=== PATIENT | female | born 1970 | race Caucasian/White ===

== ENCOUNTER 2021-01-21 13:15 | Emergency (ER) | payer OTHER, SELFPAY ==
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
[2021-01-21] MEDS ORDERED: IBUPROFEN 200 MG TAB PO ONE (16:18)
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
[2021-01-22 10:16] VITALS: BP 172/102; TEMP 98.1; O2SAT 100
== END 2021-01-21 17:09 | disposition home or self-care (01) ==
LOC: ER 13:15
DX: S16.1XXA Strain of muscle, fascia and tendon at neck level, initial encounter (principal); V59.40XA Driver of pick-up truck or van injured in collision with unspecified motor vehicles in traffic accident, initial encounter; F17.210 Nicotine dependence, cigarettes, uncomplicated; Z85.41 Personal history of malignant neoplasm of cervix uteri; Z85.44 Personal history of malignant neoplasm of other female genital organs
CPT/HCPCS: 70450; 72125; 99284

== ENCOUNTER 2021-02-08 11:55 | Emergency (ER) | payer OTHER, SELFPAY ==
[2021-02-08] MEDS ORDERED: HYDROCODONE/APAP 5/325 MG TAB ONE (13:26)
[2021-02-08] MEDS ORDERED: CYCLOBENZAPRINE 10 MG TAB ONE (13:26)
--- NOTE | 2021-02-08 14:55 | RAD REPORT ---
EXAM DESCRIPTION: RAD - Lumbar Spine 3 Views - 02/08/2021 2:03 pm CLINICAL HISTORY: PAIN COMPARISON: <Comparisons> FINDINGS: A three-view lumbar spine examination was performed. Lumbar bodies are normal in height. Minimal scoliotic curvature present. No compression fractures see n. No lytic, sclerotic or expansile bony destructive process. L2-3, L3-4 and L4-5 levels show disc sp ned narrowing. Degenerative gas is present in L2-3 disc. No pars defects identified. Mild to moderate facet joint degenerative change present. Nonaneurysmal aortoiliac calcifications are present. IMPRESSION: Multilevel vertebral body endplate, disc and facet degenerative changes are present. No fracture or acute lumbar finding.
--- NOTE | 2021-02-08 14:56 | RAD REPORT ---
EXAM DESCRIPTION: RAD - Spine Thoracic W/Swimmers - 02/08/2021 2:13 pm CLINICAL HISTORY: PAIN COMPARISON: No comparisonsNo comparisons FINDINGS: AP & lateral views of the thoracic spine were obtained. Thoracic bodies are normal in height and alignment. There are no acute or destructive bony processes seen. No significant disc space narrowing seen. Mild endplate spurring changes are present in the mid thoracic spine. No paraspinal masses are identified. IMPRESSION: Mild thoracic spine degenerative change. No acute finding.
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
[2021-02-08 15:30] VITALS: TEMP 97.5
[2021-02-08 15:33] VITALS: BP 137/79; O2SAT 98
== END 2021-02-08 15:18 | disposition home or self-care (01) ==
LOC: ER 11:55
DX: M54.9 Dorsalgia, unspecified (principal); F17.210 Nicotine dependence, cigarettes, uncomplicated; V49.49XD Driver injured in collision with other motor vehicles in traffic accident, subsequent encounter
CPT/HCPCS: 72072; 72100; 99283

== ENCOUNTER 2021-04-21 02:30 | Inpatient (IN) | payer OTHER, SELFPAY ==
--- OUTSIDE RECORDS SUMMARY | 2021-04-21 02:34 | XMS REPORT | Continuity of Care Document ---
:1970 Author Organization [facility] t Address [address] [place] [address] Care Team Providers Name Role Phone SYSTEM, NOT IN Attending Clinician Unavailable Abdi HOBBS MSN Attending Clinician Unavailable Rosamaria CHATMAN Attending Clinician Unavailable Rosamaria Chatman MD Attending Clinician Shaina VALDOVINOS Attending Clinician Problems Condition Condition Condition Status Onset Resolution Last Treating Co mments Source Name Details Category Date Date Treatment Clinician Date Fever Fever Disease Active greater greater 05-18 Anderso than 100.4 than 100.4 00:00: n Fahrenheit Fahrenheit 00 Vulval Vulval Disease Active 2018-0 pain pain 05-18 Anderso 00:00: n 00 Hypokalemi Hypokalemi Disease Active 2019-0 M D a a 05-18 Anderso 00:00: n 00 Hypophosph Hypophosph Disease Active 2019-0 M D atemia atemia 05-18 Anderso 00:00: n 00 Allergies, Adverse Reactions, Alerts This patient has no known allergies or adverse reactions. Social History Social Habit Start Date Stop Date Quantity Comments Source History [facility] MD Nunez Alcohol Std Drinks History [facility] MD Nunez Alcohol Binge Exposure to Not sure MD Nunez SARS-CoV-2 (event) History of tobacco Cigarette Smoker MD Nunez use Alcohol intake 2019-05-18 2019-05-18 Lifetime MD Mark chao 00:00:00 00:00:00 non-drinker (finding) History [facility] 2019-05-18 2019-05-18 1 MD Nunez Alcohol Frequency 00:00:00 00:00:00 Cigarettes smoked 2019-05-18 2019-05-18 MD Yoni stephenson current (pack per 00:00:00 00:00:00 day) - Reported Tobacco use and 2019-05-18 2019-05-18 Never used MD Hernandez on exposure 00:00:00 00:00:00 Sex [birth year] At [birth year] MD Hernandez on 00:00:00 00:00:00 Smoking Status Start Date Stop Date Source Current every day smoker 2019-05-18 00:00:00 MD Nunez Medications Ordered Filled Start Stop Current Ordering Indication Dosage Frequency Signature Comments Components Source Medication Medication Date Date Medication? Clinician (SIG) Name Name naproxen Yes 2{capsu Take 2 MD sodium 5-14 le} capsules Anderso (ALEVE) 220 21:31: by mouth n mg cap 26 every 6 (six) hours as needed (PAIN). Vital Signs Vital Name Observation Time Observation Value Comments Source WEIGHT 2021-04-03 14:19:00 41.8 kg WEIGHT 2021-04-03 14:19:00 41.8 kg Systolic blood pressure 2021-04-03 21:42:30 136 mm[Hg] MD Nunez Diastolic blood pressure 2021-04-03 21:42:30 86 mm[Hg] MD Nunez Heart rate 2021-04-03 21:42:30 71 /min MD Benji tobin Body temperature 2021-04-03 21:42:30 36.72 Marija MD Verona baltazar Respiratory rate 2021-04-03 21:42:30 16 /min MD Verona baltazar Oxygen saturation in 2021-04-03 21:42:30 95 /min MD Nunez Arterial blood by Pulse oximetry Body weight 2021-04-03 19:19:00 41.8 kg MD Benji tobin BMI 2021-04-03 19:19:00 16.85 kg/m2 MD Benji tobin Procedures Procedure Date / Time Performed Performing Clinician [facility] miranda CT ABDOMEN PELVIS W CONTRAST 2021-04-03 22:09:23 Vaishali Diehl MD COMPLETE BLOOD COUNT W/ 2021-04-03 20:37:00 Vaishali Diehl MD DIFFERENTIAL COMPREHENSIVE METABOLIC PANEL 2021-04-03 20:37:00 Vaishali Diehl MD MAGNESIUM LEVEL 2021-04-03 20:37:00 Vaishali Diehl MD PHOSPHORUS LEVEL 2021-04-03 20:37:00 Vaishali Diehl MD Results CBC 2021-04-03 20:37:00 Vaishali Diehl MD MANUAL DIFFERENTIAL 2021-04-03 20:37:00 Vaishali Diehl MD [facility] GLUCOSE LEVEL 2021-04-03 20:37:00 Vaishali Diehl MD BLOOD UREA NITROGEN 2021-04-03 20:37:00 Vaishali Diehl MD [facility] ELECTROLYTE PANEL 2021-04-03 20:37:00 Vaishali Diehl MD n SERUM CREATININE 2021-04-03 20:37:00 Vaishali Diehl MD .GLOMERULAR FILTRATION RATE 2021-04-03 20:37:00 Vaishali Diehl MD CALCIUM LEVEL TOTAL 2021-04-03 20:37:00 Vaishali Diehl MD [facility] ALBUMIN LEVEL 2021-04-03 20:37:00 Vaishali Diehl MD ALKALINE PHOSPHATASE 2021-04-03 20:37:00 Vaishali Diehl MD [facility] ALANINE AMINOTRANSFERASE 2021-04-03 20:37:00 Vaishali Diehl MD ASPARTATE AMINOTRANSFERASE 2021-04-03 20:37:00 Vaishali Diehl TOTAL PROTEIN 2021-04-03 20:37:00 Vaishali Diehl MD FRACTIONATED BILIRUBIN 2021-04-03 20:37:00 Vaishali Dihel MD Encounters Start End Encounter Admission Attending Care Care Encounter Source Date/Time Date/Time Type Type Clinicians Facility Department ID 2021-04-14 Outpatient SYSTEM, ARIADNA ROSENTHAL [id number] 13:40:41 MEGAN chao 2021-04-03 2021-04-03 Emergency UR COMPA, [facility] Emergency [id number] 16:10:00 18:03:00 LUIS E chao Results Test Description Test Time Test Comments Results Result [facility] e Comments CT Abdomen Pelvis 2021-04-03 Soft tissue MD Lissette kuhn with Contrast 22:40:13 thickening in the vulva, representing treated tumor site and/or edema, to be correlated with physical exam for cellulitis or other infectious process. Nonspecific pockets of air in the perineum, vulva, and vaginal introitus, unchanged since 05/18/2019. No fluid collections. Interface, Radiology Results In - 04/03/2021 5:42 PM CDT FULL RESULT:Examination: CT ABDOMEN PELVIS W CONTRAST, 04/03/2021 5:09 PMClinical History: Cervical cancerIndication: pelvic painComparison: 05/18/2019 CT abdomen and pelvisTechnique: CT of the abdomen and pelvis was performed with intravenous contrast. Findings:Bibasilar scattered linear atelectasis. No pleural effusion.No suspicious liver lesion or intrahepatic biliary ductal dilation. Gallbladder is present.Spleen, pancreas, adrenal glands, kidneys are within normal limits.No evidence of bowel obstruction. Fluid-filled loops of small bowel are seen. No ascites.No enlarged nodes are in the abdomen and pelvis.Uterus is absent. There is no adnexal mass.Soft tissue thickening in the vulva representing site of radiated/treated tumor is noted, with subcutaneous edema. No fluid collections. Pockets of air are within the perineum, vulva, and vaginal introitus which were present 05/18/2019.Bladder is moderately distended without wall thickening.Moderate atheromatous vascular calcifications are seen.Osseous: No destructive osseous lesion. Mild degenerative changes.IMPRESSION: Soft tissue thickening in the vulva, representing treated tumor site and/or edema, to be correlated with physical exam for cellulitis or other infectious process. Nonspecific pockets of air in the perineum, vulva, and vaginal introitus, unchanged since 05/18/2019. No fluid collections. Fractionated Bilirubin 2021-04-03 21:29:48 Test Item Value Reference Range Interpretation Comme nts Bili Total (test code = <0.3 See_Comment Dire ct and indirect bilirubin will not 5096) be reported whe n Total bilirubin result is <0.3 mg/dLIndocyanine Green (ICG) may cause falsely elevated bilirubin resul ts. Total and direct bilirubin must not be measured from samples contain ing indocyanine green. False elevation of total bilirubin can be seen in kilo ents with IgG concentrations above 28 g/L. [Automated mess age] The system which generated this result transmitted reference range : <=1.2 mg/dL. The reference range was not used to interpret this result as normal/abnormal . MD NunezGlomerular Filtration [id number] 21:29:47 Test Item Value Reference Range Interpretation Comments eGFR-AA (test code 119 See_Comment Normal eG FR: >= 60 = 8062) mL/min/1.73 m2N ote: The eGFR is calculated u sing the CKD-EPI equatio n. The eGFR declines with a ge. eGFR <60 mL/min/1.73 m2 is considered as "decreased". This equation should only be used for patients 18 and older. According to th e National Kidney [employer] on's Kidney Disease Outcome Quality Initiative (KDO QI) classification and 2012 Kidney Disease Improving Global Outcomes (KDIGO) Clinical Practi ce Guideline, the stage of CK D should be categorized bas ed on estimated GFR. Stage Description GFR mL/min/1.73 m21 Normal or high GFR >=902 Mildly decrease d GFR 60-893a M ildly to moderately decr eased GFR 45-593b Moderat jose david to severely decrea sed GFR 30-444 Severely decreased GFR 15-295 Kid michelle failure <15 [[employer] message] The system [employer] generated this result tra nsmitted reference range : >=60 mL/min/1.73 sq. m. The reference range was not used to interpret th is result as normal/abnormal . eGFR-PAULETTE (test code 103 See_Comment Normal e GFR: >= 60 = 8063) mL/min/1.73 m2N ote: The eGFR is calculated u sing the CKD-EPI equatio n. The eGFR declines with a ge. eGFR <60 mL/min/1.73 m2 is considered as "decreased". This equation should only be used for patients 18 and older. According to th e National Kidney Foundati on's Kidney Disease Outcome Quality Initiative (KDO QI) classification and 2012 Kidney Disease Improving Global Outcomes (KDIGO) Clinical Practi ce Guideline, the stage of CK D should be categorized bas ed on estimated GFR. Stage Description GFR mL/min/1.73 m21 Normal or high GFR >=902 Mildly decrease d GFR 60-893a M ildly to moderately decr eased GFR 45-593b Moderat jose david to severely decrea sed GFR 30-444 Severely decreased GFR 15-295 Kid michelle failure <15 [Automa yola message] The system [employer] generated this result tra nsmitted reference range : >=60 mL/min/1.73 sq. m. The reference range was not used to interpret th is result as normal/abnormal . MD NunezTotal [id number] 21:29:46 Test Item Value Reference Range Interpretation Comments Total Protein (test code = 7649) 7.2 g/dL 6.4-8.3 MD NunezMagnesium [id number] 21:29:45 Test Item Value Reference Range Interpretation Comments Magnesium (test code = 6359) 2.0 mg/dL 1.6-2.6 MD NunezAlkaline [id number] 21:29:44 Test Item Value Reference Range Interpretation Comments Alk Phos (test code = 4768) 73 U/L 35-104 MD NunezKnpgbgynXNK8912-31-03 21:29:43 Test Item Value Reference Range Interpretation Comments ALT (test code = 11 U/L See_Comment [Automated message] The 8327) system which ge nerated this result transmit yola reference range : <=33. The reference range was not used to interpr et this result as pete l/abnormal. MD NunezPhosphorus [id number] 21:29:42 Test Item Value Reference Range Interpretation Comments Phosphorus (test code = 6817) 3.6 mg/dL 2.5-4.5 MD Nunez.Serum Rbdkvacaxl6022-28-26 21:29:41 Test Item Value Reference Range Interpretation Comments Creatinine (test code = 5399) 0.63 mg/dL 0.51-0.95 MD NunezCalcium [id number] 21:29:40 Test Item Value Reference Range Interpretation Comments Calcium Lvl (test code = 5258) 9.2 mg/dL 8.4-10.2 MD NunezPweuigjyELH6189-36-08 21:29:39 Test Item Value Reference Range Interpretation Comments BUN (test code = 5055) 12 mg/dL 6-23 MD NunezAlbumin [id number] 21:29:38 Test Item Value Reference Range Interpretation Comments Albumin Lvl (test code 4.2 See_Comment [Aut omated message] The = 8204) system which ge nerated this result tra nsmitted reference range : 3.5 - 5.2 gm/dL. The refe rence range was not used to interpret this result as normal/abnormal . MD NunezAspartate Cflibqydxvxmizym6041-90-10 21:29:37 Test Item Value Reference Range Interpretation Comments AST (test code = 17 U/L See_Comment [Automated message] The 4731) system which ge nerated this result transmit yola reference range : <=32. The reference range was not used to interpr et this result as pete l/abnormal. MD uNnezElectrolyte [id number] 21:29:36 Test Item Value Reference Range Interpretation Comments Sodium Lvl (test code = 142 See_Comment [Au tomated message] 0896) The system [employer] generated this result transmitted ref erence range: 136 - 14 5 mEq/L. The refe rence range was not u sed to interpret this result as normal/abnor mal. Potassium Lvl (test code 4.2 See_Comment [A utomated message] = 2212) The system [employer] generated this result transmitted ref erence range: 3.5 - 5. 1 mEq/L. The refe rence range was not u sed to interpret this result as normal/abnor mal. Chloride (test code = 103 See_Comment [Auto mated message] 0673) The system [employer] generated this result transmitted ref erence range: 98 - 107 mEq/L. The refe rence range was not u sed to interpret this result as normal/abnor mal. CO2 (test code = 5227) 31 See_Comment H [Aut omated message] The system [employer] generated this result transmitted ref erence range: 22 - 29 mEq/L. The reference r felipa was not used to interpret this result as normal/abnor mal. Anion Gap (test code = 8 See_Comment [Aut omated message] 7891) The system [employer] generated this result transmitted ref erence range: 4 - 14 m Eq/L. The reference r felipa was not used to interpret this result as normal/abnor mal. Lab Interpretation (test Abnormal code = 99048-7) MD NunezGlucose [id number] 21:29:35 Test Item Value Reference Range Interpretation Comments Glucose Level (test 76 mg/dL 70-99 Effectiv e 06/16/16, the code = 5699) glucose referen ce intervals have been updated based o n [place] [employer] dionicio delines (Standards of edical Care in Diabete s 2016. Diabetes Care 2 016; 39: S13-S22).Fastin g blood glucose:Normal: 70 99 mg/dLImpaire d fasting glucose (increa sed risk for diabetes or pre-diabetes): 100 125 mg/dLDiabet es mellitus: >/=1 26 mg/dL Random blood glucose:Normal: 70 199 mg/dLNote: Random glucose >100 mg /dL is associated with increased risk for diabetes MD NunezJzkbhktqIjwtqtlztyoi6872-87-60 21:05:08 Test Item Value Reference Range Interpretation Comments Neutrophil % (test code = 53.3 % 42.0-66.0 98005-3) Lymphocyte % (test code = 35.0 % 24.0-44.0 737-7) Monocyte % (test code = 10.2 % 2.0-7.0 H 744-3) Eosinophil % (test code = 0.7 % 1.0-4.0 L 713-8) Basophil % (test code = 0.3 % 0.0-1.0 707-0) IGRE % (test code = 0.5 % 0.0-0.4 H IGRE % c ount 66195-8) includes Metamyelocytes, Myelocytes, and Promyelocytes. Neutrophil Abs (test code 4.72 K/uL 1.70-7.30 = 753-4) Lymphocyte Abs (test code 3.10 K/uL 1.00-4.80 = 732-8) Monocyte Abs (test code = 0.90 K/uL 0.08-0.70 H 743-5) Eosinophil Abs (test code 0.06 K/uL 0.04-0.40 = 712-0) Basophil Abs (test code = 0.03 K/uL 0.00-0.10 705-4) IG Abs (test code = 0.04 K/uL 0.00-0.04 60558-6) Lab Interpretation (test Abnormal code = 17398-9) MD Nunez.[id number] 21:05:06 Test Item Value Reference Range Interpretation Comments WBC (test code = 8.9 K/uL 4.0-11.0 6690-2) RBC (test code = 789-8) 4.06 See_Comment [Au tomated message] The system [employer] generated this result transmitted ref erence range: 4.00 - 5 .50 M/uL. The refer ence range was not u sed to interpret this result as normal/abnor mal. Hgb (test code = 718-7) 13.4 See_Comment [Au tomated message] The system [employer] generated this result transmitted ref erence range: 12.0 - 1 6.0 gm/dL. The refe rence range was not u sed to interpret this result as normal/abnor mal. Hct (test code = 39.9 % 37.0-47.0 4544-3) MPV (test code = 787-2) 8.9 fL 4.0-10.4 MCH (test code = 785-6) 33.0 pg 27.0-31.0 H MCHC (test code = 33.6 See_Comment [Automate d message] 786-4) The system [employer] generated this result transmitted ref erence range: 31.0 - 3 6.0 gm/dL. The refe rence range was not u sed to interpret this result as normal/abnor mal. RDW-SD (test code = 50.0 fL 35.1-46.3 H 68864-8) RDW-CV (test code = 13.7 % 12.0-15.5 788-0) Platelet count (test 281 K/uL 140-440 code = 777-3) INRBC (test code = 0.0 % See_Comment The INRBC (instrument 5974) NRBC) value ref lects the enumeration of nucleated red b lood cells contained in a 200uL sampleof whole blood analyzed by the instrument. Thi s value maydiffer from the NRBC value repo rted in a manual differential,wh ich is based on a 100 cell differential. [Automated mess age] The system [employer] generated this result transmitted ref erence range: <=0.0. T he reference range was not used to int erpret this result as normal/abnormal . Lab Interpretation Abnormal (test code = 45804-9) MD Nunez
[2021-04-21 03:10] LABS: Absolute Lymphocytes (CBC) 5.3 K/uL (0.7-4.9); Basophils % 0.4 % (0-1.3); Hematocrit 47.5 % (36.0-45.0); Lymphocytes % 38.5 % (15.3-44.8); MPV 7.6 fL (7.6-11.3)
[2021-04-21 03:13] LABS: Protime INR 1.05
[2021-04-21] MEDS ORDERED: LORazepam 2 MG/ML VIAL ONE (03:16)
[2021-04-21 03:20] LABS: ALT/SGPT 24 U/L (12-78); AST/SGOT 25 U/L (15-37); Albumin 4.7 g/dL (3.4-5.0); Alkaline Phosphatase 94 U/L (45-117); BUN Blood Urea Nitrogen 13 mg/dL (7-18); Bicarbonate 28 mmol/L (21-32); Bilirubin Direct < 0.1 mg/dL (0-0.2); Bilirubin Total 0.6 mg/dL (0.2-1.0); CKMB Creatine Kinase MB 3.3 ng/mL (0.3-3.6); Creatine Phosphokinase 142 U/L (26-192); Glucose Level 139 mg/dL (74-106); Lipase 519 U/L (73-393); Magnesium 2.1 mg/dL (1.8-2.4); NT PRO-BNP 85 pg/mL (<125); Potassium 3.5 mmol/L (3.5-5.1); Protein, Total 9.4 g/dL (6.4-8.2); Sodium Level 140 mmol/L (136-145); Troponin (Emerg Dept Use Only) < 0.02 ng/mL (0.0-0.045)
--- NOTE | 2021-04-21 04:37 | ER ---
Nurse's Notes [facility] Name: Abbey Alves Age: 50 yrs Sex: Female : 1970 Arrival Date: 04/21/2021 Time: 02:31 Bed 6 Private MD: Diagnosis: Chronic obstructive pulmonary disease with (acute) exacerbation;Hypoxemia;Acute and chronic respiratory failure Presentation: 04/21 02:31 Chief complaint: EMS states: they were toned out for SOB on arrival pt sats 89%. bb Coronavirus screen: shortness of breath, Client presents with at least one sign or symptom that may indicate coronavirus-19. Standard/surgical mask placed on the client. Ebola Screen: No symptoms or risks identified at this time. Initial Sepsis Screen: Does the patient meet any 2 criteria? RR > 20 per min. HR > 90 bpm. Yes Does the patient have a suspected source of infection? Yes: Productive cough/pneumonia If YES to both, name of provider notified: Bradford Lino MD. Risk Assessment: Do you want to hurt yourself or someone else? Patient reports no desire to harm self or others. Onset of symptoms is unknown. 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 - Social history:: Smoking status: Patient reports the use of cigarette tobacco products, smokes one-half pack cigarettes per day. Screenin:45 Abuse screen: Denies threats or abuse. Nutritional screening: No deficits noted. jb4 Tuberculosis screening: No symptoms or risk factors identified. Fall Risk None identified. Assessment: 02:45 General: Appears distressed, uncomfortable, ill, Behavior is anxious, crying. Pain: jb4 Denies pain. Neuro: Level of Consciousness is awake, alert, obeys commands, Oriented to person, place, time, situation. Cardiovascular: Patient's skin is warm and dry. Respiratory: Airway is patent Respiratory effort is labored, pursed lip, weak, using tripod position, Respiratory pattern is symmetrical, hyperventilation Breath sounds are diminished bilaterally. Breath sounds with wheezes bilaterally. GI: No signs and/or symptoms were reported involving the gastrointestinal system. : No signs and/or symptoms were reported regarding the genitourinary system. EENT: No signs and/or symptoms were reported regarding the EENT system. Derm: Skin is intact, Skin is diaphoretic, Skin is pale, Skin temperature is warm. Musculoskeletal: Circulation, motion, and sensation intact. Range of motion: intact in all extremities. 03:21 Reassessment: Pt unable to tolerate EKG. Attempted twice. Provider notified. jb4 03:37 Reassessment: Pt has calmed down an is now on Bi-Pap 30% O2 rate of 6 Ipap 4 Epap 4. Pt jb4 states " I feel like my breathing is returning to normal.". 04:16 Reassessment: Pt is awake and alert. Is resting calmly in bed. Respirations are jb4 relaxed, even, unlabored, and symmetrical with no s/s of distress noted. Pt is now able to tolerate sitting in bed, is no longer in the tripod position. Vital Signs: 02:31 BP 158 / 127; Pulse 92; Resp 28 S; Temp 97.5(O); Pulse Ox 99% on R/A; Weight 40.82 kg bb (R); Height 5 ft. 0 in. (152.40 cm) (R); Pain 0/10; 04:15 BP 149 / 104; Pulse 96; Resp 23; Pulse Ox 98% on BiPAP; jb4 05:00 BP 142 / 97; Pulse 75; Resp 20; Pulse Ox 95% on BiPAP; kg 06:00 BP 132 / 95; Pulse 88; Resp 20; Pulse Ox 97% on BiPAP; kg 07:00 BP 139 / 96; Pulse 88; Resp 20; Pulse Ox 97% on BiPAP; kg 08:00 BP 160 / 94; Pulse 89; Resp 20; Pulse Ox 98% on 2 lpm NC; kg 09:00 BP 151 / 99; Pulse 92; Resp 20; Pulse Ox 97% on 2 lpm NC; kg 10:00 BP 150 / 93; Pulse 92; Resp 20; Pulse Ox 92% on R/A; kg 02:31 Body Mass Index 17.58 (40.82 kg, 152.40 cm) bb ED Course: 02:30 Arm band placed on Patient placed in an exam room, on a stretcher, on selvage 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 02:31 Patient arrived in ED. mw2 02:34 Bradford Lino MD is Attending Physician. tw4 02:45 Triage completed. bb 02:45 Patient has correct armband on for positive identification. Bed in low position. Call jb4 light in reach. Side rails up X 1. administrative receptionist on. Pulse ox on. NIBP on. 02:45 Inserted saline lock: 20 gauge in right antecubital area, using aseptic technique. jb4 Blood collected. 02:45 Initial lab(s) drawn, by ia, sent to lab. First set of blood cultures drawn. jb4 02:59 Johnny Goodson, RN is Primary Nurse. jb4 03:00 Second set of blood cultures drawn by ia. jb4 04:09 CXR XRAY In Process Unspecified. EDCO 04:35 Frantz Figueredo is Hospitalizing Provider. tw4 04:50 No provider procedures requiring assistance completed. Patient admitted, IV remains in jb4 place. 07:29 Primary Nurse role handed off by Johnny Goodson RN kg 07:29 Keila Og is Primary Nurse. kg Administered Medications: 03:00 Drug: Ativan (LORazepam) 0.5 mg Route: IVP; Site: right antecubital; jb4 07:00 Follow up: Response: No adverse reaction; Marked relief of symptoms kg Outcome: 04:36 Decision to Hospitalize by Provider. tw4 04:50 Admitted to ER Hold. Please see [facility] for further documentation. jb4 04:50 Condition: stable 04:50 Discharge instructions given to patient, Instructed on the need for admit, Demonstrated understanding of instructions. 12:41 Patient left the ED. kg Signatures: Dispatcher [employer] Nicolasa Lin RN RN bb Johnny Goodson, ANJEL HOBBS jb rBadford Lino MD MD 4 Chiquis Garcia 2 Keila Og kg
--- NOTE | 2021-04-21 04:37 | EDPHYS ---
Physician Documentation [facility] Name: Abbey Alves Age: 50 yrs Sex: Female : 1970 Arrival Date: 04/21/2021 Time: 02:31 Bed 6 Private MD: ED Physician Bradford Lino HPI: 04/21 04:55 This 50 yrs old Female presents to ER via EMS with complaints of Shortness Of tw4 Breath. 04:55 The patient has shortness of breath at rest. Onset: The symptoms/episode began/occurred tw4 today. Duration: The symptoms are continuous, and are unchanged since they started. The patient's shortness of breath has no apparent modifying factors. The patient has not experienced similar symptoms in the past. 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 - Social history:: Smoking status: Patient reports the use of cigarette tobacco products, smokes one-half pack cigarettes per day. ROS: 04:55 Constitutional: Negative for fever, chills, and weight loss, Eyes: Negative for injury, tw4 pain, redness, and discharge, Cardiovascular: Negative for chest pain, palpitations, and edema, Abdomen/GI: Negative for abdominal pain, nausea, vomiting, diarrhea, and constipation, Back: Negative for injury and pain, MS/Extremity: Negative for injury and deformity, Skin: Negative for injury, rash, and discoloration, Neuro: Negative for headache, weakness, numbness, tingling, and seizure. 04:55 Respiratory: Positive for shortness of breath. Exam: 04:56 Constitutional: This is a well developed, well nourished patient who is awake, alert, tw4 and in no acute distress. Head/Face: Normocephalic, atraumatic. Chest/axilla: Normal chest wall appearance and motion. Nontender with no deformity. No lesions are appreciated. Cardiovascular: Regular rate and rhythm with a normal S1 and S2. No gallops, murmurs, or rubs. Normal PMI, no JVD. No pulse deficits. 04:56 Respiratory: severe repiratory distress is noted, Respirations: labored breathing, that is moderate, accessory muscle usage, that is moderate, Breath sounds: decreased breath sounds. Vital Signs: 02:31 BP 158 / 127; Pulse 92; Resp 28 S; Temp 97.5(O); Pulse Ox 99% on R/A; Weight 40.82 kg bb (R); Height 5 ft. 0 in. (152.40 cm) (R); Pain 0/10; 04:15 BP 149 / 104; Pulse 96; Resp 23; Pulse Ox 98% on BiPAP; jb4 05:00 BP 142 / 97; Pulse 75; Resp 20; Pulse Ox 95% on BiPAP; kg 06:00 BP 132 / 95; Pulse 88; Resp 20; Pulse Ox 97% on BiPAP; kg 07:00 BP 139 / 96; Pulse 88; Resp 20; Pulse Ox 97% on BiPAP; kg 08:00 BP 160 / 94; Pulse 89; Resp 20; Pulse Ox 98% on 2 lpm NC; kg 09:00 BP 151 / 99; Pulse 92; Resp 20; Pulse Ox 97% on 2 lpm NC; kg 10:00 BP 150 / 93; Pulse 92; Resp 20; Pulse Ox 92% on R/A; kg 02:31 Body Mass Index 17.58 (40.82 kg, 152.40 cm) bb MDM: 02:34 Patient medically screened. tw4 04:56 Differential diagnosis: Anxiety Reaction asthma, CHF exacerbation, Chronic Obstructive tw4 Pulmonary Disease Pneumothorax reactive airway disease, Sepsis Unstable Angina. Antibiotic administration: Not indicated. Data reviewed: vital signs, nurses notes. Data interpreted: Pulse oximetry: Interpretation: hypoxia. Plan: O2 by Mask applied. Counseling: I had a detailed discussion with the patient and/or guardian regarding: the historical points, exam findings, and any diagnostic results supporting the discharge/admit diagnosis, lab results, radiology results. Physician consultation: Frantz Figueredo regarding admission, to the telemetry unit. patient's condition, and will see patient in inpatient room. 04/21 02:47 Order name: Blood Culture Adult (2) 04/21 02:47 Order name: BMP 04/21 02:47 Order name: CBC with Diff 04/21 02:47 Order name: Ckmb 04/21 02:47 Order name: CPK 04/21 02:47 Order name: D-Dimer 04/21 02:47 Order name: Hepatic Function 04/21 02:47 Order name: Lipase 04/21 02:47 Order name: Magnesium 04/21 02:47 Order name: NT PRO-BNP 04/21 02:47 Order name: PT-INR 04/21 02:47 Order name: Ptt, Activated 04/21 02:47 Order name: Troponin (emerg Dept Use Only) 04/21 02:47 Order name: Lactate 04/21 02:47 Order name: EKG; Complete Time: 02:48 04/21 02:47 Order name: Cardiac monitoring; Complete Time: 02:52 04/21 02:47 Order name: IV Saline Lock; Complete Time: 02:52 04/21 03:50 Order name: CXR XRAY 4 04/21 04:17 Order name: CORONAVIRUS [facility] 04/21 04:40 Order name: CONS Physician Consult; Complete Time: 09:14 [facility] 04/21 05:34 Order name: SARS-COV-2 RT PCR [facility] 04/21 05:47 Order name: Lactate Sepsis 2 HR Follow-up [facility] 04/21 09:04 Order name: Procalcitonin [facility] 04/21 09:54 Order name: ABG Arterial Blood Gas [facility] 04/21 10:38 Order name: Sputum Culture [facility] 04/21 12:32 Order name: Urine Dipstick-Ancillary [facility] 04/21 02:47 Order name: Labs collected and sent; Complete Time: 02:52 04/21 02:47 Order name: O2 Per Protocol; Complete Time: 02:52 04/21 02:47 Order name: O2 Sat Monitoring; Complete Time: 02:52 Administered Medications: 03:00 Drug: Ativan (LORazepam) 0.5 mg Route: IVP; Site: right antecubital; jb4 07:00 Follow up: Response: No adverse reaction; Marked relief of symptoms kg Disposition: 04/21/21 04:36 Hospitalization ordered by Frantz Figueredo for Inpatient Admission. Preliminary diagnosis are Chronic obstructive pulmonary disease with (acute) exacerbation, Hypoxemia, Acute and chronic respiratory failure. - Bed requested for [facility] ER HOLD. - Status is Inpatient Admission. kg - Condition is Stable. - Problem is new. - Symptoms have improved. Signatures: Dispatcher [employer] EDMS Nicolasa Hillman RN RN Citlaly Oneil RN RN Johnny Goodson RN RN jb4 Bradford Lino MD MD tw4 Keila Og Corrections: (The following items were deleted from the chart) 03:36 02:47 EKG - Nurse/Tech ordered. jb4 05:11 04:36 Hospitalization Ordered by Frantz Figueredo for Inpatient Admission. Preliminary cg diagnosis is Chronic obstructive pulmonary disease with (acute) exacerbation; Hypoxemia; Acute and chronic respiratory failure. Bed requested for Telemetry/MedSurg (Inpatient). Status is Inpatient Admission. Condition is Stable. Problem is new. Symptoms have improved. tw4 12:41 05:11 04/21/2021 04:36 Hospitalization Ordered by Frantz Figueredo for Inpatient kg Admission. Preliminary diagnosis is Chronic obstructive pulmonary disease with (acute) exacerbation; Hypoxemia; Acute and chronic respiratory failure. Bed requested for [facility] ER HOLD. Status is Inpatient Admission. Condition is Stable. Problem is new. Symptoms have improved. cg
--- NOTE | 2021-04-21 04:49 | P.HP ---
Certification for Inpatient Patient admitted to: Inpatient With expected LOS: >2 Midnights Patient will require the following post-hospital care: None Practitioner: I am a practitioner with admitting privileges, knowledge of patient current condition, hospital course, and medical plan of care. Services: Services provided to patient in accordance with Admission requirements found in Title 42 Section 412.3 of the Code of Federal Regulations Patient History Date of Service: 04/21/21 Reason for admission: copd exacerbation History of Present Illness: Ms. Alves is a 50 yo F with COPD and h/o cervical + vulvar cancer here today with one week of worsening SOB. She says at night, she wakes up with sudden SOB that lasts for 3 hours. She reports night sweats, chills, dry cough, wheezing. Denies nausea, vomiting, hemoptysis. She feels worse with standing and better with tripoding. She says she has episodes like this at the same time every year. Two weeks ago, she was exposed to someone with walking pneumonia and bronchitis. She smokes 8 cigarettes daily. WBC 13.7. Glu 139. Lactate 2.4. Allergies No Known Allergies Allergy (Verified 04/21/21 04:16) - Past Medical/Surgical History Has patient received pneumonia vaccine in the past: No Diabetic: No -: copd -: vulva, cervical ca -: hysterectomy -: c section Psychosocial/ Personal History: - Social History Smoking Status: Current every day smoker Alcohol use: No CD- Drugs: No Caffeine use: Yes Place of Residence: Home Review of Systems General: Chills, Sweats, As per HPI Eyes: Unremarkable ENT: Unremarkable Respiratory: Cough, Shortness of Breath, SOB with Excertion, Sputum, Wheezing, As per HPI Cardiovascular: Unremarkable Gastrointestinal: Unremarkable Genitourinary: Unremarkable Musculoskeletal: Unremarkable Integumentary: Unremarkable Neurological: Unremarkable Lymphatics: Unremarkable Physical Examination - Physical Exam General: Alert, Oriented x3, Cooperative, Cachectic HEENT: Atraumatic, Normocephalic, PERRLA, Mucous membr. moist/pink, EOMI, Sclerae nonicteric Neck: Supple, 2+ carotid pulse no bruit, JVD not distended, No Thyromegaly, No LAD Respiratory: Diminished, Expiratory wheezes Cardiovascular: No edema, Normal pulses, Regular rate/rhythm, Normal S1 S2, No gallops, No rubs, No murmurs Capillary refill: <2 Seconds Gastrointestinal: Normal bowel sounds, Soft and benign, Non-distended, No ascites, No tenderness, No masses, No rebound, No guarding Musculoskeletal: No clubbing, No swelling, No contractures, No erythema, No tenderness, No warmth Integumentary: No rashes, No breakdown, No significant lesion, No tenderness/swelling, No erythema, No warmth, No cyanosis Neurological: Normal speech, Normal strength at 5/5 x4 extr, Normal tone, Sensation intact, Cranial nerves 3-12 intact, Normal affect Lymphatics: No axilla or inguinal lymphadenopathy - Studies Laboratory Data (last 24 hrs) 04/21/21 02:45: PT 12.1, INR 1.05, APTT 32.7 04/21/21 02:45: WBC 13.70 H, Hgb 16.3 H, Hct 47.5 H, Plt Count 311 04/21/21 02:45: Sodium 140, Potassium 3.5, BUN 13, Creatinine 0.62, Glucose 139 H, Magnesium 2.1, Total Bilirubin 0.6, AST 25, ALT 24, Alkaline Phosphatase 94, Lipase 519 H Assessment and Plan - Problems (Diagnosis) (1) COPD exacerbation Current Visit: Yes Status: Acute (2) Tobacco use Current Visit: Yes Status: Chronic - Plan pulm consulted, respiratory consulted continue BIPAP continue IV steroids, IVF, IV antibiotics sputum and blood cultures pending breathing treatments q6hr dietitian consulted ABG pending Discharge Plan: Home Plan to discharge in: 48 Hours - Advance Directives Does patient have a Living Will: No Does patient have a Durable POA for Healthcare: No - Code Status/Comfort Care Code Status Assessed: Yes (full code) Critical Care: No Time Spent Managing Pts Care (In Minutes): 70
[2021-04-21 06:33] VITALS: BMI 17.6
[2021-04-21] MEDS ORDERED: ALBUTEROL 2.5 MG/3 ML NEB SOL NEB PRN (07:18)
[2021-04-21] MEDS ORDERED: NA CHLORIDE 0.9% 1,000 ML IV SCH (07:18)
[2021-04-21] MEDS ORDERED: ACETAMINOPHEN 500 MG TAB PO PRN (07:18)
[2021-04-21] MEDS ORDERED: ONDANSETRON 4 MG/2 ML VIAL IV PRN (07:18)
[2021-04-21] MEDS ORDERED: Levofloxacin 750mg IV 750 MG/150 ML BAG IV SCH (07:30)
--- NOTE | 2021-04-21 07:44 | RAD REPORT ---
EXAM DESCRIPTION: [place] Single View04/21/2021 4:09 am CLINICAL HISTORY: Shortness of breath COMPARISON: none FINDINGS: The lungs are markedly hyperaerated. The lungs appear clear of acute infiltrate. The heart is normal size IMPRESSION: COPD without visualization of an abnormality
[2021-04-21] MEDS ORDERED: IPRATROPIUM BROM 0.5MG/2.5ML NEB SCH (08:00)
[2021-04-21] MEDS ORDERED: IPRATROPIUM BROM 0.5MG/2.5ML ONE (08:30)
[2021-04-21] MEDS ORDERED: ENOXAPARIN 40 MG/0.4 ML SQ SCH (09:00)
[2021-04-21] MEDS ORDERED: METHYLPREDNISOLONE 125 MG INJ IV SCH (09:00)
[2021-04-21 09:53] LABS: Arterial Blood Carboxyhemoglob 1.9 % (0-1.5); Blood Gas Oxyhemoglobin 91.3 % (94-97); Blood O2 Saturation 93.9 % (92-98.5)
[2021-04-21] MEDS ORDERED: METHYLPREDNISOLONE 40 MG INJ ONE (10:33)
[2021-04-21 11:02] VITALS: TEMP 98.2
--- NOTE | 2021-04-21 11:49 | P.DS ---
Admission Date: 04/21/21 Discharge Date: 04/21/21 Disposition: ROUTINE DISCHARGE Discharge Condition: FAIR Reason for Admission: copd exacerbation - Problems (1) COPD exacerbation Status: Acute (2) Tobacco use Status: Chronic Brief History of Present Illness: 50-year-old woman with a history of COPD and current smoker presented to the em ergency department with 1 week history of progressive shortness of breath, wheezing. Symptoms worse at night. Patient's symptoms became much worse and presented to the emergency department last night. She was requiring BiPAP for ventilation. She had mild leukocytosis. Chest x-ray showed no acute infiltrate. Patient hospitalized for further management. Hospital Course: Patient admitted to the medical floor and treated for COPD exacerbation with IV steroids, scheduled bronchodilators and oxygen therapy. Patient was seen in consultation by pulmonary-Dr. Dunn. BiPAP was weaned off. Patient later tolerated room air with good oxygen saturation. Her symptoms have significantly improved. Patient advised to quit smoking. She is deemed stable for discharge. Patient is discharged with an inhaler and short course oral prednisone therapy. Vital Signs/Physical Exam: Temp Pulse Resp BP Pulse Ox 98.2 F 89 20 139/96 H 98 04/21/21 08:00 04/21/21 08:00 04/21/21 08:00 04/21/21 08:00 04/21/21 08:00 General: Alert, In no apparent distress, Oriented x3 Neck: JVD not distended Respiratory: Clear to auscultation bilaterally, Normal air movement Cardiovascular: No edema, Regular rate/rhythm, Normal S1 S2 Gastrointestinal: Normal bowel sounds, Soft and benign, Non-distended Musculoskeletal: No swelling, No tenderness Integumentary: No rashes, No erythema Neurological: Normal strength at 5/5 x4 extr Laboratory Data at Discharge: WBC 13.70 K/uL (4.3-10.9) H 04/21/21 02:45 Hgb 16.3 g/dL (12.0-15.0) H 04/21/21 02:45 Hct 47.5 % (36.0-45.0) H 04/21/21 02:45 Plt Count 311 K/uL (152-406) 04/21/21 02:45 PT 12.1 SECONDS (9.5-12.5) 04/21/21 02:45 INR 1.05 04/21/21 02:45 APTT 32.7 SECONDS (24.3-36.9) 04/21/21 02:45 Sodium 140 mmol/L (136-145) 04/21/21 02:45 Potassium 3.5 mmol/L (3.5-5.1) 04/21/21 02:45 BUN 13 mg/dL (7-18) 04/21/21 02:45 Creatinine 0.62 mg/dL (0.55-1.3) 04/21/21 02:45 Glucose 139 mg/dL (74-106) H 04/21/21 02:45 Magnesium 2.1 mg/dL (1.8-2.4) 04/21/21 02:45 Total Bilirubin 0.6 mg/dL (0.2-1.0) 04/21/21 02:45 AST 25 U/L (15-37) 04/21/21 02:45 ALT 24 U/L (12-78) 04/21/21 02:45 Alkaline Phosphatase 94 U/L (45-117) 04/21/21 02:45 Lipase 519 U/L (73-393) H 04/21/21 02:45 Home Medications: Mometasone/Formoterol [Dulera 100 Mcg/5 Mcg Inhaler] 2 puff IH BID #1 inhaler 04/21/21 predniSONE [Deltasone] 20 mg PO BID #10 tab 04/21/21 New Medications: Mometasone/Formoterol [Dulera 100 Mcg/5 Mcg Inhaler] 2 puff IH BID #1 inhaler predniSONE [Deltasone] 20 mg PO BID #10 tab Diet: AHA Activity: Ad krishna Followup: NONE,NONE [Primary Care Provider] - 1-2 Weeks Time spent managing pt's care (in minutes): 32
--- NOTE | 2021-04-21 11:49 | P.CNS ---
Date of Consult: 04/21/21 Reason for Consult: COPD exacerbation Chief Complaint: copd exacerbation History of Present Illness: Patient is 50 years of age active smoker history of presume COPD patient has no insurance is not take any inhaler has had progressive dyspnea recently usually she gets it intermittently during seasonal change in to the hospital with some respiratory failure she is doing much better on room air her sats a satisfactory Allergies No Known Allergies Allergy (Verified 04/21/21 04:16) Home Medications: Mometasone/Formoterol [Dulera 100 Mcg/5 Mcg Inhaler] 2 puff IH BID #1 inhaler 04/21/21 predniSONE [Deltasone] 20 mg PO BID #10 tab 04/21/21 - Past Medical/Surgical History Diabetic: No -: copd -: vulva, cervical ca -: hysterectomy -: c section Psychosocial/ Personal History: - Social History Smoking Status: Current every day smoker Alcohol use: No CD- Drugs: No Caffeine use: No Place of Residence: Home Review of Systems 10-point ROS is otherwise unremarkable Physical Examination Temp Pulse Resp BP Pulse Ox 98.2 F 89 20 139/96 H 98 04/21/21 08:00 04/21/21 08:00 04/21/21 08:00 04/21/21 08:00 04/21/21 08:00 General: Alert, In no apparent distress, Oriented x3 Respiratory: Diminished, Expiratory wheezes Cardiovascular: No edema, Regular rate/rhythm Gastrointestinal: Normal bowel sounds, Soft and benign Musculoskeletal: No clubbing, No swelling Laboratory Data (last 24 hrs) 04/21/21 02:45: PT 12.1, INR 1.05, APTT 32.7 04/21/21 02:45: WBC 13.70 H, Hgb 16.3 H, Hct 47.5 H, Plt Count 311 04/21/21 02:45: Sodium 140, Potassium 3.5, BUN 13, Creatinine 0.62, Glucose 139 H, Magnesium 2.1, Total Bilirubin 0.6, AST 25, ALT 24, Alkaline Phosphatase 94, Lipase 519 H - Problems (1) COPD exacerbation Current Visit: Yes Status: Acute Plan: Patient is 50 years of age admitted with COPD exacerbation chest x-ray shows hyperinflation patient can be discharged home on prednisone 10 b.i.d. in addition to Dulera I have encouraged patient to quit smoking to follow up with me in 2 weeks vital signs all stable chemistries reviewed history of vulvar cancer I have also encouraged her to have a coker virus vaccine
[2021-04-21 12:32] LABS: Urine Blood 2+ (Negative); Urine Glucose Negative (Negative); Urine Protein 2+ (Negative); Urine Specific Gravity 1.015 (1.005-1.030); Urine pH 6.5 (5.0-7.0)
[2021-04-21 12:38] LABS: Urine Appearance CLEAR (Clear); Urine Bilirubin NEGATIVE (Negative); Urine Blood 2+ (Negative); Urine Color YELLOW (Yellow); Urine Glucose NEGATIVE (Negative); Urine Protein 1+ (Negative); Urine Specific Gravity <=1.005 (1.005-1.030); Urine Urobilinogen 0.2 mg/dL (0.2-1.0); Urine pH 6.5 (5.0-7.0)
[2021-04-21 12:51] LABS: Urine Microscopic Reflex ORDER UMIC
[2021-04-21 13:05] VITALS: BP 150/93; O2SAT 92
[2021-04-21 13:08] LABS: Urine Bacteria <20 /HPF (<20)
[2021-04-21] MEDS ORDERED: DULERA 100/5 (MOMETASONE/FORMOTEROL) INHALER IH SCH (21:00)
--- NOTE | 2021-04-22 12:00 | EKG ---
Test Date: 2021-04-21 Test Time: 04:33:07 Resort Manager: CARLOS ALBERTO MEASUREMENT RESULTS: Intervals: Rate: 97 HI: 134 QRSD: 52 QT: 332 QTc: 421 [place]: P: 84 HI: 134 QRS: 84 T: 44 INTERPRETIVE STATEMENTS: Normal sinus rhythm Possible Anteroseptal infarct, age undetermined Abnormal ECG No previous ECG available for comparison Electronically Signed On 04-22-21 11:54:21 CDT by Miky Briseno
== END 2021-04-21 12:30 | disposition home or self-care (01) | DRG 189 ==
LOC: ER 02:30 → ERHOLD 04:39
PROVIDERS: ADMIT Internal Medicine; ATTEND Internal Medicine
PROC: 5A09357 Assistance with Respiratory Ventilation, Less than 24 Consecutive Hours, Continuous Positive Airway Pressure (ICD-10-PCS; principal; 2021-04-21)
DX: J96.21 Acute and chronic respiratory failure with hypoxia (principal); J44.1 Chronic obstructive pulmonary disease with (acute) exacerbation; R64 Cachexia; Z68.1 Body mass index [BMI] 19.9 or less, adult; D72.829 Elevated white blood cell count, unspecified; F17.210 Nicotine dependence, cigarettes, uncomplicated; Z85.41 Personal history of malignant neoplasm of cervix uteri; Z90.710 Acquired absence of both cervix and uterus; Z79.52 Long term (current) use of systemic steroids; Z79.899 Other long term (current) drug therapy; Z20.822 Contact with and (suspected) exposure to COVID-19
CPT/HCPCS: 36415; 71045; 80048; 80076; 81003; 81015; 82550; 82553; 82805; 83605; 83690; 83735; 83880; 84145; 84484; 85025; 85379; 85610; 85730; 87040; 87070; 87086; 87088; 87205; 93005; 94640; 94660; 96374; 99285; J2920; J7606; U0003

== ENCOUNTER 2023-03-28 15:00 | Observation (INO) | payer OTHER, SELFPAY ==
--- OUTSIDE RECORDS SUMMARY | 2023-03-28 15:41 | XMS REPORT | Clinical Summary ---
:1970 [facility] Address [address] [place] [address] Care Team Providers Name Role Phone Unavailable Primary Care Provider Unavailable Allergies No known active allergies Medications Medication Sig Dispensed Refills Start Date End Date Status naproxen sodium Take 2 capsules by 0 Active (ALEVE) 220 mg cap mouth every 6 (six) hours as needed (PAIN). Active Problems Problem Noted Date Fever greater than 100.4 Fahrenheit 05/18/2019 Vulval pain 05/18/2019 Hypokalemia 05/18/2019 Hypophosphatemia 05/18/2019 Medical History Medical History Date Comments Personal history of cervical cancer Primary vulval cancer Social History Tobacco Use Types Packs/Day Years Used Date Smoking Tobacco: Every Day Cigarettes 0.3 Smokeless Tobacco: Never Tobacco Cessation: Ready to Quit: Yes; C ounseling Given: Yes Alcohol Use Standard Drinks/Week Comments Never 0 (1 standard drink = 0.6 oz pure alcoho l) Alcohol Habits Answer Date Recorded How often do you have a drink containing alcohol? Never 05/18/2019 How many drinks containing alcohol do you have on a typical Not asked day when you are drinking? How often do you have six or more drinks on one occasion? No t asked Sex Assigned at Date Recorded Not on file Job Start Date Occupation Industry Not on file Not on file Not on file Obstetrics History Last Filed Vital Signs Not on file Plan of Treatment Health Maintenance Due Date Last Done Comments COVID-19 Vaccination (#1) 1970 Results Not on fileafter 03/28/2022
--- OUTSIDE RECORDS SUMMARY | 2023-03-28 15:41 | XMS REPORT | Continuity of Care Document ---
:1970 Author Organization [facility] t Address [address] [facility] [address] [place] [address] Care Team Providers Name Role Phone Chalo Kyra ORELLANA Primary Care Physician [phone] SYSTEM, PROVIDER NOT IN Attending Clinician Unavailable Alejandro Fontaine Attending Clinician Unavailable Alejanrdo Fontaine MD Attending Clinician [phone] Doctor Unassigned, Steward Attending Clinician Unavailable JANIS YOU Attending Clinician Unavailable Janis You MD Attending Clinician Jr Mathur LMSW Attending Clinician Unavailable BRANT FLOREZ Attending Clinician Unavailable Brant Florez APN Attending Clinician LUIS E CHATMAN Attending Clinician Unavailable Alejandro Fontaine Admitting Clinician Unavailable KNOW, DOES_NOT Admitting Clinician Unavailable Physician, No Primary or Family Admitting Clinician Unavaila BRANT Vargas Admitting Clinician Unavailable Payers Payer Name Policy Type Policy Number Effective Date Expiration Date S ource Problems Condition Condition Condition Status Onset Resolution Last Treating Co mments Source Name Details Category Date Date Treatment Clinician Date Fever Fever Disease Active Univers greater greater 6-28 ity of than 100.4 [place] 100.4 [place] Fahrenheit Fahrenheit 00 MD Mark chao [facility] Center Vulval Vulval Disease Active Univers pain pain 05-18 ity of 00:00: [place] MD Mark chao [facility] Hypokalemi Hypokalemi Disease Active U nivers a a - ity of 00:00: [place] 00 MD Mark chao [facility] Hypophosph Hypophosph Disease Active U nivers atemia atemia 05-18 ity of 00:00: [place] 00 MD Mark chao [facility] No known No known Disease Unive rs active active ity of problems problems [facility] Allergies, Adverse Reactions, Alerts Allergy Allergy Status Severity Reaction(s) Onset Inactive Treating Comm ents Source Name Type Date Date Clinician NO KNOWN Drug Active Univers ALLERGIE Class ity of S [facility] Social History Social Habit Start Date Stop Date Quantity Comments Source History [facility] University o f Alcohol Comment [facility] History of tobacco Cigarette Smoker University of use [place] MD Benji tobin [facility] History [facility] University o f Alcohol Binge [place] MD Lissette kuhn [facility] History [facility] University o f Alcohol Std Drinks [facility] Exposure to 2022-07-04 2022-07-14 Not sure [facility] SARS-CoV-2 (event) 00:00:00 22:50:00 [facility] Tobacco use and 2019-05-18 2019-05-18 Smokeless Universit y of exposure 00:00:00 00:00:00 tobacco non-user [facility] Cigarettes smoked 2019-05-18 2019-05-18 Univers ity of current (pack per 00:00:00 00:00:00 [facility] ) - Reported Cancer Ce nter Alcohol intake 2019-05-18 2019-05-18 Lifetime University of 00:00:00 00:00:00 non-drinker [place] MD Yoni stephenson (finding) [facility] History SDOH 2019-05-18 2019-05-18 1 University o f Alcohol Frequency 00:00:00 00:00:00 [facility] Sex Assigned At [birth year] Universit y of 00:00:00 00:00:00 [place] MD Leblanc [facility] Smoking Status Start Date Stop Date Source Tobacco smoking consumption [facility] Medical unknown Branch Smokes tobacco daily 2019-05-18 00:00:00 Univers ity [facility] Medications Ordered Filled Start Stop Current Ordering Indication Dosage Frequency Signature Comments Components Source Medication Medication Date Date Medication? Clinician (SIG) Name Name apixaban No 10mg 10 mg, Univer s (ELIQUIS) 07-15 Oral, ONCE ity of tablet 10 07:03: 07:07 NOW, 1 [place] mg 00 :00 dose, On Medical [facility] Branch 07/15/22 at 0215, JUANI
In dications: DVT/PE iopamidol 2021- No [id number] 65mL 65 mL, Univers (ISOVUE 07-15 Intravenou ity o f 370-500 mL) 07:00: 07:00 s, ONCE, 1 [place] injection 00 :00 dose, On Medica l 65 mL [facility] Branch 07/15/22 at 0200, Routine apixaban 5 0 Yes [id number] 10mg Take 2 Unive rs mg (74 8-25 tablets by ity of tabs) 5 mg 00:00: mouth in [place] as VTE starter 00 the Medical pack morning Branch and 2 tablets in the evening. Follow dosing instructio ns included in package. 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 Follow dosing instructio ns included in package. 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 losartan 50 0 Yes 50mg Take 50 mg Univers mg tablet 8-24 by mouth ity of 23:13: in the [place] [address] morning Medical and 50 mg Branch in the evening. TAKE ONE 2021-0 No (1) 8-23 TABLET(S) 00:00: BY MOUTH 00 EVERY SIX HOURS NEEDED. TAKE ONE 202-0 No (1) 8-23 TABLET(S) 00:00: BY MOUTH 00 EVERY SIX HOURS NEEDED. TAKE ONE 2021-0 No (1) 8-23 TABLET(S) 00:00: BY MOUTH 00 EVERY SIX HOURS NEEDED. TAKE ONE 2021-0 No (1) 8-23 TABLET(S) 00:00: BY MOUTH 00 EVERY SIX HOURS NEEDED. 1 tab 2022-0 No 10 everyday 06-29 00:00: 00 1 tab 2022-0 No 10 everyday 8 00:00: 00 TAKE 1 2022-0 No 10 TABLET 8-09 TWICE 00:00: DAILY. 00 TAKE 1 2021-0 No 50 TABLET 8- DAILY. 00:00: 00 TAKE 1 2022-0 No 10 TABLET 8-09 TWICE 00:00: DAILY. 00 1 tab 2022-0 No 10 everyday 06-29 00:00: 00 TAKE 1 2022-0 No 10 TABLET 8-09 TWICE 00:00: DAILY. 00 TAKE 1 2022-0 No 50 TABLET 8- DAILY. 00:00: 00 TAKE 1 2022-0 No 50 TABLET 8-09 DAILY. 00:00: 00 1 tab 2022-0 No 10 everyday 06-29 00:00: 00 TAKE 1 2022-0 No 10 TABLET 8-09 TWICE 00:00: DAILY. 00 TAKE 1 2-0 No 50 TABLET 8- DAILY. 00:00: 00 iopamidol 2021-2021- No [id number] 100mL 100 mL, Univers (ISOVUE 04-01 Intravenou ity o f 370-500 mL) 06:30: 05:15 s, ONCE, 1 [place] injection 00 :00 dose, On Medica l 100 mL [facility] 04/01/22 at 0130, Routine ketorolac 2021-2021- No 15mg 15 mg, Unive rs (TORADOL) 04-01 Slow IV ity of injection 06:00: 04:59 Push, [place] 15 mg 00 :00 ONCE, 1 Medical dose, On Branch [facility] 04/01/22 at 0100, JUANI acetaminoph 2021-0 Yes [id number] 1{tbl} Take 1 Un ella en-codeine 5-12 tablet by ity of 300-30 mg 00:00: mouth [place] tablet 00 every 6 Medical (six) Branch hours as needed for Pain (scale 4-6). Indication s: acute pain acetaminoph 2021-0 Yes [id number] 1{tbl} Take 1 Un ella en-codeine 5-12 tablet by ity of 300-30 mg 00:00: mouth [place] tablet 00 every 6 Medical (six) Branch hours as needed for Pain (scale 4-6). Indication s: acute pain acetaminoph 2021-0 Yes [id number] 1{tbl} Take 1 Un ella en-codeine 5-12 tablet by ity of 300-30 mg 00:00: mouth [place] tablet 00 every 6 Medical (six) Branch hours as needed for Pain (scale 4-6). Indication s: acute pain acetaminoph 2021-0 Yes [id number] 1{tbl} Take 1 Un ella en-codeine 5-12 tablet by ity of 300-30 mg 00:00: mouth [place] tablet 00 every 6 Medical (six) Branch hours as needed for Pain (scale 4-6). Indication s: acute pain naproxen Yes 2{capsu Take 2 Univ ers sodium 5-14 le} capsules ity of (ALEVE) 220 16:31: by mouth [place] mg cap 26 every 6 MD (six) Anderso hours as n needed Cancer (PAIN). Center naproxen Yes 2{capsu Take 2 Univ ers sodium 5-14 le} capsules ity of (ALEVE) 220 16:31: by mouth [place] mg cap 26 every 6 MD (six) Anderso hours as n needed Cancer (PAIN). Center naproxen Yes 2{capsu Take 2 Univ ers sodium 5-14 le} capsules ity of (ALEVE) 220 16:31: by mouth [place] mg cap 26 every 6 MD (six) Anderso hours as n needed Cancer (PAIN). Center naproxen Yes 2{capsu Take 2 Univ ers sodium 5-14 le} capsules ity of (ALEVE) 220 16:31: by mouth [place] mg cap 26 every 6 MD (six) Anderso hours as n needed Cancer (PAIN). Center naproxen Yes 2{capsu Take 2 Univ ers sodium 5-14 le} capsules ity of (ALEVE) 220 16:31: by mouth [place] mg cap 26 every 6 MD (six) Anderso hours as n needed Cancer (PAIN). Center naproxen Yes 2{capsu Take 2 Univ ers sodium 5-14 le} capsules ity of (ALEVE) 220 16:31: by mouth [place] mg cap 26 every 6 MD (six) Anderso hours as n needed Cancer (PAIN). Center naproxen Yes 2{capsu Take 2 Univ ers sodium 5-14 le} capsules ity of (ALEVE) 220 16:31: by mouth [place] mg cap 26 every 6 MD (six) Anderso hours as n needed Cancer (PAIN). [place] naproxen Yes 2{capsu Take 2 Univ ers sodium 5-14 le} capsules ity of (ALEVE) 220 16:31: by mouth [place] mg cap 26 every 6 MD (six) Anderso hours as n needed Cancer (PAIN). Center naproxen Yes 2{capsu Take 2 Univ ers sodium 5-14 le} capsules ity of (ALEVE) 220 16:31: by mouth [place] mg cap 26 every 6 MD (six) Anderso hours as n needed Cancer (PAIN). [place] naproxen Yes 2{capsu Take 2 Univ ers sodium 5-14 le} capsules ity of (ALEVE) 220 16:31: by mouth [place] mg cap 26 every 6 MD (six) Anderso hours as n needed Cancer (PAIN). Center naproxen Yes 2{capsu Take 2 Univ ers sodium 5-14 le} capsules ity of (ALEVE) 220 16:31: by mouth [place] mg cap 26 every 6 MD (six) Anderso hours as n needed Cancer (PAIN). Center naproxen Yes 2{capsu Take 2 Univ ers sodium 5-14 le} capsules ity of (ALEVE) 220 16:31: by mouth [place] mg cap 26 every 6 MD (six) Anderso hours as n needed Cancer (PAIN). [place] naproxen Yes 2{capsu Take 2 Univ ers sodium 5-14 le} capsules ity of (ALEVE) 220 16:31: by mouth [place] mg cap 26 every 6 MD (six) Anderso hours as n needed Cancer (PAIN). [place] naproxen Yes 2{capsu Take 2 Univ ers sodium 5-14 le} capsules ity of (ALEVE) 220 16:31: by mouth [place] mg cap 26 every 6 MD (six) Anderso hours as n needed Cancer (PAIN). [place] naproxen Yes 2{capsu Take 2 Univ ers sodium 5-14 le} capsules ity of (ALEVE) 220 16:31: by mouth [place] mg cap 26 every 6 MD (six) Anderso hours as n needed Cancer (PAIN). Center Vital Signs Vital Name Observation Time Observation Value Comments Source Systolic blood 2022-07-15 06:30:00 161 mm[Hg] Univer sity of [facility] Diastolic blood 2022-07-15 06:30:00 95 mm[Hg] Unive rsity [facility] Heart rate 2022-07-15 06:30:00 88 /min [facility] Respiratory rate 2022-07-15 06:30:00 18 /min [facility] Oxygen saturation in 2022-07-15 06:30:00 96 /min [facility] Arterial blood by [facility] Pulse oximetry Branch Body temperature 2022-07-15 03:55:00 35.89 Marija [facility] Body height 2022-07-15 03:55:00 142.2 cm [facility] Body weight 2022-07-15 03:55:00 39.418 kg [facility] BMI 2022-07-15 03:55:00 19.48 kg/m2 [facility] Systolic blood 2022-04-01 06:00:00 159 mm[Hg] Univer sity of [facility] Diastolic blood 2022-04-01 06:00:00 94 mm[Hg] Unive rsity of [facility] Heart rate 2022-04-01 06:00:00 91 /min Universi ty [facility] Body temperature 2022-04-01 06:00:[address] rate 2022-04-01 06:00:00 16 /min [facility] Oxygen saturation in 2022-04-01 06:00:00 97 /min [facility] blood by [facility] Pulse oximetry Branch Body height 2022-04-01 03:33:00 154.9 cm Universi ty [facility] Body weight 2022-04-01 03:33:[address] [facility] BMI 2022-04-01 03:33:00 17.01 kg/m2 [facility] WEIGHT 2021-04-03 14:19:00 41.8 kg BP Systolic 2022-08-12 10:12:00 182 mm[Hg] BP Diastolic 2022-08-12 10:12:00 106 mm[Hg] Weight Measured 2022-08-12 10:12:00 86.80 pounds Height Measured 2022-08-12 10:12:00 60.00 inches Body Temperature 2022-08-12 10:12:00 98.30 degrees Heart Rate 2022-08-12 10:12:00 86.00 /min Respiratory Rate 2022-08-12 10:12:00 17.00 /min BP Systolic 2022-07-30 15:46:00 165 mm[Hg] BP Diastolic 2022-07-30 15:46:00 96 mm[Hg] Weight Measured 2022-07-30 15:46:00 88.40 pounds Height Measured 2022-07-30 15:46:00 60.00 inches Body Temperature 2022-07-30 15:46:00 98.20 degrees Heart Rate 2022-07-30 15:46:00 104.00 /min Respiratory Rate 2022-07-30 15:46:00 20.00 /min Height Measured 2022-07-13 15:21:00 60.00 inches Body Temperature 2022-07-13 15:21:00 98.30 degrees Heart Rate 2022-07-13 15:21:00 99.00 /min Respiratory Rate 2022-07-13 15:21:00 19.00 /min BP Systolic 2022-07-13 15:21:00 110 mm[Hg] BP Diastolic 2022-07-13 15:21:00 80 mm[Hg] Weight Measured 2022-07-13 15:21:00 86.00 pounds BP Systolic 2022-06-29 09:32:00 188 mm[Hg] BP Diastolic 2022-06-29 09:32:00 120 mm[Hg] Weight Measured 2022-06-29 09:32:00 86.00 pounds Height Measured 2022-06-29 09:32:00 60.00 inches Body Temperature 2022-06-29 09:32:00 97.30 degrees Heart Rate 2022-06-29 09:32:00 94.00 /min Respiratory Rate 2022-06-29 09:32:00 16.00 /min Procedures Procedure Date / Time Performing Clinician Source Performed AUTHORIZATION FOR 2022-07-23 05:01:00 Doctor Unassigned, No [facility] OF PHI Name Medical Branch CT CHEST PULMONARY 2022-07-15 06:00:16 Janis You [facility] ANGIOGRAM Medical Branch BASIC METABOLIC PANEL 2022-07-15 04:07:00 Janis You [facility] (NA, K, CL, CO2, Medical Branch GLUCOSE, BUN, CREATININE, CA) CBC WITH DIFF 2022-07-15 04:07:00 Janis You [facility] D-DIMER 2022-07-15 04:07:00 Janis You [facility] CONSENT/REFUSAL FOR 2022-07-15 03:50:37 Doctor Unassigned, No [facility] Name [facility] CT ABDOMEN PELVIS W 2022-04-01 05:17:59 Brant Florez [facility] CONTRAST [facility] Branch COMP. METABOLIC PANEL 2022-04-01 04:59:00 Brant Florez [facility] ([id number]) Medical Branch CBC WITH DIFF 2022-04-01 04:59:00 Brant Florez [facility] NOTICE OF PRIVACY 2022-04-01 03:23:48 Doctor Unassigned, No [facility] PRACTICES Name Medical Branch CONSENT/REFUSAL FOR 2022-04-01 03:23:01 Doctor Unassigned, No [facility] Name Medical Branch Plan of Care Planned Activity Planned Date Details Comments Source Future Scheduled 2023-07-[address] [facility] 00:00:00 (Season Ended) [code = Medic al Center INFLUENZA VACCINE (Season Ended)] Future Scheduled 2023-07-[address] [facility] 00:00:00 (Season Ended) [code = Medic al Center INFLUENZA VACCINE (Season Ended)] Future Scheduled 2023-07-[address] [facility] 00:00:00 (Season Ended) [code = Medic al Center INFLUENZA VACCINE (Season Ended)] Future Scheduled 2022-11-[address] [facility] 00:00:00 (12+) [code = Medical Center DEPRESSION SCREENING (12+)] Future Scheduled 2022-11-[address] [facility] 00:00:00 (12+) [code = Medical Center DEPRESSION SCREENING (12+)] Future Scheduled 2022-11-[address] [facility] 00:00:00 (12+) [code = Medical Center DEPRESSION SCREENING (12+)] Future Scheduled 2022-11-[address] [facility] 00:00:00 (12+) [code = Medical Center DEPRESSION SCREENING (12+)] Future Scheduled 2022-07-22 INFLUENZA VACCINE (#1) [facility]00 [code = INFLUENZA Medical Ce nter VACCINE (#1)] Future Scheduled 2022-05-26 COVID-19 Vaccination [facility] [place] [facility] 06:22:21 (#1) [code = COVID-19 [facility] (#1)] Center Future Scheduled 2022-05-26 COVID-19 Vaccination [facility] [place] [facility] 06:22:21 (#1) [code = COVID-19 [facility] Vaccination (#1)] Center Future Scheduled 2022-05-26 COVID-19 Vaccination [facility] [place] [facility] 06:22:21 (#1) [code = COVID-19 [facility] Vaccination (#1)] Center Future Scheduled 2022-05-26 COVID-19 Vaccination [facility] [place] [facility] 06:22:21 (#1) [code = COVID-19 [facility] Vaccination (#1)] Center Future Scheduled 2022-05-26 COVID-19 Vaccination [facility] [place] [facility] 06:22:21 (#1) [code = COVID-19 [facility] Vaccination (#1)] Center Future Scheduled 2022-05-26 COVID-19 Vaccination [facility] [place] [facility] 06:22:21 (#1) [code = COVID-19 [facility] Vaccination (#1)] Center Future Scheduled 2022-05-26 COVID-19 Vaccination [facility] [place] [facility] 06:22:21 (#1) [code = COVID-19 [facility] Vaccination (#1)] Center Future Scheduled 2022-05-26 COVID-19 Vaccination [facility] [place] [facility] 06:22:21 (#1) [code = COVID-19 [facility] Vaccination (#1)] Center Future Scheduled 2022-05-26 COVID-19 Vaccination [facility] [place] [facility] 06:22:21 (#1) [code = COVID-19 [facility] Vaccination (#1)] Center Future Scheduled 2022-05-26 COVID-19 Vaccination [facility] [place] [facility] 06:22:21 (#1) [code = COVID-19 [facility] Vaccination (#1)] Center Future Scheduled 2022-05-26 COVID-19 Vaccination [facility] [place] [facility] 06:22:21 (#1) [code = COVID-19 [facility] Vaccination (#1)] Center Future Scheduled 2022-05-26 COVID-19 Vaccination [facility] [place] [facility] 06:22:21 (#1) [code = COVID-19 [facility] Vaccination (#1)] Center Future Scheduled 2022-05-26 COVID-19 Vaccination [facility] [place] [facility] 06:22:21 (#1) [code = COVID-19 [facility] Vaccination (#1)] Center Future Scheduled 2022-05-26 COVID-19 Vaccination [facility] [place] [facility] 06:22:21 (#1) [code = COVID-19 [facility] Vaccination (#1)] Center Future Scheduled 2022-05-14 COVID-19 Vaccination [facility] [place] [facility] 06:11:42 (#1) [code = COVID-19 [facility] Vaccination (#1)] Center Future Scheduled 2018 SHINGLES VACCINES ([address] [facility] 00:00:00 of 2) [code = SHINGLES Medic al Center VACCINES (1 of 2)] Future Scheduled 2018 SHINGLES VACCINES ([address] [facility] 00:00:00 of 2) [code = SHINGLES Medic al Center VACCINES (1 of 2)] Future Scheduled 2018 SHINGLES VACCINES ([address] [facility] 00:00:00 of 2) [code = SHINGLES Medic al Center VACCINES (1 of 2)] Future Scheduled 2018 SHINGLES VACCINES ([address] [facility] 00:00:00 of 2) [code = SHINGLES Medic al Center VACCINES (1 of 2)] Future Scheduled [address] [facility]:00 (procedure) [code = [facility] [id number]] Future Scheduled [address] [facility] 00:00:00 (procedure) [code = [facility] [id number]] Future Scheduled [address] [facility] 00:00:00 (procedure) [code = [facility] [id number]] Future Scheduled [address] [facility] 00:00:00 (procedure) [code = [facility] [id number]] Future Scheduled [address] [facility] malignant neoplasm of Medica l Center cervix (procedure) [code = 820903288] Future Scheduled [address] [facility] 00:00:00 malignant neoplasm of Medica l Center cervix (procedure) [code = 925129798] Future Scheduled [address] [facility] 00:00:00 malignant neoplasm of Medica l Center cervix (procedure) [code = 716278730] Future Scheduled [address] [facility] 00:00:00 malignant neoplasm of Medica l Center cervix (procedure) [code = 557510449] Future Scheduled 1987 DTAP/TDAP/TD [facility]ACCINES [facility] 00:[facility]:00 (1 - Tdap) [code = Medical C enter DTAP/TDAP/TD VACCINES (1 - Tdap)] Future Scheduled 1987 DTAP/TDAP/TD VACCINES [facility] 00:00:00 (1 - Tdap) [code = Medical C enter DTAP/TDAP/TD VACCINES (1 - Tdap)] Future Scheduled 1987 DTAP/TDAP/TD VACCINES [facility] 00:00:00 (1 - Tdap) [code = Medical C enter DTAP/TDAP/TD VACCINES (1 - Tdap)] Future Scheduled 1987 DTAP/TDAP/TD VACCINES [facility] 00:00:00 (1 - Tdap) [code = Medical C enter DTAP/TDAP/TD VACCINES (1 - Tdap)] Future Scheduled 1986 HEPATITIS C SCRE[facility]ING [facility]:00:00 [code = HEPATITIS C Medical Center SCREENING] Future Scheduled 1986 HEPATITIS C [facility]CRE[facility]ING [facility] 00:00:00 [code = HEPATITIS C Medical Center SCREENING] Future Scheduled 1986 HEPATITIS C [facility]CRE[facility]ING [facility] 00:00:00 [code = HEPATITIS C Medical Center SCREENING] Future Scheduled 1986 HEPATITIS C [facility]CRE[facility]ING [facility] 00:00:00 [code = HEPATITIS C Medical Center SCREENING] Future Scheduled [address] [facility] 00:00:00 Counseling and Medical Cente r Screening (12+) [code = Tobacco Cessation Counseling and Screening (12+)] Future Scheduled [address] [facility] 00:00:00 Counseling and Medical Cente r Screening (12+) [code = Tobacco Cessation Counseling and Screening (12+)] Future Scheduled [address] [facility] 00:00:00 Counseling and Medical Cente r Screening (12+) [code = Tobacco Cessation Counseling and Screening (12+)] Future Scheduled [address] [facility] 00:00:00 Counseling and Medical Cente r Screening (12+) [code = Tobacco Cessation Counseling and Screening (12+)] Future Scheduled 1968 COVID-19 VACCINE (#1) [facility] 00:00:00 [code = COVID-[address] VACCINE (#1)] Future Scheduled 1968 COVID-19 VACCINE (#1) [facility] 00:00:00 [code = COVID-[address] VACCINE (#1)] Future Scheduled 1968 COVID-19 VACCINE (#1) [facility] 00:00:00 [code = COVID-[address] VACCINE (#1)] Future Scheduled 1968 COVID-19 VACCINE (#1) [facility] 00:00:00 [code = COVID-[address] VACCINE (#1)] Future Scheduled [address] [facility] 00:[facility]:00 malignant neoplasm of Medica l Center colon (procedure) [code = 259683536] Future Scheduled [address] [facility] 00:00:00 malignant neoplasm of Medica l Center colon (procedure) [code = 070875269] Future Scheduled [address] [facility] 00:00:00 malignant neoplasm of Medica l Center colon (procedure) [code = 085775147] Future Scheduled [address] [facility] 00:00:00 malignant neoplasm of Medica l Center colon (procedure) [code = 717548775] Future Scheduled 1968 Sigmoidoscopy [code = [facility] S[facility]] Medical Cente r Future Scheduled [address] [facility] 00:00:00 malignant neoplasm of Medica l Center breast (procedure) [code = 584155294] Future Scheduled [address] [facility] 00:00:00 (combo) [code = CT Medical C enter Colonography (combo)] Future Scheduled [address] [facility] 00:00:00 malignant neoplasm of Medica l Center colon (procedure) [code = 459180466] Future Scheduled [address] [facility] 00:00:00 malignant neoplasm of Medica l Center colon (procedure) [code = 438095091] Future Scheduled [address] [facility] 00:00:00 malignant neoplasm of Medica l Center colon (procedure) [code = 680193433] Future Scheduled [address] [facility] 00:00:00 malignant neoplasm of Medica l Center colon (procedure) [code = 916787388] Future Scheduled 1968 Sigmoidoscopy [facility]code [facility] S[facility]oscopy] Medical Cente r Future Scheduled [address] [facility] 00:00:00 malignant neoplasm of Medica l Center breast (procedure) [code = 814016420] Future Scheduled [address] [facility] 00:00:00 (combo) [code = CT Medical C enter Colonography (combo)] Future Scheduled [address] [facility] 00:00:00 malignant neoplasm of Medica l Center colon (procedure) [code = 065794866] Future Scheduled [address] [facility] 00:00:00 malignant neoplasm of Medica l Center colon (procedure) [code = 857778694] Future Scheduled [address] [facility] 00:00:00 malignant [facility]) [code = 085658494] Future Scheduled [address] [facility] (procedure) [code = 385337246] Future Scheduled 1970 Sigmoid[facility] Future Scheduled [address] [facility] 00:[facility]:00 [facility] breast (procedure) [code = 908055649] Future Scheduled [address] [facility] 00:00:00 (combo) [code = CT Medical C enter Colonography (combo)] Future Scheduled [address] [facility] 00:00:00 [facility] (procedure) [code = 271267870] Future Scheduled [address] [facility] 00:00:00 [facility] of [facility] colon (procedure) [code = 984511270] Future Scheduled [address] [facility] 00:00:00 [facility] colon (procedure) [code = 219860636] Future Scheduled [address] [facility] 00:00:00 malignant neoplasm of [facility] colon (procedure) [code = 211496613] Future Scheduled 1970 Sigmoidoscopy [facility]code = [facility] 00:[facility]oscopy] Medical Cent[facility] r Future Scheduled [address] [facility] 00:00:00 malignant neoplasm of [facility] breast (procedure) [code = 435582129] Future Scheduled [address] [facility] 00:00:00 (combo) [code = CT Medical C enter Colonography (combo)] Goal Plan of Care Note [code = 02972-0] Goal Plan of Care Note [code = 19984-1] Goal Plan of Care Note [code = 47890-6] Goal Plan of Care Note [code = 68245-4] Goal Plan of Care Note [code = 94619-1] Goal Plan of Care Note [code = 12149-8] Goal Plan of Care Note [code = 27861-6] Goal Plan of Care Note [code = 07432-0] Goal Plan of Care Note [code = 10976-0] Goal Plan of Care Note [code = 07390-3] Goal Plan of Care Note [code = 59899-1] Goal Plan of Care Note [code = 47444-7] Goal Plan of Care Note [code = 25020-5] Goal Plan of Care Note [code = 22509-3] Goal Plan of Care Note [code = 73124-5] Goal Plan of Care Note [code = 20589-3] Goal Plan of Care Note [code = 60745-4] Goal Plan of Care Note [code = 10709-8] Goal Plan of Care Note [code = 24251-1] Goal Plan of Care Note [code = 47278-6] Goal Plan of Care Note [code = 66934-3] Goal Plan of Care Note [code = 88090-3] Goal Plan of Care Note [code = 34588-3] Goal Plan of Care Note [code = 30242-1] Goal Plan of Care Note [code = 02568-8] Goal Plan of Care Note [code = 42255-6] Encounters Start End Encounter Admission Attending Care Care Encounter Source Date/Time Date/Time Type Type Clinicians Facility Department ID 2021-04-14 Outpatient SYSTEM, [facility] [id number] 13:40:41 PROVIDER David chao 2023-03-25 2023-03-25 Outpatient JOHN AlbrechtHARSH NUCM [id number] [facility] 14:05:00 14:05:00 Alejandro 03 [facility] 2023-02-01 2023-02-01 Outpatient SHIELA KUO [id number]- [place] 10:28:00 10:28:00 [id number] F Toby 2023-01-28 2023-01-28 Outpatient JOHN AlbrechtHARSH NUCM [id number] [facility] 10:51:00 10:51:00 Alejandro 52 [facility] 2023-01-13 2023-01-13 Outside [facility] [id number] 00:00:00 00:00:00 Orders Alejandro Luke s [place] [facility] 2023-01-13 2023-01-13 Outside [facility] [id number] 00:00:00 00:00:00 Orders Alejandro Luke s [place] [facility] 2022-11-02 2022-11-02 Outpatient SHIELA KUO [id number]- [place] 13:23:54 13:23:54 61999 F Toby 2022-08-23 2022-08-23 Outpatient MAT Fontaine [facility] [id number] [facility] 14:01:00 14:01:00 Alejandro 39 [facility] 2022-08-12 2022-08-12 Outpatient [id number] [id number] 00:00:00 00:00:00 Visit 0y00-56e1 b51-89c7-7 -9590-171 590-1715b7 [id number] 9310-09-09 2022-07-30 Outpatient z5jn15cs- [id number] b8 jk14fc-4 00:00:00 00:00:00 Visit 7093-470e 093-470e-a -c8gt-370 5da-180b37 t4346qai0 94aad4 2022-07-23 2022-07-23 Orders Doctor QUIRINO [id number] Univers 00:00:00 00:00:00 Only Unassigned, DEB 350.1.13.10 ity of [facility] 4.2.7.2.686 [facility] [id number] [facility] 009 [address] 2022-07-14 2022-07-15 Emergency X [facility] ERT [id number] Univers 22:59:00 02:24:00 [facility]14 2022-07-15 Emergency [facility] [id number] [id number] Univers 22:59:00 02:24:00 Janis RODRIGUES 350.1.13.10 ity [facility] 4.2.7.2.686 [facility] [id number] [facility] 084 Branch 2022-07-13 2022-07-13 Outpatient 06hlk2iw- [id number] yzo9ph-4 00:00:00 00:00:00 Visit 80da-4a03 0da-4a03-a -c71q-63j 22e-80x159 306028go1 109bc3 2022-06-29 2022-06-29 Outpatient [id number]- [id number] a9 701ux4-8 00:00:00 00:00:00 Visit 17f5-4w9n 1s1-7z4j-i -d960-1py 638-3cb8c8 4e6h65653 w69391 2022-05-25 2022-05-25 Outpatient JOHN Albrecht OUTD [id number] [facility] 12:48:00 12:48:[address] [place] [address] 2022-04-21 2022-04-21 Patient GANESH Mathur 1.2.840.114 [id number] Univers 00:00:00 00:00:00 Outreach Jr [place] [facility] 350.1.13.10 ity [facility] 4.2.7.2.686 [facility] [id number] [place] [id number] Branch 2022-03-31 2022-04-01 Emergency Marco [facility] [id number] Univers 22:56:00 01:29:00 BRANT itjohn [facility] 2022-03-31 2022-04-01 Emergency [facility] 1.2.160.273 [id number] Univers 22:56:00 01:29:00 Brant RODRIGUES 350.1.13.10 ity [facility] 4.2.7.2.686 [facility] [id number] [address] 2021-04-03 2021-04-03 Emergency ENA CHATMAN [facility] Emergency [id number] 16:10:00 18:03:00 LUIS E chao Results Test Description Test Time Test Comments Results Result [facility] e Comments - PET/CT TUMOR SK 2023-03-27 MIDTH 09:09:00 [facility]Name: RHONA PEREIRA : 1970 Sex: F FAX: Alejandro Ramsey MD [phone] Mcguffey: B St: DEP Name: RHONA PEREIRA [facility] : 1970 Age/S: 52/F [address] Unit #: [id number] Loc: [place] [address] Phys: Alejandro Fontaine MD Acct: [id number] Dis Date: Status: DEP CLI PHONE #: [phone] Exam Date: 03/25/2023 1505 FAX #: [phone] Reason: VULVAR CANCER EXAMS: CPT CODE: [id number] PET/CT TUMOR SK BS MIDTH 32896 HISTORY: Restaging vulvar cancer. COMPARISON: PET/CT scan from May 25, 2022 and January 28, 2023. Location: [facility]. PET/CT SCAN: 12 mCi of FDG administered. Images obtained from the skull base to the upper thighs 1 hour postinjection. Blood glucose level = 133 mg/dL. HEAD AND NECK: Intense uptake within the brain parenchyma limited evaluation. Physiologic pharyngeal uptake. CHEST: Poorly defined supradiaphragmatic retrocardiac left lower lobe mass measured 2.5 cm with SUV ranging up to 3.6. This is new from previous examination. Differential diagnoses would include infiltrate given its poor definition. Similar area of increased uptake measured 2 cm in the right medial supradiaphragmatic location with SUV uptake ranging up to 2.5. Third ill-defined areas abutting the pleural surface in the left upper lobe inferolaterally measured 7.8 mm with SUV uptake ranging up to 2. These are all new from previous exam. Close follow-up. Faint 5 mm lymph node with SUV uptake ranging up to 2 is borderline. No pathologic mediastinal or axillary adenopathy. ABDOMEN: Paraceliac retroperitoneal lymph nodes noted towards the right and in the midline along the celiac axis. The largest measured 3 cm with SUV uptake ranging up to 3.5. This is new from previous examination. No pathologic retroperitoneal or mesenteric or retrocrural adenopathy. Excretion the bowel limits evaluation. No abnormal uptake within the liver, spleen, kidneys or the adrenals. PELVIS: Excretion into the urinary bladder and bowel limits evaluation. No abnormal uptake in the rest of the pelvis. MUSCULOSKELETAL: No abnormal uptake IMPRESSION: Poorly defined areas of uptake within bilateral lower lobes medially in the supra diaphragmatic location measuring 2.5 cm on the left with SUV uptake ranging up to 3.6 and on the right measuring 2 cm with SUV uptake ranging up to 2.5. The third area measured 7.8 mm with SUV ranging up to 2. Differential diagnosis would include pneumonia versus metastatic lesions. Close follow-up. 5 mm left hilar lymph node with SUV ranging up to 2 is borderline. PAGE 1 Signed Report (CONTINUED) FAX: Alejandro Ramsey MD [phone] Mcguffey: St: SAHARA Name: RHONA PEREIRA [facility] : 1970 Age/S: 52/F [address] [facility] Unit #: [id number] Loc: [place] [address] Phys: Alejandro Fontaine MD Acct: [id number] Dis Date: Status: DEP CLI PHONE #: [phone] Exam Date: 03/25/2023 1775 FAX #: [phone] Reason: VULVAR CANCER EXAMS: CPT CODE: [id number] PET/CT TUMOR SK BS MIDTH 12027 (Continued) 3 retroperitoneal paraceliac lymph nodes on the right and anterior to the celiac axis measuring up to 3 cm. SUV ranging up to 3.5. These are not seen on the previous examination. No other pathologic adenopathy or evidence for distant metastatic disease. at 0909 Reported and signed by: Christofer Haas M.D. CC: Alejandro Fontaine MD Technologist: Bong WelchMT Trnscrd Date/Time/By: 03/27/2023 (908) : By: [email or web address] Orig Print D/T: S: 03/27/2023 (12) PAGE 2 Signed Report - PET/CT TUMOR SK 2023-01-31 MIDTH 15:38:00 [facility] 1970 Sex: F FAX: Alejandro Ramsey MD [phone] Mcguffey: B St: DEP Name: RHONA PEREIRA [facility] : 1970 Age/S: 52/F [address] [facility]: [id number] Loc: [place] [address] Phys: Alejandro Fontaine MD Acct: [id number] Dis Date: Status: DEP CLI PHONE #: [phone] Exam Date: 01/28/2023 1236 FAX #: [phone] Reason: C51.8 EXAMS: CPT CODE: [id number] PET/CT TUMOR SK MIDTH 77584 EXAMINATION: PET/CT TUMOR SKULL BASE TO MID THIGH HISTORY: Vulvar malignancy TECHNIQUE: The patient's blood glucose level was measured at 101 mg/dl. The patient was injected with 11.74 mCi of Fluorine-18 Deoxyglucose. After a standard uptake phase of 90 minutes, the patient underwent CT imaging from the level of the mid brain to the midthigh at 3mm intervals. Following completion of the CT portion of the study, 3D emission images were obtained through the same distance. The CT images were generated for the purpose of optimizing the PET images and for anatomical correlation of PET findings. COMPARISON: Pet/CT 05/25/2022. CT abdomen and pelvis 08/23/2022. FINDINGS: Background blood pool activity measures 2. Head/Neck: Physiologic activity in the parapharyngeal lymphoid tissue, salivary glands and muscles is noted. No FDG-avid cervical adenopathy is identified. Thorax: Bilateral lung pereira are clear without pulmonary nodule or abnormal FDG avidity. Mediastinal structures are normal in noncontrast appearance. No enlarged nodes by size criteria nor abnormal FDG-avidity. Abdomen/Pelvis: There is heterogeneous physiologic hepatic and splenic uptake without focal hypermetabolic mass lesions. No abnormal FDG uptake within the adrenal glands. Within the vulvar region there is increased abnormal FDG activity seen within the lower soft tissues with maximum SUV up 2.3. Findings are not significantly greater than background FDG activity. No FDG avid mesenteric or retroperitoneal adenopathy is seen. Bones: No definite FDG avid osseous lesions are identified within the bone windows. IMPRESSION: No distant abnormal FDG activity. Within the vulvar region there is FDG activity that measures up to 2.3, although this is not significantly greater than background FDG activity. PAGE 1 Signed Report (CONTINUED) FAX: Alejandro Ramsey MD [phone] Mcguffey: St: SAHARA Name: RHONA PEREIRA [facility] : 1970 Age/S: 52/F [address] [facility] Unit #: [id number] Loc: [place] [address] Phys: Alejandro Fontaine MD Acct: [id number] Dis Date: Status: SAHARA CLI PHONE #: [phone] Exam Date: 01/28/2023 1235 FAX #: [phone] Reason: C51.8 EXAMS: CPT CODE: [id number] PET/CT TUMOR SK BS MIDTH 93668 (Continued) at 1538 Reported and signed by: Ish James M.D. CC: Alejandro Fontaine MD Technologist: Bong Welch SPORTS CLERK Trnscrd Date/Time/By: 01/31/2023 (1538) : By: [email or web address] Orig Print D/T: S: 01/31/2023 (6033) PAGE 2 Signed Report - CT ABD PELVIS 2022-08-25 W/CONT [facility]:00:00 [facility] 1970 Sex: F Name: RHONA PEREIRA [facility] : 1970 Age/S: 52 / F [address] [place] [address] Unit #: [id number] Loc: [place] [address] Phys: Alejandro Fontaine MD Acct: [id number] Dis Date: Status: DEP CLI PHONE #: [phone] Exam Date: 08/23/2022 1521 FAX #: [phone] Reason: MALIGNANT NEOPLASM OF OVERLAPPING SITES EXAMS: CPT CODE: [id number] CT ABD PELVIS W/CONT 31532 PROCEDURE INFORMATION: Exam: CT Abdomen And Pelvis With Contrast Exam date and time: 08/23/2022 2:59 PM Age: 52 years old Clinical indication: Other: Malignant neoplasm of overlapping sites TECHNIQUE: Imaging protocol: Computed tomography of the abdomen and pelvis with contrast. Radiation optimization: All CT scans at this facility use at least one of these dose optimization techniques: automated exposure control; mA and/or kV adjustment per patient size (includes targeted exams where dose is matched to clinical indication); or iterative reconstruction. Contrast material: ISOVUE 300; Contrast volume: 100 ml; Contrast route: INTRAVENOUS (IV); COMPARISON: PET/CT 05/25/2022. FINDINGS: Lungs: No focal consolidation or parenchymal mass. No pleural effusion or pneumothorax. Bilateral emphysematous changes. Minimal bilateral lower lobe dependent atelectasis. Liver: No hepatomegaly. Hepatic parenchyma is grossly unremarkable. Gallbladder and bile ducts: No calcified gallstones. No gallbladder distention. No bile duct dilation. Pancreas: Normal. No ductal dilation. Spleen: No splenomegaly. No splenic mass. Adrenal glands: Normal. No mass. Kidneys and ureters: No obstructing calculi. No hydronephrosis. No ureteral calculi. No perinephric inflammatory changes. Stomach and bowel: Unremarkable. No obstruction. No mucosal thickening. Appendix: No evidence of appendicitis. Intraperitoneal space: No drainable fluid collection. No pneumoperitoneum. Vasculature: Aortoiliac atherosclerotic calcifications. No aneurysm. Multiple pelvic phleboliths. Stable coarse calcifications are present in the lower pelvis. Lymph nodes: Unremarkable. No enlarged lymph nodes. Urinary bladder: Unremarkable as visualized. Reproductive: Unremarkable as visualized. Bones/joints: Degenerative changes of the lumbar spine. Soft tissues: No enhancing mass is visualized in the region of the perineum. No drainable fluid collection. No hernia. IMPRESSION: No acute abnormality of the abdomen and pelvis. PAGE 1 Signed Report (CONTINUED) Name: RHONA PEREIRA [facility] : 1970 Age/S: 52 / F [address] [place] [address] Unit #: [id number] Loc: [place] [address] Phys: Alejandro Fontaine MD Acct: [id number] Dis Date: Status: DEP CLI PHONE #: [phone] Exam Date: 08/23/2022 1521 FAX #: [phone] Reason: MALIGNANT NEOPLASM OF OVERLAPPING SITES EXAMS: CPT CODE: [id number] CT ABD PELVIS W/CONT 75830 (Continued) at 1210 Reported and signed by: Johnny Merlos M.D. CC: Alejandro Fontaine MD Technologist:Sg Pearce, RT(R)(CT) CTDI: DLP: Trnscb Date/Time: 08/25/2022 (1210) [email or web address] Orig Print D/T: S: 08/25/2022 (1210) PAGE 2 Signed Report D-DIMER 2022-07-15 04:37:07 Test Item Value Reference Range Interpretation Comme nts D-DIMER (test code = See_Comment H [Autom ated message] The [id number]) system which ge nerated this result tra nsmitted reference range : <0.41 ?g/mL (FEU). Th e reference range was not used to interpr et this result as normal/abnormal . LATESHA (test code = LATESHA) This test may be used in conjunction with a clinical pretest probability (PTP) assessment model to exclude venous thromboembolism (VTE) in patients suspected of deep venous thrombosis (DVT) and pulmonary embolism (PE) A D-Dimer value less than 0.50 ?g/ml (FEU) has a negative predicative value of 96 to 100% (95% CI)and 97 to 100% (95% CI) as an aid in the diagnosis of deep vein thrombosis (DVT) and pulmonary embolism when there is low or moderate pretest probability of PE or DVT. D-Dimer values are expressed in initial fibrinogen equivalent units (FEU)" The assay results should be used with other information, including the clinical context, in forming a diagnosis. Lab Interpretation Abnormal (test code = 20678-3) [facility] (NA, K, CL, CO2, GLUCOSE, BUN, CREATININE, CA)2022-07-15 04:31:05 Test Item Value Reference Range Interpretation Comments NA (test code = 140 mmol/L 135-145 7287682944) K (test code = 4.0 mmol/L 3.5-5 6295484987) CL (test code = 101 mmol/L 98-108 6146915361) CO2 TOTAL (test code = 33 mmol/L 23-31 H 8862770072) AGAP (test code = 2-16 8055831682) BUN (test code = 13 mg/dL 7-23 6205143150) GLUCOSE (test code = 103 mg/dL 70-110 6218230045) CREATININE (test code = 0.58 mg/dL 0.5-1.04 5649082817) CALCIUM (test code = 9.2 mg/dL 8.6-10.6 8556924246) eGFR (test code = mL/min/1.73m2 5835127190) LATESHA (test code = LATESHA) Association of Glomerular Filtration Rate (GFR) and Staging of Kidney Disease* + --+ --+ ------+| GFR (mL/min/1.73 m2) ?| With Kidney Damage ?| ?Without Kidney Damage+ --------+ --------+ +| ?>90 ?| ?Stage one ?| ? Normal ?+ ---+ ---+ -------+| ?60-89 ?| ?Stage two ?| ? Decreased GFR ? + --+ --+ ------+| ?30-59 ?| ?Stage three ?| ? Stage three ? + --+ --+ ------+| ?15-29 ?| ?Stage four ? | ? Stage four ?+ ---+ ---+ -------+| ?<15 (or dialysis) ? ?| ?Stage five ? | ? Stage five ?+ ---+ ---+ -------+ *Each stage assumes the associated GFR level has been in effect for at least three months. ?Stages 1 to 5, with or without kidney disease, indicate chronic kidney disease. Notes: Determination of stages one and two (with eGFR >59mL/min/1.73 m2) requires estimation of kidney damage for at least three months as defined by structural or functional abnormalities of the kidney, manifested by either:Pathological abnormalities or Markers of kidney damage (including abnormalities in the composition of the blood or urine or abnormalities in imaging tests). Lab Interpretation Abnormal (test code = 08171-2) [facility] WITH [id number] 04:17:03 Test Item Value Reference Range Interpretation Comments WBC (test code = See_Comment [Automated 8922-2) message] The sy stem which generated this result transmitted reference range : 4.30 - 11.10 10*3/?L. The reference range was not used to interpret this result as normal/abnormal . RBC (test code = See_Comment [Automated 108-8) message] The sy stem which generated this result transmitted reference range : 3.93 - 5.25 10*6/?L. The reference range was not used to interpret this result as normal/abnormal . HGB (test code = 12.4 g/dL 11.6-15 718-7) HCT (test code = 37.4 % 35.7-45.2 4544-3) MCV (test code = 94.4 fL 80.6-95.5 787-2) MCH (test code = 31.3 pg 25.9-32.8 785-6) MCHC (test code = 33.2 g/dL 31.6-35.1 786-4) RDW-SD (test code = 51.5 fL 39-49.9 H 40133-2) RDW-CV (test code = 14.9 % 12-15.5 788-0) PLT (test code = See_Comment [Automated 777-3) message] The sy stem which generated this result transmitted reference range : 166 - 358 10*3/ ?L. The reference r felipa was not used to interpret this result as normal/abnormal . MPV (test code = 8.8 fL 9.5-12.9 L 93556-6) NRBC/100 WBC (test See_Comment [Automat ed code = 1700961260) message] The system which generated this result transmitted reference range : 0.0 - 10.0 /100 WBCs. The refer ence range was not u sed to interpret th is result as normal/abnormal . NRBC x10^3 (test code See_Comment [Auto mated = 8913174862) message] The s ystem which generated this result transmitted reference range : 10*3/?L. The reference range was not used to interpret this result as normal/abnormal . GRAN MAT (NEUT) % 52.0 % (test code = 770-8) IMM GRAN % (test code 0.30 % = 3912825207) LYMPH % (test code = 33.5 % 736-9) MONO % (test code = 13.3 % 5905-5) EOS % (test code = 0.6 % 713-8) BASO % (test code = 0.3 % 706-2) GRAN MAT x10^3(ANC) 4.14 10*3/uL 1.88-7.09 (test code = 7869140269) IMM GRAN x10^3 (test 0-0.06 code = 9412667776) LYMPH x10^3 (test code 2.67 10*3/uL 1.32-3.29 = 731-0) MONO x10^3 (test code 1.06 10*3/uL 0.33-0.92 H = 742-7) EOS x10^3 (test code = 0.05 10*3/uL 0.03-0.39 711-2) BASO x10^3 (test code 0.01-0.07 = 704-7) Lab Interpretation Abnormal (test code = 52928-0) [facility]- PET/CT TUMOR SK BS [id number] 00:00:00 [facility] 1970 Sex: F FAX: Alejandro Ramsey MD [phone] Mcguffey: St: REG Name: RHONA PEREIRA [facility] : 1970 Age/S: 52/F [address] [place] [address] Unit #: [id number] Loc: [place] [address] Phys: Alejandro Fontaine MD Acct:[id number] Dis Date: Status: REG CLI PHONE #: [phone] Exam Date: 05/25/2022 [facility] FAX #: [phone] Reason: VULVAR CA C51.8 EXAMS: CPT CODE: [id number] PET/CT TUMOR SK BS MIDTH 96754 PROCEDURE INFORMATION: Exam: PET/CT Skull Base to Mid-thigh Exam date and time: 05/25/2022 2:48 PM Age: 52 years old Clinical indication: Malignant neoplasm of overlapping sites of vulva; Additional info: Vulvar CAc51.8 LABS AND CLINICAL REPORTS: Glucose: 81 mg/dl Treatment strategy for malignancy (PET staging): I nitial Staging (PI) TECHNIQUE: Imaging protocol: Following at least four-hour fasting and following the injection of F-18-FDG, low dose CT images were obtained. Then, PET images were obtained. Attenuation corrected images were constructed using the CT scan. Fused images of PET and CT were reviewed. The standardized uptake values (SUV) reported below are maximum values within a region of interest, expressed in gm/ml. Exam includes orbital meatal line to mid-thigh. Radiopharmaceutical: 9.22 mCi F-18 FDG (Fluorodeoxyglucose), IV. Time of imaging post radiopharmaceutical administration: 1 hour Injection site: site COMPARISON: No relevant prior studies available. FINDINGS: Head: Visualized portion of the brain demonstrates no abnormality in the radiotracer distribution of the cortex, deep subcorticalstructures, and the cerebellum. Neck: Evaluation of the neck demonstrates normal uptake within the cervical lymph nodes. There is normal uptake within the salivary glands, and remaining cervical structures. Chest: Evaluation of the thorax demonstrates no abnormal uptake within the lungs. Physiologic myocardial uptake is present. There are no hypermetabolic mediastinal lymph nodes. Abdomen and Pelvis:Ill-defined soft tissue in the left paramedian perineum is markedly FDG avid, max SUV 8.8. Small left inguinal nodes are mildly FDG avid left inguinal node series 2, image 203, 10 x 8 mm, SUV 2.5. There is no other pathologic desi uptake. Physiologic urinary activity in the kidneys, ureters and bladder. Physiologic bowel activity. Bones/joints: No metabolically active areas are noted within the osseo us structures Soft tissues: No metabolically active areas are noted within the soft tissue. Other findings: CT findings:Moderate emphysematous changes are present. The aorta demonstrates moderate atherosclerotic PAGE 1 Signed Report (CONTINUED) FAX: Alejandro Ramsey MD [phone] Mcguffey: St: REG Name: JAMES PEREIRA : 1970 Age/S: 52/F [address] [place] [address] Blvd Unit #: [id number] Loc: [place], [place] [id number] Phys: Alejandro Fontaine MD Acct: [id number] Dis Date: Status: REG CLI PHONE #: [phone] Exam Date: 05/25/2022 1442 FAX #: [phone] Reason: VULVAR CA C51.8 EXAMS: CPT CODE: [id number] PET/CT TUMOR SK BS MIDTH [id number] (Continued) calcification. There are coronary arterial calcifications. IMPRESSION: 1. FDG avid left perineal mass compatible with primary malignancy. 2. Small left inguinal nodes are FDG avid allowing for their size and suspicious for metastatic disease. 3. Negativefor FDG avid distal metastatic disease. at 1712 Reported and signed by: Noel Llamas M.D. CC: Alejandro Fontaine MD Technologist: Roshni Richey, RT(N)(CT)(PET); ... Trnscrd Date/Time/By: 05/25/2022 (1711) : By: MaliKWL Orig Print D/T: S: 05/25/2022 (171) PAGE 2 Signed ReportCOMP. METABOLIC PANEL ([id number])2022-04-01 05:45:46 Test Item Value Reference Range Interpretation Comments NA (test code = 139 mmol/L 135-145 4652358662) K (test code = 4.0 mmol/L 3.5-5.0 4294832560) CL (test code = 101 mmol/L 98-108 8114786103) CO2 TOTAL (test code = 32 mmol/L 23-31 H 0431101833) AGAP (test code = 2-16 0303029170) BUN (test code = 15 mg/dL 7-23 3165478581) GLUCOSE (test code = 90 mg/dL 70-110 0644945988) CREATININE (test code = 0.67 mg/dL 0.50-1.04 7573026181) TOTAL BILI (test code = 0.3 mg/dL 0.1-1.9 6736900775) CALCIUM (test code = 8.8 mg/dL 8.6-10.6 5200794311) T PROTEIN (test code = 7.0 g/dL 6.3-8.2 6316141594) ALBUMIN (test code = 4.2 g/dL 3.5-5.0 9702013751) ALK PHOS (test code = 63 U/L 34-122 0235953661) ALTv (test code = 14 U/L 5-35 2-6) AST(SGOT) (test code = 26 U/L 13-40 8767079492) eGFR (test code = mL/min/1.73m2 2366503624) LATESHA (test code = LATESHA) Association of Glomerular Filtration Rate (GFR) and Staging of Kidney Disease* + --+ --+ ------+| GFR (mL/min/1.73 m2) ?| With Kidney Damage ?| ?Without Kidney Damage+ --------+ --------+ +| ?>90 ?| ?Stage one ?| ? Normal ?+ ---+ ---+ -------+| ?60-89 ?| ?Stage two ?| ? Decreased GFR ? + --+ --+ ------+| ?30-59 ?| ?Stage three ?| ? Stage three ? + --+ --+ ------+| ?15-29 ?| ?Stage four ? | ? Stage four ?+ ---+ ---+ -------+| ?<15 (or dialysis) ? ?| ?Stage five ? | ? Stage five ?+ ---+ ---+ -------+ *Each stage assumes the associated GFR level has been in effect for at least three months. ?Stages 1 to 5, with or without kidney disease, indicate chronic kidney disease. Notes: Determination of stages one and two (with eGFR >59mL/min/1.73 m2) requires estimation of kidney damage for at least three months as defined by structural or functional abnormalities of the kidney, manifested by either:Pathological abnormalities or Markers of kidney damage (including abnormalities in the composition of the blood or urine or abnormalities in imaging tests). Lab Interpretation Abnormal (test code = 98320-0) [facility] WITH [id number] 05:26:19 Test Item Value Reference Range Interpretation Comments WBC (test code = See_Comment [Automated 6690-2) message] The sy stem which generated this result transmitted reference range : 4.30 - 11.10 10*3/?L. The reference range was not used to interpret this result as normal/abnormal . RBC (test code = See_Comment [Automated 789-8) message] The sy stem which generated this result transmitted reference range : 3.93 - 5.25 10*6/?L. The reference range was not used to interpret this result as normal/abnormal . HGB (test code = 12.9 g/dL 11.6-15.0 718-7) HCT (test code = 38.5 % 35.7-45.2 4544-3) MCV (test code = 95.8 fL 80.6-95.5 H 787-2) MCH (test code = 32.1 pg 25.9-32.8 785-6) MCHC (test code = 33.5 g/dL 31.6-35.1 786-4) RDW-SD (test code = 49.9 fL 39.0-49.9 62113-3) RDW-CV (test code = 14.2 % 12.0-15.5 788-0) PLT (test code = See_Comment [Automated 777-3) message] The sy stem which generated this result transmitted reference range : 166 - 358 10*3/ ?L. The reference r felipa was not used to interpret this result as normal/abnormal . MPV (test code = 8.8 fL 9.5-12.9 L 17967-8) NRBC/100 WBC (test See_Comment [Automat ed code = 0559006520) message] The system which generated this result transmitted reference range : 0.0 - 10.0 /100 WBCs. The refer ence range was not u sed to interpret th is result as normal/abnormal . NRBC x10^3 (test code <0.01 See_Comment [Auto mated = 7753343881) message] The s ystem which generated this result transmitted reference range : 10*3/?L. The reference range was not used to interpret this result as normal/abnormal . GRAN MAT (NEUT) % 46.5 % (test code = 770-8) IMM GRAN % (test code 0.20 % = 5778887051) LYMPH % (test code = 40.3 % 736-9) MONO % (test code = 11.4 % 5905-5) EOS % (test code = 1.1 % 713-8) BASO % (test code = 0.5 % 706-2) GRAN MAT x10^3(ANC) 4.42 10*3/uL 1.88-7.09 (test code = 8578578555) IMM GRAN x10^3 (test <0.03 0.00-0.06 code = 2130277580) LYMPH x10^3 (test code 3.84 10*3/uL 1.32-3.29 H = 731-0) MONO x10^3 (test code 1.09 10*3/uL 0.33-0.92 H = 742-7) EOS x10^3 (test code = 0.10 10*3/uL 0.03-0.39 711-2) BASO x10^3 (test code 0.05 10*3/uL 0.01-0.07 = 704-7) Lab Interpretation Abnormal (test code = 88414-6) [facility], THIRD [id number] 01:04:39 Test Item Value Reference Range Interpretation Comments TSH, THIRD GENERATION (test code 0.923 UIU/ML 0.400-4.100 = 2821) COMPREHENSIVE METABOLIC [id number] 00:09:04 Test Item Value Reference Range Interpretation Comments GLUCOSE (test code = 108 MG/DL 70-99 H 2216) BUN (test code = 9 MG/DL 6-20 2207) CREATININE (test 0.59 MG/DL 0.60-1.30 L code = 2214) eGFR (2020 CKD-EPI) 108 >60 (test code = 26552) ML/MIN/1.73 CALC BUN/CREAT (test 15 RATIO 6-28 code = 223) SODIUM (test code = 141 MEQ/L 310-169 2571) POTASSIUM (test code 3.6 MEQ/L 3.5-5.4 = 2227) CHLORIDE (test code 102 MEQ/L 95-107 = 2214) CARBON DIOXIDE (test 26 MEQ/L 19-31 code = 220) CALCIUM (test code = 9.5 MG/DL 8.5-10.5 2208) PROTEIN, TOTAL (test 7.5 G/DL 6.1-8.3 code = 2228) ALBUMIN (test code = 4.5 G/DL 3.5-5.2 2200) CALC GLOBULIN (test 3.0 G/DL 1.9-3.7 code = 2239) CALC A/G RATIO (test 1.5 RATIO 1.0-2.6 code = 2233) BILIRUBIN, TOTAL 0.2 MG/DL See_Comment [Automated message] (test code = 2206) The syste m which generated this result transmit yola reference range : <=1.2. The refe rence range was not u sed to interpret th is result as normal/abnormal . ALKALINE PHOSPHATASE 71 U/L 40-133 (test code = 2203) AST (test code = 19 U/L 9-40 2217) ALT (test code = 13 U/L 5-40 2218) LIPID [id number] 00:09:04 Test Item Value Reference Range Interpretation Comments CHOLESTEROL (test 187 MG/DL <200 code = 2210) TRIGLYCERIDES (test 62 MG/DL <150 code = 2232) HDL CHOLESTEROL (test 61 MG/DL >39 code = 2220) CALC LDL CHOL (test 112 MG/DL <100 H NOTE: C ALCULATED LDL code = 2237) IS BASED ON KIM-PAN METHOD WHICHINCLUDES ADJUSTABLE TRIGLYCERIDE:VL DL CHOLESTEROL RAT IO.THIS FACTOR VARIES B Y MEASURED TRIGLY CERIDE AND NON-HDLCHOL ESTEROL CONCENTRATIONS WITH INCREASED CALCU LATED LDL SEENIN HIGH ER TRIGLYCERIDE OR LOWER NON-HDL SPECIME NS. FOR MOREINFORMATION , SEE CLIENT ANNOUNCE MENT AT [email or web address] RISK RATIO LDL/HDL 1.84 RATIO <3.22 UNLESS O THERWISE (test code = 2238) INDICATED , ALL TESTING PERFORMED [facility], [place]. [address] [place] [address] [facility] DIRECTOR: GILES BURGESS M.D. CLIA NUMBER [id number] CAP ACCREDITATION N O. [id number] CBC W/AUTO DIFF WITH [id number] 03:06:30 Test Item Value Reference Range Interpretation Comments WBC (test code = 9.1 K/UL 3.5-11.0 1001) RBC (test code = 4.45 M/UL 3.80-5.40 1002) HEMOGLOBIN (test code 13.8 G/DL 11.5-15.5 = 1003) HEMATOCRIT (test code 41.3 % 34.0-45.0 = 1004) MCV (test code = 92.8 fL 80.0-99.0 1005) MCH (test code = 31.0 PG 25.0-33.0 1006) MCHC (test code = 33.4 G/DL 31.0-36.0 1007) RDW (test code = 13.1 % 11.5-15.0 1038) NEUTROPHILS (test 62.3 % code = 1008) LYMPHOCYTES (test 24.5 % code = 1010) MONOCYTES (test code 12.5 % = 1011) EOSINOPHILS (test 0.1 % code = 1012) BASOPHILS (test code 0.3 % = 1013) IMMATURE GRANULOCYTES 0.3 % (test code = 1036) NUCLEATED RBCS (test 0.0 /100 WBC'S See_Comment [Aut omated code = 1065) message] The sy stem which generated this result transmitted reference range : 0.0. The refere nce range was not u sed to interpret th is result as normal/abnormal . PLATELET COUNT (test 278 K/UL 130-400 code = 1015) ABSOLUTE NEUTROPHILS 5.68 K/UL 1.50-7.50 (test code = 1066) ABSOLUTE LYMPHOCYTES 2.24 K/UL 1.00-4.00 (test code = 1067) ABSOLUTE MONOCYTES 1.14 K/UL 0.20-1.00 H (test code = 1068) ABSOLUTE EOSINOPHILS 0.01 K/UL 0.00-0.50 (test code = 1040) ABSOLUTE BASOPHILS 0.03 K/UL 0.00-0.20 (test code = 1069) ABS IMMATURE 0.03 K/UL 0.00-0.10 GRANULOCYTES (test code = 1020) ABS NUCLEATED RBCS 0.00 K/UL 0.00-0.11 (test code = 53606)
[2023-03-28 16:08] LABS: SARS-CoV-2 Antigen Rapid Res Negative (Negative)
[2023-03-28] MEDS ORDERED: NA CHLORIDE 0.9% 100 ML ONE (16:30)
[2023-03-28] MEDS ORDERED: Levofloxacin 750mg IV 750 MG/150 ML BAG IV ONE (16:30)
[2023-03-28] MEDS ORDERED: FAMOTIDINE 20 MG/2 ML VIAL IV ONE (16:31)
[2023-03-28] MEDS ORDERED: CEFEPIME 1 GM/VIAL ONE (16:31)
[2023-03-28] MEDS ORDERED: NA CHLORIDE 0.9% 1,000 ML ONE (16:31)
[2023-03-28 16:32] LABS: Specific Gravity 1.015 (1.005-1.030); Urine Bacteria None Seen /HPF (<20); Urine Bilirubin NEGATIVE (Negative); Urine Blood Trace (Negative); Urine Clarity Clear (Clear); Urine Color Light-Yellow (Yellow); Urine Glucose NEGATIVE (Negative); Urine Protein TRACE (Negative); Urine RBC <5 /HPF (None Seen); Urine Urobilinogen Normal (Normal)
[2023-03-28 16:34] LABS: Protime INR 1.16
[2023-03-28 16:35] LABS: Absolute Lymphocytes (CBC) 2.2 K/uL (0.7-4.9); Hematocrit 31.6 % (36.0-45.0); Lymphocytes % 22.3 % (15.3-44.8); MCV 98.2 fL (80-100); MPV 7.1 fL (7.6-11.3); RBC Red Blood Cell Count 3.22 M/uL (3.86-4.86)
[2023-03-28 16:50] LABS: ALT/SGPT 23 U/L (13-56); AST/SGOT 19 U/L (15-37); Albumin 2.8 g/dL (3.4-5.0); Alkaline Phosphatase 62 U/L (45-117); BUN Blood Urea Nitrogen 10 mg/dL (7-18); Bicarbonate 34 mEq/L (21-32); Bilirubin Total 0.2 mg/dL (0.2-1.0); Glomerular Filtration Rate 110 ml/min (=/>90); Glucose Level 96 mg/dL (74-106); NT PRO-BNP 119 pg/mL (<125); Potassium 3.3 mEq/L (3.5-5.1); Protein, Total 7.5 g/dL (6.4-8.2); Sodium Level 136 mEq/L (136-145); Troponin High Sensitivity 4.1 pg/mL (<58.9)
--- NOTE | 2023-03-28 16:57 | RAD REPORT ---
EXAM DESCRIPTION: RADChest Single View03/28/2023 4:03 pm CLINICAL HISTORY: COUGH COMPARISON: Abdomen 1 View (KUB) dated 03/04/2023; Chest Single View dated 03/03/2023; Chest Single Vi ew dated 10/27/2022; Chest Single View dated 04/21/2021 TECHNIQUE: Portable AP view of the chest. FINDINGS: The lungs are clear. Pronounced hyperinflation and flattening of the hemidiaphragms, sugge stive of COPD. No pneumothorax or effusion. The cardiomediastinal contours are unremarkable. IMPRESSION: No acute cardiopulmonary process.
[2023-03-28 17:05] LABS: Bilirubin Direct < 0.1 mg/dL (0-0.2)
--- NOTE | 2023-03-28 17:22 | EDPHYS ---
Physician Documentation [facility] Name: Abbey Alves Age: 52 yrs Sex: Female : 1970 Arrival Date: 03/28/2023 Time: 15:00 Bed 16 Private MD: REJI Physician Cheko Nunez HPI: 03/28 17:17 This 52 yrs old Female presents to ER via Ambulatory with complaints of dann Abnormal PET scan, Fever. 17:17 The patient reports fever, that was measured at 100 degrees Fahrenheit. Onset: The dann symptoms/episode began/occurred 3 day(s) ago. Modifying factors: there are no obvious modifying factors. Associated signs and symptoms: Pertinent positives: cough, Pertinent negatives: None. Severity of symptoms: At their worst the symptoms were mild in the emergency department the symptoms are unchanged. The patient has not experienced similar symptoms in the past. Historical: - Allergies: 15:51 No Known Allergies; ld1 - Home Meds: 17:21 losartan oral [Active]; Eliquis 5 mg oral tablet 2 times per day [Active]; Tylenol #3 aa5 Oral [Active]; Unknown BP medication [Active]; - PMHx: 15:51 Hypertensive disorder; COPD; Vulva and cervical CA; ld1 - PSHx: 15:51 hysterectomy; section; ld1 - Immunization history:: Adult Immunizations up to date, Client reports receiving the 2nd dose of the Covid vaccine. - Social history:: Smoking status: Patient reports the use of cigarette tobacco products, smokes one-half pack cigarettes per day, Patient/guardian denies using alcohol. ROS: 17:17 Constitutional: Negative for fever, chills, and weight loss, Eyes: Negative for injury, dann pain, redness, and discharge, ENT: Negative for injury, pain, and discharge, Neck: Negative for injury, pain, and swelling, Cardiovascular: Negative for chest pain, palpitations, and edema, Abdomen/GI: Negative for abdominal pain, nausea, vomiting, diarrhea, and constipation, Back: Negative for injury and pain, : Negative for injury, bleeding, discharge, and swelling, MS/Extremity: Negative for injury and deformity, Skin: Negative for injury, rash, and discoloration, Neuro: Negative for headache, weakness, numbness, tingling, and seizure, Psych: Negative for depression, anxiety, suicide ideation, homicidal ideation, and hallucinations, Allergy/Immunology: Negative for hives, rash, and allergies, Endocrine: Negative for neck swelling, polydipsia, polyuria, polyphagia, and marked weight changes, Hematologic/Lymphatic: Negative for swollen nodes, abnormal bleeding, and unusual bruising. 17:17 Respiratory: Positive for cough, "sounds productive", shortness of breath, on exertion. Exam: 17:17 Constitutional: This is a well developed, well nourished patient who is awake, alert, dann and in no acute distress. Head/Face: Normocephalic, atraumatic. Eyes: Pupils equal round and reactive to light, extra-ocular motions intact. Lids and lashes normal. Conjunctiva and sclera are non-icteric and not injected. Cornea within normal limits. Periorbital areas with no swelling, redness, or edema. ENT: Nares patent. No nasal discharge, no septal abnormalities noted. Tympanic membranes are normal and external auditory canals are clear. Oropharynx with no redness, swelling, or masses, exudates, or evidence of obstruction, uvula midline. Mucous membranes moist. Neck: Trachea midline, no thyromegaly or masses palpated, and no cervical lymphadenopathy. Supple, full range of motion without nuchal rigidity, or vertebral point tenderness. No Meningismus. Chest/axilla: Normal chest wall appearance and motion. Nontender with no deformity. No lesions are appreciated. Cardiovascular: Regular rate and rhythm with a normal S1 and S2. No gallops, murmurs, or rubs. Normal PMI, no JVD. No pulse deficits. Abdomen/GI: Soft, non-tender, with normal bowel sounds. No distension or tympany. No guarding or rebound. No evidence of tenderness throughout. Back: No spinal tenderness. No costovertebral tenderness. Full range of motion. Skin: Warm, dry with normal turgor. Normal color with no rashes, no lesions, and no evidence of cellulitis. MS/ Extremity: Pulses equal, no cyanosis. Neurovascular intact. Full, normal range of motion. Neuro: Awake and alert, GCS 15, oriented to person, place, time, and situation. Cranial nerves II-XII grossly intact. Motor strength 5/5 in all extremities. Sensory grossly intact. Cerebellar exam normal. Normal gait. Psych: Awake, alert, with orientation to person, place and time. Behavior, mood, and affect are within normal limits. 17:17 Respiratory: mild respiratory distress is noted, Respirations: labored breathing, that is mild, Breath sounds: decreased breath sounds, that are moderate, are located in both bases, rhonchi, that are mild, are scattered, stridor, is not appreciated, + upper airway congestion. wheezing: expiratory is scattered. 17:17 Musculoskeletal/extremity: DVT Exam: No signs of deep vein thrombosis. no pain, no swelling, no tenderness, negative Homans' sign noted on exam, no appreciated bluish discoloration, no erythema, no increased warmth. 17:26 ECG was reviewed by the Attending Physician. [facility] Vital Signs: 15:50 BP 148 / 93; Pulse 106; Resp 22; Temp 98.2(TE); Pulse Ox 85% on R/A; Weight 38.56 kg; ld1 Height 4 ft. 9 in. ; Pain 0/10; 15:50 Pulse Ox 97% on 3 lpm NC; ld1 16:31 BP 150 / 95; Pulse 90; Resp 16; Pulse Ox 100% on 3 lpm NC; ld1 16:45 BP 160 / 93; Pulse 92; Resp 18; Pulse Ox 100% on 3 lpm NC; ld1 18:33 BP 134 / 83; Pulse 99; Resp 20; Pulse Ox 100% on Nebulizer Mask; ld1 18:46 BP 120 / 82; Pulse 97; Resp 16; Pulse Ox 100% on Nebulizer Mask; ld1 19:24 BP 125 / 81; Pulse 92; Resp 12 S; Pulse Ox 100% on 2 lpm NC; as6 15:50 Body Mass Index 18.39 (38.56 kg, 144.78 cm) ld1 15:50 Pain Scale: Adult ld1 MDM: 15:26 Patient medically screened. [facility] 17:19 Differential diagnosis: viral Infection, bacterial infection, URI, bronchitis, dann pneumonia UTI. Differential Diagnosis: Obstructed Airway Bronchitis Influenza Upper Respiratory Infection Pneumonia. Data reviewed: vital signs, nurses notes, EMS record, lab test result(s), EKG, radiologic studies, plain films. Consideration of Admission/Observation Patient was admitted/placed on observation. Escalation of care including admission/observation considered. Independent interpretation of the following test(s) in the Emergency Department EKG: See my EKG interpretation above. Test considered but Not performed: CT: CT CHEST. Care significantly affected by the following chronic conditions: Hypertension, Chronic Obstructive Pulmonary Disease, ON CHEMO, COPD. Counseling: I had a detailed discussion with the patient and/or guardian regarding: the historical points, exam findings, and any diagnostic results supporting the discharge/admit diagnosis, the presence of at least one elevated blood pressure reading (>120/80) during this emergency department visit, lab results, radiology results, the need for further work-up and treatment in the hospital, smoking cessation. 03/28 15:29 Order name: Basic Metabolic Panel; Complete Time: 17:15 [facility] 03/28 15:29 Order name: CBC with Diff; Complete Time: 16:46 [facility] 03/28 15:29 Order name: LFT's; Complete Time: 17:15 [facility] 03/28 15:29 Order name: Magnesium; Complete Time: 17:15 [facility] 03/28 15:29 Order name: NT PRO-BNP; Complete Time: 17:15 [facility] 03/28 15:29 Order name: PT-INR; Complete Time: 16:46 [facility] 03/28 15:29 Order name: Troponin HS; Complete Time: 17:15 [facility] 03/28 15:29 Order name: Lactate w/ 2H reflex if indic.; Complete Time: 17:00 [facility] 03/28 15:29 Order name: Blood Culture Adult (2) [facility] 03/28 15:29 Order name: Urinalysis w/ reflexes; Complete Time: 16:46 [facility] 03/28 15:30 Order name: Strep; Complete Time: 16:46 [facility] 03/28 15:30 Order name: SARS RAPID; Complete Time: 16:46 [facility] 03/28 15:30 Order name: Flu; Complete Time: 16:46 [facility] 03/28 16:28 Order name: Throat Culture EDTN 03/28 18:13 Order name: DD; Complete Time: 18:59 [facility] 03/28 15:29 Order name: XRAY Chest (1 view); Complete Time: 17:00 [facility] 03/28 19:00 Order name: Chest For PE Angio CT [facility] 03/28 15:29 Order name: EKG; Complete Time: 15:30 [facility] 03/28 15:29 Order name: Cardiac monitoring; Complete Time: 15:47 [facility] 03/28 15:29 Order name: EKG - Nurse/Tech; Complete Time: 15:47 [facility] 03/28 15:29 Order name: IV Saline Lock; Complete Time: 16:22 [facility] 03/28 15:29 Order name: Labs collected and sent; Complete Time: 16: [facility] 03/28 15:29 Order name: O2 Per Protocol; Complete Time: 15:32 [facility] 03/28 15:29 Order name: O2 Sat Monitoring; Complete Time: 15:32 [facility] EC:26 Rate is 87 beats/min. Rhythm is regular. QRS [place] is Normal. NC interval is normal. QRS dann interval is normal. QT interval is normal. No Q waves. T waves are Normal. No ST changes noted. Clinical impression: NSR w/ Non-specific ST/T Changes and No evidence of ischemia. Interpreted by me. Reviewed by me. Administered Medications: 16:31 Drug: NS 0.9% IV 1000 ml Route: IV; Rate: 1 bolus; Site: left antecubital; ld1 19:36 Follow up: Response: No adverse reaction; IV Status: Completed infusion; IV Intake: as6 1000ml 16:31 Drug: Cefepime IVPB 1 grams Route: IVPB; Rate: 200 ml/hr; Infused Over: 30 mins; Site: ld1 left antecubital; 19:36 Follow up: Response: No adverse reaction; IV Status: Completed infusion; IV Intake: as6 100ml 16:31 Drug: Famotidine IVP 20 mg Route: IVP; Site: left antecubital; ld1 19:36 Follow up: Response: No adverse reaction as6 17:03 Drug: levofloxacin IVPB 750 mg Volume: 150 ml; Route: IVPB; Infused Over: 90 mins; ld1 Site: left antecubital; 19:36 Follow up: Response: No adverse reaction; IV Status: Completed infusion; IV Intake: as6 150ml 18:32 Drug: Levalbuterol Inhalation 1.25 mg Route: Inhalation; ld1 19:35 Follow up: Response: No adverse reaction as6 18:32 Not Given (unavailable in pyxiss): Ipratropium Inhalation Aerosol 0.5 mg Inhalation onceld1 18:32 Drug: Potassium PO Effervescent Tablet 25 mEq Route: PO; ld1 19:35 Follow up: Response: No adverse reaction as6 18:33 Drug: MethylPrednisoLONE IVP 2 mg/kg Route: IVP; Site: left antecubital; ld1 19:36 Follow up: Response: No adverse reaction as6 18:33 Drug: Levalbuterol Inhalation 1.25 mg Route: Inhalation; ld1 19:35 Follow up: Response: No adverse reaction as6 Disposition Summary: 03/28/23 17:22 Hospitalization Ordered Hospitalization Status: Inpatient Admission dann Provider: Riky Ramirez cha Location: Telemetry/MedSurg (Inpatient) dann Condition: Fair dann Problem: new dann Symptoms: have improved dann Bed/Room Type: Standard dann Room Assignment: 208(03/28/23 18:38) dw Diagnosis - COPD/ Chronic obstructive pulmonary disease with (acute) exacerbation dann - Hypoxemia dann - Tobacco abuse counseling dann - Tobacco use dann - Hypokalemia 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 EDTN EDMS 18:38 17:22 dann dw
--- NOTE | 2023-03-28 17:22 | ER ---
Nurse's Notes [facility] Name: Abbey Alves Age: 52 yrs Sex: Female : 1970 Arrival Date: 03/28/2023 Time: 15:00 Bed 16 Private MD: Diagnosis: COPD/ Chronic obstructive pulmonary disease with (acute) exacerbation;Hypoxemia;Tobacco abuse counseling;Tobacco use;Hypokalemia;prison (current) use of anticoagulants-Elquis Presentation: 03/28 15:50 Chief complaint: Patient states: Doctor referred to ER for abnormal PET scan today. Pt ld1 reports shortness of breath. SpO2 85% RA. Coronavirus screen: At this time, the client does not indicate any symptoms associated with coronavirus-19. Ebola Screen: No symptoms or risks identified at this time. Initial Sepsis Screen: Does the patient meet any 2 criteria? No. Patient's initial sepsis screen is negative. Does the patient have a suspected source of infection? No. Patient's initial sepsis screen is negative. Risk Assessment: Do you want to hurt yourself or someone else? Patient reports no desire to harm self or others. Onset of symptoms was March 28, 2023. 15:50 Method Of Arrival: Ambulatory ld1 15:50 Acuity: KEELY 3 ld1 Triage Assessment: 15:51 General: Appears in no apparent distress. comfortable, Behavior is calm, cooperative, ld1 appropriate for age. Pain: Denies pain. EENT: No signs and/or symptoms were reported regarding the EENT system. Neuro: Level of Consciousness is awake, alert, obeys commands, Oriented to person, place, time, situation. Cardiovascular: Capillary refill < 3 seconds Patient's skin is warm and dry. Respiratory: Airway is patent Respiratory effort is even, labored. GI: Abdomen is flat, non-distended. : No signs and/or symptoms were reported regarding the genitourinary system. Derm: No signs and/or symptoms reported regarding the dermatologic system. Musculoskeletal: No signs and/or symptoms reported regarding the musculoskeletal system. Historical: - Allergies: 15:51 No Known Allergies; ld1 - Home Meds: 17:21 losartan oral [Active]; Eliquis 5 mg oral tablet 2 times per day [Active]; Tylenol #3 aa5 Oral [Active]; Unknown BP medication [Active]; - PMHx: 15:51 Hypertensive disorder; COPD; Vulva and cervical CA; ld1 - PSHx: 15:51 hysterectomy; section; ld1 - Immunization history:: Adult Immunizations up to date, Client reports receiving the 2nd dose of the Covid vaccine. - Social history:: Smoking status: Patient reports the use of cigarette tobacco products, smokes one-half pack cigarettes per day, Patient/guardian denies using alcohol. Screenin:52 [facility] ED Fall Risk Assessment (Adult) History of falling in the last 3 months, ld1 including since admission No falls in past 3 months (0 pts). Abuse screen: Denies threats or abuse. Denies injuries from another. Nutritional screening: No deficits noted. Tuberculosis screening: No symptoms or risk factors identified. Assessment: 15:52 Reassessment: See triage assessment. ld1 17:00 Reassessment: Patient appears in no apparent distress at this time. No changes from ld1 previously documented assessment. 18:00 Reassessment: Patient appears in no apparent distress at this time. No changes from ld1 previously documented assessment. Patient and/or family updated on plan of care and expected duration. Pain level reassessed. Patient is alert, oriented x 3, equal unlabored respirations, skin warm/dry/pink. ERP at bedside discussing plan of care. Vital Signs: 15:50 BP 148 / 93; Pulse 106; Resp 22; Temp 98.2(TE); Pulse Ox 85% on R/A; Weight 38.56 kg; ld1 Height 4 ft. 9 in. ; Pain 0/10; 15:50 Pulse Ox 97% on 3 lpm NC; ld1 16:31 BP 150 / 95; Pulse 90; Resp 16; Pulse Ox 100% on 3 lpm NC; ld1 16:45 BP 160 / 93; Pulse 92; Resp 18; Pulse Ox 100% on 3 lpm NC; ld1 18:33 BP 134 / 83; Pulse 99; Resp 20; Pulse Ox 100% on Nebulizer Mask; ld1 18:46 BP 120 / 82; Pulse 97; Resp 16; Pulse Ox 100% on Nebulizer Mask; ld1 19:24 BP 125 / 81; Pulse 92; Resp 12 S; Pulse Ox 100% on 2 lpm NC; as6 15:50 Body Mass Index 18.39 (38.56 kg, 144.78 cm) ld1 15:50 Pain Scale: Adult ld1 ED Course: 15:05 Patient arrived in ED. mr 15:26 Beryl Pollard, ANJEL is Primary Nurse. ld1 15:26 Cheko Nunez MD is Attending Physician. dann 15:47 Flu Sent. ld1 15:47 SARS RAPID Sent. ld1 15:47 Strep Sent. ld1 15:51 Triage completed. ld1 15:51 Arm band placed on right wrist. ld1 15:52 No provider procedures requiring assistance completed. ld1 15:52 Patient has correct armband on for positive identification. Placed in gown. Bed in low ld1 position. Call light in reach. Side rails up X2. brick grader on. Pulse ox on. NIBP on. Door closed. Noise minimized. Warm blanket given. 16:05 XRAY Chest (1 view) In Process Unspecified. EDMS 16:21 Blood Culture Adult (2) Sent. ld1 16:21 Lactate w/ 2H reflex if indic. Sent. ld1 16:21 Urinalysis w/ reflexes Sent. ld1 17:21 Riky Ramirez MD is Hospitalizing Provider. [facility] 18:33 DD Sent. ld1 19:35 Patient admitted, IV remains in place. as6 Administered Medications: 16:31 Drug: NS 0.9% IV 1000 ml Route: IV; Rate: 1 bolus; Site: left antecubital; ld1 19:36 Follow up: Response: No adverse reaction; IV Status: Completed infusion; IV Intake: as6 1000ml 16:31 Drug: Cefepime IVPB 1 grams Route: IVPB; Rate: 200 ml/hr; Infused Over: 30 mins; Site: ld1 left antecubital; 19:36 Follow up: Response: No adverse reaction; IV Status: Completed infusion; IV Intake: as6 100ml 16:31 Drug: Famotidine IVP 20 mg Route: IVP; Site: left antecubital; ld1 19:36 Follow up: Response: No adverse reaction as6 17:03 Drug: levofloxacin IVPB 750 mg Volume: 150 ml; Route: IVPB; Infused Over: 90 mins; ld1 Site: left antecubital; 19:36 Follow up: Response: No adverse reaction; IV Status: Completed infusion; IV Intake: as6 150ml 18:32 Drug: Levalbuterol Inhalation 1.25 mg Route: Inhalation; ld1 19:35 Follow up: Response: No adverse reaction as6 18:32 Not Given (unavailable in pyxiss): Ipratropium Inhalation Aerosol 0.5 mg Inhalation onceld1 18:32 Drug: Potassium PO Effervescent Tablet 25 mEq Route: PO; ld1 19:35 Follow up: Response: No adverse reaction as6 18:33 Drug: MethylPrednisoLONE IVP 2 mg/kg Route: IVP; Site: left antecubital; ld1 19:36 Follow up: Response: No adverse reaction as6 18:33 Drug: Levalbuterol Inhalation 1.25 mg Route: Inhalation; ld1 19:35 Follow up: Response: No adverse reaction as6 Medication: 15:52 VIS not applicable for this client. ld1 Intake: 19:36 IV: 150ml; Total: 150ml. as6 19:36 IV: 100ml; Total: 250ml. as6 19:36 IV: 1000ml; Total: 1250ml. as6 Outcome: 17:22 Decision to Hospitalize by Provider. dann 19:01 Condition: stable as6 19:01 Instructed on the need for admit. 19:35 Admitted to Med/surg accompanied by tech, via wheelchair, room 208, with oxygen, with as6 chart. 20:13 Patient left the ED. as6 Signatures: Dispatcher [employer] Cheko Naranjo MD MD cha Rivera, Mary mr Tapia, Jeanette, RN RN aa5 Beryl Pollard RN RN ldKhalif Mark RN RN as6
[2023-03-28] MEDS ORDERED: METHYLPREDNISOLONE 40 MG INJ ONE (18:06)
[2023-03-28] MEDS ORDERED: POTASSIUM 25 MEQ EFFERV TAB ONE (18:06)
[2023-03-28] MEDS ORDERED: LEVALBUTEROL 1.25 MG/3 ML NEB ONE (18:06)
--- NOTE | 2023-03-28 18:28 | P.HP ---
Certification for Inpatient Patient admitted to: Inpatient With expected LOS: >2 Midnights Patient will require the following post-hospital care: None Practitioner: I am a practitioner with admitting privileges, knowledge of patient current condition, hospital course, and medical plan of care. Services: Services provided to patient in accordance with Admission requirements found in Title 42 Section 412.3 of the Code of Federal Regulations Patient History Date of Service: 03/28/23 Reason for admission: COPD exacerbation History of Present Illness: 52-year-old female with history of COPD, hypertension, vulvar cancer presents emergency department with chief complaint of shortness of breath. She reports increasing shortness of breath as well as low-grade fevers over the course of the last few days. Her last fever was yesterday she said measured 101.2. Upon arrival to emergency department patient was 85% on room air, she has been tolerating nasal cannula well, she reports that she had a PET scan on Tuesday at another hospital and her oncologist told her there were 3 "spots" that are possibly concerning for pneumonia and she was referred to the emergency department for evaluation. Her labs in the ER were significant for white blood cell count 10 hemoglobin 10.5 macro 31.6 potassium 3.3 bicarb 34 lactic acid 0.8 chest x-ray was negative for acute findings. In the ER she was given Levaquin, cefepime, nebulizer treatments and her potassium was replaced. ED provider wishes to admit for further evaluation and management of COPD exacerbation. Allergies No Known Allergies Allergy (Verified 04/21/21 04:16) Home Medications: Apixaban [Eliquis] 1 tab PO BID 10/28/22 Codeine/APAP [Tylenol #3*] 1 tab PO Q6HP PRN 10/28/22 Losartan Potassium 1 tab PO BID 10/28/22 cloNIDine HCL [Clonidine HCl] 1 - 2 tab PO DAILY 10/28/22 Nifedipine [Nifedipine ER] 30 mg PO DAILY 03/04/23 - Past Medical/Surgical History Diabetic: No -: copd -: vulva, cervical ca -: HTN -: hysterectomy -: c section Psychosocial/ Personal History: , lives at home with - Family History Mother -: Cancer - Social History Smoking Status: Current every day smoker Counseled patient to stop smoking for: less than 10 minutes Alcohol use: No CD- Drugs: No Caffeine use: No Place of Residence: Home Review of Systems 10-point ROS is otherwise unremarkable General: Fever, Chills, Malaise Respiratory: Cough, Shortness of Breath, SOB with Excertion, Sputum Physical Examination - Physical Exam General: Alert, In no apparent distress, Oriented x3 HEENT: Atraumatic, PERRLA, Mucous membr. moist/pink, EOMI, Sclerae nonicteric Neck: Supple, 2+ carotid pulse no bruit, No LAD, Without JVD or thyroid a bnormality Respiratory: Diminished, Expiratory wheezes Cardiovascular: No edema, Regular rate/rhythm, Normal S1 S2 Capillary refill: <2 Seconds Gastrointestinal: Normal bowel sounds, No tenderness Musculoskeletal: No tenderness Integumentary: No rashes Neurological: Normal speech, Normal strength at 5/5 x4 extr, Normal tone, Normal affect - Studies Laboratory Data (last 24 hrs) 03/28/23 16:18: PT 12.8 H, INR 1.16 03/28/23 16:18: WBC 10.00, Hgb 10.5 L, Hct 31.6 L, Plt Count 324 03/28/23 16:18: Sodium 136, Potassium 3.3 L, BUN 10, Creatinine 0.53 L, Glucose 96, Magnesium 2.0, Total Bilirubin 0.2, AST 19, ALT 23, Alkaline Phosphatase 62 Microbiology Data (last 24 hrs): 03/28/23 15:36 Throat Group A Streptococcus Rapid Screen - Final 03/28/23 15:36 Nasopharnyx Influenza Type A Antigen Screen - Final 03/28/23 15:36 Nasopharnyx Influenza Type B Antigen Screen - Final Assessment and Plan - Plan Assessment: Acute on chronic hypoxic respiratory failure secondary to COPD with exacerbation SIRS criteria Hypertension History of vulvar cancer Hypokalemia Plan: Acute on chronic hypoxic respiratory failure secondary to COPD with exacerbation Room air saturations 85%, mild to moderate expiratory wheezing noted. She reports fevers at home past 2 days but no measured fever here, chest x-ray negative for infectious process. I have added on a D-dimer to help decide between CT noncontrast of the chest versus CT PE protocol. Will order CT after results from D-dimer available. Continue nebs, steroids, antibiotics given fever. Wean off oxygen, daily room air saturations, incentive spirometry. SIRS criteria SIRS criteria present including tachycardia, tachypnea. No measured fevers here, no source of infection identified thus far. Blood cultures were obtained in the ER, initial lactate 0.8. Hypertension Hold oral antihypertensive agents for now, continuing appropriate. History of vulvar cancer Continue outpatient management Hypokalemia Replaced in ED, protocol in place. DVT PPX:Continue Eliquis Code status:Full code Discharge Plan: Home Plan to discharge in: 48 Hours - Advance Directives Does patient have a Living Will: No Does patient have a Durable POA for Healthcare: No - Code Status/Comfort Care Code Status Assessed: Yes (full code) Critical Care: No Time Spent Managing Pts Care (In Minutes): 70
[2023-03-28] MEDS ORDERED: ACETAMINOPHEN 500 MG TAB PO PRN (19:56)
[2023-03-28] MEDS ORDERED: BENZONATATE 100 MG CAP PO PRN (19:56)
[2023-03-28] MEDS ORDERED: ALBUTEROL 2.5 MG/3 ML NEB SOL NEB PRN (19:56)
[2023-03-28] MEDS ORDERED: ONDANSETRON 4 MG/2 ML VIAL IV PRN (19:56)
[2023-03-28] MEDS ORDERED: IPRATROPIUM BROM 0.5MG/2.5ML NEB PRN (19:56)
[2023-03-28] MEDS: APIXABAN 5 MG TABLET PO SCH (20:48)
--- NOTE | 2023-03-28 20:48 | RAD REPORT ---
EXAM DESCRIPTION: CT - Chest For Pe Angio - 03/28/2023 7:52 pm CLINICAL HISTORY: Hypoxia, elevated DD, CA hx COMPARISON: Chest For Pe Angio dated 03/03/2023 TECHNIQUE: Thin axial CT images of the chest were obtained following administration of 100 mL Isovue 370 IV contrast. Multiplanar reconstructions, and maximum intensity projection reconstructions were generated and reviewed. Exam utilizes a protocol for optimal evaluation of pulmonary arterial tree. All CT scans are performed using dose optimization technique as appropriate and may include automated exposure control or mA/KV adjustment according to patient size. FINDINGS: Pulmonary arteries are normal. No emboli or other suspicious finding. No acute or signific ant aorta findings. Severe centrilobular emphysematous changes. Patchy airspace opacities in the subpleural medial anteri or left lower lobe, and peripheral left upper lobe, with more subtle ground-glass opacities and micro nodularity in the posterior right lower lobe and right middle lobe. No suspicious mass. No pleural t hickening or pleural effusion. No pneumothorax. No abnormal mediastinal or hilar masses or lymphadenopathy seen. No chest wall mass or abnormal axill iary lymphadenopathy. IMPRESSION: No evidence of acute central pulmonary emboli. Scattered areas of airspace opacification as above, on a background of emphysematous changes, concern ing for acute exacerbation.
[2023-03-28 21:44] VITALS: O2SAT 98; BMI 18.3
[2023-03-29 03:56] LABS: Absolute Lymphocytes (CBC) 0.8 K/uL (0.7-4.9); Hematocrit 29.5 % (36.0-45.0); Lymphocytes % 11.5 % (15.3-44.8); MCV 97.9 fL (80-100); MPV 6.9 fL (7.6-11.3); RBC Red Blood Cell Count 3.01 M/uL (3.86-4.86)
[2023-03-29 04:05] LABS: Magnesium 1.9 mg/dL (1.6-2.4); Potassium 4.3 mEq/L (3.5-5.1)
[2023-03-29 06:08] LABS: Blood Morphology Comment NOT SEEN (NOT SEEN); Platelet Estimate ADEQ
[2023-03-29] MEDS: CODEINE 30MG/APAP 300MG TAB PO PRN ×2 (06:46→13:04)
[2023-03-29] MEDS ORDERED: predniSONE 20 MG TAB PO SCH (08:00)
[2023-03-29 08:44] VITALS: BP 136/79; TEMP 98.1
[2023-03-29] MEDS: APIXABAN 5 MG TABLET PO SCH (08:56)
[2023-03-29] MEDS ORDERED: DULERA 200/5 (MOMETASONE/FORMOTEROL) INHALER IH SCH (09:00)
[2023-03-29] MEDS ORDERED: NIFEDIPINE XL 30 MG TABLET PO SCH (09:00)
[2023-03-29] MEDS ORDERED: LOSARTAN POTASSIUM 50 MG TABLET PO SCH (09:00)
--- NOTE | 2023-03-29 12:04 | P.CNS ---
Date of Consult: 03/29/23 Reason for Consult: COPD exacerbation Chief Complaint: COPD exacerbation History of Present Illness: Patient is 52 years of age admitted with worsening dyspnea worse over the past 3 to 5 days does have vulvar cancer and last chemotherapy was in January current smoker uses albuterol only no formal diagnosis of COPD feeling much better planing of a slight cough Allergies No Known Allergies Allergy (Verified 04/21/21 04:16) Home Medications: Apixaban [Eliquis] 1 tab PO BID 10/28/22 Codeine/APAP [Tylenol #3*] 1 tab PO Q6HP PRN 10/28/22 Losartan Potassium 1 tab PO BID 10/28/22 cloNIDine HCL [Clonidine HCl] 1 - 2 tab PO DAILY 10/28/22 Nifedipine [Nifedipine ER] 30 mg PO DAILY 03/04/23 - Past Medical/Surgical History Diabetic: No -: copd -: vulva, cervical ca -: HTN -: hysterectomy -: c section Psychosocial/ Personal History: , lives at home with - Family History Mother Medical History: Cancer - Social History Smoking Status: Current every day smoker Alcohol use: No CD- Drugs: No Caffeine use: Yes Place of Residence: Home Review of Systems 10-point ROS is otherwise unremarkable Physical Examination Temp Pulse Resp BP Pulse Ox 98.1 F 73 16 136/79 95 03/29/23 08:00 03/29/23 08:00 03/29/23 08:00 03/29/23 08:00 03/29/23 08:00 General: Alert, In no apparent distress, Oriented x3 Neck: Supple Respiratory: Clear to auscultation bilaterally, Normal air movement, Diminished Cardiovascular: No edema, Normal pulses, Regular rate/rhythm, Normal S1 S2 Gastrointestinal: Normal bowel sounds, Soft and benign Laboratory Data (last 24 hrs) 03/28/23 16:18: PT 12.8 H, INR 1.16 03/28/23 16:18: WBC 10.00, Hgb 10.5 L, Hct 31.6 L, Plt Count 324 03/28/23 16:18: Sodium 136, Potassium 3.3 L, BUN 10, Creatinine 0.53 L, Glucose 96, Magnesium 2.0, Total Bilirubin 0.2, AST 19, ALT 23, Alkaline Phosphatase 62 - Problems (1) COPD exacerbation Current Visit: No Status: Acute Plan: Patient is 52 years of age active smoker admitted with presumed COPD exacerbation chest x-ray classic COPD changes flattened diaphragm is feeling much better history of vulvar cancer treated with chemotherapy in January currently she is got mets to the lungs as per PET CT COPD changes on the CT scan of the chest patient is feeling better discharge on prednisone 20 twice daily for a week will need a long-acting bronchodilator follow-up with me in 2 weeks for outpatient pulmonary function test labs x-rays all reviewed vital signs inkolai celeste patient has mild anemia not sure why she is on Eliquis
--- NOTE | 2023-03-29 13:15 | P.DS ---
Admission Date: 03/28/23 Discharge Date: 03/29/23 Disposition: ROUTINE DISCHARGE Discharge Condition: GOOD Reason for Admission: COPD exacerbation Consultations: 1. Pulmonology Hospital Course: DIAGNOSES: # Acute Hypoxic Respiratory Failure secondary to Acute Chronic Obstructive Pulmonary Disease Exacerbation # Vulvar Cancer with concern for Pulmonary Metastases # History of Left Lower Extremity Deep Venous Thrombosis on Apixaban # SIRS Criteria (Tachycardia, Tachypnea) no definite source of infection # Hypertension # Hypokalemia - resolved HOSPITAL COURSE: Mrs. Abbey Alves is a pleasant 52 year old female with a past medical history significant for vulvar cancer on experimental chemotherapy and hypertension who was admitted to the [facility] on 03/28/2023 for shortness of breath. She was admitted to the Medicine service. She states that, prior to presentation, she had a PETCT with her oncologist, and there was concerned for 3 new lesions on her lungs, which were not present several months ago. They advised that she present to the nearest Emergency Department for further evaluation. Upon further evaluation, she was found to be hypoxic with a pulse oximetry reading of 85% on room air. She was diagnosed with an acute COPD exacerbation. Her chest x-ray revealed, "no acute cardiopulmonary process." Her CT chest angiogram revealed, "no evidence of acute central pulmonary emboli. Scattered areas of airspace opacification as above, on a background of emphysematous changes, concerning for acute exacerbation." She was treated with bronchodilators and steroids, with significant improvement in her symptoms. She is no longer hypoxic. On ambulation today, her pulse oximetry readings remained at 96%. Pulmonology was consulted and she was evaluated by Dr. Parada. He has cleared her for discharge with outpatient follow-up. Of note, clinically, she did not appear to have pneumonia. However, given her immunosuppressed state and scattered areas of airspace opacification on her CT results, she was provided with a 7-day prescription of levofloxacin for empiric coverage of pneumonia. On 03/29/2023, she was seen on rounds and deemed medically stable for discharge. She was discharged with instructions to schedule follow-up appointments with her PCP (FATOU Bailey), with Pulmonology (Dr. Parada), and with her Oncologist. She was provided prescriptions for albuterol, prednisone, benzonatate, and levofloxacin. Her and her were given the opportunity to ask questions and reported no further questions. Furthermore, all questions were answered to the best of my ability. A copy of this discharge summary will be sent to the above providers to facilitate continuity of care. Today, I personally spent 35 minutes on her case, of which greater than 50% of the time was spent in patient education, counseling, and coordination of care as described above. Vital Signs/Physical Exam: Temp Pulse Resp BP Pulse Ox 98.1 F 73 16 136/79 95 03/29/23 08:00 03/29/23 08:00 03/29/23 08:00 03/29/23 08:00 03/29/23 08:00 General: Alert, In no apparent distress, Oriented x3 HEENT: Atraumatic, Mucous membr. moist/pink, Sclerae nonicteric Neck: JVD not distended Respiratory: Clear to auscultation bilaterally, Normal air movement Cardiovascular: No edema, Regular rate/rhythm, Normal S1 S2, No gallops, No rubs, No murmurs Gastrointestinal: Normal bowel sounds, Soft and benign, Non-distended, No tenderness, No rebound, No guarding Musculoskeletal: No clubbing Integumentary: No rashes Neurological: Normal speech, Normal affect Laboratory Data at Discharge: WBC 7.20 thou/uL (4.3-10.9) 03/29/23 03:20 Hgb 10.2 g/dL (12.0-15.0) L 03/29/23 03:20 Hct 29.5 % (36.0-45.0) L 03/29/23 03:20 Plt Count 281 thou/uL (152-406) 03/29/23 03:20 PT 12.8 SECONDS (9.5-12.5) H 03/28/23 16:18 INR 1.16 03/28/23 16:18 Sodium 138 mEq/L (136-145) 03/29/23 03:20 Potassium 4.3 mEq/L (3.5-5.1) D 03/29/23 03:20 BUN 7 mg/dL (7-18) 03/29/23 03:20 Creatinine 0.39 mg/dL (0.55-1.02) L 03/29/23 03:20 Glucose 153 mg/dL (74-106) H 03/29/23 03:20 Magnesium 1.9 mg/dL (1.6-2.4) 03/29/23 03:20 Total Bilirubin 0.2 mg/dL (0.2-1.0) 03/28/23 16:18 AST 19 U/L (15-37) 03/28/23 16:18 ALT 23 U/L (13-56) 03/28/23 16:18 Alkaline Phosphatase 62 U/L (45-117) 03/28/23 16:18 Home Medications: Apixaban [Eliquis] 1 tab PO BID 10/28/22 Codeine/APAP [Tylenol #3*] 1 tab PO Q6HP PRN 10/28/22 Losartan Potassium 1 tab PO BID 10/28/22 cloNIDine HCL [Clonidine HCl] 1 - 2 tab PO DAILY 10/28/22 Nifedipine [Nifedipine ER] 30 mg PO DAILY 03/04/23 Albuterol Neb [Proventil 0.083% Neb Soln] 2.5 mg NEB Q6H PRN #60 amp 03/29/23 Benzonatate [Tessalon Perle*] 100 mg PO TID PRN 7 Days #20 cap 03/29/23 levoFLOXacin [Levaquin*] 500 mg PO DAILY 6 Days #6 tab 03/29/23 predniSONE [Prednisone*] 20 mg PO BIDWM 5 Days #10 tab 03/29/23 New Medications: levoFLOXacin [Levaquin*] 500 mg PO DAILY 6 Days #6 tab predniSONE [Prednisone*] 20 mg PO BIDWM 5 Days #10 tab Albuterol Neb [Proventil 0.083% Neb Soln] 2.5 mg NEB Q6H PRN #60 amp PRN Reason: Shortness Of Breath Benzonatate [Tessalon Perle*] 100 mg PO TID PRN 7 Days #20 cap PRN Reason: Cough Physician Discharge Instructions: 1. Please call and schedule a follow-up appointment with your PCP (FATOU Bailey) in 3-5 days 2. Please call and schedule a follow-up appointment with Pulmonology (Dr. Parada) in 3-5 days 3. Please call and schedule a follow-up appointment with your Oncologist in 3-5 days - Please discuss the possibility of a lung biopsy with your Oncologist at this appointment Diet: AHA Activity: Ad krishna Followup: Jt Bailey FNP [OUTSIDE PHYSICIAN] - Richard Parada MD [ACTIVE - CAN ADMIT] -
[2023-03-29] MEDS ORDERED: levoFLOXacin 500 MG TAB PO SCH (13:45)
[2023-03-29] MEDS ORDERED: ALBUTEROL 2.5 MG/3 ML NEB SOL NEB PRN (15:00)
[2023-03-29 15:02] LABS: Specific Gravity 1.025 (1.005-1.030); Urine Bacteria <20 /HPF (<20); Urine Bilirubin NEGATIVE (Negative); Urine Blood Trace (Negative); Urine Clarity Clear (Clear); Urine Color Light-Yellow (Yellow); Urine Glucose NEGATIVE (Negative); Urine Mucus Slight /HPF (None Seen); Urine Protein 1+ (Negative); Urine RBC <5 /HPF (None Seen); Urine Urobilinogen Normal (Normal); Urine pH 6.5 (5.0-7.0)
[2023-03-29] MEDS ORDERED: Levofloxacin500mg IV 500 MG/100 ML BAG IV SCH (16:00)
--- NOTE | 2023-03-30 16:02 | EKG ---
Test Date: 2023-03-28 Test Time: 15:42:05 Rn Examiner: Isra COHEN MEASUREMENT RESULTS: Intervals: Rate: 89 GA: 134 QRSD: 54 QT: 330 QTc: 401 [place]: P: 89 GA: 134 QRS: 79 T: 70 INTERPRETIVE STATEMENTS: Normal sinus rhythm Septal infarct, age undetermined Abnormal ECG Compared to ECG 03/03/2023 19:21:29 Ventricular premature complex(es) no longer present Myocardial infarct finding still present Electronically Signed On 03-30-23 15:57:55 CDT by Miky Briseno
== END 2023-03-29 15:40 | disposition home or self-care (01) ==
LOC: ER 15:00 → ERHOLD 18:14 → INTOOBSV 18:14 → 2ND 19:20
PROVIDERS: ADMIT Internal Medicine; ATTEND Internal Medicine
DX: J44.1 Chronic obstructive pulmonary disease with (acute) exacerbation (principal); J96.21 Acute and chronic respiratory failure with hypoxia; I10 Essential (primary) hypertension; F17.210 Nicotine dependence, cigarettes, uncomplicated; E87.6 Hypokalemia; Z85.44 Personal history of malignant neoplasm of other female genital organs; Z86.718 Personal history of other venous thrombosis and embolism; Z79.01 Long term (current) use of anticoagulants; Z20.822 Contact with and (suspected) exposure to COVID-19
CPT/HCPCS: 36415; 71045; 71275; 80048; 80076; 81001; 82947; 83605; 83735; 83880; 84484; 85025; 85379; 85610; 87040; 87070; 87081; 87804; 87811; 93005; 94010; 96365; 96366; 96375; 99285; G0378; J0692; J2920; J3535; J7030; J7512; J7614; Q9967

== ENCOUNTER 2023-04-14 17:18 | Emergency (ER) | payer OTHER, SELFPAY ==
--- OUTSIDE RECORDS SUMMARY | 2023-04-14 17:21 | XMS REPORT | Clinical Summary ---
:1970 [facility] Address [address] [place] [address] Care Team Providers Name Role Phone Unavailable [...] Vaccination (#1) 1970 Results Not on fileafter 04/14/2022
--- OUTSIDE RECORDS SUMMARY | 2023-04-14 17:22 | XMS REPORT | Continuity of Care Document ---
:1970 Author Organization [facility] t Address [address] [place] [address] [address] [place] [address] Care Team Providers Name Role Phone Chalo Kyra ORELLANA Primary Care Physician [phone] SYSTEM, PROVIDER NOT IN Attending Clinician Unavailable Alejandro Fontaine Attending Clinician Unavailable Alejandro Fontaine MD Attending Clinician [phone] Doctor Unassigned, [place] Attending Clinician Unavailable JANIS YOU Attending Clinician [...] xas Fahrenheit Fahrenheit 00 MD Mark chao [facility] Center Vulval Vulval Disease Active Univers pain pain 05-18 ity of 00:00: [place] MD Mark chao [facility] Hypokalemi Hypokalemi Disease Active U nivers a a 05-18 ity of 00:00: [place] 00 MD Mark chao [facility] Hypophosph Hypophosph Disease Active U nivers atemia atemia 05-18 ity of 00:00: [place] MD Mark chao [facility] No known No known Disease Unive rs active active ity of problems problems [facility] Allergies, Adverse Reactions, Alerts Allergy Allergy Status Severity Reaction(s) Onset Inactive Treating Comm ents Source Name Type Date Date Clinician NO KNOWN Drug Active Univers ALLERGIE Class ity of S [facility] Social History Social Habit Start Date Stop Date Quantity Comments Source History [facility] University o f Alcohol Comment [facility] History of tobacco Cigarette Smoker University of use [place] MD Benji tobin [facility] History [facility] University o f Alcohol Binge [place] MD Lissette kuhn [facility] History [facility] University o f Alcohol Std Drinks [facility] Exposure to 2022-07-04 2022-07-[address] [facility] SARS-CoV-2 (event) 00:00:00 22:50:00 [facility] Tobacco use and 2019-05-18 2019-05-18 Smokeless Universit y of exposure 00:00:00 00:00:00 tobacco non-user [facility] Cigarettes smoked 2019-05-18 2019-05-18 Univers ity of current (pack per 00:00:00 00:00:00 [facility] ) - Reported Cancer Ce nter Alcohol intake 2019-05-18 2019-05-18 Lifetime University of 00:00:00 00:00:00 non-drinker [place] MD Yoni stephenson (finding) Cancer Center History SDOH 2019-05-18 2019-05-18 1 University o f Alcohol Frequency 00:00:00 00:00:00 [facility] Sex Assigned At [birth year] Universit y of 00:00:00 00:00:00 [place] MD Leblanc [facility] Smoking Status Start Date Stop Date Source Tobacco smoking consumption Univ ersity [facility] [place] Medical unknown Branch Smokes tobacco daily 2019-05-18 00:00:[address] [facility] Medications Ordered Filled Start Stop Current Ordering Indication Dosage Frequency Signature Comments Components Source Medication Medication Date Date Medication? Clinician (SIG) Name Name apixaban No 10mg 10 mg, Univer s (ELIQUIS) 07-15 Oral, ONCE ity of tablet 10 07:03: 07:07 NOW, 1 [place] mg 00 :00 dose, On Medical Giuliana Branch 07/15/22 at 0215, JUANI
In dications: DVT/PE iopamidol 2021- No [id number] 65mL 65 mL, Univers (ISOVUE 07-15 08 Intravenou ity o f 370-500 mL) 07:00: [...] vein of the extremitie s losartan 50 0 Yes 50mg Take 50 mg Univers mg tablet 8-24 by mouth ity of 23:13: in the [place] [address] morning Medical and 50 mg Branch in the evening. losartan 50 2021-0 Yes 50mg Take 50 mg Univers mg tablet 8-24 by mouth ity of 23:13: in the [place] [address] morning Medical and 50 mg Branch in [...] 10 everyday 8 00:00: 00 TAKE 1 2-0 No 10 TABLET -09 TWICE 00:00: DAILY. 00 TAKE 1 2021-0 No 50 TABLET 06-29 DAILY. 00:00: 00 TAKE 1 2021-0 No 10 TABLET -09 TWICE 00:00: DAILY. 00 1 tab 2-0 No 10 everyday 06-29 00:00: 00 TAKE 1 2-0 No 10 TABLET 06-29 TWICE 00:00: DAILY. 00 TAKE 1 2021-0 No 50 TABLET 06-29 DAILY. 00:00: 00 TAKE 1 2-0 No 50 TABLET 06-29 DAILY. 00:00: 00 1 tab 2-0 No 10 everyday 06-29 00:00: 00 TAKE 1 2-0 No 10 TABLET - TWICE 00:00: DAILY. 00 TAKE 1 2021-0 No 50 TABLET 8 DAILY. 00:00: 00 iopamidol 2021- No [id number] 100mL 100 mL, Univers (ISOVUE 04-01 Intravenou ity o f 370-500 mL) 06:30: 05:15 s, ONCE, 1 [place] injection 00 :00 dose, On Medica l 100 mL [facility] 04/01/22 at 0130, Routine ketorolac 2021- No 15mg 15 mg, Unive rs (TORADOL) 04-01 Slow IV ity of injection 06:00: 04:59 Push, [place] 15 mg 00 :00 ONCE, 1 Medical dose, On Branch [facility] 04/01/22 at 0100, JUANI acetaminoph 2022-0 Yes [id number] 1{tbl} Take 1 Un ella [...] Anderso hours as n needed Cancer (PAIN). [place] naproxen Yes 2{capsu Take 2 Univ ers sodium 5-14 le} capsules ity of (ALEVE) 220 16:31: by mouth [place] mg cap 26 every 6 MD (six) Anderso hours as n needed Cancer (PAIN). [place] naproxen Yes 2{capsu Take 2 Univ ers sodium 5-14 le} capsules ity of (ALEVE) 220 16:31: by mouth [place] mg cap 26 every 6 MD (six) Anderso hours as n needed Cancer (PAIN). [place] naproxen Yes 2{capsu Take 2 Univ ers sodium 5-14 le} capsules ity of (ALEVE) 220 16:31: by mouth [place] mg cap 26 every 6 MD (six) Anderso hours as n needed Cancer (PAIN). [place] naproxen Yes 2{capsu Take 2 Univ ers sodium 5-14 le} capsules ity of (ALEVE) 220 16:31: by mouth [place] mg cap 26 every 6 MD (six) Anderso hours as n needed Cancer (PAIN). [place] naproxen Yes 2{capsu Take 2 Univ ers sodium 5-14 le} capsules ity of (ALEVE) 220 16:31: by mouth [place] mg cap 26 every 6 MD (six) Anderso hours as n needed Cancer (PAIN). [place] naproxen Yes 2{capsu Take 2 Univ ers sodium 5-14 le} capsules ity of (ALEVE) 220 16:31: by mouth [place] mg cap 26 every 6 MD (six) Anderso hours as n needed Cancer (PAIN). [place] naproxen Yes 2{capsu Take 2 Univ ers sodium 5-14 le} capsules ity of (ALEVE) 220 16:31: by mouth [place] mg cap 26 every 6 MD (six) Anderso hours as n needed Cancer (PAIN). [place] naproxen Yes 2{capsu Take 2 Univ ers sodium 5-14 le} capsules ity of (ALEVE) 220 16:31: by mouth [place] mg cap 26 every 6 MD (six) Anderso hours as n needed Cancer (PAIN). [place] naproxen Yes 2{capsu Take 2 Univ ers sodium 5-14 le} capsules ity of (ALEVE) 220 16:31: by mouth [place] mg cap 26 every 6 MD (six) Anderso hours as n needed Cancer (PAIN). [place] naproxen Yes 2{capsu Take 2 Univ ers sodium 5-14 le} capsules ity of (ALEVE) 220 16:31: by mouth [place] mg cap 26 every 6 MD (six) Anderso hours as n needed Cancer (PAIN). [place] naproxen Yes 2{capsu Take 2 Univ ers sodium 5-14 le} capsules ity of (ALEVE) 220 16:31: by mouth [place] mg cap 26 every 6 MD (six) Anderso hours as n needed Cancer (PAIN). [place] naproxen Yes 2{capsu Take 2 Univ ers sodium 5-14 le} capsules ity of (ALEVE) 220 16:31: by mouth [place] mg cap 26 every 6 MD (six) Anderso hours as n needed Cancer (PAIN). [place] naproxen Yes 2{capsu Take 2 Univ ers sodium 5-14 le} capsules ity of (ALEVE) 220 16:31: by mouth [place] mg cap 26 every 6 MD (six) Anderso hours as n needed Cancer (PAIN). Center Vital Signs Vital Name Observation Time Observation Value Comments Source Systolic blood 2022-07-15 06:30:00 161 mm[Hg] Univer sity of pressure [facility] Diastolic blood 2022-07-15 06:30:00 95 mm[Hg] [facility] Heart rate 2022-07-15 06:30:00 88 /min [facility] Respiratory rate 2022-07-15 06:30:00 18 /min [facility] Oxygen saturation in 2022-07-15 06:30:00 96 /min [facility] Arterial blood by [facility] Pulse oximetry Branch Body temperature 2022-07-15 03:55:00 35.89 Marija [facility] Body height 2022-07-15 03:55:00 142.2 cm [facility]i ty [facility] [place] [facility] [place]elt Body weight 2022-07-15 03:55:00 39.418 kg [facility] ty [facility] [place] [facility] BMI 2022-07-15 03:55:00 19.48 kg/m2 Universi ty [facility] Branch Systolic blood 2022-04-01 06:00:00 159 mm[Hg] Univer sity of pressure [facility] Diastolic blood 2022-04-01 06:00:00 94 mm[Hg] Unive rsity of pressure [facility] Heart rate 2022-04-01 06:00:00 91 /min Universi ty of [facility] Body temperature 2022-04-01 06:00:00 36.11 Marija Univ ersity of [facility] Respiratory rate 2022-04-01 06:00:00 16 /min [facility] Oxygen saturation in 2022-04-01 06:00:00 97 /min [facility] Arterial blood by [facility] Pulse oximetry Branch Body height 2022-04-01 03:33:00 154.9 cm [facility] ty [facility] [place] [facility]elt Body weight 2022-04-01 03:33:00 40.824 kg Universi ty [facility] BMI 2022-04-01 03:33:00 17.01 kg/m2 Universi ty [facility] [place] Medical Felt WEIGHT 2021-04-03 14:19:00 41.8 kg BP Systolic [...] AUTHORIZATION FOR 2022-07-23 05:01:00 Doctor Unassigned, No Univ [facility] RELEASE OF PHI Name Medical Branch CT CHEST PULMONARY 2022-07-15 06:00:16 Janis You [facility] ANGIOGRAM Medical Branch BASIC METABOLIC PANEL 2022-07-15 04:07:00 Janis You [facility] (NA, K, CL, CO2, Medical Branch GLUCOSE, BUN, CREATININE, CA) CBC WITH DIFF 2022-07-15 04:07:00 Janis You [facility] [place] [facility] D-DIMER 2022-07-15 04:07:00 Janis You [facility] [place] [facility] CONSENT/REFUSAL FOR 2022-07-15 03:50:37 Doctor Unassigned, No Un [facility] DIAGNOSIS AND TREATMENT Name Medical Branch CT ABDOMEN PELVIS W 2022-04-01 05:17:59 Brant Florez [facility] CONTRAST Medical Branch COMP. METABOLIC PANEL 2022-04-01 04:59:00 Brant Florez [facility] ([id number]) Medical Branch CBC WITH DIFF 2022-04-01 04:59:00 Brant Florez [facility] [place] [facility] NOTICE OF PRIVACY 2022-04-01 03:23:48 Doctor Unassigned, No [facility] PRACTICES Name Medical Branch CONSENT/REFUSAL FOR 2022-04-01 03:23:01 [facility] Name Medical Felt Plan of Care Planned Activity Planned Date [...] Luke s Test 00:00:00 (procedure) [code = [facility] 04922203] Future Scheduled [address] [facility] 00:00:00 (procedure) [code = [facility] 05261186] Future Scheduled [address] [facility] Test 00:00:00 (procedure) [code = [facility] 01296490] Future Scheduled [address] [facility] Test 00:00:00 (procedure) [code = [facility] 42240185] Future Scheduled [address] [facility] Test 00:00:00 (procedure) [code = [facility] 09422137] Future Scheduled [address] [facility] 00:00:00 malignant neoplasm of Medica l Center cervix (procedure) [code = 847749447] Future Scheduled [address] [facility] Test 00:00:00 malignant neoplasm of Medica l Center cervix (procedure) [code = 560895673] Future Scheduled [address] [facility] Test 00:00:00 malignant neoplasm of Medica l Center cervix (procedure) [code = 943243335] Future Scheduled [address] [facility] Test 00:00:00 malignant neoplasm of Medica l Center cervix (procedure) [code = 812633819] Future Scheduled [address] [facility] Test 00:00:00 malignant neoplasm of Medica l Center cervix (procedure) [code = 012302627] Future Scheduled 1987 DTAP/TDAP/TD VACCINES CH I [...] Medica l Center colon (procedure) [code = 622023093] Future Scheduled 1970 Sigmoidoscopy [facility] Medical Cente r Future Scheduled [address] [facility] Test 00:00:00 malignant neoplasm of Medica l Center breast (procedure) [code = 291083883] Future Scheduled [address] [facility] 00:00:00 (combo) [code = CT Medical C enter Colonography (combo)] Future Scheduled [address] [facility] 00:00:00 malignant neoplasm of Medica l Center colon (procedure) [code = 406204507] Future Scheduled [address] [facility] Test 00:00:00 malignant neoplasm of Medica l Center colon (procedure) [code = 091325297] Future Scheduled [address] [facility] Test 00:00:00 malignant neoplasm of Medica l Center colon (procedure) [code = 909453373] Future Scheduled [address] [facility] Test 00:00:00 malignant neoplasm of Medica l Center colon (procedure) [code = 395066344] Future Scheduled 1970 Sigmoidoscopy [facility]code [facility] [address] [facility] [facility] 00:00:00 malignant neoplasm of Medica l Center breast (procedure) [code = 759107629] Future Scheduled [address] [facility] 00:00:00 (combo) [code = CT Medical C enter Colonography (combo)] Future Scheduled [address] [facility] 00:00:00 malignant neoplasm of Medica l Center colon (procedure) [code = 904431768] Future Scheduled [address] [facility] 00:00:00 malignant neoplasm of Medica l Center colon (procedure) [code = 964515695] Future Scheduled [address] [facility] 00:00:00 malignant neoplasm of Medica l Center colon (procedure) [code = 520491125] Future Scheduled [address] [facility] 00:00:00 malignant neoplasm of Medica l Center colon (procedure) [code = 700010018] Future Scheduled 1970 Sigmoidoscopy [facility]] [facility] [address] [facility] 00:00:00 malignant neoplasm of Medica l Center breast (procedure) [code = 396400881] Future Scheduled [address] [facility] 00:00:00 malignant neoplasm of Medica l Center breast (procedure) [code = 173830923] Future Scheduled [address] [facility] 00:00:00 (combo) [code = CT Medical C enter Colonography (combo)] Future Scheduled [address] [facility] 00:00:00 malignant neoplasm of Medica l Center colon (procedure) [code = 383824705] Future Scheduled [address] [facility] 00:00:00 malignant neoplasm of Medica l Center colon (procedure) [code = 008291400] Future Scheduled [address] [facility] 00:00:00 malignant neoplasm of Medica l Center colon (procedure) [code = 483501913] Future Scheduled [address] [facility] 00:00:00 malignant neoplasm of Medica l Center colon (procedure) [code = 028842497] Future Scheduled 1970 Sigmoidoscopy [facility]code [facility] 00:[facility]oscopy] Medical Cente r Future Scheduled [address] [facility] 00:00:00 (combo) [code = CT Medical C enter Colonography (combo)] Future Scheduled [address] [facility] 00:00:00 malignant neoplasm of Medica l Center breast (procedure) [code = 702258121] Future Scheduled [address] [facility] 00:00:00 malignant neoplasm of Medica l Center colon (procedure) [code = 383753479] Future Scheduled [address] [facility] 00:00:00 (combo) [code = CT Medical C enter Colonography (combo)] Future Scheduled [address] [facility] 00:00:00 malignant neoplasm of Medica l Center colon (procedure) [code = 151956777] Future Scheduled [address] [facility] 00:00:00 malignant neoplasm of Medica l Center colon (procedure) [code = 209109904] Future Scheduled [address] [facility] 00:00:00 malignant neoplasm of Medica l Center colon (procedure) [code = 982126455] Future Scheduled [address] [facility] 00:00:00 malignant neoplasm of Medica l Center colon (procedure) [code = 559331753] Future Scheduled 1968 Sigmoidoscopy [facility] 00:[facility]] Medical Cente r Future Scheduled [address] [facility] 00:00:00 [facility] colon (procedure) [code = 484680625] Future Scheduled [address] [facility] 00:00:00 [facility] colon (procedure) [code = 841469340] Goal Plan of Care Note [code = 23924-5] Goal Plan of Care Note [code = 19491-2] Goal Plan of Care Note [code = 64370-4] Goal Plan of Care Note [code = 51956-7] Goal Plan of Care Note [code = 86601-8] Goal Plan of Care Note [code = 72608-1] Goal Plan of Care Note [code = 71716-3] Goal Plan of Care Note [code = 62898-3] Goal Plan of Care Note [code = 57050-5] Goal Plan of Care Note [code = 57600-6] Goal Plan of Care Note [code = 30143-1] Goal Plan of Care Note [code = 94498-9] Goal Plan of Care Note [code = 33790-2] Goal Plan of Care Note [code = 00954-8] Goal Plan of Care Note [code = 17696-4] Goal Plan of Care Note [code = 97781-1] Goal Plan of Care Note [code = 15807-3] Goal Plan of Care Note [code = 36934-3] Goal Plan of Care Note [code = 35145-8] Goal Plan of Care Note [code = 69749-6] Goal Plan of Care Note [code = 69074-8] Goal Plan of Care Note [code = 21624-9] Goal Plan of Care Note [code = 30981-8] Goal Plan of Care Note [code = 90654-2] Goal Plan of Care Note [code = 08447-1] Goal Plan of Care Note [code = 97167-1] Encounters Start End Encounter Admission Attending Care Care Encounter Source Date/Time Date/Time Type Type Clinicians Facility Department ID 2021-04-14 Outpatient SYSTEM, ARIADNA ROSENTHAL [id number] 13:40:41 PROVIDER Davidstacy chao 2023-04-05 2023-04-05 Outpatient TERE Albrecht RADI [id number] [facility] 14:57:00 14:57:[address] 2023-03-252023-03-25 Outpatient MAT Fontaine, [facility]AB[facility] NUCM [id number] [facility] 14:05:00 14:05:00 Alejandro 03 [facility] 2023-02-01 2023-02-01 Outpatient [facility] [id number] Stewart 10:28:00 10:28:00 [id number] F Toby 2023-01-28 2023-01-28 Outpatient MAT Fontaine [facility] NUCM [id number] [facility] 10:51:00 10:51:00 Alejandro 52 [facility] 2023-01-13 2023-01-13 Outside Zhen, [facility] [id number] [facility] 00:00:00 00:00:00 Orders Alejandro [facility] 2022-11-02 2022-11-02 Outpatient [facility] [id number] Stewart 13:23:54 13:23:54 [id number] F Toby 2022-08-23 2022-08-23 [facility] [id number] [facility] 14:01:00 14:01:00 Alejandro 39 Psychiatric 2022-08-12 2022-08-12 Outpatient [id number] 00:00:00 00:00:00 Visit [id number] [id number] [id number] 1687-09-09 2022-07-30 Outpatient [id number] 00:00:00 00:00:00 Visit [id number]-a -[id number]-382 [id number] [id number] 2022-07-23 2022-07-23 Orders Doctor QUIRINO [id number] Univers 00:00:00 00:00:00 Only Unassigned, DEB 350.1.13.10 ity of [place] [facility] 4.2.7.2.686 Alan as [id number] [place] [address] Branch 2022-07-14 2022-07-15 Emergency X AVELINO [facility] ERT [id number] Univers 22:59:00 02:24:00 JANIS rider [facility] 2022-07-14 2022-07-15 Emergency Avelino RIMAKEDA 1.2.804.020 [id number] Univers 22:59:00 02:24:00 Janis RODRIGUES 350.1.13.10 ity of [facility] 4.2.7.2.686 [facility] [id number] [place] [id number] Felt 2022-07-13 2022-07-13 Outpatient [id number] 00:00:00 00:00:00 Visit 80da-4a03 0da-4a03-a -m25r-50u [id number] [id number] 2022-06-29 2022-06-29 Outpatient [id number] 00:00:00 00:00:00 Visit [id number] [id number]-p -u656-4uz [id number] 2022-05-25 2022-05-25 Outpatient MAT Fontaine [facility] [id number] [facility] 12:48:00 12:48:[address] [place] [address] 2022-04-21 2022-04-21 Patient GANESH Mathur [id number] [id number] Univers 00:00:00 00:00:00 Outreach [facility] 350.1.13.[address] [facility] 4.2.7.2.686 [facility] [id number] [address] 2022-03-31 2022-04-01 Emergency [facility] [id number] Univers 22:56:00 01:29:00 BRANT adry [facility] 2022-03-31 2022-04-01 [facility] [id number] [id number] Univers 22:56:00 01:29:00 Brant RODRIGUES 350.1.13.10 ity of [facility] 4.2.7.2.686 [facility] [id number] [facility] 084 Branch 2021-04-03 2021-04-03 Emergency UR ARIADNA CHATMAN Emergency [id number] 16:10:00 18:03:00 LUIS E chao Results Test Description Test Time Test Comments Results Result [facility] e Comments - CT CHEST 2023-04-05 W/CONTRAST 16:44:00 [facility])Name: RHONA PEREIRA : 1970 Sex: F Name: RHONA PEREIRA [facility] : 1970 Age/S: 52 / F [address] [facility] Unit #: [id number] [place] [address] Phys: Alejandro Fontaine MD Acct: [id number] Dis Date: Status: REG CLI PHONE #: [phone] Exam Date: 04/05/2023 1613 FAX #: [phone] Reason: EXAMS: CPT CODE: [id number] CT CHEST W/CONTRAST 21387 REASON FOR EXAM: Vulva cancer EXAM ORDER DATE: 04/05/2023 3:48 PM Ordering M.D.: Alejandro Fontaine MD PROCEDURE: - CT CHEST W/CONTRAST Comparison:PET/CT March 25, 2023 and PET/CT January 28, [address] images of the chest were obtained. Reconstructed sagittal and coronal images of the chest were provided for interpretation. CT dose reduction protocol: Automated exposure control adjustment of mA and/or kV according to patient size or iterative reconstruction dose optimization techniques were used. Contrast: Present FINDINGS: Visualized neck: Grossly normal. Airways, Lungs and Pleura: Emphysematous changes are seen throughout the lungs. There is a nodule in the lower lobe of the left lung () measuring 9 mm in size. Heart, great vessels, pulmonary vessels, mediastinum: Grossly normal. Lymph nodes: No axillary, internal mammary, hilar, or mediastinal adenopathy. Musculoskeletal/chest wall: Degenerative changes are present in the spine. Visualized upper abdomen: Atherosclerotic calcifications are present in the abdominal aorta IMPRESSION: Previously seen opacity in the right lower lobe and left upper lobe are no longer present. The nodule in the left lower lobe retrocardiac region () appears PAGE 1 Signed Report (CONTINUED) Name: RHONA PEREIRA [facility] : 1970 Age/S: 52 / F [address] [facility] Unit #: [id number] Loc: [place] [address] Phys: Alejandro Fontaine MD Acct: [id number] Dis Date: Status: REG CLI PHONE #: [phone] Exam Date: 04/05/2023 1613 FAX #: [phone] Reason: EXAMS: CPT CODE: [id number] CT CHEST W/CONTRAST 65019 (Continued) slightly smaller from the previous examination. Follow-up CT scan in 6-8 weeks is recommended to assess for resolution since it is unclear whether this represents an infectious process or represents pulmonary metastases. Location: [facility] at 1644 Reported and signed by: Nahid Aguilar MD CC: Alejandro Fontaine MD Technologist:NEEMA LUTHER, RT(R) CT CTDI: DLP: Trnscb Date/Time: 04/05/2023 (1644) [id number] Orig Print D/T: S: 04/05/2023 (8297) PAGE 2 Signed Report - PET/CT TUMOR SK 2023-03-27 MIDTH 09:09:00 [facility]Name: RHONA PEREIRA : 1970 Sex: F FAX: Y Alejandro Fontaine MD [phone] [place]: St: DEP Name: RHONA PEREIRA [facility] : 1970 Age/S: 52/F [address] [facility] Unit #: [id number] Loc: [place] [address] Phys: Alejandro Fontaine MD Acct: [id number] Dis Date: Status: DEP CLI PHONE #: [phone] Exam Date: 03/25/2023 9840 FAX #: [phone] Reason: VULVAR CANCER EXAMS: CPT CODE: [id number] PET/CT TUMOR SK MIDTH 03677 HISTORY: Restaging vulvar cancer. COMPARISON: PET/CT scan from May 25, 2022 and January 28, 2023. [facility] PET/CT SCAN: 12 mCi of FDG administered. [...] Signed Report (CONTINUED) FAX: Alejandro Ramsey MD [phone] [place]: B St: DEP Name: RHONA PEREIRA [facility] : 1970 Age/S: 52/F [address] [facility] Unit #: [id number] Loc: [place] [address] Phys: Alejandro Fontaine MD Acct: [id number] Dis Date: Status: SAHARA CLI PHONE #: [phone] Exam Date: 03/25/2023 9622 FAX #: [phone] Reason: VULVAR CANCER EXAMS: CPT CODE: [id number] PET/CT TUMOR SK BS MIDTH 71066 (Continued) 3 retroperitoneal paraceliac lymph nodes on the right and anterior to the celiac axis measuring up to 3 cm. SUV ranging up to 3.5. These are not seen on the previous examination. No other pathologic adenopathy or evidence for distant metastatic disease. at 0909 Reported and signed by: Christofer Haas M.D. CC: Alejandro Fontaine MD Technologist: Bong Welch [facility] Trnscrd Date/Time/By: 03/27/2023 (908) : By: [email or web address] Orig Print D/T: S: 03/27/2023 (911) PAGE 2 Signed Report - PET/CT TUMOR SK 2023-01-31 MIDTH 15:38:00 [facility] 1970 Sex: F FAX: Y Alejandro Fontaine MD [phone] [place]: B St: DEP Name: RHONA PEREIRA [facility] : 1970 Age/S: 52/F [address] [facility] Unit #: [id number] Loc: [place], [place] [address] Phys: Alejandro Fontaine MD Acct: [id number] Dis Date: Status: DEP CLI PHONE #: [phone] Exam Date: 01/28/2023 1236 FAX #: [phone] Reason: C51.8 EXAMS: CPT CODE: [id number] PET/CT TUMOR SK BS MIDTH 95364 EXAMINATION: PET/CT TUMOR SKULL BASE TO MID [...] Signed Report (CONTINUED) FAX: Alejandro Ramsey MD [phone] [place]: B St: DEP Name: RHONA PEREIRA [facility] : 1970 Age/S: 52/F [address] Unit #: [id number] Loc: [place] [address] Phys: Alejandro Fontaine MD Acct: [id number] Dis Date: Status: DEP CLI PHONE #: [phone] Exam Date: 01/28/2023 1236 FAX #: [phone] Reason: C51.8 EXAMS: CPT CODE: [id number] PET/CT TUMOR SK BS MIDTH 33227 (Continued) at 1538 Reported and signed by: Ish James M.D. CC: Alejandro Fontaine MD Technologist: Bong Welch [facility] Trnndrd Date/Time/By: 01/31/2023 (1538) : By: [email or web address] Orig Print D/T: S: 01/31/2023 (2349) PAGE 2 Signed Report - CT ABD PELVIS 2022-08-25 W/CONT 00:00:00 [facility] 1970 Sex: F Name: RHONA PEREIRA [facility] : 1970 Age/S: 52 / F [address] [place] [address] Unit #: [id number] Loc: [place] [address] Phys: Alejandro Fontaine MD Acct: [id number] Dis Date: Status: SAHARA ARENAS PHONE #: [phone] Exam Date: 08/23/2022 1521 FAX #: [phone] Reason: MALIGNANT NEOPLASM OF OVERLAPPING SITES EXAMS: CPT CODE: [id number] CT ABD PELVIS W/CONT 43671 PROCEDURE INFORMATION: Exam: CT Abdomen And Pelvis [...] 1 Signed Report (CONTINUED) Name: RHONA PEREIRA [facility] : 1970 Age/S: 52 / F [address] [place] [address] Unit #: [id number] Loc: [place] [address] Phys: Alejandro Fontaine MD Acct: [id number] Dis Date: Status: DEP CLI PHONE #: [phone] Exam Date: 08/23/2022 1521 FAX #: [phone] Reason: MALIGNANT NEOPLASM OF OVERLAPPING SITES EXAMS: CPT CODE: [id number] CT ABD PELVIS W/CONT 79455 (Continued) at 1210 Reported and signed by: Johnny Merlos M.D. CC: Alejandro Fontaine MD Technologist:Sg Pearce, RT(R)(CT) CTDI: DLP: Trnscb Date/Time: 08/25/2022 (121) [email or web address] Orig Print D/T: S: 08/25/2022 (1210) PAGE 2 Signed Report D-DIMER 2022-07-15 04:37:07 Test Item Value Reference Range Interpretation Comme nts D-DIMER (test code = See_Comment H [Autom ated message] The 2040757757) system which ge nerated this result tra [...] diagnosis. Lab Interpretation Abnormal (test code = 53884-4) [facility] METABOLIC PANEL (NA, K, CL, CO2, GLUCOSE, BUN, CREATININE, CA)2022-07-15 04:31:05 Test Item Value Reference Range Interpretation Comments NA (test code = 140 mmol/L 135-145 0804920446) K (test code = 4.0 mmol/L 3.5-5 5309643192) CL (test code = 101 mmol/L 98-108 8495833846) CO2 TOTAL (test code = 33 mmol/L 23-31 H 4824249830) AGAP (test code = 2-16 4243939467) BUN (test code = 13 mg/dL 7-23 0121731658) GLUCOSE (test code = 103 mg/dL 70-110 6021683331) CREATININE (test code = 0.58 mg/dL 0.5-1.04 2059445359) CALCIUM (test code = 9.2 mg/dL 8.6-10.6 3615192440) eGFR (test code = mL/min/1.73m2 3225635180) LATESHA (test code = LATESHA) Association of [...] tests). Lab Interpretation Abnormal (test code = 86244-3) [facility] WITH [id number] 04:17:03 Test Item Value Reference Range Interpretation [...] (test code = 51.5 fL 39-49.9 H 26588-7) RDW-CV (test code = 14.9 % 12-15.5 788-0) PLT (test code = See_Comment [Automated 777-3) message] The sy stem which generated this result transmitted reference range : 166 - 358 10*3/ ?L. The reference r felipa was not used to interpret this result as normal/abnormal . MPV (test code = 8.8 fL 9.5-12.9 L 28403-1) NRBC/100 WBC (test See_Comment [Automat ed code = 2466123981) message] The system which generated this result transmitted reference range : 0.0 - 10.0 /100 WBCs. The refer ence range was not u sed to interpret th is result as normal/abnormal . NRBC x10^3 (test code See_Comment [Auto mated = 2741254676) message] The s ystem which generated this result transmitted reference range : 10*3/?L. The reference range was not used to interpret this result as normal/abnormal . GRAN MAT (NEUT) % 52.0 % (test code = 770-8) IMM GRAN % (test code 0.30 % = 5981399663) LYMPH % (test code = 33.5 % 736-9) MONO % (test code = 13.3 % 5905-5) EOS % (test code = 0.6 % 713-8) BASO % (test code = 0.3 % 706-2) GRAN MAT x10^3(ANC) 4.14 10*3/uL 1.88-7.09 (test code = 8324062581) IMM GRAN x10^3 (test 0-0.06 code = 7687271561) LYMPH x10^3 (test code 2.67 10*3/uL 1.32-3.29 = 731-0) MONO x10^3 (test code 1.06 10*3/uL 0.33-0.92 H = 742-7) EOS x10^3 (test code = 0.05 10*3/uL 0.03-0.39 711-2) BASO x10^3 (test code 0.01-0.07 = 704-7) Lab Interpretation Abnormal (test code = 01704-7) [facility]- PET/CT TUMOR SK [id number] 00:00:00 [facility] : 1970 Sex: F FAX: Alejandro Ramsey MD [phone] [place]: St: REG Name: RHONA PEREIRA : 1970 Age/S: 52/F [address] [place] [address] Unit #: [id number] Loc: [place] [address] Phys: Alejandro Fontaine MD Acct:[id number] Dis Date: Status: REG CLI PHONE #: [phone] Exam Date: 05/25/2022 1442 FAX #: [phone] Reason: VULVAR CA C51.8 EXAMS: CPT CODE: [id number] PET/CT TUMOR SK BS MIDTH 11216 PROCEDUREINFORMATION: Exam: PET/CT Skull Base to Mid-thigh Exam date and time: 05/25/2022 2:48 PM Age: 52 yearsold Clinical indication: 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 Radiopharmaceutical: 9.22 mCi F-18FDG (Fluorodeoxyglucose), IV. Time of imaging post radiopharmaceutical administration: 1 hour Injection site: site COMPARISON: No relevant prior studies available. FINDINGS: Head: Visualized portion ofthe brain demonstrates no abnormality in the radiotracer distribution of the cortex, deep subcortical structures, and the cerebellum. Neck: Evaluation of the neck demonstrates normal uptake within the cervical lymph nodes. There is normal uptake within the salivary glands, and remaining cervical structures. Chest: Evaluation of the thorax demonstrates no abnormal uptake within the lungs. Physiologic myocardial uptake is present. There are no hypermetabolic mediastinal lymph nodes. Abdomen and Pelvis: Ill-defined soft tissue in the left paramedian perineum is markedly FDG avid, max SUV 8.8. Small left inguinal nodes are mildly FDG avid left inguinal node series 2, image 203, 10 x 8 mm, SUV 2.5. There is no other pathologic desi uptake. Physiologic urinary activity in the kidneys, ureters and bladder. Physiologic bowel activity. Bones/joints: No metabolically active areas are noted within the osseous structures Soft tissues: No metabolically active areas are noted within the soft tissue. Other findings: CT findings:Moderate emphysematous changes are present. The aorta demonstrates moderate atherosclerotic PAGE 1 Signed Report (CONTINUED) FAX: Alejandro Ramsey MD [phone] [place]: St: EG - Name: RHONA PEREIRA [facility] : 1970 Age/S: 52/F [address] [place] [address] Bl Unit #: [id number] Loc: [place] [address] Phys: Alejandro Fontaine MD Acct: [id number] Dis Date: Status: REG CLI PHONE #: [phone] Exam Date: 05/25/2022 1442 FAX #: [phone] Reason: VULVAR CA C51.8 EXAMS: CPT CODE: [id number] PET/CT TUMOR SK MIDTH 38163 (Continued) calcification. There are coronary arterial calcifications. IMPRESSION: 1. FDG avid left perineal mass compatible with primary malignancy. 2. Small left inguinal nodes are FDG avid allowing for their size and suspicious for metastatic disease. 3. Negative for FDG avid distal metastatic disease. Electronically Signed by Lamont Llamas on05/25/2022 at 1712 Reported and signed by: Noel Llamas M.D. CC: Alejandro Fontaine MD Technologist: Roshni Richey, RT(N)(CT)(PET); ... Trnscrd Date/Time/By: 05/25/2022 (1711) : By: Emerson Orig Print D/T: S: 05/25/2022 (1711) PAGE 2 Signed ReportCOMP. METABOLIC PANEL (81446)2022-04-01 05:45:46 Test Item Value Reference Range Interpretation Comments NA (test code = 139 mmol/L 135-145 2186317062) K (test code = 4.0 mmol/L 3.5-5.0 9722197922) CL (test code = 101 mmol/L 98-108 3416771635) CO2 TOTAL (test code = 32 mmol/L 23-31 H 6973543907) AGAP (test code = 2-16 6415069966) BUN (test code = 15 mg/dL 7-23 6636174890) GLUCOSE (test code = 90 mg/dL 70-110 3363518158) CREATININE (test code = 0.67 mg/dL 0.50-1.04 6976589122) TOTAL BILI (test code = 0.3 mg/dL 0.1-1.8 1653864168) CALCIUM (test code = 8.8 mg/dL 8.6-10.6 0044159060) T PROTEIN (test code = 7.0 g/dL 6.3-8.2 6812163951) ALBUMIN (test code = 4.2 g/dL 3.5-5.0 1439752393) ALK PHOS (test code = 63 U/L 34-122 6002073611) ALTv (test code = 14 U/L 5-35 1742-6) AST(SGOT) (test code = 26 U/L 13-40 8787184401) eGFR (test code = mL/min/1.73m2 8565017876) LATESHA (test code = LATESHA) Association of [...] tests). Lab Interpretation Abnormal (test code = 43409-2) [facility] WITH [id number] 05:26:19 Test Item Value Reference Range Interpretation Comments WBC (test code = See_Comment [Automated 2097-2) message] The sy stem which generated this result transmitted reference range : 4.30 - 11.10 10*3/?L. The reference range was not used to interpret this result as normal/abnormal . RBC (test code = See_Comment [Automated 119-8) message] The sy stem which generated this [...] RDW-SD (test code = 49.9 fL 39.0-49.9 97855-6) RDW-CV (test code = 14.2 % 12.0-15.5 788-0) PLT (test code = See_Comment [Automated 777-3) message] The sy stem which generated this result transmitted reference range : 166 - 358 10*3/ ?L. The reference r felipa was not used to interpret this result as normal/abnormal . MPV (test code = 8.8 fL 9.5-12.9 L 78021-4) NRBC/100 WBC (test See_Comment [Automat ed code = 1934642813) message] The system which generated this result transmitted reference range : 0.0 - 10.0 /100 WBCs. The refer ence range was not u sed to interpret th is result as normal/abnormal . NRBC x10^3 (test code <0.01 See_Comment [Auto mated = 0436242510) message] The s ystem which generated this result transmitted reference range : 10*3/?L. The reference range was not used to interpret this result as normal/abnormal . GRAN MAT (NEUT) % 46.5 % (test code = 770-8) IMM GRAN % (test code 0.20 % = 2823572796) LYMPH % (test code = 40.3 % 736-9) MONO % (test code = 11.4 % 5905-5) EOS % (test code = 1.1 % 713-8) BASO % (test code = 0.5 % 706-2) GRAN MAT x10^3(ANC) 4.42 10*3/uL 1.88-7.09 (test code = 0988738313) IMM GRAN x10^3 (test <0.03 0.00-0.06 code = 6145959329) LYMPH x10^3 (test code 3.84 10*3/uL 1.32-3.29 H = 731-0) MONO x10^3 (test code 1.09 10*3/uL 0.33-0.92 H = 742-7) EOS x10^3 (test code = 0.10 10*3/uL 0.03-0.39 711-2) BASO x10^3 (test code 0.05 10*3/uL 0.01-0.07 = 704-7) Lab Interpretation Abnormal (test code = 86682-1) [facility], THIRD [id number] 01:04:39 Test Item Value Reference Range Interpretation Comments TSH, THIRD GENERATION (test code 0.923 UIU/ML 0.400-4.100 = 2821) COMPREHENSIVE METABOLIC [id number] 00:09:04 Test Item Value Reference Range Interpretation Comments GLUCOSE (test code = 108 MG/DL 70-99 H 2216) BUN (test code = 9 MG/DL 6-20 2207) CREATININE (test 0.59 MG/DL 0.60-1.30 L code = 221) eGFR (2020 CKD-EPI) 108 >60 (test code = 39634) ML/MIN/1.73 CALC BUN/CREAT (test 15 RATIO 6-28 code = 2235) SODIUM (test code = 141 MEQ/L 530-554 8079) POTASSIUM (test code 3.6 MEQ/L 3.5-5.4 = 2227) CHLORIDE (test code 102 MEQ/L 95-107 = 2215) CARBON DIOXIDE (test 26 MEQ/L 19-31 code = 2206) CALCIUM (test code = 9.5 MG/DL 8.5-10.5 2208) PROTEIN, TOTAL (test 7.5 G/DL 6.1-8.3 code = 2229) ALBUMIN (test code = 4.5 G/DL 3.5-5.2 2200) CALC GLOBULIN (test 3.0 G/DL 1.9-3.7 code = 2240) CALC A/G RATIO (test 1.5 RATIO 1.0-2.6 code = 2234) BILIRUBIN, TOTAL 0.2 MG/DL See_Comment [Automated message] (test code = 2207) The syste m which generated this result transmit yola reference range : <=1.2. The refe rence range was not u sed to interpret th is result as normal/abnormal . ALKALINE PHOSPHATASE 71 U/L 40-133 (test code = 2204) AST (test code = 19 U/L 9-40 2217) ALT (test code = 13 U/L 5-40 2218) LIPID [id number] 00:09:04 Test Item Value Reference Range Interpretation [...] MOREINFORMATION , SEE CLIENT ANNOUNCE MENT AT [email or web address] [email or web address] RATIO LDL/HDL 1.84 RATIO <3.22 UNLESS O THERWISE (test code = 2237) INDICATED , ALL TESTING PERFORMED [facility], [facility]. [address] [place] [id number] [place] [address] SELENE DIRECTOR: GILES BURGESS M.D. CLIA NUMBER [id number] CAP ACCREDITATION N O. 91889-67 CBC W/AUTO DIFF WITH [id number] 03:06:30 Test Item Value Reference Range Interpretation [...] RBCS 0.00 K/UL 0.00-0.11 (test code = 43379)
[2023-04-14 18:07] LABS: Absolute Lymphocytes (CBC) 1.9 K/uL (0.7-4.9); Hematocrit 31.4 % (36.0-45.0); Lymphocytes % 23.2 % (15.3-44.8); MCV 99.6 fL (80-100); MPV 6.7 fL (7.6-11.3); RBC Red Blood Cell Count 3.15 M/uL (3.86-4.86)
[2023-04-14 18:10] LABS: Protime INR 1.2
[2023-04-14 18:19] LABS: Albumin 3.2 g/dL (3.4-5.0); Bilirubin Total 0.2 mg/dL (0.2-1.0); Potassium 3.3 mEq/L (3.5-5.1); Protein, Total 7.7 g/dL (6.4-8.2)
--- NOTE | 2023-04-14 18:44 | RAD REPORT ---
EXAM DESCRIPTION: [place] Single View04/14/2023 6:24 pm CLINICAL HISTORY: Shortness breath COMPARISON: March 1023 FINDINGS: Lungs are moderately to markedly hyperaerated Mild bibasilar lung opacities. Upper lobes appear clear. Heart is normal size IMPRESSION: Moderate to marked COPD Mild bibasilar lung opacities may indicate pneumonitis or pneumonia
[2023-04-14] MEDS ORDERED: ALBUTEROL 2.5 MG/3 ML NEB SOL ONE (19:26)
[2023-04-14] MEDS ORDERED: IPRATROPIUM BROM 0.5MG/2.5ML ONE (19:26)
[2023-04-14] MEDS ORDERED: MAGNESIUM SULFATE 1 gm IVPB 1 GM/100 ML BAG IV ONE (19:27)
[2023-04-14 19:43] LABS: Specific Gravity 1.011 (1.005-1.030); Urine Bacteria <20 /HPF (<20); Urine Bilirubin NEGATIVE (Negative); Urine Blood Negative (Negative); Urine Clarity Clear (Clear); Urine Color Light-Yellow (Yellow); Urine Glucose NEGATIVE (Negative); Urine Mucus Slight /HPF (None Seen); Urine Protein TRACE (Negative); Urine RBC <5 /HPF (None Seen); Urine Urobilinogen Normal (Normal); Urine pH 6.5 (5.0-7.0)
--- NOTE | 2023-04-14 20:22 | RAD REPORT ---
EXAM DESCRIPTION: CT - Chest For Pe Angio - 04/14/2023 8:00 pm CLINICAL HISTORY: sob COMPARISON: March 2023 TECHNIQUE: Dynamically enhanced axial 3 mm thick images of the chest were obtained during administra tion of 100 mL Isovue 370 IV contrast. Coronal and oblique reconstruction images were generated and r eviewed. Exam utilizes a protocol for optimal evaluation of pulmonary arterial tree. Maximum intensity projections 3D imaging was utilized All CT scans are performed using dose optimization technique as appropriate and may include automated exposure control or mA/KV adjustment according to patient size. FINDINGS: A pulmonary embolus is not seen. A thoracic aortic aneurysm is not noted. A pleural effusion is not seen. A pericardial effusion is not seen. Mild medial left lower lobe opacity has partially resolved IMPRESSION: Negative for a pulmonary embolism. Partial resolution in a mild left lower lobe pneumonia Moderate to marked COPD
--- NOTE | 2023-04-14 20:34 | ER ---
Nurse's Notes [facility] Name: Abbey Alves Age: 52 yrs Sex: Female : 1970 Arrival Date: 04/14/2023 Time: 17:18 Bed 7 Private MD: Diagnosis: Pneumonia, unspecified organism Presentation: 04/14 17:28 Chief complaint: Patient states: Trouble breathing for about a week, got worse last nj1 night. Cough, unsure if any fever. Had chest xray on April 05, saw oncologist yesteday and was told she has pneumonia and told to come to ED. Coronavirus screen: Vaccine status: Patient reports receiving the 1st dose of the Covid vaccine. Ebola Screen: Patient denies travel to an Ebola-affected area in the 21 days before illness onset. Initial Sepsis Screen: Does the patient meet any 2 criteria? HR > 90 bpm. No. Patient's initial sepsis screen is negative. Does the patient have a suspected source of infection? No. Patient's initial sepsis screen is negative. Risk Assessment: Do you want to hurt yourself or someone else? Patient reports no desire to harm self or others. Onset of symptoms was April 07, 2023. 17:28 Method Of Arrival: Ambulatory [facility] 17:28 Acuity: KEELY 2 nj1 Triage Assessment: 19:00 General: Appears in no apparent distress. Respiratory: Onset: The symptoms/episode rv began/occurred gradually, the patient has mild shortness of breath. R D ENGINEER: 20:54 LMP N/A - Post-menopause rv Historical: - Allergies: 17:32 No Known Allergies; nj1 - PMHx: 17:32 COPD; Hypertensive disorder; Vulva and cervical CA; nj1 - PSHx: 17:32 section; hysterectomy; nj1 - Immunization history:: Client reports receiving the 1st dose of the Covid vaccine. - Social history:: Smoking status: Patient reports the use of cigarette tobacco products, denies chronic smoking, but will smoke occasionally. Screenin:03 [facility] ED Fall Risk Assessment (Adult) History of falling in the last 3 months, ld1 including since admission No falls in past 3 months (0 pts). Abuse screen: Denies threats or abuse. Denies injuries from another. Nutritional screening: No deficits noted. Tuberculosis screening: No symptoms or risk factors identified. Assessment: 18:03 Reassessment: See triage assessment. General: Appears in no apparent distress. ld1 comfortable, Behavior is calm, cooperative, appropriate for age. Pain: Denies pain. Neuro: Level of Consciousness is awake, alert, obeys commands, Oriented to person, place, time, situation. Cardiovascular: Capillary refill < 3 seconds Patient's skin is warm and dry. Rhythm is sinus rhythm. Respiratory: Airway is patent Respiratory effort is even, unlabored, GI: Abdomen is flat, non-distended. : No signs and/or symptoms were reported regarding the genitourinary system. EENT: No signs and/or symptoms were reported regarding the EENT system. Derm: No signs and/or symptoms reported regarding the dermatologic system. Musculoskeletal: No signs and/or symptoms reported regarding the musculoskeletal system. 19:40 General: Appears comfortable, Behavior is calm, cooperative. Pain: Denies pain. Neuro: ha1 Level of Consciousness is awake, alert, obeys commands, Oriented to person, place, time, situation. Cardiovascular: Capillary refill < 3 seconds Patient's skin is warm and dry. Rhythm is sinus rhythm. Respiratory: Airway is patent Trachea midline Respiratory effort is even, unlabored, Respiratory pattern is regular, symmetrical. Respiratory: Reports shortness of breath at rest. GI: No signs and/or symptoms were reported involving the gastrointestinal system. Abdomen is flat, non-distended. : No signs and/or symptoms were reported regarding the genitourinary system. Musculoskeletal: Circulation, motion, and sensation intact. Range of motion: intact in all extremities. Vital Signs: 17:28 BP 143 / 105; Pulse 101; Resp 22; Pulse Ox 92% on R/A; Weight 37.19 kg; Height 5 ft. 0 nj1 in. ; 17:55 BP 114 / 85; Pulse 94; Resp 18; Pulse Ox 100% on 2 lpm NC; Pain 0/10; ld1 19:40 BP 122 / 82; Pulse 86; Resp 20; Temp 98.6(O); Pulse Ox 100% on 3 lpm NC; ha1 20:30 BP 120 / 80; Pulse 84; Resp 16; Pulse Ox 98% on R/A; rv 17:28 Body Mass Index 16.01 (37.19 kg, 152.4 cm) nj1 17:55 Pain Scale: Adult ld1 ED Course: 17:21 Patient arrived in ED. ts1 17:24 [facility] Perla [facility]-C [facility]. kb 17:24 Leonides Cooper MD is Attending Physician. kb 17:32 Triage completed. nj1 17:33 Arm band placed on left wrist. nj1 18:03 Patient has correct armband on for positive identification. Placed in gown. Bed in low ld1 position. Call light in reach. Side rails up X2. property assessment monitor on. Pulse ox on. NIBP on. Door closed. Noise minimized. Warm blanket given. 18:03 No provider procedures requiring assistance completed. Inserted saline lock: 20 gauge ld1 in right upper arm, using aseptic technique. Blood collected. 18:25 Chest Single View XRAY In Process Unspecified. EDMS 20:02 CT Chest For PE Angio In Process Unspecified. EDMS 20:19 Dax Pizarro, RN is Primary Nurse. rv 20:54 IV discontinued, intact, bleeding controlled, No redness/swelling at site. Pressure rv dressing applied. Administered Medications: 19:28 Drug: Magnesium Sulfate IVPB 1 grams Route: IVPB; Infused Over: 1 hrs; Site: right rv upper arm; 20:50 Follow up: IV Status: Completed infusion rv 20:50 Follow up: Response: No adverse reaction rv 19:29 Drug: DuoNeb Nebulize (3:1) (2.5 mg - 0.5 mg) 3 ml Route: Nebulizer; rv 20:50 Follow up: Response: Marked relief of symptoms rv 20:39 Drug: Decadron - Dexamethasone IVP 10 mg Route: IVP; Site: right upper arm; rv 20:51 Follow up: Response: Medication administered at discharge. rv 20:40 Drug: Ketorolac IVP 15 mg Route: IVP; Site: right upper arm; rv 20:51 Follow up: Response: Medication administered at discharge. rv 20:40 Drug: Acetaminophen PO 1000 mg Route: PO; rv 20:51 Follow up: Response: Medication administered at discharge. rv 20:40 Drug: LevOfloxacin PO 500 mg Route: PO; rv 20:51 Follow up: Response: Medication administered at discharge. rv Medication: 18:03 VIS not applicable for this client. ld1 Outcome: 19:56 Condition: stable ha1 20:33 Discharge ordered by . kb 20:54 Discharged to home ambulatory. rv 20:54 Discharge instructions given to patient, Instructed on discharge instructions, follow up and referral plans. medication usage, Demonstrated understanding of instructions, follow-up care, medications, Prescriptions given X 2. 20:55 Patient left the ED. rv Signatures: Dispatcher [employer] EDMD Bessy Perla, REYNA-C WIRELESS DEVELOPMENT MANAGER-Dax Reed RN RN rv Beryl Pollard RN RN ld1 Geneva Gomez RN RN ha1 Lupe Alston RN RN nj1 Shruthi Everett, IVAN PAS ts1
--- NOTE | 2023-04-14 20:34 | EDPHYS ---
Physician Documentation [facility] Name: Abbey Alves Age: 52 yrs Sex: Female : 1970 Arrival Date: 04/14/2023 Time: 17:18 Bed 7 Private MD: ED Physician Leonides Cooper HPI: 04/14 20:36 This 52 yrs old Female presents to ER via Ambulatory with complaints of Breathing kb Difficulty. 20:36 The patient has shortness of breath at rest. Onset: The symptoms/episode began/occurred kb 2 week(s) ago, and became worse 3 day(s) ago. Duration: The symptoms are continuous. The patient's shortness of breath is aggravated by exertion. Associated signs and symptoms: Pertinent positives: productive cough, Pertinent negatives: fever. Severity of symptoms: At their worst the symptoms were moderate in the emergency department the symptoms are unchanged. The patient has experienced similar episodes in the past. The patient has been recently seen by a physician:. 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 - Social history:: Smoking status: Patient reports the use of cigarette tobacco products, denies chronic smoking, but will smoke occasionally. ROS: 20:29 Constitutional: Negative for fever, chills, and weight loss. kb 20:29 Respiratory: Positive for cough, dyspnea on exertion, shortness of breath. 20:29 All other systems are negative. Exam: 18:53 Constitutional: This is a well developed, well nourished patient who is awake, alert, kb and in no acute distress. Head/Face: Normocephalic, atraumatic. ENT: Moist Mucous membranes Cardiovascular: Regular rate and rhythm with a normal S1 and S2. No gallops, murmurs, or rubs. No pulse deficits. Abdomen/GI: Soft, non-tender. No distention Skin: Warm, dry with normal turgor. Normal color. MS/ Extremity: Pulses equal, no cyanosis. Neurovascular intact. Full, normal range of motion. Neuro: Awake and alert, GCS 15, oriented to person, place, time, and situation. Moves all extremities. Normal gait. 18:53 ECG was reviewed by the Attending Physician. 18:53 Respiratory: mild respiratory distress is noted, Respirations: labored breathing, Breath sounds: decreased breath sounds. Vital Signs: 17:28 BP 143 / 105; Pulse 101; Resp 22; Pulse Ox 92% on R/A; Weight 37.19 kg; Height 5 ft. 0 nj1 in. ; 17:55 BP 114 / 85; Pulse 94; Resp 18; Pulse Ox 100% on 2 lpm NC; Pain 0/10; ld1 19:40 BP 122 / 82; Pulse 86; Resp 20; Temp 98.6(O); Pulse Ox 100% on 3 lpm NC; ha1 20:30 BP 120 / 80; Pulse 84; Resp 16; Pulse Ox 98% on R/A; rv 17:28 Body Mass Index 16.01 (37.19 kg, 152.4 cm) nj1 17:55 Pain Scale: Adult ld1 MDM: 17:24 Patient medically screened. kb 20:35 Differential diagnosis: Chronic Obstructive Pulmonary Disease pneumonia, Pneumothorax kb pulmonary edema, Pulmonary Embolism. Data reviewed: vital signs, nurses notes. Consideration of Admission/Observation Escalation of care including admission/observation considered. admission considered, but pt refuses. States she cannot stay in the hospital because she has to work tomorrow and cannot miss. Counseling: I had a detailed discussion with the patient and/or guardian regarding: the historical points, exam findings, and any diagnostic results supporting the discharge/admit diagnosis, lab results, radiology results, the need for outpatient follow up, a family practitioner, to return to the emergency department if symptoms worsen or persist or if there are any questions or concerns that arise at home. 04/14 17:32 Order name: Blood Culture Adult (2) kb 04/14 17:32 Order name: CBC with Diff; Complete Time: 18:24 kb 04/14 17:32 Order name: CMP; Complete Time: 18:24 kb 04/14 17:32 Order name: Lactate w/ 2H reflex if indic.; Complete Time: 18:24 kb 04/14 17:32 Order name: Protime (+inr); Complete Time: 18:11 kb 04/14 17:32 Order name: Ptt, Activated; Complete Time: 18:11 kb 04/14 17:32 Order name: Urinalysis w/ reflexes; Complete Time: 19:49 kb 04/14 18:08 Order name: Glucose, Ancillary Testing; Complete Time: 18:10 EDMS 04/14 17:32 Order name: Chest Single View XRAY; Complete Time: 18:45 kb 04/14 18:46 Order name: CT Chest For PE Angio; Complete Time: 20:28 kb 04/14 17:32 Order name: EKG; Complete Time: 17:32 kb 04/14 17:32 Order name: Accucheck; Complete Time: 17:55 kb 04/14 17:32 Order name: Cardiac monitoring; Complete Time: 17:53 kb 04/14 17:32 Order name: EKG - Nurse/Tech; Complete Time: 17:53 kb 04/14 17:32 Order name: IV Saline Lock - Large Bore; Complete Time: 17:53 kb 04/14 17:32 Order name: Labs collected and sent; Complete Time: 17:53 kb 04/14 17:32 Order name: O2 Per Protocol; Complete Time: 17:53 kb 04/14 17:32 Order name: O2 Sat Monitoring; Complete Time: 17:53 kb 04/14 17:32 Order name: Vital Signs; Complete Time: 18:04 kb EC:53 Rate is 95 beats/min. Rhythm is regular. QRS Bruce is Normal. DE interval is normal at kb 110 msec. QRS interval is normal at 82 msec. QT interval is normal at 429 msec. Administered Medications: 19:28 Drug: Magnesium Sulfate IVPB 1 grams Route: IVPB; Infused Over: 1 hrs; Site: right rv upper arm; 20:50 Follow up: IV Status: Completed infusion rv 20:50 Follow up: Response: No adverse reaction rv 19:29 Drug: DuoNeb Nebulize (3:1) (2.5 mg - 0.5 mg) 3 ml Route: Nebulizer; rv 20:50 Follow up: Response: Marked relief of symptoms rv 20:39 Drug: Decadron - Dexamethasone IVP 10 mg Route: IVP; Site: right upper arm; rv 20:51 Follow up: Response: Medication administered at discharge. rv 20:40 Drug: Ketorolac IVP 15 mg Route: IVP; Site: right upper arm; rv 20:51 Follow up: Response: Medication administered at discharge. rv 20:40 Drug: Acetaminophen PO 1000 mg Route: PO; rv 20:51 Follow up: Response: Medication administered at discharge. rv 20:40 Drug: LevOfloxacin PO 500 mg Route: PO; rv 20:51 Follow up: Response: Medication administered at discharge. rv Disposition Summary: 04/14/23 20:33 Discharge Ordered Location: Home kb Condition: Stable kb Diagnosis - Pneumonia, unspecified organism kb Followup: kb - With: Emergency Department - When: As needed - Reason: Worsening of condition Followup: kb - With: Private Physician - When: 2 - 3 days - Reason: Recheck today's complaints, Continuance of care, Re-evaluation by your physician Discharge Instructions: - Discharge Summary Sheet kb - Community-Acquired Pneumonia, Adult, [id number] kb Forms: - Medication Reconciliation Form kb - Thank You Letter kb - Antibiotic Education kb - Prescription Opioid Use kb Prescriptions: - Prednisone 20 mg Oral Tablet - take 1 tablet by ORAL route once daily for 5 days; 5 tablet; Refills: 0, kb Product Selection Permitted - levofloxacin 500 mg Oral Tablet - take 1 tablet by ORAL route once daily for 10 days; 10 tablet; Refills: 0, kb Product Selection Permitted Signatures: Dispatcher [employer] Bessy Herman, PRINTING SCREEN ASSEMBLER-C PRINTING SCREEN ASSEMBLER-Dax Reed, RN RN Lupe Ghosh RN RN nj1
[2023-04-14] MEDS ORDERED: ACETAMINOPHEN 500 MG TAB ONE (20:46)
[2023-04-14] MEDS ORDERED: levoFLOXacin 250 MG TAB ONE (20:46)
[2023-04-14] MEDS ORDERED: KETOROLAC 30 MG/ML INJ ONE (20:47)
[2023-04-14] MEDS ORDERED: dexAMETHasone 10 MG/ML VIAL ONE (20:47)
[2023-04-14 21:32] VITALS: TEMP 98.6
[2023-04-14 21:34] VITALS: BP 120/80; O2SAT 98
--- NOTE | 2023-04-17 07:32 | EKG ---
Test Date: 2023-04-14 Test Time: 17:51:06 Multimedia Educational Specialist: ALP MEASUREMENT RESULTS: Intervals: Rate: 95 AR: 110 QRSD: 82 QT: 342 QTc: 429 [place]: P: 82 AR: 110 QRS: 83 T: 88 INTERPRETIVE STATEMENTS: Sinus rhythm with short AR Otherwise normal ECG Compared to ECG 03/28/2023 15:43:05 No significant changes Electronically Signed On 04-17-23 07:26:04 CDT by Miky Briseno
== END 2023-04-14 20:55 | disposition home or self-care (01) ==
LOC: ER 17:18
DX: J18.9 Pneumonia, unspecified organism (principal); I10 Essential (primary) hypertension; J44.9 Chronic obstructive pulmonary disease, unspecified; F17.210 Nicotine dependence, cigarettes, uncomplicated
CPT/HCPCS: 96365; 93005; 87040 ×2; 85025; 81001; 36415; 85610; 82947; 83605; 85730; 80053; 71275; 71045; 94640; 96375; 99285; Q9967; J3475; J7613; J7644; J1100

== ENCOUNTER 2023-04-21 19:27 | Inpatient (IN) | payer OTHER ==
--- OUTSIDE RECORDS SUMMARY | 2023-04-21 19:30 | XMS REPORT | Clinical Summary ---
:1970 [facility] Address [address] [place] [address] Care Team Providers Name Role Phone Unavailable [...] Vaccination (#1) 1970 Results Not on fileafter 04/21/2022
--- OUTSIDE RECORDS SUMMARY | 2023-04-21 19:31 | XMS REPORT | Continuity of Care Document ---
:1970 Author Organization [facility] t Address [address] [place] [address] Care Team Providers Name Role Phone Pcp, Patient Does Not Have A Primary Care Physician [id number] SYSTEM, PROVIDER NOT IN Attending Clinician Unavailable Alejandro Fontaine Attending Clinician Unavailable Alejandro Fontaine MD Attending Clinician Doctor Unassigned, [place] Attending Clinician Unavailable JANIS YOU Attending Clinician [...] [place] Fahrenheit Fahrenheit 00 MD Mark chao [facility] Vulval Vulval Disease Active Univers pain pain 05-18 ity of 00:00: [place] MD Mark chao [facility] Hypokalemi Hypokalemi Disease Active U nivers a a 6- ity of 00:00: [place] 00 MD Mark chao [facility] Hypophosph Hypophosph Disease Active U nivers atemia atemia 05-18 ity of 00:00: [place] MD Mark chao [facility] No known No known Disease Unive rs active active ity of problems problems [facility] Allergies, Adverse Reactions, Alerts Allergy Allergy Status Severity Reaction(s) Onset Inactive Treating Comm ents Source Name Type Date Date Clinician NO KNOWN Drug Active Univers ALLERGIE Class ity of S [facility] Social History Social Habit Start Date Stop Date Quantity Comments Source History [facility] University o f Alcohol Comment [facility] History of tobacco Cigarette Smoker University of use [place] MD Benji [facility] [place] History [facility] University o f Alcohol Binge [place] MD Lissette kuhn [facility] History [facility] University o f Alcohol Std Drinks [facility] Exposure to 2022-07-04 2022-07-14 Not sure [facility] SARS-CoV-2 (event) 00:00:00 22:50:00 [facility] Tobacco use and 2019-05-18 2019-05-18 Smokeless Universit y of exposure 00:00:00 00:00:00 tobacco non-user [facility] Cigarettes smoked 2019-05-18 2019-05-18 Univers ity of current (pack per 00:00:00 00:00:00 [facility] ) - Reported Cancer Ce nter Alcohol intake 2019-05-18 2019-05-18 Lifetime University of 00:00:00 00:00:00 non-drinker [place] MD Yoni [facility]henson (finding[facility] History SDOH 2019-05-18 2019-05-18 1 University o f Alcohol Frequency 00:00:00 00:00:00 [facility] Sex Assigned At [birth year] Universit y of 00:00:00 00:00:00 [place] MD Leblanc [facility] Smoking Status Start Date Stop Date Source Tobacco smoking consumption Univ ersity [facility] Medical unknown Branch Smokes tobacco daily 2019-05-18 00:00:00 Univers ity of [place] [facility] Medications Ordered Filled Start [...] JUANI
In dications: DVT/PE iopamidol 2021- No [id number] 65mL 65 mL, Univers (ISOVUE 07-15 Intravenou [...] vein of the extremitie s losartan 50 2021-0 Yes 50mg Take 50 mg Univers mg tablet 8-24 by mouth ity of 23:13: in the [place] [address] morning Medical and 50 mg Branch in the evening. losartan 50 2021-0 Yes 50mg Take 50 mg Univers mg tablet 8-24 by mouth ity of 23:13: in the [place] [address] morning Medical and 50 mg Branch in [...] 00 EVERY SIX HOURS NEEDED. 1 tab 2-0 No 10 everyday 06-29 00:00: 00 1 tab 2022-0 No 10 everyday 8 00:00: 00 TAKE 1 2-0 No 10 TABLET 8-09 TWICE 00:00: DAILY. 00 TAKE 1 2021-0 No 50 TABLET 8 DAILY. 00:00: 00 TAKE 1 2-0 No 10 TABLET 8-09 TWICE 00:00: DAILY. 00 1 tab 2-0 No 10 everyday 06-29 00:00: 00 TAKE 1 2022-0 No 10 TABLET 8-09 TWICE 00:00: DAILY. 00 TAKE 1 2-0 No 50 TABLET 8 DAILY. 00:00: 00 TAKE 1 2022-0 No 50 TABLET 8- DAILY. 00:00: 00 1 tab 2-0 No 10 everyday 06-29 00:00: 00 TAKE 1 2022-0 No 10 TABLET 8-09 TWICE 00:00: DAILY. 00 TAKE 1 2-0 No 50 TABLET 8- DAILY. 00:00: 00 iopamidol 2021- No [id number] 100mL 100 mL, Univers (ISOVUE 04-01 Intravenou ity o f 370-500 mL) 06:30: 05:15 s, ONCE, 1 [place] injection 00 :00 dose, On Medica l 100 mL [facility] 04/01/22 at 0130, Routine ketorolac 2021- No 15mg 15 mg, Unive rs (TORADOL) 04-01 Slow IV ity of injection 06:00: 04:59 Push, [place] 15 mg 00 :00 ONCE, 1 Medical dose, On Branch [facility] 04/01/22 at 0100, JUANI acetaminoph 2022-0 [...] Anderso hours as n needed Cancer (PAIN). [place] naproxen Yes 2{capsu Take 2 Univ ers sodium 5-14 le} capsules ity of (ALEVE) 220 16:31: by mouth [place] mg cap 26 every 6 MD (six) Anderso hours as n needed Cancer (PAIN). [place] naproxen Yes 2{capsu Take 2 Univ ers sodium 5-14 le} capsules ity of (ALEVE) 220 16:31: by mouth [place] mg cap 26 every 6 MD (six) Anderso hours as n needed Cancer (PAIN). [place] naproxen Yes 2{capsu Take 2 Univ ers [...] Anderso hours as n needed Cancer (PAIN). [place] naproxen Yes 2{capsu Take 2 Univ ers sodium 5-14 le} capsules ity of (ALEVE) 220 16:31: by mouth [place] mg cap 26 every 6 MD (six) Anderso hours as n needed Cancer (PAIN). [place] naproxen Yes 2{capsu Take 2 Univ ers sodium 5-14 le} capsules ity of (ALEVE) 220 16:31: by mouth [place] mg cap 26 every 6 MD (six) Anderso hours as n needed Cancer (PAIN). [place] naproxen Yes 2{capsu Take 2 Univ ers sodium 5-14 le} capsules ity of (ALEVE) 220 16:31: by mouth [place] mg cap 26 every 6 MD (six) Anderso hours as n needed Cancer (PAIN). [place] naproxen Yes 2{capsu Take 2 Univ ers sodium 5-14 le} capsules ity of (ALEVE) 220 16:31: by mouth [place] mg cap 26 every 6 MD (six) Anderso hours as n needed Cancer (PAIN). [place] naproxen Yes 2{capsu Take 2 Univ ers sodium 5-14 le} capsules ity of (ALEVE) 220 16:31: by mouth [place] mg cap 26 every 6 MD (six) Anderso hours as n needed Cancer (PAIN). [place] naproxen Yes 2{capsu Take 2 Univ ers sodium 5-14 le} capsules ity of (ALEVE) 220 16:31: by mouth [place] mg cap 26 every 6 MD (six) Anderso hours as n needed Cancer (PAIN). [place] naproxen Yes 2{capsu Take 2 Univ ers sodium 5-14 le} capsules ity of (ALEVE) 220 16:31: by mouth [place] mg cap 26 every 6 MD (six) Anderso hours as n needed Cancer (PAIN). [place] naproxen Yes 2{capsu Take 2 Univ ers sodium 5-14 le} capsules ity of (ALEVE) 220 16:31: by mouth [place] mg cap 26 every 6 MD (six) Anderso hours as n needed Cancer (PAIN). [place] naproxen Yes 2{capsu Take 2 Univ ers sodium 5-14 le} capsules ity of (ALEVE) 220 16:31: by mouth [place] mg cap 26 every 6 MD (six) Anderso hours as n needed Cancer (PAIN). Center Vital Signs Vital Name Observation Time Observation Value Comments Source Systolic blood 2022-07-15 06:30:00 161 mm[Hg] Univer sity of pressure [place] [facility] Diastolic blood 2022-07-15 06:30:00 95 mm[Hg] Unive rsity of pressure [place] [facility] [place] Heart rate 2022-07-15 06:30:00 88 /min Universi ty [facility] [place] [facility] [place] Respiratory rate 2022-07-15 06:30:00 18 /min Univ ersity of [place] [facility] [place] Oxygen saturation in 2022-07-15 06:30:00 96 /min University of Arterial blood by [employer] [place] jose de jesus Pulse oximetry Branch Body temperature 2022-07-15 03:55:00 35.89 [facility] ersity of [place] [facility] [place] Body height 2022-07-15 03:55:00 142.2 cm Universi ty [facility] [place] [facility] [place] Body weight 2022-07-15 03:55:00 39.418 kg [facility]i ty [facility] [place] [facility] [place] BMI 2022-07-15 03:55:00 19.48 kg/m2 Universi ty [facility] [place] [facility] Systolic blood 2022-04-01 06:00:00 159 mm[Hg] Univer sity of pressure [facility] Branch Diastolic blood 2022-04-01 06:00:00 94 mm[Hg] Unive rsity of pressure [place] [facility] [place] Heart rate 2022-04-01 06:00:00 91 /min Universi ty [facility] [place] [facility] [place] Body temperature 2022-04-01 06:00:00 36.11 Marija [facility] ersity of [place] [facility] [place] Respiratory rate 2022-04-01 06:00:00 16 /min [facility] ersity of [place] [facility] Oxygen saturation in 2022-04-01 06:00:00 97 /min University of Arterial blood by [employer] [place] jose de jesus Pulse oximetry Branch Body height 2022-04-01 03:33:00 154.9 cm [facility] ty [facility] [place] [facility] Body weight 2022-04-01 03:33:00 40.824 kg [facility] [place] [facility] BMI 2022-04-01 03:33:00 17.01 kg/m2 [facility] [place] [facility] WEIGHT 2021-04-03 14:19:00 41.8 kg BP Systolic [...] AUTHORIZATION FOR 2022-07-23 05:01:00 Doctor Unassigned, No [facility] RELEASE OF PHI Name Medical Branch CT CHEST PULMONARY 2022-07-15 06:00:16 Janis You [facility] ANGIOGRAM Medical Branch BASIC METABOLIC PANEL 2022-07-15 04:07:00 Janis You [facility] (NA, K, CL, CO2, Medical Branch GLUCOSE, BUN, CREATININE, CA) CBC WITH DIFF 2022-07-15 04:07:00 Janis You [facility] [place] [facility] D-DIMER 2022-07-15 04:07:00 Janis You [facility] [place] [facility] CONSENT/REFUSAL FOR 2022-07-15 03:50:37 [facility]igned, [facility] Name Medical Branch CT ABDOMEN PELVIS W 2022-04-01 05:17:59 Brant Florez [facility] CONTRAST Medical Branch COMP. METABOLIC PANEL 2022-04-01 04:59:00 Brant Florez [facility] ([id number]) Medical Branch CBC WITH DIFF 2022-04-01 04:59:00 Brant Florez [facility] [place] [facility] NOTICE OF PRIVACY 2022-04-01 03:23:48 Doctor Unassigned, No [facility] PRACTICES Name Medical Branch CONSENT/REFUSAL FOR 2022-04-01 03:23:01 Doctor Unassigned, [facility] Medical [place] Plan of Care Planned Activity Planned Date [...] (#1)] Future Scheduled 2022-05-26 COVID-19 [facility] [place] Test 06[facility]22:21 (#1) [code = COVID-19 MD [...] Luke s Test 00:00:00 (procedure) [code = [facility] 02091790] Future Scheduled [address] [facility] Test 00:00:00 (procedure) [code = [facility] 73104551] Future Scheduled [address] [facility] Test 00:00:00 (procedure) [code = [facility] 05917224] Future Scheduled [address] [facility] Test 00:00:00 (procedure) [code = [facility] 93203196] Future Scheduled [address] [facility] Test 00:00:00 (procedure) [code = [facility] 70727243] Future Scheduled [address] [facility] Test 00:00:00 (procedure) [code = Medical Center 40154159] Future Scheduled [address] [facility] Test 00:00:00 (procedure) [code = [facility] 69668018] Future Scheduled [address] [facility] Test 00:00:00 (procedure) [code = Medical Center 33613661] Future Scheduled [address] [facility] Test 00:00:00 malignant neoplasm of Medica l Center cervix (procedure) [code = 393656373] Future Scheduled [address] [facility] Test 00:00:00 malignant neoplasm of Medica l Center cervix (procedure) [code = 208371542] Future Scheduled [address] [facility] Test 00:00:00 malignant neoplasm of Medica l Center cervix (procedure) [code = 723483884] Future Scheduled [address] [facility] Test 00:00:00 malignant neoplasm of Medica l Center cervix (procedure) [code = 444339195] Future Scheduled [address] [facility] Test 00:00:00 malignant neoplasm of Medica l Center cervix (procedure) [code = 308166022] Future Scheduled [address] [facility] Test 00:00:00 malignant neoplasm of Medica l Center cervix (procedure) [code = 081090017] Future Scheduled [address] [facility] Test 00:00:00 malignant neoplasm of Medica l Center cervix (procedure) [code = 121379647] Future Scheduled [address] [facility] Test 00:00:00 malignant neoplasm of Medica l Center cervix (procedure) [code = 794385819] Future Scheduled 1987 DTAP/TDAP/TD VACCINES CH I [...] Medica l Center colon (procedure) [code = 903310902] Future Scheduled [address] [facility] Test 00:00:00 malignant neoplasm of Medica l Center breast (procedure) [code = 710501953] Future Scheduled [address] [facility] Test 00:00:00 (combo) [code = CT Medical C enter Colonography (combo)] Future Scheduled [address] [facility] Test 00:00:00 malignant neoplasm of Medica l Center colon (procedure) [code = 622168536] Future Scheduled [address] [facility] Test 00:00:00 malignant neoplasm of Medica l Center colon (procedure) [code = 874361692] Future Scheduled [address] [facility] Test 00:00:00 malignant neoplasm of Medica l Center colon (procedure) [code = 815164973] Future Scheduled [address] [facility] Test 00:00:00 malignant neoplasm of Medica l Center colon (procedure) [code = 355453691] Future Scheduled 1968 Sigmoidoscopy [facility] Medical Cente r Future Scheduled 1968 Sigmoidoscopy [facility] Medical Cente r Future Scheduled [address] [facility] Test 00:00:00 malignant neoplasm of Medica l Center breast (procedure) [code = 296300684] Future Scheduled [address] [facility] Test 00:00:00 (combo) [code = CT Medical C enter Colonography (combo)] Future Scheduled [address] [facility] Test 00:00:00 malignant neoplasm of Medica l Center colon (procedure) [code = 790215984] Future Scheduled [address] [facility] Test 00:00:00 malignant neoplasm of Medica l Center colon (procedure) [code = 146259243] Future Scheduled [address] [facility] Test 00:00:00 malignant neoplasm of Medica l Center colon (procedure) [code = 852281511] Future Scheduled [address] [facility] Test 00:00:00 malignant neoplasm of Medica l Center colon (procedure) [code = 739320346] Future Scheduled 1968 [facility]oid[facility] [address] [facility] Test 00:00:00 malignant neoplasm of Medica l Center breast (procedure) [code = 366131500] Future Scheduled [address] [facility] Test 00:00:00 (combo) [code = CT Medical C enter Colonography (combo)] Future Scheduled [address] [facility] Test 00:00:00 malignant neoplasm of Medica l Center colon (procedure) [code = 726522565] Future Scheduled [address] [facility] Test 00:00:00 malignant neoplasm of Medica l Center colon (procedure) [code = 452458866] Future Scheduled [address] [facility] Test 00:00:00 malignant neoplasm of Medica l Center colon (procedure) [code = 327109345] Future Scheduled [address] [facility] Test 00:00:00 malignant neoplasm of Medica l Center colon (procedure) [code = 242704865] Future Scheduled 1968 [facility]oidoscopy [facility] Medical Cente r Future Scheduled [address] [facility] Test 00:00:00 malignant neoplasm of Medica l Center breast (procedure) [code = 443037347] Future Scheduled [address] [facility] Test 00:00:00 malignant neoplasm of Medica l Center breast (procedure) [code = 875593557] Future Scheduled [address] [facility] 00:00:00 (combo) [code = CT Medical C enter Colonography (combo)] Future Scheduled [address] [facility] Test 00:00:00 malignant neoplasm of Medica l Center colon (procedure) [code = 537471352] Future Scheduled [address] [facility] Test 00:00:00 malignant neoplasm of Medica l Center colon (procedure) [code = 606107295] Future Scheduled [address] [facility] Test 00:00:00 malignant neoplasm of Medica l Center colon (procedure) [code = 167711232] Future Scheduled [address] [facility] Test 00:00:00 malignant neoplasm of Medica l Center colon (procedure) [code = 880329575] Future Scheduled 1968 [facility]oidoscopy [facility]] Medical [place] r Future Scheduled [address] [facility] 00:00:00 (combo) [code = CT Medical C enter Colonography (combo)] Future Scheduled [address] [facility] Test 00:00:00 malignant neoplasm of Medica l Center breast (procedure) [code = 474286857] Future Scheduled [address] [facility] Test 00:00:00 malignant neoplasm of Medica l Center colon (procedure) [code = 819816660] Future Scheduled [address] [facility] 00:00:00 (combo) [code = CT Medical C enter Colonography (combo)] Future Scheduled [address] [facility] Test 00:00:00 malignant neoplasm of Medica l Center colon (procedure) [code = 904167365] Future Scheduled [address] [facility] Test 00:00:00 malignant neoplasm of Medica l Center colon (procedure) [code = 405511080] Future Scheduled [address] [facility] Test 00:00:00 malignant neoplasm of Medica l Center colon (procedure) [code = 659929000] Future Scheduled [address] [facility] Test 00:00:00 malignant neoplasm of Medica l Center colon (procedure) [code = 378621345] Future Scheduled 1968 Sigmoidoscopy [facility]] Medical Cente r Future Scheduled [address] [facility] Test 00:00:00 malignant neoplasm of Medica l Center colon (procedure) [code = 436970073] Future Scheduled [address] [facility] Test 00:00:00 malignant neoplasm of Medica l Center breast (procedure) [code = 360844654] Future Scheduled [address] [facility] 00:00:00 (combo) [code = CT Medical C enter Colonography (combo)] Future Scheduled [address] [facility] Test 00:00:00 malignant neoplasm of Medica l Center colon (procedure) [code = 633340859] Future Scheduled [address] [facility] Test 00:00:00 malignant neoplasm of Medica l Center colon (procedure) [code = 374325294] Future Scheduled [address] [facility] Test 00:00:00 malignant neoplasm of Medica l Center colon (procedure) [code = 847072359] Future Scheduled [address] [facility] Test 00:00:00 malignant neoplasm of Medica l Center colon (procedure) [code = 472767848] Future Scheduled [address] [facility] Test 00:00:00 malignant neoplasm of Medica l Center colon (procedure) [code = 414508765] Future Scheduled 1968 [facility]oscopy [facility]] Medical Cente r Future Scheduled [address] [facility] 00:00:00 [facility] colon (procedure) [code = 471659255] Future Scheduled 1968 [facility]oscopy [facility]] Medical Cente r Future Scheduled [address] [facility] 00:00:00 [facility] breast (procedure) [code = 994157428] Future Scheduled [address] [facility] 00:00:00 (combo) [code = CT Medical C enter Colonography (combo)] Future Scheduled [address] [facility] 00:00:00 [facility] colon (procedure) [code = 991495837] Future Scheduled [address] [facility] Test 00:00:00 [facility] colon (procedure) [code = 765682323] Future Scheduled [address] [facility] Test 00[facility]00:00 [facility] colon (procedure) [code = 861378974] Goal Plan of Care Note [code = 08889-1] Goal Plan of Care Note [code = 88623-8] Goal Plan of Care Note [code = 14893-6] Goal Plan of Care Note [code = 40820-7] Goal Plan of Care Note [code = 44400-3] Goal Plan of Care Note [code = 71873-1] Goal Plan of Care Note [code = 61532-5] Goal Plan of Care Note [code = 95654-4] Goal Plan of Care Note [code = 29219-2] Goal Plan of Care Note [code = 17113-2] Goal Plan of Care Note [code = 84728-8] Goal Plan of Care Note [code = 13294-8] Goal Plan of Care Note [code = 48751-5] Goal Plan of Care Note [code = 90940-0] Goal Plan of Care Note [code = 64486-0] Goal Plan of Care Note [code = 48380-5] Goal Plan of Care Note [code = 74194-0] Goal Plan of Care Note [code = 69540-1] Goal Plan of Care Note [code = 21594-9] Goal Plan of Care Note [code = 99020-6] Goal Plan of Care Note [code = 71316-6] Goal Plan of Care Note [code = 25161-4] Goal Plan of Care Note [code = 30751-3] Goal Plan of Care Note [code = 30570-7] Goal Plan of Care Note [code = 98744-2] Goal Plan of Care Note [code = 39973-4] Encounters Start End Encounter Admission Attending Care Care Encounter Source Date/Time Date/Time Type Type Clinicians Facility Department ID 2021-04-14 Outpatient SYSTEM, [facility] [id number] 13:40:41 PROVIDER David chao 2023-04-18 2023-04-18 Outpatient [facility] [id number] Stewart 13:08:17 13:08:17 [id number] F Toby 2023-04-05 2023-04-05 Outpatient MAT Fontaine, [facility]I [id number] [facility] 14:57:00 14:57:00 Alejandro 95 [facility] 2023-03-25 2023-03-25 Outpatient MAT Fontaine [facility] NUCM [id number] [facility] 14:05:00 14:05:00 Alejandro 03 [facility] 2023-02-01 2023-02-01 Outpatient [facility] [id number] Stewart 10:28:00 10:28:00 [id number] F Toby 2023-01-28 2023-01-28 Outpatient MAT Fontaine [facility]UCM [id number] [facility] 10:51:00 10:51:00 Alejandro 52 [facility] 2023-01-13 2023-01-13 Outside Zhen, [facility] [id number] 00:00:00 00:00:00 Orders Alejandro [facility] [place] 2023-01-13 2023-01-13 Outside Zhen, [facility] [id number] 00:00:00 00:00:00 Orders Alejandro [facility] [place] 2022-11-02 2022-11-02 Outpatient [facility] [id number] Stewart 13:23:54 13:23:54 [id number] F Toby 2022-08-23 2022-08-23 Outpatient MAT Fontaine, [facility] [id number] [facility] 14:01:00 14:01:00 Alejandro 39 [facility] 2022-08-12 2022-08-12 Outpatient [id number] 00:00:00 00:00:00 Visit [id number] [id number] 2022-07-30 Outpatient [id number] 00:00:00 00:00:00 Visit [id number] 2022-07-23 2022-07-23 Orders Doctor QUIRINO [id number] 00:00:00 00:00:00 Only Unassigned, DEB 350.1.13.10 ity of [facility] 4.2.7.2.[address] [facility] [id number] [facility] 009 Branch 2022-07-14 2022-07-15 Emergency X [facility] ERT [id number] Univers 22:59:00 02:24:[address] [facility] 2022-07-14 2022-07-15 Emergency [facility] [id number] Univers 22:59:00 02:24:00 Janis RODRIGUES 350.1.13.10 ity [facility] 4.2.7.2.686 [facility] [id number] [facility] 084 Branch 2022-07-13 2022-07-13 Outpatient [id number]- [id number] 00:00:00 00:00:00 Visit [id number] 2022-06-29 2022-06-29 Outpatient [id number] 00:00:00 00:00:00 Visit [id number] 2022-05-25 2022-05-25 [id number] [facility] 12:48:00 12:48:00 Alejandro 07 [facility] 2022-04-21 2022-04-21 Patient [facility] [id number] Univers 00:00:00 00:00:00 Outreach Jr [facility] 350.1.13.10 ity [facility] 4.2.7.2.686 [facility] [id number] [facility] 096 [place] 2022-03-31 2022-04-01 Emergency [facility] [facility] ERT [id number] [facility] 22:56:00 01:29:[address] [facility] 2022-03-31 2022-04-01 Emergency [facility] [id number] [facility] 22:56:00 01:29:00 [facility]ant [facility] [id number] ity [facility] [id number] [facility] [id number] [place] [id number] [place] 2021-04-03 2021-04-03 Emergency [facility] Emergency [id number] [place] 16:10:00 18:03:00 LUIS E chao Results Test Description Test Time Test Comments Results Result Comments Source TSH, THIRD GENERATION 2023-04-19 02:44:54 Test Item Value Reference Range Interpretation Comme nts TSH, THIRD GENERATION (test 4.310 UIU/ML 0.400-4.100 H UNLESS OTHERWISE INDICATED, code = 2821) ALL TESTING PER FORMED AT CLINICAL PATHOL [facility] [employer], [facility]. [address] [place] [address] 7791 CLIENT ADMINISTRATOR: JOE PANDA M.D. ITALO Currie [id number] [facility] [place] [id number] - CT CHEST W/[id number] 16:44:00 [facility]Name: RHONA PEREIRA : 1970 Sex: F Name: RHONA PEREIRA [facility] : 1970 Age/S: 52 / F [address] [facility] Unit #: [id number] Loc: [place] [address] Phys: Alejandro Fontaine MD Acct: [id number] Dis Date: Status: REG CLI PHONE #: [phone] Exam Date: 04/05/2023 1613 FAX #: [phone] Reason: EXAMS: CPT CODE: [id number] CT CHEST W/CONTRAST 17601 REASON FOR EXAM: Vulva cancer EXAM ORDER [...] used. Contrast: Present FINDINGS: Visualized neck: Grossly normal.Airways, Lungs and Pleura: Emphysematous changes are seen throughout the lungs. There is a nodule inthe lower lobe of the left lung () measuring 9 mm in size. Heart, great vessels, pulmonary vessels, mediastinum: Grossly normal. Lymph nodes: No axillary, internal mammary, hilar, or mediastinal adenopathy. Musculoskeletal/chest wall: Degenerative changes are present in the spine. Visualized upperabdomen: Atherosclerotic calcifications are present in the abdominal aorta IMPRESSION: Previously seen opacity in the right lower lobe and left upper lobe are no longer present. The nodule in the left lower lobe retrocardiac region () appears PAGE 1 Signed Report (CONTINUED) Name: RHONA PEREIRA [facility] : 1970 Age/S: 52 / F Cameron Chiang Unit #: [id number] Loc: [place] [address] Phys: Alejandro Fontaine MD Acct: [id number] Dis Date: Status: REG CLI PHONE #: [phone] Exam Date: 04/05/2023 1613 FAX #: [phone] Reason: EXAMS: CPT CODE: [id number] CT CHEST W/CONTRAST 70037 (Continued) slightly smaller from the previous examination. Follow-up CT scan in 6-8 weeksis recommended to assess for resolution since it is unclear whether this represents an infectious process or represents pulmonary metastases. Location: [facility] at 1644 Reported and signed by: Nahid Aguilar MD CC: Alejandro Fontaine MD Technologist:NEEMA LUTHER, RT(R) CT CTDI: DLP: Trnscb Date/Time: 04/05/2023 (1643) [email or web address] Orig Print D/T: S:04/05/2023 (9578) PAGE 2 Signed Report- PET/CT TUMOR SK [id number] 09:09:00 [facility] ([facility])Name: RHONA PEREIRA : 1970 Sex: F FAX: Y Alejandro Fontaine MD [phone] [place]: B St: DEP Name: RHONA PEREIRA [facility] : 1970 Age/S: 52/F [address] [facility] Unit #: [id number] Loc: [place] [address] Phys: Alejandro Fontaine MD Acct: [id number] Dis Date: Status: DEP CLI PHONE #: [phone] Exam Date: 03/25/2023 0255 FAX #: [phone] Reason: VULVAR CANCER EXAMS: CPT CODE: [id number] PET/CT TUMOR SK BS MIDTH 96843 HISTORY: Restaging vulvar cancer. COMPARISON: PET/CT scan from May 25, 2022 and January 28, 2023. Location: [facility]. PET/CT SCAN: 12 mCi of FDG administered. Images obtained from the skull base to the upperthighs 1 hour postinjection. Blood glucose level = 133 mg/dL. HEAD AND NECK: Intense uptake within the brain parenchyma limited evaluation. Physiologic pharyngeal uptake. CHEST: Poorly defined supradiaphragmatic retrocardiac left lower lobe mass measured 2.5 cm with SUV ranging up to 3.6. This is newfrom previous examination. Differential diagnoses would include infiltrate given its poor definition. Similar area of increased uptake measured 2 cm in the right medial supradiaphragmatic location withSUV uptake ranging up to 2.5. Third ill-defined areas abutting the pleural surface in the left upperlobe inferolaterally measured 7.8 mm with SUV uptake [...] previous examination. No pathologic retroperitoneal or mesenteric orretrocrural adenopathy. Excretion the bowel limits evaluation. No abnormal uptake within the liver, spleen, kidneys or the adrenals. PELVIS: Excretion into the urinary bladder and bowel limits evaluation. No abnormal uptake in the rest of the pelvis. MUSCULOSKELETAL: No abnormal uptake IMPRESSION: Poorly defined areas of uptake within bilateral lower lobes medially in the supra diaphragmatic locationmeasuring 2.5 cm on the left with SUV uptake ranging up to 3.6 and on the right measuring 2 cm with SUV uptake ranging up to 2.5. The third area measured 7.8 mm with SUV ranging up to 2. Differential d iagnosis would include pneumonia versus metastatic lesions. Close follow-up. 5 mm left hilar lymph node with SUV ranging up to 2 is borderline. PAGE 1 Signed Report (CONTINUED) FAX: Alejandro Ramsey MD [phone] [place]: St: [facility] Name: RHONA PEREIRA [facility] : 1970 Age/S: 52/F [address] [facility] Unit #: [id number] Loc: [place] [address] Phys: Alejandro Fontaine MD Acct: [id number] Dis Date: Status: [facility] PHONE #: [phone] Exam Date: 03/25/2023 1506 FAX #: [phone] Reason: VULVARCANCER EXAMS: CPT CODE: [id number] PET/CT TUMOR SK MIDTH 94200 (Continued) 3 retroperitoneal paraceliac lymph nodes on the right and anterior to the celiac axis measuring up to 3 cm. SUV ranging up to 3.5. These are not seen on the previous examination. No other pathologic adenopathy or evidence for distant metastatic disease. at 0909 Reported and signed by: Christofer Haas M.D. CC: Alejandro Fontaine MD Technologist: Bong Welch Date/Time/By: 03/27/2023 (908) : By: [email or web address] Orig Print D/T: S: 03/27/2023 (911) PAGE 2 Signed Report- PET/CT TUMOR SK BS [id number] 15:38:[address] : 1970 Sex: F FAX: Y Alejandro Fontaine MD [phone] [place]: B St: DEP Name: RHONA PEREIRA [facility] : 1970 Age/S: 52/F [address] [facility] Unit #: [id number] Loc: [place] [address] Phys: Alejandro Fontaine MD Acct: [id number] Dis Date: Status: DEP CLI PHONE #: [phone] Exam Date: 01/28/2023 1236 FAX #: [phone] Reason: C51.8 EXAMS: CPT CODE: [id number] PET/CT TUMOR SK BS MIDTH 87890 EXAMINATION: PET/CT TUMOR SKULL BASE TO MID THIGH HISTORY: Vulvar malignancy TECHNIQUE: The patient's bloodglucose level was measured at 101 mg/dl. The [...] distance. The CT images were generated for thepurpose of optimizing the PET images and for anatomical correlation of PET findings. COMPARISON: Pet/CT 05/25/2022. CT abdomen and pelvis 08/23/2022. FINDINGS: Background blood pool activity measures 2. Head/Neck: Physiologic activity in the parapharyngeal lymphoid tissue, salivary glands and muscles is noted. No FDG-avid cervical adenopathy is identified. Thorax: Bilateral lung pereira are clear withoutpulmonary nodule or abnormal FDG avidity. Mediastinal structures are normal in noncontrast appearance. No enlarged nodes by size criteria nor abnormal FDG-avidity. Abdomen/Pelvis: There is heterogeneous physiologic hepatic and splenic uptake without focal hypermetabolic mass lesions. No abnormal FDG up take within the adrenal glands. Within the vulvar region there is increased abnormal FDG activity seen within the lower soft tissues with maximum SUV up 2.3. Findings are not significantly greater thanbackground FDG activity. No FDG avid mesenteric or retroperitoneal adenopathy is seen. Bones: No definite FDG avid osseous lesions are identified within the bone windows. IMPRESSION: No distant abnormal FDG activity. Within the vulvar region there is FDG activity that measures up to 2.3, although thisis not significantly greater than background FDG activity. PAGE 1 Signed Report (CONTINUED) FAX: Alejandro Ramsey MD [phone] [place]: St: [facility] Name: RHONA PEREIRA [facility] : 1970 Age/S: 52/F [address] [facility] Unit #: [id number] Loc: [place] [address] Phys: Alejandro Fontaine MD Acct: [id number] Dis Date: Status: DEP CLI PHONE #: [phone] Exam Date: 01/28/2023 1236 FAX #: [phone] Reason: C51.8 EXAMS: CPT CODE: [id number] PET/CT TUMOR SK MIDTH 54680 (Continued) at 1538 Reported and signed by: Ish James M.D. CC:Alejandro Fontaine MD Technologist: Bong WelchMT Trnscrd Date/Time/By: 01/31/2023 (1535) : By: [email or web address] Orig Print D/T: S: 01/31/2023 (5660) PAGE 2 Signed Report- CT ABD PELVIS [id number] 00:00:00 [facility] 1970 Sex: F Name: RHONA PEREIRA [facility] : 1970 Age/S: 52 / F [address] [place] [address] Unit #: [id number] Loc: [place] [address] Phys: Alejandro Fontaine MD Acct: [id number] Dis Date: Status: DEP CLI PHONE #: [phone] Exam Date: 08/23/2022 1521 FAX #: [phone] Reason: MALIGNANT NEOPLASM OF OVERLAPPING SITES EXAMS: CPT CODE: [id number] CT ABD PELVIS W/CONT 54299 PROCEDURE INFORMATION: Exam: CTAbdomen And Pelvis With Contrast Exam date and [...] pneumothorax. Bilateral emphysematous changes. Minimal bilateral lower lobedependent atelectasis. Liver: No hepatomegaly. Hepatic parenchyma is [...] 1 Signed Report (CONTINUED) Name: RHONA PEREIRA [facility] : 1970 Age/S: 52 / F [address] [place] [address] Unit #: [id number] Loc: [place] [address] Phys: Alejandro Fontaine MD Acct: [id number] Dis Date: Status: DEP CLI PHONE #: [phone] Exam Date: 08/23/2022 1521 FAX #: [phone] Reason: MALIGNANT NEOPLASM OF OVERLAPPING SITES EXAMS: CPT CODE: [id number] CT ABD PELVIS W/CONT 04189 (Continued) at 1210 Reported and signed by: Johnny Merlos M.D. CC: Alejandro Fontaine MD Technologist:Sg Pearce, RT(R)(CT) CTDI: DLP: Trnscb Date/Time: 08/25/2022 (1210) [email or web address] Orig Print D/T: S: 08/25/2022 (1210) PAGE 2 Signed [id number] 04:37:07 Test Item Value Reference Interpretation Comments Range D-DIMER (test code = See_Comment H [Autom ated 5168908803) message] The system which generated this result transmitted reference range : <0.41 ?g/mL (FEU). The reference range was not used to interpret this result as normal/abnormal . LATESHA (test code = This test may be LATESHA) used in conjunction with a clinical pretest [...] diagnosis. Lab Interpretation Abnormal (test code = 95016-8) [facility] (NA, K, CL, CO2, GLUCOSE, BUN, CREATININE, CA)2022-07-15 04:31:05 Test Item Value Reference Range Interpretation Comments NA (test code = 140 mmol/L 135-145 6791460701) K (test code = 4.0 mmol/L 3.5-5 6365897976) CL (test code = 101 mmol/L 98-108 6613262888) CO2 TOTAL (test code = 33 mmol/L 23-31 H 7841122910) AGAP (test code = 2-16 1137420384) BUN (test code = 13 mg/dL 7-23 6735140504) GLUCOSE (test code = 103 mg/dL 70-110 0286501086) CREATININE (test code = 0.58 mg/dL 0.5-1.04 0922546714) CALCIUM (test code = 9.2 mg/dL 8.6-10.6 4430508260) eGFR (test code = mL/min/1.73m2 1931779535) LATESHA (test code = LATESHA) Association of [...] tests). Lab Interpretation Abnormal (test code = 60321-6) [facility] WITH [id number] 04:17:03 Test Item Value Reference Range Interpretation Comments WBC (test code = See_Comment [Automated 4490-2) message] The sy stem which generated this [...] (test code = 51.5 fL 39-49.9 H 93431-6) RDW-CV (test code = 14.9 % 12-15.5 788-0) PLT (test code = See_Comment [Automated 777-3) message] The sy stem which generated this result transmitted reference range : 166 - 358 10*3/ ?L. The reference r felipa was not used to interpret this result as normal/abnormal . MPV (test code = 8.8 fL 9.5-12.9 L 28871-3) NRBC/100 WBC (test See_Comment [Automat ed code = 2579100556) message] The system which generated this result transmitted reference range : 0.0 - 10.0 /100 WBCs. The refer ence range was not u sed to interpret th is result as normal/abnormal . NRBC x10^3 (test code See_Comment [Auto mated = 6812140773) message] The s ystem which generated this result transmitted reference range : 10*3/?L. The reference range was not used to interpret this result as normal/abnormal . GRAN MAT (NEUT) % 52.0 % (test code = 770-8) IMM GRAN % (test code 0.30 % = 1546108758) LYMPH % (test code = 33.5 % 736-9) MONO % (test code = 13.3 % 5905-5) EOS % (test code = 0.6 % 713-8) BASO % (test code = 0.3 % 706-2) GRAN MAT x10^3(ANC) 4.14 10*3/uL 1.88-7.09 (test code = 9541239119) IMM GRAN x10^3 (test 0-0.06 code = 8876858733) LYMPH x10^3 (test code 2.67 10*3/uL 1.32-3.29 = 731-0) MONO x10^3 (test code 1.06 10*3/uL 0.33-0.92 H = 742-7) EOS x10^3 (test code = 0.05 10*3/uL 0.03-0.39 711-2) BASO x10^3 (test code 0.01-0.07 = 704-7) Lab Interpretation Abnormal (test code = 28345-3) [facility]- PET/CT TUMOR SK BS [id number] 00:00:00 [facility] 1970 Sex: F FAX: Alejandro Ramsey MD [phone] [place]: St: REG Name: RHONA PEREIRA [facility] : 1970 Age/S: 52/F [address] [place] [address] Unit #: [id number] Loc: [place] [address] Phys: Alejandro Fontaine MD Acct:[id number] Dis Date: Status: REG CLI PHONE #: [phone] Exam Date: 05/25/2022 1442 FAX #: [phone] Reason: VULVAR CA C51.8 EXAMS: CPT CODE: [id number] PET/CT TUMOR SK BS MIDTH 59640 PROCEDURE INFORMATION: Exam: PET/CT Skull Base to Mid-thigh Exam date and time: 05/25/2022 2:48 PM Age: 52 years old Clinical indication: Malignant neoplasm of overlapping sites of vulva; Additional info: Vulvar CA c51.8 LABS AND CLINICAL REPORTS: Glucose: 81 mg/dl Treatment strategy for malignancy (PET staging): Initial Staging (PI) TECHNIQUE: Imaging protocol: Following at [...] of imaging post radiopharmaceutical administration: 1 hour Injectionsite: site COMPARISON: No relevant prior studies available. [...] markedly FDG avid, max SUV 8.8. Small leftinguinal nodes are mildly FDG avid left inguinal node series 2, image 203, 10 x 8 mm, SUV 2.5. Thereis no other pathologic desi uptake. Physiologic urinary activity in the kidneys, ureters and bladder. Physiologic bowel activity. Bones/joints: No metabolically active areas are noted within the osseous structures Soft tissues: No metabolically active areas are noted within the soft tissue. Other findings: CT findings:Moderate emphysematous changes are present. The aorta demonstrates moderate atherosclerotic PAGE 1 Signed Report (CONTINUED) FAX: Alejandro Ramsey MD [phone] [place]: St: REG- Name: RHONA PEREIRA [facility] : 1970 Age/S: 52/F [address] [place] [address] Blvd Unit #: [id number] Loc: [place] [address] Phys: Alejandro Fontaine MD Acct: [id number] Dis Date: Status: REG CLI PHONE #: [phone] Exam Date: 05/25/2022 [facility] FAX #: [phone] Reason: VULVAR CA C51.8 EXAMS: CPT CODE: [id number] PET/CT TUMOR SK BS MIDTH 58729 (Continued) calcification. There are coronary arterial calcifications. IMPRESSION: 1. FDG avid left perineal mass compatible with primary malignancy. 2. Small left inguinal nodes are FDG avid allowing for their size and suspicious for metastatic disease. 3. Negative for FDG avid distal metastatic disease. at 1712 Reported and signed by: Noel Llamas M.D. CC: Alejandro Fontaine MD Technologist: Roshni Richey, RT(N)(CT)(PET); ... Trnscrd Date/Time/By: 05/25/2022 (1711) : By: Emerson Orig Print D/T: S: 05/25/2022 (1711) PAGE 2 Signed ReportCOMP. METABOLIC PANEL (72468)2022-04-01 05:45:46 Test Item Value Reference Range Interpretation Comments NA (test code = 139 mmol/L 135-145 2852071647) K (test code = 4.0 mmol/L 3.5-5.0 3116222354) CL (test code = 101 mmol/L 98-108 6733708182) CO2 TOTAL (test code = 32 mmol/L 23-31 H 5188202166) AGAP (test code = 2-16 8184637679) BUN (test code = 15 mg/dL 7-23 2313395083) GLUCOSE (test code = 90 mg/dL 70-110 7198520332) CREATININE (test code = 0.67 mg/dL 0.50-1.04 5361399424) TOTAL BILI (test code = 0.3 mg/dL 0.1-1.6 7345559487) CALCIUM (test code = 8.8 mg/dL 8.6-10.6 8089701449) T PROTEIN (test code = 7.0 g/dL 6.3-8.2 8546559715) ALBUMIN (test code = 4.2 g/dL 3.5-5.0 8991420666) ALK PHOS (test code = 63 U/L 34-122 3117234789) ALTv (test code = 14 U/L 5-35 1742-6) AST(SGOT) (test code = 26 U/L 13-40 7661441704) eGFR (test code = mL/min/1.73m2 8538975761) LATESHA (test code = LATESHA) Association of [...] tests). Lab Interpretation Abnormal (test code = 24226-2) [facility] WITH [id number] 05:26:19 Test Item Value Reference Range Interpretation Comments WBC (test code = See_Comment [Automated 9349-2) message] The sy stem which generated this result transmitted reference range : 4.30 - 11.10 10*3/?L. The reference range was not used to interpret this result as normal/abnormal . RBC (test code = See_Comment [Automated 769-8) message] The sy stem which generated this [...] RDW-SD (test code = 49.9 fL 39.0-49.9 96323-6) RDW-CV (test code = 14.2 % 12.0-15.5 788-0) PLT (test code = See_Comment [Automated 207-3) message] The sy stem which generated this result transmitted reference range : 166 - 358 10*3/ ?L. The reference r felipa was not used to interpret this result as normal/abnormal . MPV (test code = 8.8 fL 9.5-12.9 L 10663-0) NRBC/100 WBC (test See_Comment [Automat ed code = 9978447366) message] The system which generated this result transmitted reference range : 0.0 - 10.0 /100 WBCs. The refer ence range was not u sed to interpret th is result as normal/abnormal . NRBC x10^3 (test code <0.01 See_Comment [Auto mated = 9151010938) message] The s ystem which generated this result transmitted reference range : 10*3/?L. The reference range was not used to interpret this result as normal/abnormal . GRAN MAT (NEUT) % 46.5 % (test code = 770-8) IMM GRAN % (test code 0.20 % = 9187325757) LYMPH % (test code = 40.3 % 736-9) MONO % (test code = 11.4 % 5905-5) EOS % (test code = 1.1 % 713-8) BASO % (test code = 0.5 % 706-2) GRAN MAT x10^3(ANC) 4.42 10*3/uL 1.88-7.09 (test code = 5776966160) IMM GRAN x10^3 (test <0.03 0.00-0.06 code = 4915588122) LYMPH x10^3 (test code 3.84 10*3/uL 1.32-3.29 H = 731-0) MONO x10^3 (test code 1.09 10*3/uL 0.33-0.92 H = 742-7) EOS x10^3 (test code = 0.10 10*3/uL 0.03-0.39 711-2) BASO x10^3 (test code 0.05 10*3/uL 0.01-0.07 = 704-7) Lab Interpretation Abnormal (test code = 00995-5) [facility], THIRD [id number] 01:04:39 Test Item Value Reference Range Interpretation Comments TSH, THIRD GENERATION (test code 0.923 UIU/ML 0.400-4.100 = 2821) COMPREHENSIVE METABOLIC [id number] 00:09:04 Test Item Value Reference Range Interpretation Comments GLUCOSE (test code = 108 MG/DL 70-99 H 2216) BUN (test code = 9 MG/DL 6-20 2207) CREATININE (test 0.59 MG/DL 0.60-1.30 L code = 2213) eGFR (2020 CKD-EPI) 108 >60 (test code = 65270) ML/MIN/1.73 CALC BUN/CREAT (test 15 RATIO 6-28 code = 223) SODIUM (test code = 141 MEQ/L 203-307 7529) POTASSIUM (test code 3.6 MEQ/L 3.5-5.4 = 2227) CHLORIDE (test code 102 MEQ/L 95-107 = 2214) CARBON DIOXIDE (test 26 MEQ/L 19-31 code = 2205) CALCIUM (test code = 9.5 MG/DL 8.5-10.5 [...] code = 13 U/L 5-40 2218) LIPID [id number] 00:09:04 Test Item Value Reference Range Interpretation [...] MOREINFORMATION , SEE CLIENT ANNOUNCE MENT AT [email or web address] [email or web address] RATIO LDL/HDL 1.84 RATIO <3.22 UNLESS O THERWISE (test code = 2238) INDICATED , ALL TESTING PERFORMED [facility], [place]. [address] [facility] [place] [address] [facility] DIRECTOR: Lamont WARRENIA NUMBER [id number] CAP ACCREDITATION N O. [id number] CBC W/AUTO DIFF WITH [id number] 03:06:30 Test Item Value Reference Range Interpretation [...] RBCS 0.00 K/UL 0.00-0.11 (test code = 15248)
[2023-04-21 20:27] LABS: Absolute Lymphocytes (CBC) 2.6 K/uL (0.7-4.9); Hematocrit 35.4 % (36.0-45.0); Lymphocytes % 26.8 % (15.3-44.8); MCV 101.8 fL (80-100); MPV 6.4 fL (7.6-11.3); RBC Red Blood Cell Count 3.48 M/uL (3.86-4.86)
[2023-04-21 20:33] LABS: Protime INR 1.16
[2023-04-21] MEDS ORDERED: ALBUTEROL 2.5 MG/3 ML NEB SOL ONE (20:44)
[2023-04-21] MEDS ORDERED: IPRATROPIUM BROM 0.5MG/2.5ML ONE (20:44)
[2023-04-21 20:45] LABS: Potassium 3.9 mEq/L (3.5-5.1)
--- NOTE | 2023-04-21 21:31 | RAD REPORT ---
EXAM DESCRIPTION: RADChest Single View04/21/2023 8:04 pm CLINICAL HISTORY: Cough;Chest pain COMPARISON: Chest Single View dated 04/14/2023; Chest Single View dated 03/28/2023; Abdomen 1 View (KUB ) dated 03/04/2023; Chest Single View dated 03/03/2023 TECHNIQUE: Portable AP view of the chest. FINDINGS: The lungs are clear. Hyperlucency and hyperinflation suggestive of COPD. No pneumothorax or effusion. The cardiomediastinal contours are unremarkable. IMPRESSION: No acute cardiopulmonary process.
[2023-04-21] MEDS ORDERED: predniSONE 20 MG TAB ONE (21:38)
--- NOTE | 2023-04-21 22:12 | ER ---
Nurse's Notes [facility] Name: Abbey Alves Age: 52 yrs Sex: Female : 1970 Arrival Date: 04/21/2023 Time: 19:27 Bed 6 Private MD: Diagnosis: COPD/ Chronic obstructive pulmonary disease with (acute) exacerbation;Hypoxemia Presentation: 04/21 19:44 Chief complaint: Patient states: i was here a week ago and i had pneumonia and now i iw think its moved to the other lung. Coronavirus screen: Client denies travel out of the [place] in the last 14 days. Client presents with at least one sign or symptom that may indicate coronavirus-19. Ebola Screen: No symptoms or risks identified at this time. Initial Sepsis Screen: Does the patient meet any 2 criteria? No. Patient's initial sepsis screen is negative. Does the patient have a suspected source of infection? No. Patient's initial sepsis screen is negative. Risk Assessment: Do you want to hurt yourself or someone else? Patient reports no desire to harm self or others. Onset of symptoms is unknown. 19:44 Method Of Arrival: Ambulatory iw 19:44 Acuity: KEELY 3 iw Triage Assessment: 19:46 General: Appears in no apparent distress. uncomfortable, Behavior is calm, cooperative. iw Pain: Denies pain. EENT: No deficits noted. No signs and/or symptoms were reported regarding the EENT system. Neuro: No deficits noted. Gomez Agitation-Sedation Scale (RASS): 0 - Alert and Calm Level of Consciousness is awake, alert, obeys commands, Oriented to person, place, time, situation. Cardiovascular: No deficits noted. Denies chest pain. Respiratory: Reports shortness of breath at rest cough that is Airway is patent Respiratory effort is even, unlabored, Respiratory pattern is regular, symmetrical, Onset: The symptoms/episode began/occurred at an unknown time. the patient has moderate shortness of breath. GI: No deficits noted. No signs and/or symptoms were reported involving the gastrointestinal system. Abdomen is flat, non-distended. : No deficits noted. No signs and/or symptoms were reported regarding the genitourinary system. Derm: No deficits noted. No signs and/or symptoms reported regarding the dermatologic system. Skin is intact, is healthy with good turgor, Skin is dry, Skin is normal, Skin temperature is warm. Musculoskeletal: No deficits noted. Circulation, motion, and sensation intact. Range of motion: intact in all extremities. PHOTO MANAGER: 19:46 LMP N/A - Hysterectomy iw Historical: - Allergies: 19:46 No Known Allergies; iw - Home Meds: 19:46 Eliquis 5 mg Oral tablet 2 times per day [Active]; losartan oral [Active]; unknown BP iw medication [Active]; - PMHx: 19:46 COPD; Hypertensive disorder; Vulva and cervical CA; iw - PSHx: 19:46 section; hysterectomy; iw - Immunization history:: Adult Immunizations up to date, Client reports receiving the 1st dose of the Covid vaccine. - Social history:: Smoking status: Patient reports the use of cigarette tobacco products, denies chronic smoking, but will smoke occasionally, Patient/guardian denies using alcohol, street drugs. Screenin:19 [facility] ED Fall Risk Assessment (Adult) History of falling in the last 3 months, jb4 including since admission No falls in past 3 months (0 pts) Confusion or Disorientation No (0 pts) Score/Fall Risk Level 0 - 2 = Low Risk Oriented to surroundings, Maintained a safe environment. Abuse screen: Denies threats or abuse. Nutritional screening: No deficits noted. Tuberculosis screening: No symptoms or risk factors identified. Assessment: 20:18 General: Appears in no apparent distress. comfortable, Behavior is calm, cooperative, jb4 appropriate for age. Pain: Denies pain. Neuro: Level of Consciousness is awake, alert, obeys commands, Oriented to person, place, time, situation. Cardiovascular: Patient's skin is warm and dry. Rhythm is sinus rhythm. Respiratory: Airway is patent Respiratory effort is even, labored, Respiratory pattern is regular, symmetrical, Breath sounds are clear bilaterally. Breath sounds are diminished bilaterally. GI: No signs and/or symptoms were reported involving the gastrointestinal system. : No signs and/or symptoms were reported regarding the genitourinary system. EENT: No signs and/or symptoms were reported regarding the EENT system. Derm: Skin is intact, Skin is pink, warm \T\ dry. Musculoskeletal: Circulation, motion, and sensation intact. Range of motion: intact in all extremities. 21:12 Reassessment: Patient appears in no apparent distress at this time. Patient and/or jb4 family updated on plan of care and expected duration. Pain level reassessed. Patient is alert, oriented x 3, equal unlabored respirations, skin warm/dry/pink. 22:08 Reassessment: Patient appears in no apparent distress at this time. Patient and/or jb4 family updated on plan of care and expected duration. Pain level reassessed. Patient is alert, oriented x 3, equal unlabored respirations, skin warm/dry/pink. Vital Signs: 19:44 BP 130 / 87; Pulse 97; Resp 17 S; Temp 98.9; Pulse Ox 93% on R/A; Weight 37.19 kg; iw Height 4 ft. 9 in. (R); 21:08 BP 110 / 85; Pulse 89; Resp 18; Pulse Ox 100% on Nebulizer Mask; rv 21:57 Pulse Ox 87% on R/A; jb4 22:08 BP 107 / 74; Pulse 82; Resp 16; Pulse Ox 99% on 2 lpm NC; jb4 19:44 Body Mass Index 17.74 (37.19 kg, 144.78 cm) iw 21:57 pt ambulated around the room and to the nurses station desatted to 87% on RA. Provider milind4 notified, placed back on 2L NC. Randolph Coma Score: 21:08 Eye Response: spontaneous(4). Motor Response: obeys commands(6). Verbal Response: rv oriented(5). Total: 15. ED Course: 19:29 Patient arrived in ED. ag3 19:29 Cheko Martinez PA is PHCP. cp 19:29 Sheldon Pollard DO is Attending Physician. cp 19:46 Triage completed. iw 19:46 Arm band placed on left wrist. iw 20:06 XRAY Chest (1 view) In Process Unspecified. EDMS 20:18 Johnny Goodson, RN is Primary Nurse. jb4 20:19 Troponin HS Sent. jb4 20:19 PT-INR Sent. jb4 20:19 NT PRO-BNP Sent. jb4 20:19 Magnesium Sent. jb4 20:19 CBC with Diff Sent. jb4 20:19 Basic Metabolic Panel Sent. jb4 20:19 Lactate w/ 2H reflex if indic. Sent. jb4 20:20 No provider procedures requiring assistance completed. Inserted saline lock: 20 gauge rv in right antecubital area, using aseptic technique. Blood collected. 22:10 Angelica Todd PA-C is Hospitalizing Provider. cp 22:50 Frantz Figueredo is Hospitalizing Provider. sb4 04/22 00:09 Patient has correct armband on for positive identification. rv 00:09 Patient admitted, IV remains in place. rv Administered Medications: 04/21 20:46 Drug: DuoNeb Nebulize (2.5 mg - 0.5 mg) 3 ml Route: Nebulizer; jb4 21:32 Drug: predniSONE PO 40 mg Route: PO; jb4 Medication: 04/22 00:09 VIS not applicable for this client. rv Outcome: 04/21 22:11 Decision to Hospitalize by Provider. cp 04/22 00:09 Admitted to Med/surg accompanied by nurse, via wheelchair, room 211, with chart, Report rv called to Brandee HOBBS Condition: good Instructed on the need for admit. 00:09 Patient left the ED. rv Signatures: Dispatcher [employer] EDMS Vivian Wilson RN RN iw Cheko Martinez PA PA cp Johnny Goodson RN RN jb4 Dax Pizarro RN RN rv Amanda Duran ag3 Angelica Todd PA-C PA-C sb4 Corrections: (The following items were deleted from the chart) 04/21 19:49 19:44 BP 130 / 87; Pulse 97bpm; Resp 17bpm; Spontaneous; Pulse Ox 91% RA; Temp 98.9F; iw 37.19 kg; Height 4 ft. 9 in. Reported; BMI: 17.7; iw
--- NOTE | 2023-04-21 22:12 | EDPHYS ---
Physician Documentation [facility] Name: Abbey Alves Age: 52 yrs Sex: Female : 1970 Arrival Date: 04/21/2023 Time: 19:27 Bed 6 Private MD: ED Physician Sheldon Pollard HPI: 04/21 20:00 This 52 yrs old Female presents to ER via Ambulatory with complaints of Shortness Of cp Breath. 20:00 The patient has shortness of breath at rest. Onset: The symptoms/episode began/occurred cp last week, and became worse today. Duration: The symptoms are continuous, and are steadily getting worse. Associated signs and symptoms: Pertinent positives: non-productive cough, Pertinent negatives: chest pain, diaphoresis, fever, vomiting. Severity of symptoms: in the emergency department the symptoms are unchanged. 20:05 Patient treated for pneumonia about 1 week ago and currently taking prescribed cp antibiotics. MBA INTERNSHIP: 19:46 LMP N/A - Hysterectomy iw Historical: - Allergies: 19:46 No Known Allergies; iw - Home Meds: 19:46 Eliquis 5 mg Oral tablet 2 times per day [Active]; losartan oral [Active]; unknown BP iw medication [Active]; - PMHx: 19:46 COPD; Hypertensive disorder; Vulva and cervical CA; iw - PSHx: 19:46 section; hysterectomy; iw - Immunization history:: Adult Immunizations up to date, Client reports receiving the 1st dose of the Covid vaccine. - Social history:: Smoking status: Patient reports the use of cigarette tobacco products, denies chronic smoking, but will smoke occasionally, Patient/guardian denies using alcohol, street drugs. ROS: 20:05 Constitutional: Negative for body aches, chills, fever, poor PO intake. cp 20:05 Cardiovascular: Negative for chest pain. cp Exam: 20:10 Constitutional: The patient appears in no acute distress, alert, awake, cp non-diaphoretic, non-toxic, well developed, frail. 20:10 Head/Face: Normocephalic, atraumatic. cp 20:10 Eyes: Periorbital structures: appear normal, Pupils: equal, round, and reactive to light and accomodation, Extraocular movements: intact throughout, Conjunctiva: normal, no exudate, no injection, Sclera: no appreciated abnormality, Lids and lashes: appear normal, bilaterally. 20:10 ENT: External ear(s): are unremarkable, Nose: is normal, Mouth: Lips: moist, Oral mucosa: pink and intact, moist, Posterior pharynx: is normal, airway is patent, no erythema, no exudate. 20:10 Neck: ROM/movement: is normal, is supple, without pain, no range of motions limitations, no meningismus. 20:10 Chest/axilla: Inspection: normal, Palpation: is normal, no crepitus, no tenderness. 20:10 Cardiovascular: Rate: normal, Rhythm: regular, Edema: is not appreciated, JVD: is not appreciated. 20:10 Respiratory: the patient does not display signs of respiratory distress, Respirations: normal, no use of accessory muscles, no retractions, labored breathing, is not present, Breath sounds: decreased breath sounds, that are moderate, throughout, stridor, is not appreciated, wheezing: is not appreciated. 20:10 Abdomen/GI: Inspection: abdomen appears normal, Palpation: abdomen is soft and non-tender, in all quadrants. 20:10 Back: pain, is absent, ROM is normal. 20:10 Skin: cellulitis, is not appreciated, no rash present. 20:10 Neuro: Orientation: to person, place \T\ time. Mentation: is normal, Cerebellar function: is grossly normal, Motor: moves all fours, strength is normal, Sensation: is normal, Gait: is steady. 20:12 ECG was reviewed by the Attending Physician. cp Vital Signs: 19:44 BP 130 / 87; Pulse 97; Resp 17 S; Temp 98.9; Pulse Ox 93% on R/A; Weight 37.19 kg; iw Height 4 ft. 9 in. (R); 21:08 BP 110 / 85; Pulse 89; Resp 18; Pulse Ox 100% on Nebulizer Mask; rv 21:57 Pulse Ox 87% on R/A; jb4 22:08 BP 107 / 74; Pulse 82; Resp 16; Pulse Ox 99% on 2 lpm NC; jb4 19:44 Body Mass Index 17.74 (37.19 kg, 144.78 cm) iw 21:57 pt ambulated around the room and to the nurses station desatted to 87% on RA. Provider jb4 notified, placed back on 2L NC. Randall Coma Score: 21:08 Eye Response: spontaneous(4). Motor Response: obeys commands(6). Verbal Response: rv oriented(5). Total: 15. MDM: 19:50 Patient medically screened. cp 20:00 Differential diagnosis: Bronchitis CHF exacerbation, Chronic Obstructive Pulmonary cp Disease Myocardial Infarction pneumonia, Pneumothorax pulmonary edema, Pulmonary Embolism Sepsis Unstable Angina. 22:09 ED course: Patient observed to have O2 sats 87% on RA with ambulation, will admit for cp COPD exacerbation. 22:10 Data reviewed: vital signs, nurses notes, lab test result(s), EKG, radiologic studies, cp plain films. 22:10 Antibiotic administration: Not indicated, the patient does not have an appreciated cp infiltrate. Consideration of Admission/Observation Patient was admitted/placed on observation. Management of patient was discussed with the following: Hospitalist: Shelia Todd, GEOGRAPHIC INFORMATION SYSTEMS DIRECTOR will admit after discussion of today's results. 04/21 19:55 Order name: Basic Metabolic Panel; Complete Time: 20:47 04/21 20:48 Interpretation: Normal except: NA 134; CO2 33; ANION GAP 3.9; GLUC 112. cp 04/21 19:55 Order name: CBC with Diff; Complete Time: 20:47 04/21 20:48 Interpretation: Normal except: RBC 3.48; HGB 11.9; HCT 35.4; MCV 101.8; RDW 17.4; MPV cp 6.4. 04/21 19:55 Order name: Magnesium; Complete Time: 20:47 04/21 19:55 Order name: NT PRO-BNP; Complete Time: 20:47 cp 04/21 19:55 Order name: PT-INR; Complete Time: 20:47 cp 04/21 20:48 Interpretation: Reviewed. 04/21 19:55 Order name: Troponin HS; Complete Time: 20:47 04/21 19:56 Order name: Lactate w/ 2H reflex if indic.; Complete Time: 20:47 cp 04/21 21:56 Order name: D-Dimer; Complete Time: 22:07 cp 04/21 22:07 Interpretation: Reviewed. 04/21 22:08 Order name: SARS RAPID; Complete Time: 23:26 cp 04/21 23:26 Interpretation: Reviewed. 04/21 22:08 Order name: Influenza Screen (a \T\ B); Complete Time: 23:26 cp 04/21 23:27 Interpretation: Reviewed. 04/21 19:55 Order name: XRAY Chest (1 view); Complete Time: 21:36 04/21 21:36 Interpretation: Report review. 04/21 19:55 Order name: EKG; Complete Time: 19:56 cp 04/21 19:55 Order name: Cardiac monitoring; Complete Time: 20:16 04/21 19:55 Order name: EKG - Nurse/Tech; Complete Time: 20:16 cp 04/21 19:55 Order name: IV Saline Lock; Complete Time: 20:19 04/21 19:55 Order name: Labs collected and sent; Complete Time: 20:19 04/21 19:55 Order name: O2 Per Protocol; Complete Time: 20:16 04/21 19:55 Order name: O2 Sat Monitoring; Complete Time: 20:16 04/21 21:40 Order name: Misc. Order: ambulate on room air with pulse ox; Complete Time: 21:57 cp EC:12 Rate is 84 beats/min. Rhythm is regular. WI interval is normal. QRS interval is cp prolonged at 106 msec. QT interval is normal. T waves are Inverted in leads aVL, aVR. Interpreted by me. Reviewed by me. Administered Medications: 20:46 Drug: DuoNeb Nebulize (2.5 mg - 0.5 mg) 3 ml Route: Nebulizer; jb4 21:32 Drug: predniSONE PO 40 mg Route: PO; jb4 Disposition Summary: 04/21/23 22:11 Hospitalization Ordered Hospitalization Status: Inpatient Admission cp Location: Telemetry/MedSurg (Inpatient) cp Condition: Stable cp Problem: an acute exacerbation cp Symptoms: have improved cp Bed/Room Type: Standard cp Provider: Frantz Figueredo(04/21/23 22:50) sb4 Room Assignment: [facility](04/21/23 23:01) Diagnosis - COPD/ Chronic obstructive pulmonary disease with (acute) exacerbation cp - Hypoxemia cp Forms: - Medication Reconciliation Form cp - SBAR form cp Signatures: Dispatcher [employer] EDSocorro Wyatt RN RN mw Williams, Irene, RN RN iw Page, Corey, PA PA cp Bryson, James, RN RN jb4 Angelica Todd PA-C PA-C sb4 Corrections: (The following items were deleted from the chart) 22:50 22:11 Angelica Todd cp sb4 23:01 22:11 cp mw
[2023-04-21 23:06] LABS: SARS-CoV-2 Antigen Rapid Res Negative (Negative)
--- NOTE | 2023-04-21 23:06 | P.HP ---
Certification for Inpatient Patient admitted to: Observation With expected LOS: <2 Midnights Patient will require the following post-hospital care: None Practitioner: I am a practitioner with admitting privileges, knowledge of patient current condition, hospital course, and medical plan of care. Services: Services provided to patient in accordance with Admission requirements found in Title 42 Section 412.3 of the Code of Federal Regulations Patient History Date of Service: 04/21/23 Primary Care Provider: Jt Bailey Reason for admission: COPD Exacerbation History of Present Illness: Ms. Alves is a 52-year-old female with past medical history of COPD, hypertension, and vulvar/cervical cancer in remission who presented to the emergency department with chief complaint of shortness of breath. She states that she had a right-sided pneumonia last week and was treated with antibiotics and now she feels like she has pneumonia on her left side. No significant lab abnormalities. Chest xray negative. In the ED, she received a breathing treatment and PO prednisone. They later tried to ambulate her without O2 and she desaturated to 87%. We will admit for further evaluation and management of COPD exacerbation/hypoxia. Allergies No Known Allergies Allergy (Verified 04/21/21 04:16) Home medications list reviewed: Yes Home Medications: Apixaban [Eliquis] 1 tab PO BID 10/28/22 Codeine/APAP [Tylenol #3*] 1 tab PO Q6HP PRN 10/28/22 Losartan Potassium 1 tab PO BID 10/28/22 cloNIDine HCL [Clonidine HCl] 1 - 2 tab PO DAILY 10/28/22 Nifedipine [Nifedipine ER] 30 mg PO DAILY 03/04/23 Albuterol Neb [Proventil 0.083% Neb Soln] 2.5 mg NEB Q6H PRN #60 amp 03/29/23 Benzonatate [Tessalon Perle*] 100 mg PO TID PRN 7 Days #20 cap 03/29/23 levoFLOXacin [Levaquin*] 500 mg PO DAILY 6 Days #6 tab 03/29/23 predniSONE [Prednisone*] 20 mg PO BIDWM 5 Days #10 tab 03/29/23 - Past Medical/Surgical History Diabetic: No -: COPD -: Vulvar & Cervical Cancer in Remission -: Hypertension -: Hysterectomy -: Psychosocial/ Personal History: Patient is , lives at home with . - Family History Mother -: Cancer - Social History Smoking Status: Current some day smoker Alcohol use: No CD- Drugs: No Caffeine use: Yes Place of Residence: Home Review of Systems Respiratory: Shortness of Breath Physical Examination - Vital Signs Temperature: 98.9 F Blood Pressure: 107/74 Pulse: 82 Respirations: 16 Pulse Ox (%): 99 - Physical Exam General: Alert, In no apparent distress HEENT: Atraumatic, EOMI, Sclerae nonicteric Neck: Supple, 2+ carotid pulse no bruit Respiratory: Clear to auscultation bilaterally, Normal air movement Cardiovascular: Regular rate/rhythm, Normal S1 S2 Gastrointestinal: Normal bowel sounds, No tenderness Musculoskeletal: No tenderness Integumentary: No rashes Neurological: Normal speech, Normal affect - Studies Laboratory Data (last 24 hrs) 04/21/23 20:15: PT 12.8 H, INR 1.16 04/21/23 20:15: WBC 9.70, Hgb 11.9 L, Hct 35.4 L, Plt Count 387 04/21/23 20:15: Sodium 134 L, Potassium 3.9, BUN 14, Creatinine 0.61, Glucose 112 H, Magnesium 2.0 Assessment and Plan - Problems (Diagnosis) (1) COPD exacerbation Current Visit: Yes Status: Acute (2) Tobacco use Current Visit: Yes Status: Chronic (3) Hypertension Current Visit: Yes Status: Chronic Qualifiers: Hypertension type: primary hypertension Qualified Code(s): I10 - Essential (primary) hypertension - Plan Patient is admitted for further management of hypoxia secondary to COPD exacerbation. She is currently requiring 2L NC. Titrate and wean as tolerated. May need home O2 on dispo. Repeat CXR in AM. Patient with symptoms that suggest a developing left sided PNA although CXR is negative at this time. Patient states she used a lot of different compounds yesterday- dog shampoo, bleach, oven hide cleaner- that could have triggered symptoms. Scheduled breathing treatments. Monitor and replete electrolytes per protocol. Reconcile and continue home medications. Eliquis for VTE prophylaxis. Full code. Discharge Plan: Home Plan to discharge in: 24 Hours - Advance Directives Does patient have a Living Will: No Does patient have a Durable POA for Healthcare: No - Code Status/Comfort Care Code Status Assessed: Yes Code Status: Full Code Physician Review: Patient Assessed, Agree with Above Assessment and Plan Critical Care: No Time Spent Managing Pts Care (In Minutes): 50
[2023-04-21] MEDS ORDERED: ONDANSETRON 4 MG/2 ML VIAL IV PRN (23:47)
[2023-04-21] MEDS ORDERED: NA CHLORIDE 0.9% 1,000 ML IV SCH (23:47)
[2023-04-21] MEDS ORDERED: ACETAMINOPHEN 500 MG TAB PO PRN (23:47)
[2023-04-22 01:22] VITALS: BMI 18.3
[2023-04-22] MEDS: IPRATROPIUM BROM 0.5MG/2.5ML NEB SCH ×4 (02:00→20:45)
[2023-04-22] MEDS: ALBUTEROL 2.5 MG/3 ML NEB SOL NEB SCH ×4 (02:00→20:45)
[2023-04-22 02:49] LABS: Absolute Lymphocytes (CBC) 1.2 K/uL (0.7-4.9); Hematocrit 35.2 % (36.0-45.0); Lymphocytes % 8.9 % (15.3-44.8); MCV 101.8 fL (80-100); MPV 6.7 fL (7.6-11.3); RBC Red Blood Cell Count 3.46 M/uL (3.86-4.86)
[2023-04-22 03:24] LABS: Magnesium 1.9 mg/dL (1.6-2.4); Phosphorus 2.9 mg/dL (2.5-4.9); Potassium 3.9 mEq/L (3.5-5.1); Thyroid Stimulating Hormone 1.07 uIU/mL (0.358-3.740)
[2023-04-22 04:40] LABS: Blood Morphology Comment NOT SEEN (NOT SEEN); White Blood Cell Scan OK (OK)
[2023-04-22 04:41] LABS: Platelet Estimate ADEQ
--- NOTE | 2023-04-22 07:41 | RAD REPORT ---
EXAM DESCRIPTION: [place] Single View04/22/2023 4:46 am CLINICAL HISTORY: Cough COMPARISON: April 21, 2023 FINDINGS: Markedly hyperaerated lungs Lungs appear clear of acute infiltrate. Left lung opacities appear resolved Heart is normal size IMPRESSION: COPD without visualization of an acute abnormality
[2023-04-22] MEDS: APIXABAN 5 MG TABLET PO SCH ×2 (08:11→20:05)
[2023-04-22] MEDS: predniSONE 20 MG TAB PO SCH (08:11)
[2023-04-22] MEDS ORDERED: ENOXAPARIN 40 MG/0.4 ML SQ SCH (09:00)
[2023-04-22] MEDS ORDERED: POTASSIUM CL SA 10 MEQ TAB PO ONE (09:00)
--- NOTE | 2023-04-22 11:29 | P.CNS ---
Date of Consult: 04/22/23 Primary Care Provider: Jt Bailey Chief Complaint: COPD Exacerbation History of Present Illness: Patient is 52 years of age history of COPD active smoker been sick for about a week complaining of cough congestion worsening shortness of breath he has a nebulizer inhaler at home apparently was using Dulera twice a day was just recently admitted to finish the course of her steroid Allergies No Known Allergies Allergy (Verified 04/21/21 04:16) Home Medications: Apixaban [Eliquis] 1 tab PO BID 10/28/22 Losartan Potassium 1 tab PO BID 10/28/22 Nifedipine [Nifedipine ER] 30 mg PO DAILY 03/04/23 Albuterol Neb [Proventil 0.083% Neb Soln] 2.5 mg NEB Q6H PRN #60 amp 03/29/23 levoFLOXacin [Levaquin*] 500 mg PO DAILY 6 Days #6 tab 03/29/23 Mometasone/Formoterol [Dulera 200 Mcg-5 Mcg Inhaler] 1 puff IH PRN PRN 04/22/23 predniSONE [Prednisone*] 10 mg PO BID 14 Days #28 tab 04/22/23 - Past Medical/Surgical History Diabetic: No -: COPD -: Vulvar & Cervical Cancer in Remission -: Hypertension -: Hysterectomy -: Psychosocial/ Personal History: Patient is , lives at home with . - Family History Mother Medical History: Cancer Notes: Brain cancer Father Medical History: Hypertension - Social History Smoking Status: Current some day smoker Alcohol use: No CD- Drugs: No Caffeine use: Yes Place of Residence: Home Review of Systems General: Weakness Respiratory: Shortness of Breath Physical Examination Temp Pulse Resp BP Pulse Ox 98.4 F 86 18 116/72 99 04/22/23 04:00 04/22/23 04:00 04/22/23 04:00 04/22/23 04:00 04/22/23 04:00 General: Alert, Oriented x3 Neck: Supple Respiratory: Diminished, Friction rub, Expiratory wheezes Cardiovascular: Regular rate/rhythm, Normal S1 S2 Gastrointestinal: Normal bowel sounds, Soft and benign, Non-distended Laboratory Data (last 24 hrs) 04/21/23 20:15: PT 12.8 H, INR 1.16 04/21/23 20:15: WBC 9.70, Hgb 11.9 L, Hct 35.4 L, Plt Count 387 04/21/23 20:15: Sodium 134 L, Potassium 3.9, BUN 14, Creatinine 0.61, Glucose 112 H, Magnesium 2.0 - Problems (1) COPD exacerbation Current Visit: Yes Status: Acute Plan: Patient is 52 years of age admitted with COPD exacerbation chest x-ray does not show any evidence of pneumonia currently very stable evaluate for home O2 ambulate vital signs oxygenation stable chemistries reviewed no evidence of pneumonia will discharge today continue with prednisone 10 mg twice a day for at least 2 weeks no evidence of an infection follow-up with me in 1 to 2-week patient has a Dulera inhaler
[2023-04-22] MEDS ORDERED: DULERA 200/5 (MOMETASONE/FORMOTEROL) INHALER IH PRN (11:53)
--- NOTE | 2023-04-22 13:47 | EKG ---
Test Date: 2023-04-21 Test Time: 20:05:25 Scorekeeper: BILLY MEASUREMENT RESULTS: Intervals: Rate: 84 IL: 108 QRSD: 106 QT: 394 QTc: 465 [place]: P: 80 IL: 108 QRS: 82 T: 79 INTERPRETIVE STATEMENTS: Sinus rhythm with short [place] Abnormal ECG Compared to ECG 04/14/2023 17:51:06 Electronically Signed On 04-22-23 13:46:04 CDT by Jarad Mead
[2023-04-22] MEDS: HYDROCODONE/APAP 5/325 MG TAB PO PRN (17:17)
[2023-04-22] MEDS ORDERED: MELATONIN 5 MG TABLET PO PRN (21:22)
[2023-04-23] MEDS: ALBUTEROL 2.5 MG/3 ML NEB SOL NEB SCH ×4 (01:25→19:50)
[2023-04-23] MEDS: IPRATROPIUM BROM 0.5MG/2.5ML NEB SCH ×4 (01:25→19:50)
[2023-04-23] MEDS: HYDROCODONE/APAP 5/325 MG TAB PO PRN ×3 (02:15→17:30)
[2023-04-23 03:35] LABS: Potassium 4.1 mEq/L (3.5-5.1)
[2023-04-23] MEDS: predniSONE 20 MG TAB PO SCH (08:53)
[2023-04-23] MEDS: APIXABAN 5 MG TABLET PO SCH ×2 (08:53→20:22)
--- NOTE | 2023-04-23 12:48 | P.PN ---
Subjective Date of Service: 04/22/23 Primary Care Provider: Jt Bailey Chief Complaint: COPD Exacerbation Patient states his shortness of breath has improved but not back to baseline yet. She is requiring 1 to 2 L of oxygen by nasal cannula today. No fever. Physical Examination - Vital Signs Temperature: 97.6 F Blood Pressure: 134/87 Pulse: 74 Respirations: 14 Pulse Ox (%): 94 - Physical Exam General: Alert, In no apparent distress, Oriented x3 HEENT: Mucous membr. moist/pink Neck: Supple, JVD not distended Respiratory: Other (Mild scattered wheezes, no crackles) Cardiovascular: Regular rate/rhythm, Normal S1 S2 Gastrointestinal: Normal bowel sounds, Soft and benign, Non-distended Musculoskeletal: No swelling, No warmth Integumentary: No cyanosis Neurological: Normal strength at 5/5 x4 extr Assessment And Plan - Current Problems (Diagnosis) (1) COPD exacerbation Current Visit: Yes Status: Acute (2) Hypertension Current Visit: Yes Status: Chronic Qualifiers: Hypertension type: primary hypertension Qualified Code(s): I10 - Essential (primary) hypertension (3) Tobacco use Current Visit: Yes Status: Chronic - Plan Patient seen and evaluated by pulmonary. Continue nebs and bronchodilators. Oral prednisone. No indication for antibiotics. Wean oxygen as tolerated. Evaluate for home oxygen
--- NOTE | 2023-04-23 12:59 | P.PN ---
Subjective Date of Service: 04/23/23 Primary Care Provider: Jt Bailey Chief Complaint: COPD Exacerbation Patient states she is feeling much better now. She is currently on 3 L oxygen by nasal cannula. She denies any chest pain. Physical Examination - Vital Signs Temperature: 97.6 F Blood Pressure: 134/87 Pulse: 74 Respirations: 14 Pulse Ox (%): 94 - Physical Exam General: Alert, In no apparent distress, Oriented x3 HEENT: Mucous membr. moist/pink Neck: Supple, JVD not distended Respiratory: Clear to auscultation bilaterally, Normal air movement Cardiovascular: No edema, Regular rate/rhythm, Normal S1 S2 Gastrointestinal: Normal bowel sounds, Soft and benign, Non-distended, No tenderness Musculoskeletal: No swelling Integumentary: No cyanosis Neurological: Normal strength at 5/5 x4 extr Assessment And Plan - Current Problems (Diagnosis) (1) COPD exacerbation Current Visit: Yes Status: Acute (2) Hypertension Current Visit: Yes Status: Chronic Qualifiers: Hypertension type: primary hypertension Qualified Code(s): I10 - Essential (primary) hypertension (3) Tobacco use Current Visit: Yes Status: Chronic - Plan Continue nebs and bronchodilators. Oral prednisone. No indication for antibiotics. Wean oxygen as tolerated. Patient qualifies for home oxygen. She has clinically improved and deemed stable for discharge. Awaiting home oxygen to be available for discharge. Continue to hold nifedipine as patient has been normotensive without it.
[2023-04-23] MEDS: ALPRAZOLAM 0.25 MG TABLET PO PRN (20:22)
[2023-04-24] MEDS: ALBUTEROL 2.5 MG/3 ML NEB SOL NEB SCH ×2 (02:00→08:15)
[2023-04-24] MEDS: IPRATROPIUM BROM 0.5MG/2.5ML NEB SCH ×2 (02:00→08:15)
--- NOTE | 2023-04-24 08:44 | P.DS ---
Admission Date: 04/22/23 Discharge Date: 04/24/23 Primary Care Provider: Jt Bailey Disposition: DC HOME/HOME HEALTH CARE Discharge Condition: FAIR Reason for Admission: COPD Exacerbation - Problems (1) COPD exacerbation Status: Acute (2) Hypertension Status: Chronic Qualifiers: Hypertension type: primary hypertension Qualified Code(s): I10 - Essential (primary) hypertension (3) Tobacco use Status: Chronic Brief History of Present Illness: Ms. Alves is a 52-year-old female with past medical history of COPD, hypertension, and vulvar/cervical cancer in remission who presented to the emergency department with chief complaint of shortness of breath. She states that she had a right-sided pneumonia last week and was treated with antibiotics and now she feels like she has pneumonia on her left side. No significant lab abnormalities. Chest xray negative. In the ED, she received a breathing treatment and PO prednisone. They later tried to ambulate her without O2 and she desaturated to 87%. Patient was admitted for further evaluation and management of COPD exacerbation/hypoxia. Hospital Course: Patient admitted to the medical floor and treated for COPD exacerbation with nebulizers bronchodilators and steroid.. Patient could not wean off oxygen, and noted to be hypoxic on room air. She clinically improved with treatment, her wheezing and shortness of breath resolved. Patient qualifies for home oxygen which has been arranged. She is currently deemed stable for discharge. Vital Signs/Physical Exam: Temp Pulse Resp BP Pulse Ox 98.3 F 90 17 122/73 94 04/24/23 04:00 04/24/23 04:00 04/24/23 04:00 04/24/23 04:00 04/24/23 04:00 General: Alert, In no apparent distress, Oriented x3 HEENT: Mucous membr. moist/pink Neck: JVD not distended Respiratory: Clear to auscultation bilaterally, Normal air movement Cardiovascular: Regular rate/rhythm, Normal S1 S2 Gastrointestinal: Normal bowel sounds, Soft and benign, Non-distended Musculoskeletal: No swelling Integumentary: No rashes, No cyanosis Neurological: Normal strength at 5/5 x4 extr Laboratory Data at Discharge: WBC 13.00 thou/uL (4.3-10.9) H 04/22/23 02:27 Hgb 11.5 g/dL (12.0-15.0) L 04/22/23 02:27 Hct 35.2 % (36.0-45.0) L 04/22/23 02:27 Plt Count 390 thou/uL (152-406) 04/22/23 02:27 PT 12.8 SECONDS (9.5-12.5) H 04/21/23 20:15 INR 1.16 04/21/23 20:15 Sodium 140 mEq/L (136-145) 04/23/23 02:47 Potassium 4.1 mEq/L (3.5-5.1) 04/23/23 02:47 BUN 18 mg/dL (7-18) 04/23/23 02:47 Creatinine 0.54 mg/dL (0.55-1.02) L 04/23/23 02:47 Glucose 93 mg/dL (74-106) 04/23/23 02:47 Phosphorus 2.9 mg/dL (2.5-4.9) 04/22/23 02:27 Magnesium 1.9 mg/dL (1.6-2.4) 04/22/23 02:27 Triglycerides 58 mg/dL (<150) 04/22/23 02:27 Cholesterol 214 mg/dL (<200) H 04/22/23 02:27 HDL Cholesterol 74 mg/dL (40-60) H 04/22/23 02:27 Cholesterol/HDL Ratio 2.89 04/22/23 02:27 Home Medications: Apixaban [Eliquis] 1 tab PO BID 10/28/22 Losartan Potassium 1 tab PO BID 10/28/22 Nifedipine [Nifedipine ER] 30 mg PO DAILY 03/04/23 Albuterol Neb [Proventil 0.083% Neb Soln] 2.5 mg NEB Q6H PRN #60 amp 03/29/23 levoFLOXacin [Levaquin*] 500 mg PO DAILY 6 Days #6 tab 03/29/23 Mometasone/Formoterol [Dulera 200 Mcg-5 Mcg Inhaler] 1 puff IH PRN PRN 04/22/23 predniSONE [Prednisone*] 10 mg PO BID 14 Days #28 tab 04/22/23 Ipratropium Neb [Atrovent*] 0.5 mg NEB [id number] #120 amp 04/24/23 New Medications: Ipratropium Neb [Atrovent*] 0.5 mg NEB [id number] #120 amp predniSONE [Prednisone*] 10 mg PO BID 14 Days #28 tab Diet: AHA Activity: Ad krishna Followup: Richard Parada MD [ACTIVE - CAN ADMIT] - (call to schedule appointment.) Time spent managing pt's care (in minutes): 36
[2023-04-24] MEDS: predniSONE 20 MG TAB PO SCH (09:00)
[2023-04-24] MEDS: APIXABAN 5 MG TABLET PO SCH (09:00)
[2023-04-24] MEDS: ALPRAZOLAM 0.25 MG TABLET PO PRN (09:02)
[2023-04-24 09:30] VITALS: BP 139/81; TEMP 98.2
[2023-04-24 13:49] VITALS: O2SAT 97
== END 2023-04-24 09:31 | disposition home health service (06) | DRG 192 ==
LOC: ER 19:27 → 2ND 22:52 → OBSVTOIN 04-22 15:12
PROVIDERS: ADMIT Internal Medicine; ATTEND Internal Medicine
DX: J44.1 Chronic obstructive pulmonary disease with (acute) exacerbation (principal); R09.02 Hypoxemia; I10 Essential (primary) hypertension; F17.210 Nicotine dependence, cigarettes, uncomplicated; Z79.52 Long term (current) use of systemic steroids; Z79.01 Long term (current) use of anticoagulants; Z79.899 Other long term (current) drug therapy; Z85.41 Personal history of malignant neoplasm of cervix uteri; Z90.710 Acquired absence of both cervix and uterus; Z80.8 Family history of malignant neoplasm of other organs or systems; Z82.49 Family history of ischemic heart disease and other diseases of the circulatory system
CPT/HCPCS: 36415; 71045; 80048; 80061; 83605; 83735; 83880; 84100; 84443; 84484; 85025; 85379; 85610; 87070; 87205; 87804; 87811; 93005; 94640; 94760; 99285; G0378; J7030; J7512; J7613; J7644

== ENCOUNTER 2023-08-23 15:31 | Emergency (ER) | payer OTHER ==
--- OUTSIDE RECORDS SUMMARY | 2023-08-23 15:37 | XMS REPORT | Clinical Summary ---
:1970 [facility] Address [address] [place] [address] Care Team Providers Name Role Phone Unavailable [...] Vaccination (#1) 1970 Results Not on fileafter 08/23/2022
--- OUTSIDE RECORDS SUMMARY | 2023-08-23 15:39 | XMS REPORT | Continuity of Care Document ---
:1970 Author Organization [facility] t Address [address] [facility] [address] [place] [address] Care Team Providers Name Role Phone Pcp, Patient Does Not Have A Primary Care Physician [phone] DANIELLA MARIN Attending Clinician Unavailable SYSTEM, PROVIDER NOT IN Attending Clinician Unavailable Hoda Weber Attending Clinician Unavailable Alejandro Fontaine Attending Clinician Unavailable Alejandro Fontaine MD Attending Clinician [phone] Doctor Unassigned, [place] Attending Clinician Unavailable JANIS YOU Attending Clinician Unavailable Janis You MD Attending Clinician Jr Mathur LMSW Attending Clinician Unavailable BRANT FLOREZ Attending Clinician Unavailable Brant Florez APN Attending Clinician LUIS E CHATMAN Attending Clinician Unavailable Alejandro Fontaine Admitting Clinician Unavailable KNOW, DOES_NOT Admitting Clinician Unavailable Physician, No Primary or Family Admitting Clinician UnavailBRANT Calderon Admitting Clinician Unavailable Payers Payer Name Policy Type Policy Number Effective Date Expiration Date S ource Problems Condition Condition Condition Status Onset Resolution Last Treating Co mments Source Name Details Category Date Date Treatment Clinician Date Fever Fever Disease Active Univers greater greater 6-28 ity of than 100.4 [place] 100.4 [place] Fahrenheit Fahrenheit 00 MD Mark chao [facility] Vulval Vulval Disease Active Univers pain pain 05-18 ity of 00:00: [place] MD Mark chao [facility] Hypokalemi Hypokalemi Disease Active U nivers a a 05-18 ity of 00:00: [place] 00 MD Mark chao [facility] Hypophosph Hypophosph Disease Active U nivers atemia atemia 05-18 ity of 00:00: [place] 00 MD Mark chao [facility] No known No known Disease Unive rs active active ity of problems problems [facility] Allergies, Adverse Reactions, Alerts Allergy Allergy Status Severity Reaction(s) Onset Inactive Treating Comm ents Source Name Type Date Date Clinician NO KNOWN Drug Active Univers ALLERGIE Class ity of S [facility] Social History Social Habit Start Date Stop Date Quantity Comments Source History SDMA University o f Alcohol Comment [facility] History of tobacco Cigarette Smoker University of use [place] MD Benji tobin [facility] History SDMA University o f Alcohol Binge [place] MD Lissette kuhn [facility] History SDMA University o f Alcohol Std Drinks [facility] Exposure to 2022-07-04 2022-07-14 Not sure University SARS-CoV-2 (event) 00:00:00 22:50:00 [facility] Tobacco use and 2019-05-18 2019-05-18 Smokeless Universit y of exposure 00:00:00 00:00:00 tobacco non-user [facility] Cigarettes smoked 2019-05-18 2019-05-18 Univers ity of current (pack per 00:00:00 00:00:00 [place] Ricardo Nunez ) - Reported Cancer Ce nter Alcohol intake 2019-05-18 2019-05-18 Lifetime University of 00:00:00 00:00:00 non-drinker [place] MD Yoni [facility] ([facility] History SDOH 2019-05-18 2019-05-18 1 University o f Alcohol Frequency 00:00:00 00:00:00 [facility] Sex Ass[birth year] At [birth year] REGINA Damon 00:00:00 00:00:00 Medical Center Smoking Status Start Date Stop Date Source Tobacco smoking consumption Univ ersity [facility] unknown Branch Smokes tobacco daily 2019-05-18 00:00:00 Univers ity of [facility] Medications Ordered Filled Start Stop Current Ordering Indication Dosage Frequency Signature Comments Components Source Medication Medication Date Date Medication? Clinician (SIG) Name Name apixaban No 10mg 10 mg, Univer s (ELIQUIS) 07-15 Oral, ONCE ity of tablet 10 07:03: 07:07 NOW, 1 [place] mg 00 :00 dose, On Medical Giuliana Branch 07/15/22 at 0215, JUANI
In dications: DVT/PE iopamidol 2021- No [id number] 65mL 65 mL, Univers (ISOVUE 07-15 Intravenou [...] by mouth ity of 23:13: in the [place] [id number] morning Medical and 50 mg Branch in the evening. losartan 50 0 Yes 50mg Take 50 mg Univers mg tablet 8-24 by mouth ity of 23:13: in the [place] 53 morning Medical and 50 mg Branch in [...] TABLET 8- DAILY. 00:00: 00 1 tab 2022-0 No 10 everyday 06-29 00:00: 00 TAKE 1 2022-0 No 10 TABLET 8-09 TWICE 00:00: DAILY. 00 TAKE 1 2-0 No 50 TABLET 8- DAILY. 00:00: 00 iopamidol 2021- No [id number] 100mL 100 mL, Univers (ISOVUE 04-01 Intravenou ity o f 370-500 mL) 06:30: 05:15 s, ONCE, 1 [place] injection 00 :00 dose, On Medica l 100 mL [facility] Branch 04/01/22 at 0130, Routine ketorolac 2021-2021- No 15mg 15 mg, Unive rs (TORADOL) 04-01 Slow IV ity of injection 06:00: 04:59 Push, [place] 15 mg 00 :00 ONCE, 1 Medical dose, On Branch [facility] 04/01/22 at 0100, JUANI acetaminoph 2021-0 Yes [...] Anderso hours as n needed Cancer (PAIN). [place] naproxen Yes 2{capsu Take 2 Univ ers sodium 5-14 le} capsules ity of (ALEVE) 220 16:31: by mouth [place] mg cap 26 every 6 MD (six) Anderso hours as n needed Cancer (PAIN). [place] naproxen Yes 2{capsu Take 2 Univ ers sodium 5-14 le} capsules ity of (ALEVE) 220 16:31: by mouth [place] mg cap 26 every 6 MD (six) Anderso hours as n needed Cancer (PAIN). [place] naproxen Yes 2{capsu Take 2 Univ ers sodium 5-14 le} capsules ity of (ALEVE) 220 16:31: by mouth [place] mg cap 26 every 6 MD (six) Anderso hours as n needed Cancer (PAIN). [place] naproxen Yes 2{capsu Take 2 Univ ers sodium 5-14 le} capsules ity of (ALEVE) 220 16:31: by mouth [place] mg cap 26 every 6 MD (six) Anderso hours as n needed Cancer (PAIN). [place] naproxen Yes 2{capsu Take 2 Univ ers sodium 5-14 le} capsules ity of (ALEVE) 220 16:31: by mouth [place] mg cap 26 every 6 MD (six) Anderso hours as n needed Cancer (PAIN). [place] naproxen Yes 2{capsu Take 2 Univ ers sodium 5-14 le} capsules ity of (ALEVE) 220 16:31: by mouth [place] mg cap 26 every 6 MD (six) Anderso hours as n needed Cancer (PAIN). [place] naproxen Yes 2{capsu Take 2 Univ ers sodium 5-14 le} capsules ity of (ALEVE) 220 16:31: by mouth [place] mg cap 26 every 6 MD (six) Anderso hours as n needed Cancer (PAIN). [place] naproxen Yes 2{capsu Take 2 Univ ers sodium 5-14 le} capsules ity of (ALEVE) 220 16:31: by mouth [place] mg cap 26 every 6 MD (six) Anderso hours as n needed Cancer (PAIN). [place] naproxen Yes 2{capsu Take 2 Univ ers sodium 5-14 le} capsules ity of (ALEVE) 220 16:31: by mouth [place] mg cap 26 every 6 MD (six) Anderso hours as n needed Cancer (PAIN). [place] naproxen Yes 2{capsu Take 2 Univ ers sodium 5-14 le} capsules ity of (ALEVE) 220 16:31: by mouth [place] mg cap 26 every 6 MD (six) Anderso hours as n needed Cancer (PAIN). [place] naproxen Yes 2{capsu Take 2 Univ ers sodium 5-14 le} capsules ity of (ALEVE) 220 16:31: by mouth [place] mg cap 26 every 6 MD (six) Anderso hours as n needed Cancer (PAIN). [place] naproxen Yes 2{capsu Take 2 Univ ers sodium 5-14 le} capsules ity of (ALEVE) 220 16:31: by mouth [place] mg cap 26 every 6 MD (six) Anderso hours as n needed Cancer (PAIN). [place] naproxen Yes 2{capsu Take 2 Univ ers sodium 5-14 le} capsules ity of (ALEVE) 220 16:31: by mouth [place] mg cap 26 every 6 MD (six) Anderso hours as n needed Cancer (PAIN). [place] naproxen Yes 2{capsu Take 2 Univ ers sodium 5-14 le} capsules ity of (ALEVE) 220 16:31: by mouth [place] mg cap 26 every 6 MD (six) Anderso hours as n needed Cancer (PAIN). [place] naproxen Yes 2{capsu Take 2 Univ ers sodium 5-14 le} capsules ity of (ALEVE) 220 16:31: by mouth [place] mg cap 26 every 6 MD (six) Anderso hours as n needed Cancer (PAIN). [place] naproxen Yes 2{capsu Take 2 Univ ers sodium 5-14 le} capsules ity of (ALEVE) 220 16:31: by mouth [place] mg cap 26 every 6 MD (six) Anderso hours as n needed Cancer (PAIN). [place] naproxen Yes 2{capsu Take 2 Univ ers sodium 5-14 le} capsules ity of (ALEVE) 220 16:31: by mouth [place] mg cap 26 every 6 MD (six) Anderso hours as n needed Cancer (PAIN). [place] naproxen Yes 2{capsu Take 2 Univ ers sodium 5-14 le} capsules ity of (ALEVE) 220 16:31: by mouth [place] mg cap 26 every 6 MD (six) Anderso hours as n needed Cancer (PAIN). [place] naproxen Yes 2{capsu Take 2 Univ ers sodium 5-14 le} capsules ity of (ALEVE) 220 16:31: by mouth [place] mg cap 26 every 6 MD (six) Anderso hours as n needed Cancer (PAIN). [place] naproxen Yes 2{capsu Take 2 Univ ers sodium 5-14 le} capsules ity of (ALEVE) 220 16:31: by mouth [place] mg cap 26 every 6 MD (six) Anderso hours as n needed Cancer (PAIN). [place] naproxen Yes 2{capsu Take 2 Univ ers sodium 5-14 le} capsules ity of (ALEVE) 220 16:31: by mouth [place] mg cap 26 every 6 MD (six) Anderso hours as n needed Cancer (PAIN). [place] naproxen Yes 2{capsu Take 2 Univ ers [...] [place] hours as n needed Cancer (PAIN). [place] naproxen Yes 2{capsu Take 2 Univ ers [...] 06:30:00 161 mm[Hg] Univer sity of pressure [place] [facility] Diastolic blood 2022-07-15 06:30:00 95 mm[Hg] Unive rsity of [facility] Heart rate 2022-07-15 06:30:00 88 /min Universi ty of [facility] Respiratory rate 2022-07-15 06:30:00 18 /min Univ ersity [facility] Oxygen saturation in 2022-07-15 06:30:00 96 /min University of Arterial blood by [place] Branch Pulse oximetry Branch Body temperature 2022-07-15 03:55:00 35.89 Marija [facility] ersity of [place] [facility] Body height 2022-07-15 03:55:00 142.2 cm Universi ty [facility]acy Body weight 2022-07-15 03:55:00 39.418 kg Universi ty [facility] BMI 2022-07-15 03:55:00 19.48 kg/m2 Universi ty [facility] Systolic blood 2022-04-01 06:00:00 159 mm[Hg] Univer sity of [facility] Diastolic blood 2022-04-01 06:00:00 94 mm[Hg] Unive rsity of [facility] Heart rate 2022-04-01 06:00:00 91 /min Universi ty [facility] Macy Body temperature 2022-04-01 06:00:00 36.11 Marija Univ ersity of [place] [facility] Respiratory rate 2022-04-01 06:00:00 16 /min Univ ersity [facility] Oxygen saturation in 2022-04-01 06:00:00 97 /min University of Arterial blood by [place] Pulse oximetry Branch Body height 2022-04-01 03:33:00 154.9 cm Universi ty [facility] Body weight 2022-04-01 03:33:00 40.824 kg [facility] BMI 2022-04-01 03:33:00 17.01 kg/m2 [facility] WEIGHT 2021-04-03 14:19:00 41.8 kg BP [...] AUTHORIZATION FOR 2022-07-23 05:01:00 Doctor Unassigned, No [facility] RELEASE OF PHI Name Medical Branch CT CHEST PULMONARY 2022-07-15 06:00:16 Janis You [facility] ANGIOGRAM Medical Branch BASIC METABOLIC PANEL 2022-07-15 04:07:00 Janis You [facility] (NA, K, CL, CO2, Medical Branch GLUCOSE, BUN, CREATININE, CA) CBC WITH DIFF 2022-07-15 04:07:00 Janis You [facility] D-DIMER 2022-07-15 04:07:00 Janis You [facility] CONSENT/REFUSAL FOR 2022-07-15 03:50:37 [facility]assigned, [facility] Name Medical Branch CT ABDOMEN PELVIS W 2022-04-01 05:17:59 Brant Florez [facility] CONTRAST Medical Branch COMP. METABOLIC PANEL 2022-04-01 04:59:00 Brant Florez [facility] ([id number]) Medical Branch CBC WITH DIFF 2022-04-01 04:59:00 Brant Florez [facility] NOTICE OF PRIVACY 2022-04-01 03:23:48 Doctor Unassigned, No [facility] PRACTICES Name Medical Branch CONSENT/REFUSAL FOR 2022-04-01 03:23:01 Doctor Unassigned, No [facility] Name Medical M[facility] Plan of Care Planned Activity Planned Date [...] INFLUENZA VACCINE (Season Ended)] Future Scheduled 2023-07-[address] [facility] 00:00:00 (Season Ended) [code = Medic al Center Influenza Vaccine (Season Ended)] Future Scheduled 2023-07-22 Influenza Vaccine (#1) [facility] 00:00:00 [code = Influenza Medical Ce nter Vaccine (#1)] Future Scheduled 2023-07-22 Influenza Vaccine (#1) [facility] 00:00:00 [code = Influenza Medical Ce nter Vaccine (#1)] Future Scheduled 2023-07-22 Influenza Vaccine (#1) [facility] 00:00:00 [code = Influenza Medical Ce nter Vaccine (#1)] Future Scheduled 2023-07-22 Influenza Vaccine (#1) [facility] 00:00:00 [code = Influenza Medical Ce nter Vaccine (#1)] Future Scheduled 2023-07-22 Influenza Vaccine (#1) [facility] 00:00:00 [code = Influenza Medical Ce nter Vaccine (#1)] Future Scheduled 2023-07-22 Influenza Vaccine (#1) [facility] 00:00:00 [code = Influenza Medical Ce nter Vaccine (#1)] Future Scheduled 2023-07-[address] [...] INFLUENZA VACCINE (Season Ended)] Future Scheduled 2023-07-22 Influenza Vaccine (#1) [facility] 00:00:00 [code = Influenza Medical Ce nter Vaccine (#1)] Future Scheduled 2023-06-21 COVID-19 Vaccination Uni versity of Test 18:17:08 (#1) [code = COVID-19 [place] MD Enrique Vaccination (#1)] Cancer [facility] Future Scheduled 2023-06-21 COVID-19 Vaccination Uni versity of Test 18:17:08 (#1) [code = COVID-19 [place] MD Enrique Vaccination (#1)] Cancer [facility] Future Scheduled 2023-06-21 COVID-19 Vaccination Uni versity of Test 18:17:08 (#1) [code = COVID-19 [place] MD Enrique Vaccination (#1)] Cancer [facility] Future Scheduled 2023-06-21 COVID-19 Vaccination Uni versity of Test 18:17:08 (#1) [code = COVID-19 [place] MD Enrique Vaccination (#1)] Cancer [facility] Future Scheduled 2023-06-21 COVID-19 Vaccination Uni versity of Test 18:17:08 (#1) [code = COVID-19 [place] MD Enrique Vaccination (#1)] Cancer [facility] Future Scheduled 2023-06-21 COVID-19 Vaccination Uni versity of Test 18:17:08 (#1) [code = COVID-19 [place] MD Enrique Vaccination (#1)] Cancer Daniel ter Future Scheduled 2022-11-[address] [facility] 00:00:00 (12+) [code = DEPRESSION Med ical Center SCREENING (12+)] Future Scheduled 2022-11-[address] [facility] 00:00:00 (12+) [code = DEPRESSION Med ical Center SCREENING (12+)] Future Scheduled 2022-11-[address] [facility] 00:00:00 (12+) [code = DEPRESSION Med ical Center SCREENING (12+)] Future Scheduled 2022-11-[address] [facility] 00:00:00 (12+) [code = DEPRESSION Med ical Center SCREENING (12+)] Future Scheduled 2022-11-[address] [facility] 00:00:00 (12+) [code = DEPRESSION Med ical Center SCREENING (12+)] Future Scheduled 2022-11-[address] [facility] 00:00:00 (12+) [code = DEPRESSION Med ical Center SCREENING (12+)] Future Scheduled 2022-11-[address] [facility] 00:00:00 (12+) [code = DEPRESSION Med ical Center SCREENING (12+)] Future Scheduled 2022-11-[address] [facility] 00:00:00 (12+) [code = DEPRESSION Med ical Center SCREENING (12+)] Future Scheduled 2022-11-[address] [facility] 00:00:00 (12+) [code = DEPRESSION Med ical Center SCREENING (12+)] Future Scheduled 2022-11-[address] [facility] 00:00:00 (12+) [code = DEPRESSION Med ical Center SCREENING (12+)] Future Scheduled 2022-11-[address] [facility] 00:00:00 (12+) [code = DEPRESSION Med ical Center SCREENING (12+)] Future Scheduled 2022-11-[address] [facility] 00:00:00 (12+) [code = DEPRESSION Med ical Center SCREENING (12+)] Future Scheduled 2022-11-[address] [facility] 00:00:00 (12+) [code = DEPRESSION Med ical Center SCREENING (12+)] Future Scheduled 2022-11-[address] [facility] 00:00:00 (12+) [code = DEPRESSION Med ical Center SCREENING (12+)] Future Scheduled 2022-11-[address] [facility] 00:00:00 (12+) [code = DEPRESSION Med ical Center SCREENING (12+)] Future Scheduled 2022-11-[address] [facility] 00:00:00 (12+) [code = DEPRESSION Med ical Center SCREENING (12+)] Future Scheduled 2022-07-22 INFLUENZA VACCINE (#1) [facility] 00:00:00 [code = INFLUENZA Medical Ce nter VACCINE (#1)] Future Scheduled 2022-05-26 COVID-19 Vaccination Uni versity of Test 06:22:21 (#1) [code = COVID-19 [place] Nunez Vaccination (#1)] Cancer [facility] Future Scheduled 2022-05-26 COVID-19 Vaccination Uni versity of Test 06:22:21 (#1) [code = COVID-19 [place] MD Enrique Vaccination (#1)] Cancer [facility] Future Scheduled 2022-05-26 COVID-19 Vaccination Uni versity of Test 06:22:21 (#1) [code = COVID-19 [place] MD Enrique Vaccination (#1)] Cancer [facility] Future Scheduled 2022-05-26 COVID-19 Vaccination Uni versity of Test 06:22:21 (#1) [code = COVID-19 [place] MD Enrique Vaccination (#1)] Cancer [facility] Future Scheduled 2022-05-26 COVID-19 Vaccination Uni versity of Test 06:22:21 (#1) [code = COVID-19 [place] MD Enrique Vaccination (#1)] Cancer [facility] Future Scheduled 2022-05-26 COVID-19 Vaccination Uni versity of Test 06:22:21 (#1) [code = COVID-19 [place] MD Enrique Vaccination (#1)] Cancer [facility] Future Scheduled 2022-05-26 COVID-19 Vaccination Uni versity of Test 06:22:21 (#1) [code = COVID-19 [place] MD Enrique Vaccination (#1)] Cancer [facility] Future Scheduled 2022-05-26 COVID-19 Vaccination Uni versity of Test 06:22:21 (#1) [code = COVID-19 [place] MD Enrique Vaccination (#1)] Cancer [facility] Future Scheduled 2022-05-26 COVID-19 Vaccination Uni versity of Test 06:22:21 (#1) [code = COVID-19 [place] MD Enrique Vaccination (#1)] Cancer [facility] Future Scheduled 2022-05-26 COVID-19 Vaccination Uni versity of Test 06:22:21 (#1) [code = COVID-19 [place] MD Enrique Vaccination (#1)] Cancer [facility] Future Scheduled 2022-05-26 COVID-19 Vaccination Uni versity of Test 06:22:21 (#1) [code = COVID-19 [place] MD Enrique Vaccination (#1)] Cancer [facility] Future Scheduled 2022-05-26 COVID-19 Vaccination Uni versity of Test 06:22:21 (#1) [code = COVID-19 [place] MD Enrique Vaccination (#1)] Cancer [facility] Future Scheduled 2022-05-26 COVID-19 Vaccination Uni versity of Test 06:22:21 (#1) [code = COVID-19 [place] MD Enrique Vaccination (#1)] Cancer [facility] Future Scheduled 2022-05-26 COVID-19 Vaccination Uni versity of Test 06:22:21 (#1) [code = COVID-19 [place] MD Enrique Vaccination (#1)] Cancer [facility] Future Scheduled 2022-05-26 COVID-19 Vaccination Uni versity of Test 06:22:21 (#1) [code = COVID-19 [place] MD Enrique Vaccination (#1)] Cancer [facility] Future Scheduled 2022-05-26 COVID-19 Vaccination Uni versity of Test 06:22:21 (#1) [code = COVID-19 [place] MD Enrique Vaccination (#1)] Cancer [facility] Future Scheduled 2022-05-26 COVID-19 Vaccination Uni versity of Test 06:22:21 (#1) [code = COVID-19 [place] MD Enrique Vaccination (#1)] Cancer [facility] Future Scheduled 2022-05-26 COVID-19 Vaccination Uni versity of Test 06:22:21 (#1) [code = COVID-19 [place] MD Enrique Vaccination (#1)] Cancer [facility] Future Scheduled 2022-05-26 COVID-19 Vaccination Uni versity of Test 06:22:21 (#1) [code = COVID-19 [place] MD Enrique Vaccination (#1)] Cancer [facility] Future Scheduled 2022-05-26 COVID-19 Vaccination Uni versity of Test 06:22:21 (#1) [code = COVID-19 [place] MD Enrique Vaccination (#1)] Cancer [facility] Future Scheduled 2022-05-26 COVID-19 Vaccination Uni versity of Test 06:22:21 (#1) [code = COVID-19 [place] MD Enrique Vaccination (#1)] Cancer [facility] Future Scheduled 2022-05-26 COVID-19 Vaccination Uni versity of Test 06:22:21 (#1) [code = COVID-19 [place] MD Enrique Vaccination (#1)] Cancer [facility] Future Scheduled 2022-05-14 COVID-19 Vaccination Uni versity of Test 06:11:42 (#1) [code = COVID-19 [place] MD Enrique Vaccination (#1)] Cancer [facility] Future Scheduled 2018 SHINGLES VACCINES ([address] [facility] 00:00:00 2) [code = SHINGLES Medical Center VACCINES (1 of 2)] Future Scheduled 2018 SHINGLES VACCINES ([address] [facility] 00:00:00 2) [code = SHINGLES Medical Center VACCINES (1 of 2)] Future Scheduled 2018 SHINGLES VACCINES ([address] [facility] 00:00:00 2) [code = SHINGLES Medical Center VACCINES (1 of 2)] Future Scheduled 2018 SHINGLES VACCINES ([address] [facility] 00:00:00 2) [code = SHINGLES Medical Center VACCINES (1 of 2)] Future Scheduled 2018 SHINGLES VACCINES ([address] [facility] 00:00:00 2) [code = SHINGLES Medical Center VACCINES (1 of 2)] Future Scheduled 2018 SHINGLES VACCINES ([address] [facility] 00:00:00 2) [code = SHINGLES Medical Center VACCINES (1 of 2)] Future Scheduled 2018 SHINGLES VACCINES ([address] [facility] 00:00:00 2) [code = SHINGLES Medical Center VACCINES (1 of 2)] Future Scheduled 2018 SHINGLES VACCINES ([address] [facility] 00:00:00 2) [code = SHINGLES Medical Center VACCINES (1 of 2)] Future Scheduled 2018 SHINGLES VACCINES ([address] [facility] 00:00:00 2) [code = SHINGLES Medical Center VACCINES (1 of 2)] Future Scheduled 2018 SHINGLES VACCINES ([address] [facility] 00:00:00 2) [code = SHINGLES Medical Center VACCINES (1 of 2)] Future Scheduled 2018 SHINGLES VACCINES ([address] [facility] 00:00:00 2) [code = SHINGLES Medical Center VACCINES (1 of 2)] Future Scheduled 2018 SHINGLES VACCINES ([address] [facility] 00:00:00 2) [code = SHINGLES Medical Center VACCINES (1 of 2)] Future Scheduled 2018 SHINGLES VACCINES ([address] [facility] 00:00:00 2) [code = SHINGLES [facility] VACCINES (1 of 2)] Future Scheduled 2018 SHINGLES VACCINES ([address] [facility] 00:00:00 2) [code = SHINGLES [facility] VACCINES (1 of 2)] Future Scheduled 2018 SHINGLES VACCINES ([address] [facility] 00:00:00 2) [facility] Future Scheduled 2018 SHINGLES VACCINES ([address] [facility] 00:00:00 2) [code = SHINGLES [facility] VACCINES (1 of 2)] Future Scheduled 2013 Lipid panel (procedure) [facility] 00:00:00 [code = [id number]] Medical Ce nter Future Scheduled 2013 Lipid panel (procedure) [facility] 00:00:00 [code = [id number]] Medical Ce nter Future Scheduled 2013 Lipid panel (procedure) [facility] 00:00:00 [code = [id number]] Medical Ce nter Future Scheduled 2013 Lipid panel (procedure) [facility] 00:00:00 [code = [id number]] Medical Ce nter Future Scheduled 2013 Lipid panel (procedure) [facility] 00:00:00 [code = [id number]] Medical Ce nter Future Scheduled 2013 Lipid panel (procedure) [facility] 00:00:00 [code = [id number]] Medical Ce nter Future Scheduled 2013 Lipid panel (procedure) [facility] 00:00:00 [code = [id number]] Medical Ce nter Future Scheduled 2013 Lipid panel (procedure) [facility] 00:00:00 [code = [id number]] Medical Ce nter Future Scheduled 2013 Lipid panel (procedure) [facility] 00:00:00 [code = [id number]] Medical Ce nter Future Scheduled 2013 Lipid panel (procedure) [facility] 00:00:00 [code = [id number]] Medical Ce nter Future Scheduled 2013 Lipid panel (procedure) [facility] 00:00:00 [code = [id number]] Medical Ce nter Future Scheduled 2013 Lipid panel (procedure) [facility] 00:00:00 [code = [id number]] Medical Ce nter Future Scheduled 2013 Lipid panel (procedure) [facility] 00:00:00 [code = [id number]] Medical Ce nter Future Scheduled 2013 Lipid panel (procedure) [facility] 00:00:00 [code = [id number]] Medical Ce nter Future Scheduled 2013 Lipid panel (procedure) [facility] 00:00:00 [code = [id number]] Medical Ce nter Future Scheduled 2013 Lipid panel (procedure) [facility] 00:00:00 [code = [id number]] Medical Ce nter Future Scheduled [address] malignant [facility] 00:00:00 neoplasm of cervix Medical C enter (procedure) [code = [id number]] Future Scheduled 1989 Screening for malignant [facility] 00:00:00 neoplasm of cervix Medical C enter (procedure) [code = 223735228] Future Scheduled 1989 Screening for malignant [facility] 00:00:00 neoplasm of cervix Medical C enter (procedure) [code = 120167203] Future Scheduled 1989 Screening for malignant [facility] 00:00:00 neoplasm of cervix Medical C enter (procedure) [code = 290421259] Future Scheduled 1989 Screening for malignant [facility] 00:00:00 neoplasm of cervix Medical C enter (procedure) [code = 096874209] Future Scheduled 1989 Screening for malignant [facility] 00:00:00 neoplasm of cervix Medical C enter (procedure) [code = 242398156] Future Scheduled 1989 Screening for malignant [facility] 00:00:00 neoplasm of cervix Medical C enter (procedure) [code = 351736538] Future Scheduled 1989 Screening for malignant [facility] 00:00:00 neoplasm of cervix Medical C enter (procedure) [code = 290990509] Future Scheduled 1989 Screening for malignant [facility] 00:00:00 neoplasm of cervix Medical C enter (procedure) [code = 517698944] Future Scheduled 1989 Screening for malignant [facility] 00:00:00 neoplasm of cervix Medical C enter (procedure) [code = 135184670] Future Scheduled 1989 Screening for malignant [facility] 00:00:00 neoplasm of cervix Medical C enter (procedure) [code = 356517666] Future Scheduled 1989 Screening for malignant [facility] 00:00:00 neoplasm of cervix Medical C enter (procedure) [code = 490888412] Future Scheduled 1989 Screening for malignant [facility] 00:00:00 neoplasm of cervix Medical C enter (procedure) [code = 611079998] Future Scheduled 1989 Screening for malignant [facility] 00:00:00 neoplasm of cervix Medical C enter (procedure) [code = 196310754] Future Scheduled 1989 Screening for malignant [facility] 00:00:00 neoplasm of cervix Medical C enter (procedure) [code = 480977290] Future Scheduled 1989 Screening for malignant [facility] 00:00:00 neoplasm of cervix Medical C enter (procedure) [code = 196838412] Future Scheduled 1987 DTAP/TDAP/TD VACCINES ([address] [facility] 00:00:00 - Tdap) [code = [facility] DTAP/TDAP/TD VACCINES (1 - Tdap)] Future Scheduled 1987 DTAP/TDAP/TD VACCINES ([address] [facility] 00:00:00 - Tdap) [code = [facility] DTAP/TDAP/TD VACCINES (1 - Tdap)] Future Scheduled 1987 DTAP/TDAP/TD VACCINES ([address] [facility] 00:00:00 - Tdap) [code = [facility] DTAP/TDAP/TD VACCINES (1 - Tdap)] Future Scheduled 1987 DTAP/TDAP/TD VACCINES ([address] [facility] 00:00:00 - Tdap) [code = [facility] DTAP/TDAP/TD VACCINES (1 - Tdap)] Future Scheduled 1987 DTAP/TDAP/TD VACCINES ([address] [facility] 00:00:00 - Tdap) [code = [facility] DTAP/TDAP/TD VACCINES (1 - Tdap)] Future Scheduled 1987 DTAP/TDAP/TD VACCINES ([address] [facility] 00:00:00 - Tdap) [code = [facility] DTAP/TDAP/TD VACCINES (1 - Tdap)] Future Scheduled 1987 DTAP/TDAP/TD VACCINES ([address] [facility] 00:00:00 - Tdap) [code = [facility] DTAP/TDAP/TD VACCINES (1 - Tdap)] Future Scheduled 1987 DTAP/TDAP/TD VACCINES ([address] [facility] 00:00:00 - Tdap) [code = [facility] DTAP/TDAP/TD VACCINES (1 - Tdap)] Future Scheduled 1987 DTAP/TDAP/TD VACCINES ([address] [facility] 00:00:00 - Tdap) [code = [facility] DTAP/TDAP/TD VACCINES (1 - Tdap)] Future Scheduled 1987 DTAP/TDAP/TD VACCINES ([address] [facility] 00:00:00 - Tdap) [code = [facility] DTAP/TDAP/TD VACCINES (1 - Tdap)] Future Scheduled 1987 DTAP/TDAP/TD VACCINES ([address] [facility] 00:00:00 - Tdap) [code = [facility] DTAP/TDAP/TD VACCINES (1 - Tdap)] Future Scheduled 1987 DTAP/TDAP/TD VACCINES ([address] [facility] 00:00:00 - Tdap) [code = [facility] DTAP/TDAP/TD VACCINES (1 - Tdap)] Future Scheduled 1987 DTAP/TDAP/TD VACCINES ([address] [facility] 00:00:00 - Tdap) [code = [facility] DTAP/TDAP/TD VACCINES (1 - Tdap)] Future Scheduled 1987 DTAP/TDAP/TD VACCINES ([address] [facility] 00:00:00 - Tdap) [code = [facility] DTAP/TDAP/TD VACCINES (1 - Tdap)] Future Scheduled 1987 DTAP/TDAP/TD VACCINES ([address] [facility] 00:00:00 - Tdap) [code = [facility] DTAP/TDAP/TD VACCINES (1 - Tdap)] Future Scheduled 1987 DTAP/TDAP/TD VACCINES ([address] [facility] 00:00:00 - Tdap) [code = [facility] DTAP/TDAP/TD VACCINES (1 - Tdap)] Future Scheduled [...] HEPATITIS C [facility] SCREENING] Future Scheduled [address] [facility] 00[facility]00 virus screening [facility] (procedure) [code = [id number]] Future Scheduled [address] Human immunodeficiency [facility] 00:00:00 virus screening [facility] (procedure) [code = 702563542] Future Scheduled [address] Human immunodeficiency [facility] 00:00:00 virus screening [facility] (procedure) [code = 352741513] Future Scheduled [address] Human immunodeficiency [facility] 00:00:00 virus screening [facility] (procedure) [code = 127365651] Future Scheduled [address] Human immunodeficiency [facility] 00:00:00 virus screening [facility] (procedure) [code = 444261516] Future Scheduled [address] Human immunodeficiency [facility] 00:00:00 virus screening [facility] (procedure) [code = 503574792] Future Scheduled [address] [facility] 00:00:00 Counseling and Screening [facility] ical Center (12+) [code = Tobacco Cessation Counseling and Screening (12+)] Future Scheduled [address] [facility] 00:00:00 Counseling and Screening [facility] Center (12+) [code = Tobacco Cessation Counseling and Screening (12+)] Future Scheduled [address] [facility] 00:00:00 Counseling and Screening Med ical Center (12+) [code = Tobacco Cessation Counseling and Screening (12+)] Future Scheduled [address] [facility] 00:00:00 Counseling and Screening [facility] Center (12+) [code = Tobacco Cessation Counseling and Screening (12+)] Future Scheduled [address] [facility] 00:00:00 Counseling and Screening [facility] Center (12+) [code = Tobacco Cessation Counseling and Screening (12+)] Future Scheduled [address] [facility] 00:00:00 Counseling and Screening [facility] Center (12+) [code = Tobacco Cessation Counseling and Screening (12+)] Future Scheduled [address] [facility] 00:00:00 Counseling and Screening [facility] Center (12+) [code = Tobacco Cessation Counseling and Screening (12+)] Future Scheduled [address] [facility] 00:00:00 Counseling and Screening [facility] Center (12+) [code = Tobacco Cessation Counseling and Screening (12+)] Future Scheduled [address] [facility] 00:00:00 Counseling and Screening [facility] Center (12+) [code = Tobacco Cessation Counseling and Screening (12+)] Future Scheduled [address] [facility] 00:00:00 Counseling and Screening [facility] Center (12+) [code = Tobacco Cessation Counseling and Screening (12+)] Future Scheduled [address] [facility] 00:00:00 Counseling and Screening [facility] Center (12+) [code = Tobacco Cessation Counseling and Screening (12+)] Future Scheduled [address] [facility] 00:00:00 Counseling and Screening [facility] Center (12+) [code = Tobacco Cessation Counseling and Screening (12+)] Future Scheduled [address] [facility] 00:00:00 Counseling and Screening [facility] Center (12+) [code = Tobacco Cessation Counseling and Screening (12+)] Future Scheduled [address] [facility] 00:00:00 Counseling and Screening [facility] Center (12+) [code = Tobacco Cessation Counseling and Screening (12+)] Future Scheduled [address] [facility] 00:00:00 Counseling and Screening [facility] Center (12+) [code = Tobacco Cessation Counseling and Screening (12+)] Future Scheduled [address] [facility] 00:00:00 Counseling and Screening Med ical Center (12+) [code = Tobacco Cessation Counseling and Screening (12+)] Future Scheduled 1968 COVID-19 VACCINE (#1) [facility] [code = COVID-19 VACCINE [facility] Center (#1)] Future Scheduled 1968 COVID-19 VACCINE (#1) [facility] [code = COVID-19 VACCINE [facility] Center (#1)] Future Scheduled 1968 COVID-19 VACCINE (#1) [facility] [code = COVID-19 VACCINE [facility] Center (#1)] Future Scheduled 1968 COVID-19 VACCINE (#1) [facility] [code = COVID-19 VACCINE [facility] Center (#1)] Future Scheduled 1968 COVID-19 VACCINE (#1) [facility] [code = COVID-19 VACCINE [facility] (#1)] Future Scheduled 1968 COVID-19 VACCINE (#1) [facility] [code = COVID-19 VACCINE [facility] Center (#1)] Future Scheduled 1968 COVID-19 VACCINE (#1) [facility] [code = COVID-19 VACCINE [facility] (#1)] Future Scheduled 1968 COVID-19 VACCINE (#1) [facility] [code = COVID-19 VACCINE [facility] (#1)] Future Scheduled 1968 COVID-19 VACCINE (#1) [facility] [code = COVID-19 VACCINE [facility] (#1)] Future Scheduled 1968 COVID-19 VACCINE (#1) [facility] [code = COVID-19 VACCINE [facility] (#1)] Future Scheduled 1968 COVID-19 VACCINE (#1) [facility] [code = COVID-19 VACCINE [facility] Center (#1)] Future Scheduled 1968 COVID-19 VACCINE (#1) [facility] [code = COVID-19 VACCINE [facility] Center (#1)] Future Scheduled 1968 COVID-19 VACCINE (#1) [facility] [code = COVID-19 VACCINE [facility] (#1)] Future Scheduled 1968 COVID-19 VACCINE (#1) [facility] [code = COVID-19 VACCINE [facility] (#1)] Future Scheduled 1968 COVID-19 VACCINE (#1) [facility] [code = COVID-19 VACCINE [facility] (#1)] Future Scheduled 1968 COVID-19 VACCINE (#1) [facility] [code = COVID-19 VACCINE [facility] Center (#1)] Future Scheduled 1968 Screening for malignant [facility] 00:00:00 neoplasm of colon Medical Ce nter (procedure) [code = 829846449] Future Scheduled 1968 Screening for malignant [facility] 00:00:00 neoplasm of breast Medical C enter (procedure) [code = 504860536] Future Scheduled 1968 CT Colonography (combo) [facility] 00:00:00 [code = CT Colonography [facility] (combo)] Future Scheduled 1968 Screening for malignant [facility] 00:00:00 neoplasm of colon Medical Ce nter (procedure) [code = 519773499] Future Scheduled 1968 Screening for malignant [facility] 00:00:00 neoplasm of colon Medical Ce nter (procedure) [code = 104696718] Future Scheduled 1968 Screening for malignant [facility] 00:00:00 neoplasm of colon Medical Ce nter (procedure) [code = 634207058] Future Scheduled 1968 Screening for malignant [facility] 00:00:00 neoplasm of colon Medical Ce nter (procedure) [code = 837899324] Future Scheduled 1968 Sigmoidoscopy [code = [facility]] [facility] Cent[facility] Future Scheduled 1968 Sigmoidoscopy [code = [facility] S[facility]oidoscopy] [facility] Cent[facility] Future Scheduled 1968 Screening for malignant [facility] 00:00:00 neoplasm of breast Medical C enter (procedure) [code = 517751277] Future Scheduled 1968 CT Colonography (combo) [facility] 00:00:00 [code = CT [facility] (com[facility])] Future Scheduled 1968 Screening for malignant [facility] 00:00:00 neoplasm of colon Medical Ce nter (procedure) [code = 241681885] Future Scheduled 1968 Screening for malignant [facility] 00:00:00 neoplasm of colon Medical Ce nter (procedure) [code = 024441068] Future Scheduled 1968 Screening for malignant [facility] 00:00:00 neoplasm of colon Medical Ce nter (procedure) [code = 408114378] Future Scheduled 1968 Screening for malignant [facility] 00:00:00 neoplasm of colon Medical Ce nter (procedure) [code = 637261917] Future Scheduled 1968 Sigmoidoscopy [code = [facility] S[facility]] Medical Cent[facility] Future Scheduled 1968 Screening for malignant [facility] 00:00:00 neoplasm of breast Medical C enter (procedure) [code = 622320793] Future Scheduled 1968 CT Colonography (combo) [facility] 00:00:00 [code = CT Colonography [facility] (combo)] Future Scheduled 1968 Screening for malignant [facility] 00:00:00 neoplasm of colon Medical Ce nter (procedure) [code = 390785753] Future Scheduled 1968 Screening for malignant [facility] 00:00:00 neoplasm of colon Medical Ce nter (procedure) [code = 096964498] Future Scheduled 1968 Screening for malignant [facility] 00:00:00 neoplasm of colon Medical Ce nter (procedure) [code = 051473419] Future Scheduled 1968 Screening for malignant [facility] 00:00:00 neoplasm of colon Medical Ce nter (procedure) [code = 404548194] Future Scheduled 1968 Sigmoidoscopy [code = [facility] S[facility]oscopy] [facility] Cent[facility] Future Scheduled 1968 Screening for malignant [facility] 00:00:00 neoplasm of breast Medical C enter (procedure) [code = 257972581] Future Scheduled 1968 CT Colonography (combo) [facility] 00:00:00 [code = CT Colonography [facility] (combo)] Future Scheduled 1968 Screening for malignant [facility] 00:00:00 neoplasm of colon Medical Ce nter (procedure) [code = 798145499] Future Scheduled 1968 Screening for malignant [facility] 00:00:00 neoplasm of colon Medical Ce nter (procedure) [code = 034236565] Future Scheduled 1968 Screening for malignant [facility] 00:00:00 neoplasm of colon Medical Ce nter (procedure) [code = 000491467] Future Scheduled 1968 Screening for malignant [facility] 00:00:00 neoplasm of colon Medical Ce nter (procedure) [code = 374555791] Future Scheduled 1968 Sigmoidoscopy [code = [facility] S[facility]oscopy] Medical [facility] r Future Scheduled 1968 Screening for malignant [facility] 00:00:00 neoplasm of breast Medical C enter (procedure) [code = 302724050] Future Scheduled 1968 CT Colonography (combo) [facility] 00:00:00 [code = CT Colonography [facility] (combo)] Future Scheduled 1968 Screening for malignant [facility] 00:00:00 neoplasm of colon Medical Ce nter (procedure) [code = 693836985] Future Scheduled 1968 Screening for malignant [facility] 00:00:00 neoplasm of colon Medical Ce nter (procedure) [code = 899411851] Future Scheduled 1968 Screening for malignant [facility] 00:00:00 neoplasm of colon Medical Ce nter (procedure) [code = 363771303] Future Scheduled 1968 Screening for malignant [facility] 00:00:00 neoplasm of colon Medical Ce nter (procedure) [code = 680545203] Future Scheduled 1968 Sigmoidoscopy [code = [facility] S[facility]oscopy] Medical Cent[facility] Future Scheduled 1968 Screening for malignant [facility] 00:00:00 neoplasm of breast Medical C enter (procedure) [code = 069603161] Future Scheduled 1968 CT Colonography (combo) [facility] 00:00:00 [code = CT Colonography [facility] (combo)] Future Scheduled 1968 Screening for malignant [facility] 00:00:00 neoplasm of colon Medical Ce nter (procedure) [code = 709846274] Future Scheduled 1968 Screening for malignant [facility] 00:00:00 neoplasm of colon Medical Ce nter (procedure) [code = 975232098] Future Scheduled 1968 Screening for malignant [facility] 00:00:00 neoplasm of colon Medical Ce nter (procedure) [code = 412607404] Future Scheduled 1968 Screening for malignant [facility] 00:00:00 neoplasm of colon Medical Ce nter (procedure) [code = 373355984] Future Scheduled 1968 Sigmoidoscopy [code = [facility] S[facility]oscopy] [facility] Future Scheduled 1968 Screening for malignant [facility] 00:00:00 neoplasm of breast Medical C enter (procedure) [code = 793242850] Future Scheduled 1968 CT Colonography (combo) [facility] 00:00:00 [code = CT Colonography [facility] (combo)] Future Scheduled 1968 Screening for malignant [facility] 00:00:00 neoplasm of colon Medical Ce nter (procedure) [code = 823498558] Future Scheduled 1968 Screening for malignant [facility] 00:00:00 neoplasm of colon Medical Ce nter (procedure) [code = 076577988] Future Scheduled 1968 Screening for malignant [facility] 00:00:00 neoplasm of colon Medical Ce nter (procedure) [code = 150536787] Future Scheduled 1968 Screening for malignant [facility] 00:00:00 neoplasm of colon Medical Ce nter (procedure) [code = 569774295] Future Scheduled 1968 Sigmoidoscopy [code = [facility] Sigmoidoscopy] Medical [facility] Future Scheduled 1968 Screening for malignant [facility] 00:00:00 neoplasm of breast Medical C enter (procedure) [code = 461621494] Future Scheduled 1968 Screening for malignant [facility] 00:00:00 neoplasm of breast Medical C enter (procedure) [code = 843013439] Future Scheduled 1968 CT Colonography (combo) [facility] 00:00:00 [code = CT Colonography [facility] (combo)] Future Scheduled 1968 Screening for malignant [facility] 00:00:00 neoplasm of colon Medical Ce nter (procedure) [code = 928565692] Future Scheduled 1968 Screening for malignant [facility] 00:00:00 neoplasm of colon Medical Ce nter (procedure) [code = 832708350] Future Scheduled 1968 CT Colonography (combo) [facility] 00:00:00 [code = CT Colonography [facility] (combo)] Future Scheduled 1968 Screening for malignant [facility] 00:00:00 neoplasm of colon Medical Ce nter (procedure) [code = 936877251] Future Scheduled 1968 Screening for malignant [facility] 00:00:00 neoplasm of colon Medical Ce nter (procedure) [code = 716892166] Future Scheduled 1968 Sigmoidoscopy [code = [facility] S[facility]oidoscopy] Medical [facility] Future Scheduled 1968 Screening for malignant [facility] 00:00:00 neoplasm of colon Medical Ce nter (procedure) [code = 619088104] Future Scheduled 1968 Screening for malignant [facility] 00:00:00 neoplasm of breast Medical C enter (procedure) [code = 053250642] Future Scheduled 1968 CT Colonography (combo) [facility] 00:00:00 [code = CT Colonography [facility] (combo)] Future Scheduled 1968 Screening for malignant [facility] 00:00:00 neoplasm of colon Medical Ce nter (procedure) [code = 334973379] Future Scheduled 1968 Screening for malignant [facility] 00:00:00 neoplasm of colon Medical Ce nter (procedure) [code = 736835662] Future Scheduled 1968 Screening for malignant [facility] 00:00:00 neoplasm of colon Medical Ce nter (procedure) [code = 847012638] Future Scheduled 1968 Screening for malignant [facility] 00:00:00 neoplasm of colon Medical Ce nter (procedure) [code = 438084184] Future Scheduled 1968 Sigmoidoscopy [code = [facility] S[facility]oidoscopy] Medical Cent[facility] r Future Scheduled 1968 Screening for malignant [facility] 00:00:00 neoplasm of colon Medical Ce nter (procedure) [code = 764683845] Future Scheduled 1968 Screening for malignant [facility] 00:00:00 neoplasm of colon Medical Ce nter (procedure) [code = 282220369] Future Scheduled 1968 Screening for malignant [facility] 00:00:00 neoplasm of colon Medical Ce nter (procedure) [code = 746190576] Future Scheduled 1968 Sigmoidoscopy [code = [facility] S[facility]oscopy] Medical Cent[facility] r Future Scheduled 1968 Screening for malignant [facility] 00:00:00 neoplasm of breast Medical C enter (procedure) [code = 362320569] Future Scheduled 1968 CT Colonography (combo) [facility] 00:00:00 [code = CT Colonography [facility] (combo)] Future Scheduled 1968 Screening for malignant [facility] 00:00:00 neoplasm of colon Medical Ce nter (procedure) [code = 415264399] Future Scheduled 1968 Screening for malignant [facility] 00:00:00 neoplasm of colon Medical Ce nter (procedure) [code = 765185359] Future Scheduled 1968 Screening for malignant [facility] 00:00:00 neoplasm of colon Medical Ce nter (procedure) [code = 613813783] Future Scheduled 1968 Screening for malignant [facility] 00:00:00 neoplasm of colon Medical Ce nter (procedure) [code = 216807567] Future Scheduled 1968 Sigmoidoscopy [code = [facility] S[facility]oidoscopy] Medical [facility] Future Scheduled 1968 Screening for malignant [facility] 00:00:00 neoplasm of breast Medical C enter (procedure) [code = 097474457] Future Scheduled 1968 Screening for malignant [facility] 00:00:00 neoplasm of breast Medical C enter (procedure) [code = 800690986] Future Scheduled 1968 CT Colonography (combo) [facility] 00[facility]00:00 [code = CT Colonography [facility] (combo)] Future Scheduled 1968 Screening for malignant [facility] 00:00:00 neoplasm of colon Medical Ce nter (procedure) [code = 224053107] Future Scheduled 1968 Screening for malignant [facility] 00:00:00 neoplasm of colon Medical Ce nter (procedure) [code = 385243086] Future Scheduled 1968 Screening for malignant [facility] 00:00:00 neoplasm of colon Medical Ce nter (procedure) [code = 526216691] Future Scheduled 1968 Screening for malignant [facility] 00:00:00 neoplasm of colon Medical Ce nter (procedure) [code = 834872511] Future Scheduled 1968 Sigmoidoscopy [code = [facility] S[facility]oidoscopy] [facility] Future Scheduled 1968 CT Colonography (combo) [facility] 00:00:00 [code = CT Colonography [facility] (combo)] Future Scheduled 1968 Screening for malignant [facility] 00:00:00 neoplasm of breast Medical C enter (procedure) [code = 736116150] Future Scheduled 1968 Screening for malignant [facility] 00:00:00 neoplasm of colon Medical Ce nter (procedure) [code = 893319763] Future Scheduled 1968 CT Colonography (combo) [facility] 00:00:00 [code = CT Colonography [facility] (combo)] Future Scheduled 1968 Screening for malignant [facility] 00:00:00 neoplasm of colon Medical Ce nter (procedure) [code = 259752154] Future Scheduled 1968 Screening for malignant [facility] 00:00:00 neoplasm of colon Medical Ce nter (procedure) [code = 804353719] Future Scheduled 1968 Screening for malignant [facility] 00:00:00 neoplasm of colon Medical Ce nter (procedure) [code = 790055514] Future Scheduled 1968 Screening for malignant [facility] 00:00:00 neoplasm of colon Medical Ce nter (procedure) [code = 808212214] Future Scheduled 1968 Sigmoidoscopy [code = [facility] S[facility]oidoscopy] Medical Cent[facility] Future Scheduled 1968 Screening for malignant [facility] 00:00:00 neoplasm of colon Medical Ce nter (procedure) [code = 574445515] Future Scheduled 1968 Screening for malignant [facility] 00:00:00 neoplasm of breast Medical C enter (procedure) [code = 044132451] Future Scheduled 1968 CT Colonography (combo) [facility] 00:00:00 [code = CT Colonography [facility] (combo)] Future Scheduled 1968 Screening for malignant [facility] 00:00:00 neoplasm of colon Medical Ce nter (procedure) [code = 647502067] Future Scheduled 1968 Screening for malignant [facility] 00:00:00 neoplasm of colon Medical Ce nter (procedure) [code = 649516109] Future Scheduled 1968 Screening for malignant [facility] 00:00:00 neoplasm of colon Medical Ce nter (procedure) [code = 004107193] Future Scheduled 1968 Screening for malignant [facility] 00:00:00 neoplasm of colon Medical Ce nter (procedure) [code = 656668576] Future Scheduled 1968 Screening for malignant [facility] 00:00:00 neoplasm of colon Medical Ce nter (procedure) [code = 402872266] Future Scheduled 1968 Sigmoidoscopy [code = [facility] S[facility]oscopy] Medical Cent[facility] r Future Scheduled 1968 Screening for malignant [facility] 00:00:00 neoplasm of colon Medical Ce nter (procedure) [code = 902365681] Future Scheduled 1970 Sigmoidoscopy [code = [facility] Future Scheduled 1968 Screening for malignant [facility] 00:00:00 neoplasm of breast Medical C enter (procedure) [code = 493643299] Future Scheduled 1968 CT Colonography (combo) [facility] 00:00:00 [code = CT Colonography [facility] (combo)] Future Scheduled 1968 Screening for malignant [facility] 00:00:00 neoplasm of colon Medical Ce nter (procedure) [code = 801927419] Future Scheduled 1968 Screening for malignant [facility] 00:00:00 neoplasm of colon Medical Ce nter (procedure) [code = 259391823] Future Scheduled 1968 Screening for malignant [facility] 00:00:00 neoplasm of colon Medical Ce nter (procedure) [code = 780208173] Goal Plan of Care Note [code = 90350-4] Goal Plan of Care Note [code = 52587-8] Goal Plan of Care Note [code = 61621-4] Goal Plan of Care Note [code = 68304-0] Goal Plan of Care Note [code = 60329-8] Goal Plan of Care Note [code = 59531-1] Goal Plan of Care Note [code = 29231-3] Goal Plan of Care Note [code = 37521-1] Goal Plan of Care Note [code = 88765-0] Goal Plan of Care Note [code = 95027-9] Goal Plan of Care Note [code = 88996-6] Goal Plan of Care Note [code = 53211-5] Goal Plan of Care Note [code = 16929-3] Goal Plan of Care Note [code = 81368-1] Goal Plan of Care Note [code = 90604-9] Goal Plan of Care Note [code = 20451-3] Goal Plan of Care Note [code = 38287-2] Goal Plan of Care Note [code = 67283-0] Goal Plan of Care Note [code = 07221-0] Goal Plan of Care Note [code = 50686-0] Goal Plan of Care Note [code = 42310-9] Goal Plan of Care Note [code = 66916-8] Goal Plan of Care Note [code = 18656-9] Goal Plan of Care Note [code = 64067-8] Goal Plan of Care Note [code = 86339-8] Goal Plan of Care Note [code = 01564-9] Encounters Start End Encounter Admission Attending Care Care Encounter Source Date/Time Date/Time Type Type Clinicians Facility Department ID 2023-05-31 Inpatient MAT MARIN [facility] RADI [id number] [facility] 08:30:00 , DANIELLA [address] [place] [address] 2021-04-14 Outpatient SYSTEM, ARIADNA ROSENTHAL [id number] 13:40:41 PROVIDER Davidstacy chao 2023-08-16 2023-08-16 Outpatient SFA SFA [place] 09:33:29 09:33:29 [id number] F Toby 2023-08-02 2023-08-02 Outpatient MAT Weber [facility] [id number] [facility] 08:16:00 08:16:[address] [place] [address] 2023-07-18 2023-07-18 Outpatient SFA SFA [place] 17:03:28 17:03:28 [address] F [place] 2023-07-14 2023-07-14 Outpatient SFA SFA [place] 09:47:41 09:47:41 43051 F Toby 2023-07-13 2023-07-13 Outpatient SFA SFA [place] 13:47:22 13:47:22 [id number] F Toby 2023-07-05 2023-07-05 Outpatient SFA SFA [place] 09:19:57 09:19:57 49094 F Toby 2023-06-08 2023-06-08 Outpatient SFA SFA [place] 10:26:32 10:26:32 [id number] F Toby 2023-06-01 2023-06-01 Outpatient SFA SFA [place] 13:23:28 13:23:28 74775 F Toby 2023-05-05 2023-05-05 Outpatient SFA SFA [id number] [place] 16:32:08 16:32:08 98801 F Toby 2023-04-18 2023-04-18 Outpatient SFA [facility] [id number] Stewart 13:08:17 13:08:17 23566 F Toby 2023-04-05 2023-04-05 Outpatient MAT Fontaine, [facility] RADI [id number] [facility] 14:57:00 14:57:00 Alejandro 95 [facility] 2023-03-25 2023-03-25 Outpatient Tung, [facility]AB[facility] NUCM [id number] [facility] 14:05:00 14:05:00 Alejandro 03 [facility] 2023-02-01 2023-02-01 Outpatient [facility] [id number] Stewart 10:28:00 10:28:00 07043 F Toby 2023-01-28 2023-01-28 Outpatient [facility] NUCM [id number] [facility] 10:51:00 10:51:00 Alejandro 52 [facility] 2023-01-13 2023-01-13 [facility], [facility] [id number] 00:00:00 00:00:00 Orders Alejandro Luke s [place] [facility] 2023-01-13 2023-01-13 [facility] [id number] 00:00:00 00:00:00 Orders Alejandro Luke s [place] [facility] 2022-11-02 2022-11-02 Outpatient [facility] [id number] Stewart 13:23:54 13:23:54 [id number] F Toby 2022-08-23 2022-08-23 Out[facility] Zhen[facility] [id number] [facility] 14:01:00 14:01:00 Alejandro 39 [facility] 2022-08-12 2022-08-12 Outpatient [id number] 361529-0 00:00:00 00:00:00 Visit 5w07-42t5 r10-09q0-8 -9590-171 590-1715b7 7g8832041 024231 5003-09-09 2022-07-30 Outpatient z2tl96ko- [id number] b8 yv63by-2 00:00:00 00:00:00 Visit 7093-470e 093-470e-a -i4hk-183 5da-180b37 g3670rrb6 94aad4 2022-07-23 2022-07-23 Orders Doctor QUIRINO 1.2.840.114 [id number] [facility] 00:00:00 00:00:00 Only Unassigned, DEB 350.1.13.10 ity [facility] 4.2.7.2.686 [facility] [id number] [facility] [address] 2022-07-14 2022-07-15 Emergency X [facility] ERT [id number] Univers 22:59:00 02:24:00 JANIS rider [facility] 2022-07-14 2022-07-15 Emergency [facility] 1.2.831.986 [id number] [id number] [facility] 22:59:00 02:24:00 Janis RODRIGUES 350.1.13.10 ity [facility] 4.2.7.2.686 [facility] [id number] [facility] [address] 2022-07-13 2022-07-13 Outpatient 90gbd1zd- [id number] 96 qic0di-2 00:00:00 00:00:00 Visit 80da-4a03 0da-4a03-a -i03o-76f 22e-61c604 917091yp5 109bc3 2022-06-29 2022-06-29 Outpatient x3168is2- [id number] a9 504xp2-2 00:00:00 00:00:00 Visit 02t6-9d7g 4l9-6w2q-u -n282-3xj 638-3cb8c8 0k4g25218 p45530 2022-05-25 2022-05-25 Outpatient JOHN Albrecht OUTD [id number] [facility] 12:48:00 12:48:00 Alejandro 07 [facility] 2022-04-21 2022-04-21 Patient Kareen GANESH 1.2.840.114 [id number] [facility] 00:00:00 00:00:00 Outreach Jr STAFFORD 350.1.13.10 ity [facility] 4.2.7.2.686 [facility] [id number] [place] [address] [address] 2022-03-31 2022-04-01 Emergency X GAUTAM ORMAKEDA ERT [id number] Univers 22:56:00 01:29:00 BRANT itjohn [facility] 2022-03-31 2022-04-01 Emergency [facility] 1.2.134.411 [id number] 0850 Univers 22:56:00 01:29:00 Brant RODRIGUES 350.1.13.10 ity [facility] 4.2.7.2.686 [facility] [id number] [address] 2021-04-03 2021-04-03 Emergency ENA CHATMAN MDA Emergency [id number] 16:10:00 18:03:00 LUIS E chao Results Test Description Test Time Test Comments Results Result [facility] e Comments - CT CHEST 2023-08-02 W/CONTRAST 09:21:00 [facility] 1970 Sex: F Name: RHONA PEREIRA [facility] : 1970 Age/S: 53 / F [address] [place] [address] Unit #: [id number] Loc: [place] [address] Phys: Hoda Weber MD Acct: [id number] Dis Date: Status: REG CLI PHONE #: [phone] Exam Date: 08/02/2023 08 FAX #: [phone] Reason: VULVAR CANCER EXAMS: CPT CODE: [id number] CT CHEST W/CONTRAST 24431 EXAM: - CT CHEST W/CONTRAST, - CT ABD PELVIS W/CONT INDICATION: VULVAR CANCER TECHNIQUE: Axial images of the chest, abdomen and pelvis were obtained with contrast. Coronal and sagittal reformatted images were performed. One or more of the following dose-optimizing techniques was utilized for this exam: automated exposure control, adjustment of the mA and/or kV according to patient size, and/or use of iterative reconstruction technique. Location:T18 Maximum intensity projection images were created from the data set. Unless otherwise specified, incidental findings do not require dedicated imaging follow-up. FINDINGS: Compared to CT chest examination on 04/05/2023. Compared to PET/CT examination on 03/25/2023. Chest: Lung and Pleura: Interval resolution of the previously noted retrocardiac nodule. Small amount of linear bandlike scarring identified in this location. Moderate to severe emphysematous changes. No pleural effusion seen. Mediastinum: No cardiomegaly or pericardial effusion seen. Aorta does not appear aneurysmal. Lower Neck: Visualized thyroid appears unremarkable. Lymph Nodes: No enlarged lymph nodes seen. Abdomen pelvis: Hepatobiliary: Liver appears unremarkable. Gallbladder appears unremarkable. No intrahepatic and extrahepatic biliary ductal dilation seen. Pancreas: Appears unremarkable. Spleen: Appears unremarkable. Adrenal glands: Appear unremarkable. Kidneys: Appear unremarkable. PAGE 1 Signed Report (CONTINUED) Name: RHONA PEREIRA [facility] : 1970 Age/S: 53 / F [address] [place] [address] Unit #: [id number] Loc: [place] [address] Phys: Hoda Weber MD Acct: [id number] Dis Date: Status: REG CLI PHONE #: [phone] Exam Date: 08/02/2023 0844 FAX #: [phone] Reason: VULVAR CANCER EXAMS: CPT CODE: [id number] CT CHEST W/CONTRAST 26210 (Continued) Gastrointestinal: Appendix: Is seen and appears unremarkable. Bowel: No bowel obstruction or ileus seen. Vascular: Aorta does not appear aneurysmal. Lymph nodes: No enlarged lymph nodes seen. Small left para-aortic lymph node identified on series 5, image 53 measuring 1.3 x 0.9 cm, nonspecific. Peritoneum: No ascites or free air is seen. Genitourinary:Urinary bladder appears to be mildly distended. Soft tissues:No significant abnormality seen. Bones:No acute or destructive osseous process seen. IMPRESSION: Resolution of the previously noted retrocardiac nodule with residual bandlike scarring. Nonspecific borderline enlarged left para-aortic lymph node measuring 1.3 x 0.9 cm in size. Attention on follow-up examinations. Otherwise no enlarged lymph nodes, or any other evidence of metastatic disease identified in the chest, abdomen and pelvis. Please refer to the findings section for additional details. at 0921 Reported and signed by: Garth Costello M.D. CC: Hoda Weber MD; Alejandro Fontaine MD Technologist:Divya Hampton RT(R)(CT) CTDI: DLP: Trnscb Date/Time: 08/02/2023 (920) [email or web address].[email or web address] Orig Print D/T: S: 08/02/2023 (923) PAGE 2 Signed Report - CT ABD PELVIS 2023-08-02 W/CONT 09:21:00 [facility] : 1970 Sex: F Name: RHONA PEREIRA [facility] Procious : 1970 Age/S: 53 / F [address] [place] [address] Unit #: [id number] Loc: [place] [address] Phys: Hoda Weber MD Acct: [id number] Dis Date: Status: REG CLI PHONE #: [phone] Exam Date: 08/02/202310/2023 FAX #: [phone] Reason: VULVAR CANCER EXAMS: CPT CODE: [id number] CT ABD PELVIS W/CONT 06803 EXAM: - CT CHEST W/CONTRAST, - CT ABD PELVIS W/CONT INDICATION: VULVAR CANCER TECHNIQUE: Axial images of the chest, abdomen and pelvis were obtained with contrast. Coronal and sagittal reformatted images were performed. One or more of the following dose-optimizing techniques was utilized for this exam: automated exposure control, adjustment of the mA and/or kV according to patient size, and/or use of iterative reconstruction technique. Location:T18 Maximum intensity projection images were created from the data set. Unless otherwise specified, incidental findings do not require dedicated imaging follow-up. FINDINGS: Compared to CT chest examination on 04/05/2023. Compared to PET/CT examination on 03/25/2023. Chest: Lung and Pleura: Interval resolution of the previously noted retrocardiac nodule. Small amount of linear bandlike scarring identified in this location. Moderate to severe emphysematous changes. No pleural effusion seen. Mediastinum: No cardiomegaly or pericardial effusion seen. Aorta does not appear aneurysmal. Lower Neck: Visualized thyroid appears unremarkable. Lymph Nodes: No enlarged lymph nodes seen. Abdomen pelvis: Hepatobiliary: Liver appears unremarkable. Gallbladder appears unremarkable. No intrahepatic and extrahepatic biliary ductal dilation seen. Pancreas: Appears unremarkable. Spleen: Appears unremarkable. Adrenal glands: Appear unremarkable. Kidneys: Appear unremarkable. PAGE 1 Signed Report (CONTINUED) Name: RHONA PEREIRA [facility] : 1970 Age/S: 53 / F [address] [place] [address] Unit #: [id number] Loc: [place] [address] Phys: Hoda Weber MD Acct: [id number] Dis Date: Status: REG CLI PHONE #: [phone] Exam Date: 08/02/2023843 FAX #: [phone] Reason: VULVAR CANCER EXAMS: CPT CODE: [id number] CT ABD PELVIS W/CONT 77138 (Continued) Gastrointestinal: Appendix: Is seen and appears unremarkable. Bowel: No bowel obstruction or ileus seen. Vascular: Aorta does not appear aneurysmal. Lymph nodes: No enlarged lymph nodes seen. Small left para-aortic lymph node identified on series 5, image 53 measuring 1.3 x 0.9 cm, nonspecific. Peritoneum: No ascites or free air is seen. Genitourinary:Urinary bladder appears to be mildly distended. Soft tissues:No significant abnormality seen. Bones:No acute or destructive osseous process seen. IMPRESSION: Resolution of the previously noted retrocardiac nodule with residual bandlike scarring. Nonspecific borderline enlarged left para-aortic lymph node measuring 1.3 x 0.9 cm in size. Attention on follow-up examinations. Otherwise no enlarged lymph nodes, or any other evidence of metastatic disease identified in the chest, abdomen and pelvis. Please refer to the findings section for additional details. at 0921 Reported and signed by: Garth Costello M.D. CC: Hoda Weber MD; Alejandro Fontaine MD Technologist:Divya Hampton, RT(R)(CT) CTDI: DLP: Trnscb Date/Time: 08/02/2023 (09) [email or web address] Orig Print D/T: S: 08/02/2023 (6388) PAGE 2 Signed Report TSH + FREE T4 PROFILE 2023-05-07 05:48:10 Test Item Value Reference Range Interpretation Comme nts TSH, THIRD GENERATION (test 0.578 UIU/ML 0.400-4.100 code = 2821) FREE T4 (THYROXINE) (test 1.29 NG/DL 0.80-1.90 U NLESS OTHERWISE INDICATED, code = 2823) ALL TESTING PER FORMED AT [facility], [place]. [address] [place] [address] 2 2614 ORAL HYGIENIST: Lamont OLIVAS [id number] [place] [id number] TSH, THIRD [id number] 02:44:54 Test Item Value Reference Range Interpretation Comments TSH, THIRD 4.310 UIU/ML 0.400-4.100 H UNLESS OTHERWI SE GENERATION (test INDICATED, ALL TESTING code = 2821) PERFORMED AT [facility], [place]. [address] [place] [address] [facility] DIRECTOR: JOE PANDA M.D. MOOKIE NUMBER [id number] CAP ACCREDITATION N O. [id number] - CT CHEST W/[id number] 16:44:00 [facility])Name: RHONA PEREIRA : 1970 Sex: F Name: RHONA PEREIRA [facility] : 1970 Age/S: 52 / F [address] [facility] Unit #: [id number] Loc: [place] [address] Phys: Alejandro Fontaine MD Acct: [id number] Dis Date: Status: REG CLI PHONE #: [phone] Exam Date: 04/05/2023 1613 FAX #: [phone] Reason: EXAMS: CPT CODE: [id number] CT CHEST W/CONTRAST 17182 REASON FOR EXAM: Vulva cancer EXAM ORDER DATE: 33:48 PM Ordering M.D.: Alejandro Fontaine MD PROCEDURE: [...] inthe lower lobe of the left lung (3/55) measuring 9 mm in size. Heart, great vessels, pulmonary vessels, mediastinum: Grossly normal. Lymph nodes: No axillary, internal mammary, hilar, or mediastinal adenopathy. Musculoskeletal/chest wall: Degenerative changes are present in the spine. Visualized upperabdomen: Atherosclerotic calcifications are present in the abdominal aorta IMPRESSION: Previously seen opacity in the right lower lobe and left upper lobe are no longer present. The nodule in the leftlower lobe retrocardiac region () appears PAGE 1 Signed Report (CONTINUED) Name: RHONA PEREIRA [facility] : 1970 Age/S: 52 / F [address] [facility] Unit #: [id number] Loc: [place] [address] Phys: Alejandro Fontaine MD Acct: [id number] Dis Date: Status: REG CLI PHONE #: [phone] Exam Date: 04/05/2023 1613 FAX #: [phone] Reason: EXAMS: CPT CODE: [id number] CT CHEST W/CONTRAST 50859 (Continued) slightly smaller from the previous examination. Follow-up CT scan in 6-8 weeks is recommended to assess for resolution since it is unclear whether this represents an infectious process or represents pulmonary metastases. Location: [facility] at 1644 Reported and signed by: Nahid Aguilar MD CC: Alejandro Fontaine MD Technologist:NEEMA LUTHER, RT(R) CT CTDI: DLP: Trnscb Date/Time: 04/05/2023 (1643) [email or web address] Orig Print D/T: S: 04/05/2023 (1646) PAGE 2 Signed Report- PET/CT TUMOR [facility] [id number] 09:09:00 [facility]Name: RHONA PEREIRA : 1970 Sex: F FAX: Y Alejandro Fontaine MD [phone] Brady: St: [facility] Name: RHONA PEREIRA [facility] : 1970 Age/S: 52/F [address] [facility] Unit #: [id number] Loc: [place] [address] Phys: Alejandro Fontaine MD Acct: [id number] Dis Date: Status: SAHARA CLI PHONE #: [phone] Exam Date: 03/25/2023 1505 FAX #: [phone] Reason: VULVAR CANCER EXAMS: CPT CODE: [id number] PET/CT TUMOR SK BS MIDTH 23466 HISTORY: Restaging vulvar cancer. COMPARISON: PET/CT scan from May 25, 2022 and January 28, 2023. Location: [facility]. PET/CT SCAN: 12 mCi of FDG administered. [...] with SUV ranging up to 2. Differential di agnosis would include pneumonia versus metastatic lesions. Close follow-up. 5 mm left hilar lymph node with SUV ranging up to 2 is borderline. PAGE 1 Signed Report (CONTINUED) FAX: Alejandro Ramsey MD [phone] Brady: St: DEP --------- Name: RHONA PEREIRA [facility] : 1970 Age/S: 52/F [address] [facility] Unit #: [id number] Loc: [place] [address] Phys: Alejandro Fontaine MD Acct: [id number] Dis Date: Status: DEP CLI PHONE #: [phone] Exam Date: 03/25/2023 2631 FAX #: [phone] Reason: VULVARCANCER EXAMS: CPT CODE: [id number] PET/CT TUMOR SK BS MIDTH 97809 (Continued) 3 retroperitoneal paraceliac lymph nodes on the right and anterior to the celiac axis measuring up to 3 cm. SUV ranging up to 3.5. These are not seen on the previous examination. No other pathologic adenopathy or evidence for distant metastatic disease. at 0909 Reported and signed by: Christofer Haas M.D. CC: Alejandro Fontaine MD Technologist: Bong Welch [facility] Trnscrd Date/Time/By: 03/27/2023 (908) : By: [email or web address] Orig Print D/T: S: 03/27/2023 (12) PAGE 2 Signed Report- PET/CT TUMOR SK BS [id number] 15:38:00 [facility] 1970 Sex: F FAX: Y Alejandro Fontaine MD [phone] Brady: B St: SAHARA Name: RHONA PEREIRA [facility] : 1970 Age/S: 52/F [address] [facility] Unit #: [id number] Loc: [place] [address] Phys: Alejandro Fontaine MD Acct: [id number] Dis Date: Status: SAHARA CLI PHONE #: [phone] Exam Date: 01/28/2023 1237 FAX #: [phone] Reason: C51.8 EXAMS: CPT CODE: [id number] PET/CT TUMOR SK MIDTH 54381 EXAMINATION: PET/CT TUMOR SKULL BASE TO MID [...] parapharyngeal lymphoid tissue, salivary glands and muscles isnoted. No FDG- avid cervical adenopathy is identified. Thorax: Bilateral lung pereira are clear without pulmonary nodule or abnormal FDG avidity. Mediastinal structures are normal in noncontrast appearance. No enlarged nodes by size criteria nor abnormal FDG-avidity. Abdomen/Pelvis: There is heterogeneous physiologic hepatic and splenic uptake without focal hypermetabolic mass lesions. No abnormal FDGuptake within the adrenal glands. Within the vulvar [...] PAGE 1 Signed Report (CONTINUED) FAX: Alejandro Mcbride MD [phone] Brady: B St: DEP Name: RHONA PEREIRA [facility] : 1970 Age/S: 52/F [address] Unit #: [id number] Loc: [place] [address] Phys: Alejandro Fontanie MD Acct: [id number] Dis Date: Status: DEP CLI PHONE #: [phone] Exam Date: 01/28/2023 1236 FAX #: [phone] Reason: C51.8 EXAMS: CPT CODE: [id number] PET/CT TUMOR SK MIDTH 61551 (Continued) at 1538 Reported and signed by: Ish James M.D. CC: Alejandro Fontaine MD Technologist: Bong Welch [employer]ICAL LABORATORY TECHNOLOGIST Trnscrd Date/Time/By: 01/31/2023 (1538) : By: [email or web address] Orig Print D/T: S: 01/31/2023 (4366) PAGE 2 Signed Report- CT ABD PELVIS [id number] 00:00:00 [facility] : 1970 Sex: F Name: RHONA PEREIRA [facility] : 1970 Age/S: 52 / F [address] [place] [address] Unit #: [id number] Loc: [place] [address] Phys: Alejandro Fontaine MD Acct: [id number] Dis Date: Status: DEP CLI PHONE #: [phone] Exam Date: 08/23/2022 1521 FAX #: [phone] Reason: MALIGNANT NEOPLASM OF OVERLAPPING SITES EXAMS: CPT CODE: [id number] CT ABD PELVIS W/CONT 08810 PROCEDURE INFORMATION: Exam: CTAbdomen And Pelvis With [...] 1 Signed Report (CONTINUED) Name: RHONA PEREIRA [facility] Procious : 1970 Age/S: 52 / F [address] [place] [address] Unit #: [id number] Loc: [place] [address] Phys: Alejandro Fontaine MD Acct: [id number] Dis Date: Status: DEP CLI PHONE #: [phone] Exam Date: 08/23/2022 1521 FAX #: [phone] Reason: MALIGNANT NEOPLASM OF OVERLAPPING SITES EXAMS: CPT CODE: [id number] CT ABD PELVIS W/CONT 01020 (Continued) at 1210 Reported and signed by: Johnny Merlos M.D. CC: Alejandro Fontaine MD Technologist:Sg Pearce, RT(R)(CT) CTDI: DLP: Trnscb Date/Time: 08/25/2022 (1210) t.[email or web address].[email or web address] Orig Print D/T: S: 08/25/2022 (1210) PAGE 2 Signed IhdnirE-[id number] 04:37:07 Test Item Value Reference Interpretation Comments Range D-DIMER (test code = See_Comment H [Autom ated 0456899421) message] The system which generated this result [...] diagnosis. Lab Interpretation Abnormal (test code = 91504-9) [facility] (NA, K, CL, CO2, GLUCOSE, BUN, CREATININE, CA)2022-07-15 04:31:05 Test Item Value Reference Range Interpretation Comments NA (test code = 140 mmol/L 135-145 2343715087) K (test code = 4.0 mmol/L 3.5-5 3487339675) CL (test code = 101 mmol/L 98-108 0484254363) CO2 TOTAL (test code = 33 mmol/L 23-31 H 8082279110) AGAP (test code = 2-16 6253785848) BUN (test code = 13 mg/dL 7-23 6247750460) GLUCOSE (test code = 103 mg/dL 70-110 4701780395) CREATININE (test code = 0.58 mg/dL 0.5-1.04 7913627500) CALCIUM (test code = 9.2 mg/dL 8.6-10.6 2914593338) eGFR (test code = mL/min/1.73m2 6601159062) LATESHA (test code = LATESHA) Association of [...] tests). Lab Interpretation Abnormal (test code = 75048-7) [facility] WITH [id number] 04:17:03 Test Item Value Reference Range Interpretation [...] (test code = 51.5 fL 39-49.9 H 24040-8) RDW-CV (test code = 14.9 % 12-15.5 788-0) PLT (test code = See_Comment [Automated 777-3) message] The sy stem which generated this result transmitted reference range : 166 - 358 10*3/ ?L. The reference r felipa was not used to interpret this result as normal/abnormal . MPV (test code = 8.8 fL 9.5-12.9 L 46715-8) NRBC/100 WBC (test See_Comment [Automat ed code = 9636866601) message] The system which generated this result transmitted reference range : 0.0 - 10.0 /100 WBCs. The refer ence range was not u sed to interpret th is result as normal/abnormal . NRBC x10^3 (test code See_Comment [Auto mated = 2170507220) message] The s ystem which generated this result transmitted reference range : 10*3/?L. The reference range was not used to interpret this result as normal/abnormal . GRAN MAT (NEUT) % 52.0 % (test code = 770-8) IMM GRAN % (test code 0.30 % = 4381582264) LYMPH % (test code = 33.5 % 736-9) MONO % (test code = 13.3 % 5905-5) EOS % (test code = 0.6 % 713-8) BASO % (test code = 0.3 % 706-2) GRAN MAT x10^3(ANC) 4.14 10*3/uL 1.88-7.09 (test code = 9864315494) IMM GRAN x10^3 (test 0-0.06 code = 0747945352) LYMPH x10^3 (test code 2.67 10*3/uL 1.32-3.29 = 731-0) MONO x10^3 (test code 1.06 10*3/uL 0.33-0.92 H = 742-7) EOS x10^3 (test code = 0.05 10*3/uL 0.03-0.39 711-2) BASO x10^3 (test code 0.01-0.07 = 704-7) Lab Interpretation Abnormal (test code = 61054-7) [facility]- PET/CT TUMOR SK [id number] 00:00:00 [facility] : 1970 Sex: F FAX: Alejandro Ramsey MD [phone] Brady: NEVIL[address] St: REG Name: [facility] PerrinProcious : 1970 Age/S: 52/F [address] [place] [address] Unit #: [id number] Loc: [place] [address] Phys: Alejandro Fontaine MD Acct:[id number] Dis Date: Status: REG CLI PHONE #: [phone] Exam Date: 05/25/2022 1442 FAX #: [phone] Reason: VULVAR CA C51.8 EXAMS: CPT CODE: [id number] PET/CT TUMOR SK BS MIDTH 92277 PROCEDURE INFORMATION: Exam: PET/CT Skull Base to [...] metabolically active areas are noted within the osse ous structures Soft tissues: No metabolically active areas are noted within the soft tissue. Other findings: CT findings:Moderate emphysematous changes are present. The aorta demonstrates moderate atherosclerotic PAGE 1 Signed Report (CONTINUED) FAX: Alejandro Ramsey MD [phone] Brady: St: G Name: RHONA PEREIRA [facility] : 1970 Age/S: 52/F [address] [place] [address] Unit #: [id number] Loc: [place] [address] Phys: lAejandro Fontaine MD Acct: [id number] Dis Date: Status: REG CLI PHONE #: [phone] Exam Date: 05/25/2022 1442 FAX #: [phone] Reason: VULVAR CA C51.8 EXAMS: CPT CODE: [id number] PET/CT TUMOR SK BS MIDTH 14195 (Continued) calcification. There are coronary arterial calcifications. [...] Roshni Richey, RT(N)(CT)(PET); ... Trnscrd Date/Time/By: 05/25/2022 (1712) : By: [email or web address] OrigPrint D/T: S: 05/25/2022 (9500) PAGE 2 Signed ReportCOMP. METABOLIC PANEL ([id number])2022-04-01 05:45:46 Test Item Value Reference Range Interpretation Comments NA (test code = 139 mmol/L 135-145 4052766271) K (test code = 4.0 mmol/L 3.5-5.0 6180537278) CL (test code = 101 mmol/L 98-108 7492826504) CO2 TOTAL (test code = 32 mmol/L 23-31 H 9268084866) AGAP (test code = 2-16 7359525393) BUN (test code = 15 mg/dL 7-23 7872110195) GLUCOSE (test code = 90 mg/dL 70-110 3335789830) CREATININE (test code = 0.67 mg/dL 0.50-1.04 9082806849) TOTAL BILI (test code = 0.3 mg/dL 0.1-1.4 3035180715) CALCIUM (test code = 8.8 mg/dL 8.6-10.6 6915121048) T PROTEIN (test code = 7.0 g/dL 6.3-8.2 8056667600) ALBUMIN (test code = 4.2 g/dL 3.5-5.0 5568742394) ALK PHOS (test code = 63 U/L 34-122 7252556808) ALTv (test code = 14 U/L 5-35 1742-6) AST(SGOT) (test code = 26 U/L 13-40 4055386852) eGFR (test code = mL/min/1.73m2 9127257008) LATESHA (test code = LATESHA) Association of [...] tests). Lab Interpretation Abnormal (test code = 99018-4) [facility] WITH [id number] 05:26:19 Test Item Value Reference Range Interpretation Comments WBC (test code = See_Comment [Automated 1972-2) message] The sy stem which generated this result transmitted reference range : 4.30 - 11.10 10*3/?L. The reference range was not used to interpret this result as normal/abnormal . RBC (test code = See_Comment [Automated 178-8) message] The sy stem which generated this [...] RDW-SD (test code = 49.9 fL 39.0-49.9 98987-0) RDW-CV (test code = 14.2 % 12.0-15.5 788-0) PLT (test code = See_Comment [Automated 372-3) message] The sy stem which generated this result transmitted reference range : 166 - 358 10*3/ ?L. The reference r felipa was not used to interpret this result as normal/abnormal . MPV (test code = 8.8 fL 9.5-12.9 L 95629-8) NRBC/100 WBC (test See_Comment [Automat ed code = 1955960780) message] The system which generated this result transmitted reference range : 0.0 - 10.0 /100 WBCs. The refer ence range was not u sed to interpret th is result as normal/abnormal . NRBC x10^3 (test code <0.01 See_Comment [Auto mated = 7232733728) message] The s ystem which generated this result transmitted reference range : 10*3/?L. The reference range was not used to interpret this result as normal/abnormal . GRAN MAT (NEUT) % 46.5 % (test code = 770-8) IMM GRAN % (test code 0.20 % = 8411600200) LYMPH % (test code = 40.3 % 736-9) MONO % (test code = 11.4 % 5905-5) EOS % (test code = 1.1 % 713-8) BASO % (test code = 0.5 % 706-2) GRAN MAT x10^3(ANC) 4.42 10*3/uL 1.88-7.09 (test code = 1820400805) IMM GRAN x10^3 (test <0.03 0.00-0.06 code = 5137375238) LYMPH x10^3 (test code 3.84 10*3/uL 1.32-3.29 H = 731-0) MONO x10^3 (test code 1.09 10*3/uL 0.33-0.92 H = 742-7) EOS x10^3 (test code = 0.10 10*3/uL 0.03-0.39 711-2) BASO x10^3 (test code 0.05 10*3/uL 0.01-0.07 = 704-7) Lab Interpretation Abnormal (test code = 76259-0) [facility], THIRD [id number] 01:04:39 Test Item Value Reference Range Interpretation Comments TSH, THIRD GENERATION (test code 0.923 UIU/ML 0.400-4.100 = 2821) COMPREHENSIVE METABOLIC [id number] 00:09:04 Test Item Value Reference Range Interpretation Comments GLUCOSE (test code = 108 MG/DL 70-99 H 2216) BUN (test code = 9 MG/DL 6-20 2207) CREATININE (test 0.59 MG/DL 0.60-1.30 L code = 2214) eGFR (2020 CKD-EPI) 108 >60 (test code = 51514) ML/MIN/1.73 CALC BUN/CREAT (test 15 RATIO 6-28 code = 2235) SODIUM (test code = 141 MEQ/L 997-432 3548) POTASSIUM (test code 3.6 MEQ/L 3.5-5.4 = 2227) CHLORIDE (test code 102 MEQ/L 95-107 = 2214) CARBON DIOXIDE (test 26 MEQ/L 19-31 code = 220) CALCIUM (test code = 9.5 MG/DL 8.5-10.5 2208) PROTEIN, TOTAL (test 7.5 G/DL 6.1-8.3 code = 222) ALBUMIN (test code = 4.5 G/DL 3.5-5.2 [...] code = 13 U/L 5-40 2218) LIPID [id number] 00:09:04 Test Item Value Reference Range Interpretation [...] MOREINFORMATION , SEE CLIENT ANNOUNCE MENT AT [email or web address] [email or web address] RATIO LDL/HDL 1.84 RATIO <3.22 UNLESS O THERWISE (test code = 2238) INDICATED , ALL TESTING PERFORMED [facility], [address] [place] [address] [facility] DIRECTOR: GILES BURGESS M.D. CLIA NUMBER [id number] CAP ACCREDITATION N O. [id number] CBC W/AUTO DIFF WITH [id number] 03:06:30 Test Item Value Reference Range Interpretation [...] RBCS 0.00 K/UL 0.00-0.11 (test code = 91526)
--- NOTE | 2023-08-23 16:17 | RAD REPORT ---
EXAM DESCRIPTION: RAD - Chest Single View - 08/23/2023 4:08 pm CLINICAL HISTORY: DYSPNEA Chest pain. COMPARISON: Chest Single View dated 04/22/2023; Chest Single View dated 04/21/2023; Chest Single View da yola 04/14/2023; Chest Single View dated 03/28/2023 FINDINGS: Portable technique limits examination quality. The lungs are emphysematous but grossly clear. The heart is normal in size. No displaced fractures. IMPRESSION: Prominent COPD.
[2023-08-23] MEDS ORDERED: FAMOTIDINE 20 MG/2 ML VIAL IV ONE (16:30)
[2023-08-23] MEDS ORDERED: NA CHLORIDE 0.9% 1,000 ML ONE (16:30)
[2023-08-23 16:49] LABS: Absolute Lymphocytes (CBC) 1.4 K/uL (0.7-4.9); Hematocrit 43.6 % (36.0-45.0); Lymphocytes % 16.5 % (15.3-44.8); MCV 101.1 fL (80-100); MPV 6.9 fL (7.6-11.3); Platelets 287 thou/uL (152-406); Protime INR 0.99; RBC Red Blood Cell Count 4.31 M/uL (3.86-4.86)
[2023-08-23 16:50] LABS: Specific Gravity 1.009 (1.005-1.030); Urine Bacteria <20 /HPF (<20); Urine Bilirubin NEGATIVE (Negative); Urine Blood 1+ (Negative); Urine Clarity Turbid (Clear); Urine Color Colorless (Yellow); Urine Glucose NEGATIVE (Negative); Urine Protein TRACE (Negative); Urine RBC <5 /HPF (None Seen); Urine Urobilinogen Normal (Normal)
[2023-08-23 17:01] LABS: ALT/SGPT 27 U/L (13-56); AST/SGOT 18 U/L (15-37); Albumin 3.6 g/dL (3.4-5.0); Alkaline Phosphatase 57 U/L (45-117); BUN Blood Urea Nitrogen 14 mg/dL (7-18); Bicarbonate 28 mEq/L (21-32); Bilirubin Direct < 0.1 mg/dL (0-0.2); Bilirubin Indirect, Calculated ND mg/dL (0.2-0.8); Bilirubin Total 0.3 mg/dL (0.2-1.0); Glomerular Filtration Rate 100 ml/min (=/>90); Glucose Level 125 mg/dL (74-106); Lipase 24 U/L (13-75); NT PRO-BNP 68 pg/mL (<125); Protein, Total 7.6 g/dL (6.4-8.2); Sodium Level 139 mEq/L (136-145); Troponin High Sensitivity 4.9 pg/mL (<58.9)
[2023-08-23] MEDS ORDERED: predniSONE 20 MG TAB ONE (17:10)
[2023-08-23] MEDS ORDERED: METHYLPREDNISOLONE 125 MG INJ ONE (17:10)
[2023-08-23] MEDS ORDERED: IPRATROPIUM BROM 0.5MG/2.5ML ONE (17:11)
[2023-08-23] MEDS ORDERED: Levofloxacin500mg IV 500 MG/100 ML BAG IV ONE (17:11)
[2023-08-23] MEDS ORDERED: LEVALBUTEROL 1.25 MG/3 ML NEB ONE ×3 (17:11→19:25)
[2023-08-23] MEDS ORDERED: MAGNESIUM SULFATE 1 gm IVPB 1 GM/100 ML BAG IV ONE (17:12)
--- NOTE | 2023-08-23 17:32 | ER ---
Nurse's Notes [facility] Name: Abbey Alves Age: 53 yrs Sex: Female : 1970 Arrival Date: 08/23/2023 Time: 15:31 Bed 17 Private MD: Diagnosis: COPD/ Chronic obstructive pulmonary disease with (acute) exacerbation;Hypoxemia;Tobacco abuse counseling;Tobacco use Presentation: 08/23 15:40 Chief complaint: Chief complaint: Patient states: SOB today, pt states "I've exhausted [facility] all my resources at home, I took my nebulizer, my inhaler, my home oxygen, and double dose of my prednisone and not feeling any better". Pt also reports rectal bleeding that began 2 hours ago, pt states "I have vulvar cancer and it just came back, it's close to my colon so I am not sure if it has anything to do with the bleeding, but they are still deciding if I need chemo again". 15:40 Method Of Arrival: Ambulatory [facility] 15:40 Coronavirus screen: shortness of breath. Ebola Screen: Patient denies travel to an [facility] Ebola-affected area in the 21 days before illness onset. Initial Sepsis Screen: Does the patient meet any 2 criteria? RR > 20 per min. HR > 90 bpm. Yes Does the patient have a suspected source of infection? No. Patient's initial sepsis screen is negative. Risk Assessment: Do you want to hurt yourself or someone else? Patient reports no desire to harm self or others. Onset of symptoms was August 23, 2023. 15:40 Acuity: KEELY 3 aa5 Triage Assessment: 19:30 Respiratory: the patient has mild shortness of breath. jj7 19:39 Respiratory: Reports. jj7 Historical: - Allergies: 15:40 No Known Allergies; aa5 - Home Meds: 15:40 Eliquis 5 mg Oral tablet 2 times per day [Active]; losartan oral [Active]; aa5 - PMHx: 15:40 COPD; Hypertensive disorder; Vulva and cervical CA; neuropathy; Previous chemotherapy; aa5 15:40 DVT; aa5 - PSHx: 15:40 section; hysterectomy; aa5 - Immunization history:: Adult Immunizations unknown. - Social history:: Smoking status: Patient reports the use of cigarette tobacco products, smokes one-half pack cigarettes per day. Screenin:00 [facility] ED Fall Risk Assessment (Adult) History of falling in the last 3 months, cm10 including since admission No falls in past 3 months (0 pts) Confusion or Disorientation No (0 pts) Intoxicated or Sedated No (0 pts) Impaired Gait No (0 pts) Mobility Assist Device Used No (0 pt) Altered Elimination No (0 pt) Score/Fall Risk Level 0 - 2 = Low Risk Oriented to surroundings, Maintained a safe environment, Hourly rounding (assess needs \\T\\ fall precautionary measures) done. Abuse screen: Denies threats or abuse. Denies injuries from another. Nutritional screening: No deficits noted. Tuberculosis screening: No symptoms or risk factors identified. Assessment: 17:00 General: Appears in no apparent distress. comfortable, Behavior is calm, cooperative. cm10 Pain: Denies pain. Neuro: No deficits noted. Level of Consciousness is awake, alert, obeys commands, Oriented to person, place, time, situation. Cardiovascular: No deficits noted. Rhythm is sinus rhythm. Respiratory: No deficits noted. Airway is patent Respiratory effort is even, unlabored, Respiratory pattern is regular, symmetrical, Breath sounds with wheezes bilaterally. 18:00 Reassessment: Patient appears in no apparent distress at this time. Patient and/or cm10 family updated on plan of care and expected duration. Pain level reassessed. Patient is alert, oriented x 3, equal unlabored respirations, skin warm/dry/pink. 19:30 Reassessment: PT SITTING IN BED. ASSUMED CARE TO GIVE DISCHARGE INSTRUCTIONS ONLY. PT diandraj7 VERBALIZES UNDERSTANDING. PT OFFERED WHEELCHAIR ASSISTANCE TO CAR. PT REFUSED AND WANTED TO WALK OUT. Vital Signs: 15:40 BP 151 / 86; Pulse 93; Resp 24 S; Temp 98.4(TE); Pulse Ox 94% on R/A; Weight 42.64 kg aa5 (R); Height 5 ft. 0 in. (R); 16:30 BP 100 / 85; Pulse 57; Resp 18; Pulse Ox 99% ; cm10 19:30 BP 114 / 63; Pulse 93; Resp 16; Pulse Ox 95% on R/A; Pain 0/10; jj7 15:40 Body Mass Index 18.36 (42.64 kg, 152.4 cm) aa5 19:30 Pain Scale: Adult j7 ED Course: 15:36 Patient arrived in ED. mg5 15:40 Arm band placed on. aa5 15:43 Cheko Nunez MD is Attending Physician. dann 15:59 Triage completed. aa5 16:10 XRAY Chest (1 view) In Process Unspecified. EDMS 16:31 Basic Metabolic Panel Sent. cm10 16:31 CBC with Diff Sent. cm10 16:31 LFT's Sent. cm10 16:32 Magnesium Sent. cm10 16:32 NT PRO-BNP Sent. cm10 16:32 PT-INR Sent. cm10 16:32 Troponin HS Sent. cm10 16:32 Initial lab(s) drawn, by me, sent to lab. Inserted saline lock: 20 gauge in right cm10 forearm, using aseptic technique. Blood collected. Oxygen administration via nasal cannula \\T\\ 2L/min Response to oxygen therapy: symptoms improved. 16:44 Urine collected: clean catch specimen, clear. tm3 17:00 Patient has correct armband on for positive identification. Bed in low position. Call cm10 light in reach. Side rails up X2. Provided Education on: ER Process and procedures. . Client placed on continuous cardiac and pulse oximetry monitoring. NIBP monitoring applied. Warm blanket given. 17:10 First set of blood cultures drawn by me. tm3 17:31 Richard Parada MD is Referral Physician. dann 17:35 Second set of blood cultures drawn by me. tm3 17:41 No provider procedures requiring assistance completed. cm10 19:37 Leonides Alvarado, ANJEL is Primary Nurse. jj7 19:38 IV discontinued, intact, bleeding controlled, No redness/swelling at site. Pressure jj7 dressing applied. Administered Medications: 16:31 Drug: NS 0.9% IV 1000 ml IV at 125 ml/hr continuous Route: IV; Rate: 125 ml/hr; Site: cm10 right forearm; 16:31 Drug: Famotidine IVP 20 mg IVP once; dilute with 10 mL 0.9% NaCl; give over 2 minutes cm10 Route: IVP; Site: right forearm; 17:35 Follow up: Response: No adverse reaction cm10 17:15 Drug: MethylPrednisoLONE IVP 2 mg/kg IVP once Route: IVP; Site: right forearm; cm10 17:34 Follow up: Response: No adverse reaction cm10 17:35 Follow up: Response: No adverse reaction cm10 17:15 Drug: Levalbuterol Inhalation 3.75 mg Inhalation once Route: Inhalation; cm10 17:35 Follow up: Response: No adverse reaction cm10 17:15 Drug: Ipratropium Inhalation Aerosol 0.5 mg Inhalation once Route: Inhalation; cm10 17:34 Follow up: Response: No adverse reaction cm10 17:15 Drug: Magnesium Sulfate IVPB 1 grams IVPB once over 1 hrs Route: IVPB; Infused Over: 1 cm10 hrs; Site: right forearm; 18:14 Follow up: Response: No adverse reaction; IV Status: Completed infusion; IV Intake: cm10 100ml 17:34 Drug: predniSONE PO 40 mg PO once Route: PO; cm10 19:11 Follow up: Response: No adverse reaction cm10 17:57 CANCELLED (Duplicate Order): levalbuterol1.25 mg Inhalation once dann 18:15 Drug: levofloxacin IVPB 500 mg 100 ml IVPB once over 60 mins Volume: 100 ml; Route: cm10 IVPB; Infused Over: 60 mins; Site: right forearm; 19:11 Follow up: IV Status: Completed infusion; IV Intake: 100ml cm10 19:11 Drug: Levalbuterol Inhalation 2.5 mg Inhalation once Route: Inhalation; cm10 19:20 Drug: Nicoderm CQ Transdermal Patch 21 mg/24 hr 1 patches Transdermal once {Note: cm10 placed on right arm.} Route: Transdermal; Site: affected area; Medication: 17:00 VIS not applicable for this client. cm10 Intake: 18:14 IV: 100ml; Total: 100ml. cm10 19:11 IV: 100ml; Total: 200ml. cm10 Outcome: 17:32 Discharge ordered by . dann 19:38 Discharged to home ambulatory, jamy 19:38 Condition: improved 19:38 Discharge instructions given to patient, Instructed on discharge instructions, medication usage, benefits of quitting smoking, Demonstrated understanding of instructions, follow-up care, medications, Prescriptions given X 3, 19:43 Patient left the ED. jj7 Signatures: Dispatcher [employer] EDMS Mario Rockwell tm3 Cheko Nunez MD MD cha Calderon, Audri, RN RN [email or web address] Leonides Alvarado RN RN jjJing Velasquez RN RN cm10 Chel Chun mg5 Corrections: (The following items were deleted from the chart) 15:57 15:40 PMHx: Hypertensive disorder; swapna [facility] 16:01 15:40 Chief complaint: [email or web address] aa5 17:33 15:15 Ipratropium Inhalation Aerosol 0.5 mg Inhalation 10 10
--- NOTE | 2023-08-23 17:33 | EDPHYS ---
Physician Documentation [facility] Name: Abbey Alves Age: 53 yrs Sex: Female : 1970 Arrival Date: 08/23/2023 Time: 15:31 Bed 17 Private MD: REJI Physician Cheko Nunez HPI: 08/23 17:13 This 53 yrs old Female presents to ER via Ambulatory with complaints of dann Breathing Difficulty, Abd Bleeding. 17:13 The patient has shortness of breath at rest, with light activity. Onset: The dann symptoms/episode began/occurred 2 day(s) ago. Duration: The symptoms are continuous, and are steadily getting worse. The patient's shortness of breath has no apparent modifying factors. Associated signs and symptoms: Pertinent positives: non-productive cough. Historical: - Allergies: 15:40 No Known Allergies; aa5 - Home Meds: 15:40 Eliquis 5 mg Oral tablet 2 times per day [Active]; losartan oral [Active]; aa5 - PMHx: 15:40 COPD; Hypertensive disorder; Vulva and cervical CA; neuropathy; Previous chemotherapy; aa5 15:40 DVT; aa5 - PSHx: 15:40 section; hysterectomy; aa5 - Immunization history:: Adult Immunizations unknown. - Social history:: Smoking status: Patient reports the use of cigarette tobacco products, smokes one-half pack cigarettes per day. ROS: 17:22 Constitutional: Negative for fever, chills, and weight loss, Eyes: Negative for injury, dann pain, redness, and discharge, ENT: Negative for injury, pain, and discharge, Neck: Negative for injury, pain, and swelling, Cardiovascular: Negative for chest pain, palpitations, and edema, Abdomen/GI: Negative for abdominal pain, nausea, vomiting, diarrhea, and constipation, Back: Negative for injury and pain, : Negative for injury, bleeding, discharge, and swelling, MS/Extremity: Negative for injury and deformity, Skin: Negative for injury, rash, and discoloration, Neuro: Negative for headache, weakness, numbness, tingling, and seizure, Psych: Negative for depression, anxiety, suicide ideation, homicidal ideation, and hallucinations, Allergy/Immunology: Negative for hives, rash, and allergies, Endocrine: Negative for neck swelling, polydipsia, polyuria, polyphagia, and marked weight changes, Hematologic/Lymphatic: Negative for swollen nodes, abnormal bleeding, and unusual bruising, 17:22 Respiratory: Positive for cough, shortness of breath, wheezing, expiratory, 17:22 MS/extremity: Negative for acute changes, Exam: 17:22 Constitutional: This is a well developed, well nourished patient who is awake, alert, dann and in no acute distress. Head/Face: Normocephalic, atraumatic. Eyes: Pupils equal round and reactive to light, extra-ocular motions intact. Lids and lashes normal. Conjunctiva and sclera are non-icteric and not injected. Cornea within normal limits. Periorbital areas with no swelling, redness, or edema. ENT: Nares patent. No nasal discharge, no septal abnormalities noted. Tympanic membranes are normal and external auditory canals are clear. Oropharynx with no redness, swelling, or masses, exudates, or evidence of obstruction, uvula midline. Mucous membranes moist. Neck: Trachea midline, no thyromegaly or masses palpated, and no cervical lymphadenopathy. Supple, full range of motion without nuchal rigidity, or vertebral point tenderness. No Meningismus. Chest/axilla: Normal chest wall appearance and motion. Nontender with no deformity. No lesions are appreciated. Cardiovascular: Regular rate and rhythm with a normal S1 and S2. No gallops, murmurs, or rubs. Normal PMI, no JVD. No pulse deficits. Abdomen/GI: Soft, non-tender, with normal bowel sounds. No distension or tympany. No guarding or rebound. No evidence of tenderness throughout. Back: No spinal tenderness. No costovertebral tenderness. Full range of motion. Skin: Warm, dry with normal turgor. Normal color with no rashes, no lesions, and no evidence of cellulitis. MS/ Extremity: Pulses equal, no cyanosis. Neurovascular intact. Full, normal range of motion. Neuro: Awake and alert, GCS 15, oriented to person, place, time, and situation. Cranial nerves II-XII grossly intact. Motor strength 5/5 in all extremities. Sensory grossly intact. Cerebellar exam normal. Normal gait. Psych: Awake, alert, with orientation to person, place and time. Behavior, mood, and affect are within normal limits. 17:22 ECG was reviewed by the Attending Physician. 17:22 Respiratory: the patient does not display signs of respiratory distress, Respirations: no acute changes, is not noted, labored breathing, is not present, Breath sounds: bronchial sounds, that are mild, are scattered, decreased breath sounds, that are mild, are scattered, rhonchi, that are mild, stridor, is not appreciated, wheezing: expiratory is scattered, 17:22 Musculoskeletal/extremity: DVT Exam: No signs of deep vein thrombosis. no pain, no swelling, no tenderness, negative Homans' sign noted on exam, no appreciated bluish discoloration, no erythema, no increased warmth, Vital Signs: 15:40 BP 151 / 86; Pulse 93; Resp 24 S; Temp 98.4(TE); Pulse Ox 94% on R/A; Weight 42.64 kg aa5 (R); Height 5 ft. 0 in. (R); 16:30 BP 100 / 85; Pulse 57; Resp 18; Pulse Ox 99% ; cm10 19:30 BP 114 / 63; Pulse 93; Resp 16; Pulse Ox 95% on R/A; Pain 0/10; jj7 15:40 Body Mass Index 18.36 (42.64 kg, 152.4 cm) aa5 19:30 Pain Scale: Adult jj7 MDM: 15:43 Patient medically screened. dann 17:25 Differential diagnosis: Anemia Anxiety Reaction asthma, Bronchitis CHF exacerbation, dann Chronic Obstructive Pulmonary Disease pneumonia, Pneumothorax pulmonary edema, Pulmonary Embolism reactive airway disease, Unstable Angina. Antibiotic administration: Levaquin given. Immunization status: Influenza vaccine: within last 5 years. Data reviewed: vital signs, nurses notes, lab test result(s), EKG, radiologic studies, plain films. Consideration of Admission/Observation Escalation of care including admission/observation considered. I considered the following discharge prescriptions or medication management in the emergency department Medications were administered in the Emergency Department. See MAR. Independent interpretation of the following test(s) in the Emergency Department EKG: See my EKG interpretation above. Test considered but Not performed: CT: CT CHEST RO PE/PTX. Care significantly affected by the following chronic conditions: Diabetes, Hypertension, Chronic Obstructive Pulmonary Disease, Cancer. 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 08/23 15:48 Order name: Basic Metabolic Panel; Complete Time: 17:11 [facility] 08/23 15:48 Order name: CBC with Diff; Complete Time: 17:11 [facility] 08/23 15:48 Order name: LFT's; Complete Time: 17:11 08/23 15:48 Order name: Magnesium; Complete Time: 17:11 [facility] 08/23 15:48 Order name: NT PRO-BNP; Complete Time: 17:11 [facility] 08/23 15:48 Order name: PT-INR; Complete Time: 16:52 [facility] 08/23 15:48 Order name: Troponin HS; Complete Time: 17:11 [facility] 08/23 15:48 Order name: Lipase; Complete Time: 17:11 [facility] 08/23 15:48 Order name: Urinalysis w/ reflexes; Complete Time: 16:52 [facility] 08/23 16:53 Order name: Blood Culture Adult (2) [facility] 08/23 15:48 Order name: XRAY Chest (1 view); Complete Time: 16:52 [facility] 08/23 15:48 Order name: EKG; Complete Time: 15:49 [facility] 08/23 15:48 Order name: Cardiac monitoring; Complete Time: 16:31 [facility] 08/23 15:48 Order name: EKG - Nurse/Tech; Complete Time: 16:31 [facility] 08/23 15:48 Order name: IV Saline Lock; Complete Time: 16:31 [facility] 08/23 15:48 Order name: Labs collected and sent; Complete Time: 16:31 [facility] 08/23 15:48 Order name: O2 Per Protocol; Complete Time: 16:31 [facility] 08/23 15:48 Order name: O2 Sat Monitoring; Complete Time: 16:31 [facility] EC:22 Rate is 76 beats/min. Rhythm is regular. QRS Lohn is Normal. GA interval is normal. QRS dann interval is normal. QT interval is normal. No Q waves. T waves are Normal. No ST changes noted. Clinical impression: NSR w/ Non-specific ST/T Changes and No evidence of ischemia. Interpreted by me. Reviewed by me. Administered Medications: 16:31 Drug: NS 0.9% IV 1000 ml IV at 125 ml/hr continuous Route: IV; Rate: 125 ml/hr; Site: cm10 right forearm; 16:31 Drug: Famotidine IVP 20 mg IVP once; dilute with 10 mL 0.9% NaCl; give over 2 minutes cm10 Route: IVP; Site: right forearm; 17:35 Follow up: Response: No adverse reaction cm10 17:15 Drug: MethylPrednisoLONE IVP 2 mg/kg IVP once Route: IVP; Site: right forearm; cm10 17:34 Follow up: Response: No adverse reaction cm10 17:35 Follow up: Response: No adverse reaction cm10 17:15 Drug: Levalbuterol Inhalation 3.75 mg Inhalation once Route: Inhalation; cm10 17:35 Follow up: Response: No adverse reaction cm10 17:15 Drug: Ipratropium Inhalation Aerosol 0.5 mg Inhalation once Route: Inhalation; cm10 17:34 Follow up: Response: No adverse reaction cm10 17:15 Drug: Magnesium Sulfate IVPB 1 grams IVPB once over 1 hrs Route: IVPB; Infused Over: 1 cm10 hrs; Site: right forearm; 18:14 Follow up: Response: No adverse reaction; IV Status: Completed infusion; IV Intake: cm10 100ml 17:34 Drug: predniSONE PO 40 mg PO once Route: PO; cm10 19:11 Follow up: Response: No adverse reaction cm10 17:57 CANCELLED (Duplicate Order): levalbuterol1.25 mg Inhalation once dann 18:15 Drug: levofloxacin IVPB 500 mg 100 ml IVPB once over 60 mins Volume: 100 ml; Route: cm10 IVPB; Infused Over: 60 mins; Site: right forearm; 19:11 Follow up: IV Status: Completed infusion; IV Intake: 100ml cm10 19:11 Drug: Levalbuterol Inhalation 2.5 mg Inhalation once Route: Inhalation; cm10 19:20 Drug: Nicoderm CQ Transdermal Patch 21 mg/24 hr 1 patches Transdermal once {Note: cm10 placed on right arm.} Route: Transdermal; Site: affected area; Disposition Summary: 08/23/23 17:32 Discharge Ordered Notes: Location: Home dann Problem: new dann Symptoms: have improved dann Condition: Stable dann Diagnosis - COPD/ Chronic obstructive pulmonary disease with (acute) exacerbation dann - Hypoxemia dann - Tobacco abuse counseling dann - Tobacco use dann Followup: dann - With: Private Physician - When: 2 - 3 days - Reason: Recheck today's complaints, Continuance of care, Re-evaluation by your physician Followup: dann - With: Richard Parada MD - When: 2 - 3 days - Reason: Recheck today's complaints, Re-evaluation by your physician Discharge Instructions: - Discharge Summary Sheet dann - Chronic Obstructive Pulmonary Disease dann - Steps to Quit Smoking dann - Health Risks of Smoking dann - Chronic Obstructive Pulmonary Disease Exacerbation dann - Chronic Obstructive Pulmonary Disease, [id number] dann - Steps to Quit Smoking, [id number] dann - Hypoxemia dann - Cough, Adult, [id number] dann - How to Use a Nebulizer, Adult [facility] Forms: - Medication Reconciliation Form dann - Thank You Letter dann - Antibiotic Education dann - Prescription Opioid Use dann - Patient Portal Instructions dann - Leadership Thank You Letter dann - Work release form cm10 Prescriptions: - Xopenex 1.25 mg/3 mL Inhalation Solution for Nebulization - inhale 1 unit NEBULIZATION route every 4-6 hours As needed; 25 unit; Refills: dann 0, Product Selection Permitted - Prednisone 20 mg Oral Tablet - take 2 tablets ORAL route once daily for 5 days; 10 tablet; Refills: 0, Product dann Selection Permitted - levofloxacin 250 mg Oral tablet - take 1 tablet ORAL route once daily; 10 tablet; Refills: 0, Product Selection dann Permitted Signatures: Dispatcher [employer] Cheko Naranjo MD MD cha Calderon, Audri RN RN aa5 Jing Burleson RN RN cm10 Corrections: (The following items were deleted from the chart) 15:57 15:40 PMHx: Hypertensive disorder; swapna barcenas 17:57 17:31 Levalbuterol Inhalation 1.25 mg Inhalation once ordered. dann quigley
[2023-08-23] MEDS ORDERED: NICOTINE 21 MG/PAT TD ONE (19:33)
[2023-08-23 19:57] VITALS: TEMP 98.4
[2023-08-23 20:09] VITALS: BP 114/63; O2SAT 95
--- NOTE | 2023-08-24 16:39 | EKG ---
Test Date: 2023-08-23 Test Time: 16:32:16 Industrial Tech Instructor: TM MEASUREMENT RESULTS: Intervals: Rate: 76 NJ: 114 QRSD: 68 QT: 364 QTc: 409 [place]: P: 76 NJ: 114 QRS: 82 T: 72 INTERPRETIVE STATEMENTS: Normal sinus rhythm Septal infarct, age undetermined Abnormal ECG Compared to ECG 04/21/2023 20:05:25 Myocardial infarct finding now present Short NJ interval no longer present Electronically Signed On 08-24-23 16:37:41 CDT by Jarad Mead
== END 2023-08-23 19:43 | disposition home or self-care (01) ==
LOC: ER 15:31
DX: J44.1 Chronic obstructive pulmonary disease with (acute) exacerbation (principal); R09.02 Hypoxemia; Z72.0 Tobacco use; Z71.6 Tobacco abuse counseling; I10 Essential (primary) hypertension; Z86.718 Personal history of other venous thrombosis and embolism; Z79.01 Long term (current) use of anticoagulants
CPT/HCPCS: 96365; 96367; 93005; 87040 ×2; 85025; 81001; 80048; 36415; 83735; 85610; 80076; 84484; 83690; 83880; 71045; 96375; 99285; J7512; J3475; J7614 ×3; J7644; J2930; J7030

== ENCOUNTER 2024-06-26 10:22 | Observation (INO) | payer OTHER ==
--- OUTSIDE RECORDS SUMMARY | 2024-06-26 10:24 | XMS REPORT | Clinical Summary ---
Author Name Unknown Organization 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 Active Active Problems Problem Noted Date Diagnosed Date Fever greater than 100.4 Fahrenheit 05/18/2019 Vulval pain 05/18/2019 Hypokalemia 05/18/2019 Hypophosphatemia 05/18/2019 Medical History Medical History Date Comments Personal history of cervical cancer Primary vulval cancer Social History Tobacco Use Types Packs/Day Years Used Date Smoking Tobacco: Every Day Cigarettes Smokeless Tobacco: Never Tobacco Cessation:Ready to Q uit: Yes; Counseling Given: Yes Alcohol Use Standard Drinks/Week Comments Never 0 (1 standard drink = 0.6 oz pur e alcohol) Sex and Gender Information Value Date Recorded Sex Assigned at Not on file Gender Identity Not on file Sexual Orientation Not on file Job Start Date Occupation Industry Not on file Not on file Not on file Obstetrics History Plan of Treatment Health Maintenance Due Date Last Done Comments COVID-19 Vaccine ( season) 2023 Influenza Vaccine 07/22/2024
[2024-06-26] MEDS ORDERED: IPRATROPIUM BROM 0.5MG/2.5ML ONE (10:34)
[2024-06-26] MEDS ORDERED: LEVALBUTEROL 1.25 MG/3 ML NEB ONE ×2 (10:34→11:47)
[2024-06-26] MEDS ORDERED: METHYLPREDNISOLONE 125 MG INJ ONE (10:34)
[2024-06-26] MEDS ORDERED: Levofloxacin500mg IV 500 MG/100 ML BAG IV ONE (10:34)
[2024-06-26] MEDS ORDERED: NA CHLORIDE 0.9% 1,000 ML ONE (10:35)
[2024-06-26] MEDS ORDERED: Magnesium Sulfate 2gm IVPB 2 G/50 ML BAG IV ONE (10:41)
[2024-06-26] MEDS ORDERED: LORazepam 2 MG/ML VIAL ONE (10:57)
[2024-06-26 11:06] LABS: Absolute Lymphocytes (CBC) 1.5 K/uL (0.7-4.9); Absolute Monocytes 0.6 K/uL (0.1-1.3); Absolute Neutrophil 8.7 K/uL (1.8-8.0); Basophils % 0.2 % (0-1.3); Eosinophils % 0.1 % (0-4.4); Hematocrit 50.5 % (36.0-45.0); Hemoglobin 16.8 g/dL (12.0-15.0); MCH 33.3 pg (27.0-35.0); MCHC 33.3 g/dL (32.0-36.0); MCV 100.1 fL (80-100); MPV 7.4 fL (7.6-11.3); Monocytes % 5.7 % (3.3-12.3); Nucleated Red Blood Cells % 0.1 % (0-0); Platelets 288 thou/uL (152-406); RBC Red Blood Cell Count 5.04 M/uL (3.86-4.86); Red Cell Distribution Width 13.7 % (12.1-15.2)
--- NOTE | 2024-06-26 11:09 | RAD REPORT ---
EXAM DESCRIPTION: RAD - Chest Single View - 06/26/2024 11:04 am CLINICAL HISTORY: sob Chest pain. COMPARISON: Chest Single View dated 08/23/2023; Chest Single View dated 04/22/2023; Chest Single View d ated 04/21/2023; Chest Single View dated 04/14/2023 FINDINGS: Portable technique limits examination quality. The lungs are emphysematous but grossly clear. The heart is normal in size. No displaced fractures. IMPRESSION: Prominent COPD.
[2024-06-26 11:18] LABS: PT Prothrombin Time 12.4 SECONDS (9.4-12.5); Protime INR 1.11
[2024-06-26 11:25] LABS: ALT/SGPT 28 U/L (13-56); AST/SGOT 22 U/L (15-37); Albumin 4.1 g/dL (3.4-5.0); Albumin/Globulin Ratio 0.9 (1.1-1.8); Alkaline Phosphatase 73 U/L (45-117); Anion Gap 10.6 mEq/L (5.0-15.0); BUN Blood Urea Nitrogen 14 mg/dL (7-18); Bicarbonate 27 mEq/L (21-32); Bilirubin Total 0.6 mg/dL (0.2-1.0); Globulin 4.8 g/dL (2.3-3.5); Glomerular Filtration Rate 102 ml/min (=/>90); Glucose Level 139 mg/dL (74-106); Magnesium 2.1 mg/dL (1.6-2.4); NT PRO-BNP 2450 pg/mL (<125); Potassium 3.6 mEq/L (3.5-5.1); Protein, Total 8.9 g/dL (6.4-8.2); Sodium Level 137 mEq/L (136-145)
[2024-06-26 11:26] LABS: Bilirubin Direct < 0.2 mg/dL (0-0.2); Bilirubin Indirect, Calculated 0.4 mg/dL (0.2-0.8); SARS-CoV-2 Antigen CONTROL BLUE LINE VIS/BG OK
[2024-06-26 11:27] LABS: SARS-CoV-2 Antigen Rapid Res Positive (Negative); Troponin High Sensitivity 248.7 pg/mL (<58.9)
[2024-06-26] MEDS ORDERED: FAMOTIDINE 20 MG/2 ML VIAL IV ONE (11:47)
[2024-06-26] MEDS ORDERED: ASPIRIN 81 MG CHEWABLE TABLET ONE (11:47)
[2024-06-26] MEDS ORDERED: ENOXAPARIN 40 MG/0.4 ML SQ ONE (11:47)
[2024-06-26 12:09] LABS: Blood O2 Saturation 93.5 % (92-98.5)
[2024-06-26 12:10] LABS: Arterial Blood Carboxyhemoglob 1.3 % (0-1.5); Blood Gas THB 16.2 g/dl (12-18)
[2024-06-26 12:14] LABS: Blood Gas Oxyhemoglobin 90.4 % (94-97)
[2024-06-26] MEDS ORDERED: NITROGLYCERIN 0.4 MG/TAB SL PRN (13:29)
[2024-06-26] MEDS ORDERED: MORPHINE 2 MG/ML SYR IV PRN (13:29)
--- NOTE | 2024-06-26 13:41 | P.HP ---
Certification for Inpatient Patient admitted to: Observation With expected LOS: <2 Midnights Patient will require the following post-hospital care: None Practitioner: I am a practitioner with admitting privileges, knowledge of patient current condition, hospital course, and medical plan of care. Services: Services provided to patient in accordance with Admission requirements found in Title 42 Section 412.3 of the Code of Federal Regulations Patient History Date of Service: 06/26/24 Reason for admission: acute hypoxic respiratory failure 2/2 COPD exacerbation and COVID History of Present Illness: Abbey Alves is a 54 year old female with PMHX COPD, DVT, hypertensive disorder, neuropathy, vulvar and cervical cancer s/p chemotherapy who presents to the ED with chief complaint of shortness of breath that began 2 days ago. She reports being prescribed a different inhaler but she didn't use it because it caused thrush. She believes that is why she cannot breath well. On admission to the ED she was found to be COVID positive. She refused the Bipap, ABG showing hypoxia and CBC showing polycythemia, and Troponin 248. EKG reports sinus tachycardia, right atrial enlargement. On evaluation, she reports coughing, does not use home oxygen, rales bilaterally, and tachycardic. Chest xray reports "The lungs are emphysematous but grossly clear. The heart is normal in size. No displaced fractures. IMPRESSION: Prominent COPD" Abbey will be admitted to hospitalist service for further evaluation and treatment. Allergies No Known Allergies Allergy (Verified 04/21/21 04:16) Home Medications: Nifedipine [Nifedipine ER] 30 mg PO DAILY 03/04/23 Albuterol Sulfate [Proair Digihaler] 2 puff PO BID PRN 06/26/24 Fluticasone/Umeclidin/Vilanter [Trelegy Ellipta 100-62.5-25] 2 puff PO BID PRN 06/26/24 Losartan Potassium 100 mg PO DAILY 06/26/24 - Past Medical/Surgical History Diabetic: No -: COPD -: Vulvar & Cervical Cancer in Remission -: Hypertension -: Hysterectomy -: Psychosocial/ Personal History: Patient is , lives at home with . - Family History Mother -: Cancer Notes: Brain cancer Father -: Hypertension - Social History Alcohol use: No CD- Drugs: No Caffeine use: Yes Review of Systems Respiratory: Cough, Shortness of Breath Physical Examination - Vital Signs Pulse: 70 Pulse Ox (%): 91 - Physical Exam General: Alert, In no apparent distress, Oriented x3 HEENT: Atraumatic, Normocephalic, PERRLA Neck: Supple Respiratory: Normal air movement, Crackles/rales Cardiovascular: Normal pulses, Regular rate/rhythm, Normal S1 S2 Capillary refill: <2 Seconds Gastrointestinal: Normal bowel sounds, Soft and benign, Non-distended Musculoskeletal: No swelling Integumentary: No rashes Neurological: Normal speech, Normal tone - Studies Laboratory Data (last 24 hrs) 06/26/24 06/26/24 06/26/24 10:50 10:50 10:50 WBC 10.90 Hgb 16.8 H Hct 50.5 H Plt Count 288 PT 12.4 INR 1.11 Sodium 137 Potassium 3.6 BUN 14 Creatinine 0.69 Glucose 139 H Magnesium 2.1 Total Bilirubin 0.6 AST 22 ALT 28 Alkaline Phosphatase 73 Microbiology Data (last 24 hrs): 06/26/24 10:50 Nasopharnyx Influenza Type A Antigen Screen - Final 06/26/24 10:50 Nasopharnyx Influenza Type B Antigen Screen - Final Assessment and Plan - Plan Assessment and plan Acute hypoxic respiratory failure 2/2 COPD exacerbation COVID positive -CXR- The lungs are emphysematous but grossly clear. The heart is normal in size. No displaced fractures. IMPRESSION: Prominent COPD. -Flu negative, COVID positive -Duonebs, steroids, Oxygen supplementation -Levaquin -follow blood culture -isolation precautions NSTEMI -EKG: No obvious ST segment changes, trend - troponin 248.7, serial pending - Ordered transthoracic echocardiogram -chest x-ray - Consult Cardiology - recommendations appreciated - S/P aspirin 162 mg PO x 1 in ED - Start daily baby aspirin and statin - Symptom control with PRN acetaminophen, nitroglycerin, morphine -continuous telemetry -TSH/FreeT4, A1C, lipid panel pending COPD DVT Hypertensive disorder Neuropathy -Continue home medications Vulvar and Cervical cancer s/p chemotherapy -Follow up outpatient DVT ppx SCD Full code LOS 24 hour obs Discharge Plan: Home Plan to discharge in: 24 Hours - Advance Directives Does patient have a Living Will: No Does patient have a Durable POA for Healthcare: No
[2024-06-26] MEDS ORDERED: LEVALBUTEROL 0.63 MG/3 ML NEB NEB PRN ×2 (13:43→15:44)
[2024-06-26] MEDS ORDERED: ALBUTEROL INHALER 200 PUFF/6.7 GM IH PRN (13:43)
[2024-06-26 15:34] VITALS: BMI 16.6
--- NOTE | 2024-06-26 17:05 | EKG ---
Test Date: 2024-06-26 Test Time: 10:25:24 Systems Support Officer: LANEY MEASUREMENT RESULTS: Intervals: Rate: 105 MN: 116 QRSD: 56 QT: 314 QTc: 415 [place]: P: 83 MN: 116 QRS: 72 T: -70 INTERPRETIVE STATEMENTS: Sinus tachycardia Right atrial enlargement Anteroseptal infarct, age undetermined Abnormal ECG Compared to ECG 08/23/2023 16:32:16 Atrial abnormality now present Sinus rhythm no longer present Myocardial infarct finding still present Electronically Signed On 06-26-24 17:04:23 CDT by Jarad Mead
[2024-06-26] MEDS: HEPARIN/D5W 25,000 UNIT/500 ML BAG IV SCH (17:07)
--- NOTE | 2024-06-26 17:08 | EDPHYS ---
Physician Documentation [facility] Name: Abbey Alves Age: 54 yrs Sex: Female : 1970 Arrival Date: 06/26/2024 Time: 10:22 Bed 4 Private MD: Cheko Robbins HPI: 06/26 10:30 This 54 yrs old Female presents to ER via Unassigned with complaints of dann Shortness Of Breath. 10:30 The patient has shortness of breath at rest, with light activity. Onset: The dann symptoms/episode began/occurred 2 day(s) ago. Duration: The symptoms are continuous, and are steadily getting worse. The patient's shortness of breath is aggravated by exertion, supine position, is alleviated by elevating head, nebulizer treatment, application of supplemental oxygen. Associated signs and symptoms: Pertinent positives: non-productive cough. Severity of symptoms: At their worst the symptoms were moderate this morning. The patient has experienced similar episodes in the past, multiple times. Historical: - Allergies: 11:11 No Known Allergies; ko1 - PMHx: 11:11 COPD; DVT; Hypertensive disorder; neuropathy; Previous chemotherapy; Vulva and cervical ko1 CA; - PSHx: 11:11 section; hysterectomy; ko1 - Immunization history:: Adult Immunizations up to date. - Infectious Disease History:: Denies. - Family history:: not pertinent. - Social history:: Smoking status: Patient/guardian denies using tobacco, but has a distant history of tobacco abuse. ROS: 10:35 Constitutional: Negative for fever, chills, and weight loss, Eyes: Negative for injury, dann pain, redness, and discharge, ENT: Negative for injury, pain, and discharge, Neck: Negative for injury, pain, and swelling, Cardiovascular: Negative for chest pain, palpitations, and edema, Abdomen/GI: Negative for abdominal pain, nausea, vomiting, diarrhea, and constipation, Back: Negative for injury and pain, : Negative for injury, bleeding, discharge, and swelling, MS/Extremity: Negative for injury and deformity, Skin: Negative for injury, rash, and discoloration, Neuro: Negative for headache, weakness, numbness, tingling, and seizure, Psych: Negative for depression, anxiety, suicide ideation, homicidal ideation, and hallucinations, Allergy/Immunology: Negative for hives, rash, and allergies, Endocrine: Negative for neck swelling, polydipsia, polyuria, polyphagia, and marked weight changes, Hematologic/Lymphatic: Negative for swollen nodes, abnormal bleeding, and unusual bruising, 10:35 Respiratory: Positive for cough, shortness of breath, at rest. wheezing, inspiratory, expiratory, Exam: 10:35 Constitutional: This is a well developed, well nourished patient who is awake, alert, dann and in no acute distress. Head/Face: Normocephalic, atraumatic. Eyes: Pupils equal round and reactive to light, extra-ocular motions intact. Lids and lashes normal. Conjunctiva and sclera are non-icteric and not injected. Cornea within normal limits. Periorbital areas with no swelling, redness, or edema. ENT: Nares patent. No nasal discharge, no septal abnormalities noted. Tympanic membranes are normal and external auditory canals are clear. Oropharynx with no redness, swelling, or masses, exudates, or evidence of obstruction, uvula midline. Mucous membranes moist. Neck: Trachea midline, no thyromegaly or masses palpated, and no cervical lymphadenopathy. Supple, full range of motion without nuchal rigidity, or vertebral point tenderness. No Meningismus. Chest/axilla: Normal chest wall appearance and motion. Nontender with no deformity. No lesions are appreciated. Abdomen/GI: Soft, non-tender, with normal bowel sounds. No distension or tympany. No guarding or rebound. No evidence of tenderness throughout. Back: No spinal tenderness. No costovertebral tenderness. Full range of motion. Female : Normal external genitalia. Skin: Warm, dry with normal turgor. Normal color with no rashes, no lesions, and no evidence of cellulitis. MS/ Extremity: Pulses equal, no cyanosis. Neurovascular intact. Full, normal range of motion. Neuro: Awake and alert, GCS 15, oriented to person, place, time, and situation. Cranial nerves II-XII grossly intact. Motor strength 5/5 in all extremities. Sensory grossly intact. Cerebellar exam normal. Normal gait. Psych: Awake, alert, with orientation to person, place and time. Behavior, mood, and affect are within normal limits. 10:35 Cardiovascular: Rate: tachycardic, actual rate is 100 bpm, Rhythm: regular, Pulses: Pulses are 4+ in bilateral radial, brachial, femoral, popliteal, posterior tibial and and dorsalis pedis arteries.. Edema: is not appreciated, JVD: is noted bilaterally, to 2 cm, 10:48 ECG was reviewed by the Attending Physician. dann Vital Signs: 10:30 BP 138 / 84; Pulse 102; Resp 34; Temp 97; Pulse Ox 95% on 2 lpm NC; ko1 11:42 Weight 38.56 kg; ko1 14:13 BP 112 / 75; Pulse 103; Resp 24; Pulse Ox 94% on 2 lpm NC; ko1 Randall Coma Score: 10:35 Eye Response: spontaneous(4). Motor Response: obeys commands(6). Verbal Response: dann oriented(5). Total: 15. MDM: 10:26 Patient medically screened. dann 10:37 Differential diagnosis: asthma, Bronchitis CHF exacerbation, Chronic Obstructive dann Pulmonary Disease obstructed airway, tracheal injury, bronchitis, pneumonia, pulmonary edema, Pulmonary Embolism reactive airway disease, Sepsis Unstable Angina. Antibiotic administration: Levaquin given. Immunization status: Influenza vaccine: within last 5 years. Data reviewed: vital signs, nurses notes, EMS record, lab test result(s), EKG, radiologic studies, plain films. Consideration of Admission/Observation Patient was admitted/placed on observation. Escalation of care including admission/observation considered. I considered the following discharge prescriptions or medication management in the emergency department Medications were administered in the Emergency Department. See MAR. Independent interpretation of the following test(s) in the Emergency Department EKG: See my EKG interpretation above. Test considered but Not performed: Ultrasound NO 2 D ECHO. Counseling: I had a detailed discussion with the patient and/or guardian regarding the historical points, exam findings, and any diagnostic results supporting the discharge/admit diagnosis, lab results, radiology results, the need for further work-up and treatment in the hospital. 06/26 10:37 Order name: ABG Arterial Blood Gas EDFL 06/26 11:03 Order name: Lactate w/ 2H reflex if indic.; Complete Time: 11:35 EDFL 06/26 11:03 Order name: SARS-COV-2 Antigen Rapid; Complete Time: 11:35 EDFL 06/26 11:03 Order name: Basic Metabolic Panel; Complete Time: 11:35 EDFL 06/26 11:03 Order name: Liver (Hepatic) Function; Complete Time: 11:35 EDMS 08/ 11:03 Order name: Troponin High Sensitivity; Complete Time: 11:35 EDMS 08 11:04 Order name: NT PRO-BNP; Complete Time: 11:35 EDMS 08 11:04 Order name: Magnesium; Complete Time: 11:35 EDMS 08 11:04 Order name: CBC with Automated Diff; Complete Time: 11:35 EDMS 08 11:04 Order name: Protime (+INR); Complete Time: 11:35 EDMS 08 11:04 Order name: Blood Culture EDMS 06/26 11:04 Order name: Blood Culture EDMS 08 11:04 Order name: Influenza Screen (A ; Complete Time: 11:35 EDMS 08 13:36 Order name: T4 Free EDMS 08 13:36 Order name: Thyroid Stimulating Hormone EDMS 06/26 13:36 Order name: Basic Metabolic Panel EDMS 06/26 13:36 Order name: Basic Metabolic Panel EDMS 06/26 13:36 Order name: CBC with Automated Diff EDMS 08/ 13:36 Order name: CBC with Automated Diff EDMS / 13:36 Order name: Lipid Profile EDMS 08/ 13:36 Order name: Lipid Profile EDMS 08/ 13:36 Order name: Magnesium EDMS 08/ 13:36 Order name: Magnesium EDMS 08/ 13:36 Order name: Phosphorus EDMS 08/ 13:36 Order name: Phosphorus EDMS 08/ 13:36 Order name: Troponin High Sensitivity EDMS 08/ 13:36 Order name: Troponin High Sensitivity EDMS 08/ 13:36 Order name: Troponin High Sensitivity EDMS 08/ 10:37 Order name: Chest Single View; Complete Time: 11:35 EDMS 08 13:46 Order name: Echo with Doppler EDMS 06/26 10:30 Order name: Cardiac monitoring; Complete Time: 10:40 [facility] 06/26 10:30 Order name: EKG - Nurse/Tech; Complete Time: 10:30 [facility] 06/26 10:30 Order name: IV Saline Lock; Complete Time: 10:55 [facility] 06/26 10:30 Order name: Labs collected and sent; Complete Time: 10:55 [facility] 06/26 10:30 Order name: O2 Per Protocol; Complete Time: 10:31 dann 06/26 10:30 Order name: O2 Sat Monitoring; Complete Time: :31 [facility] EC:48 Rate is 105 beats/min. Rhythm is regular. QRS [place] is Normal. ME interval is normal. dann QRS interval is normal. QT interval is normal. No Q waves. T waves are Normal. No ST changes noted. Clinical impression: Sinus tachycardia and No evidence of ischemia. Interpreted by me. Reviewed by me. Administered Medications: 10:54 Drug: Magnesium Sulfate IVPB 2 grams IVPB once over 1 hrs Route: IVPB; Infused Over: 1 ko1 hrs; Site: left antecubital; 11:28 Follow up: Response: No adverse reaction; IV Status: Completed infusion; IV Intake: ko1 100ml 10:55 Drug: NS 0.9% IV 500 ml IV at bolus once Route: IV; Rate: bolus; Site: left antecubital;ko1 11:26 Follow up: Response: No adverse reaction; IV Status: Completed infusion; IV Intake: ko1 500ml 10:55 Drug: MethylPrednisoLONE IVP 125 mg IVP once Route: IVP; Site: left antecubital; ko1 11:10 Follow up: Response: No adverse reaction ko1 10:55 Drug: Levalbuterol Inhalation 3.75 mg Inhalation once Route: Inhalation; ko1 11:28 Follow up: Response: No adverse reaction ko1 10:55 Drug: Ipratropium Inhalation Aerosol 0.5 mg Inhalation once Route: Inhalation; ko1 11:27 Follow up: Response: No adverse reaction ko1 11:04 Drug: Ativan IVP 0.5 mg IVP once Route: IVP; Site: left antecubital; ko1 11:19 Follow up: Response: No adverse reaction; Anxiety unchanged ko1 11:29 Follow up: Response: RASS: Restless (+1) ko1 11:17 Drug: NS 0.9% IV 1000 ml IV at 125 ml/hr continuous Route: IV; Rate: 125 ml/hr; Site: ko1 left antecubital; 11:17 Drug: levofloxacin IVPB 500 mg 100 ml IVPB once over 60 mins Volume: 100 ml; Route: ko1 IVPB; Infused Over: 60 mins; Site: left antecubital; 15:24 Follow up: IV Status: Completed infusion; IV Intake: 100ml bp 11:57 Drug: Aspirin PO Chewable Tablet 162 mg PO once Route: PO; ko1 12:30 Follow up: Response: No adverse reaction ko1 11:57 Drug: Enoxaparin Sub-Q 1 mg/kg Sub-Q once Route: Sub-Q; Site: left lower abdomen; ko1 12:30 Follow up: Response: No adverse reaction ko1 11:57 Drug: Famotidine IVP 20 mg IVP once; dilute with 10 mL 0.9% NaCl; give over 2 minutes ko1 Route: IVP; Site: left antecubital; 12:12 Follow up: Response: No adverse reaction ko1 11:57 Drug: Levalbuterol Inhalation 2.5 mg Inhalation once Route: Inhalation; ko1 12:15 Follow up: Response: No adverse reaction ko1 11:59 Drug: Ativan IVP 0.5 mg IVP once Route: IVP; Site: left antecubital; ko1 12:14 Follow up: Response: No adverse reaction ko1 Disposition Summary: 06/26/24 11:23 Hospitalization Ordered Notes: Hospitalization Status: Inpatient Admission dann Provider: Duong Stark cha Location: Telemetry/MedSurg (Inpatient) dann Condition: Fair dann Problem: new dann Symptoms: have improved dann Bed/Room Type: Standard [facility] Room Assignment: 213(06/26/24 14:02) eb Diagnosis - COPD/ Chronic obstructive pulmonary disease with (acute) exacerbation dann - Tobacco abuse counseling dann - Tobacco use dann - Hypoxemia dann - SARS-associated coronavirus as the cause of diseases classified elsewhere dann - Non ST elevation [place] dann Forms: - Medication Reconciliation Form dann - SBAR form dann - Leadership Thank You Letter dann Signatures: Dispatcher [employer] Cheko Naranjo MD MD cha Botello, Elizabeth eb Oliver, Kathy, RN RN ko1 Barry Baer RN bp Corrections: (The following items were deleted from the chart) 14:02 11:23 dann eb
--- NOTE | 2024-06-26 17:08 | ER ---
Nurse's Notes [facility] Name: Abbey Alves Age: 54 yrs Sex: Female : 1970 Arrival Date: 06/26/2024 Time: 10:22 Bed 4 Private MD: Diagnosis: COPD/ Chronic obstructive pulmonary disease with (acute) exacerbation;Tobacco abuse counseling;Tobacco use;Hypoxemia;SARS-associated coronavirus as the cause of diseases classified elsewhere;Non ST elevation [place] Presentation: 06/26 10:30 Chief complaint: EMS states: patient called for shortness of breath x 3 days. ko1 Coronavirus screen: At this time, the client does not indicate any symptoms associated with coronavirus-19. Ebola Screen: No symptoms or risks identified at this time. Initial Sepsis Screen: Does the patient meet any 2 criteria? RR > 20 per min. HR > 90 bpm. Yes Does the patient have a suspected source of infection? No. Patient's initial sepsis screen is negative. Risk Assessment: Do you want to hurt yourself or someone else? Patient reports no desire to harm self or others. Onset of symptoms is unknown. Care prior to arrival: Medication(s) given: Albuterol Neb x 1, Atrovent Neb x 1, Med neb given. Oxygen administered. via nasal cannula, via a nebulizer mask. 10:30 Method Of Arrival: EMS: [facility] ko1 10:30 Acuity: KEELY 2 ko1 Triage Assessment: 10:30 General: Appears distressed, ill, slender, Behavior is anxious. Pain: Denies pain. ko1 Respiratory: Reports shortness of breath since x 3 days air hunger labored breathing Respiratory effort is labored, pursed lip, using tripod position, Respiratory pattern is tachypnea Onset: The symptoms/episode began/occurred 3 days ago, the patient has severe shortness of breath. Historical: - Allergies: 11:11 No Known Allergies; ko1 - PMHx: 11:11 COPD; DVT; Hypertensive disorder; neuropathy; Previous chemotherapy; Vulva and cervical ko1 CA; - PSHx: 11:11 section; hysterectomy; ko1 - Immunization history:: Adult Immunizations up to date. - Infectious Disease History:: Denies. - Family history:: not pertinent. - Social history:: Smoking status: Patient/guardian denies using tobacco, but has a distant history of tobacco abuse. Screenin:30 [facility] ED Fall Risk Assessment (Adult) History of falling in the last 3 months, ko1 including since admission No falls in past 3 months (0 pts) Confusion or Disorientation No (0 pts) Intoxicated or Sedated No (0 pts) Impaired Gait No (0 pts) Mobility Assist Device Used No (0 pt) Altered Elimination No (0 pt) Score/Fall Risk Level 0 - 2 = Low Risk Oriented to surroundings, Maintained a safe environment, Educated pt \T\ family on fall prevention, incl call for assistance when getting out of bed, Assessed \T\ reinforced patient's understanding of fall precautions, Provided non-skid footwear, Hourly rounding (assess needs \T\ fall precautionary measures) done. Abuse screen: Denies threats or abuse. Denies injuries from another. Nutritional screening: No deficits noted. Tuberculosis screening: No symptoms or risk factors identified. Assessment: 10:30 General: Appears distressed, ill, slender, Behavior is anxious. Pain: Denies pain. ko1 Neuro: No deficits noted. Cardiovascular: Rhythm is sinus tachycardia. Respiratory: Airway is patent Breath sounds are diminished bilaterally. GI: No deficits noted. : No deficits noted. EENT: No deficits noted. Derm: No deficits noted. Musculoskeletal: No deficits noted. 12:00 Reassessment: Patient appears in no apparent distress at this time. Patient is alert, bp oriented x 3, equal unlabored respirations, skin warm/dry/pink. 13:00 Reassessment: PT ON NC, DECLINING BIPAP. bp 15:22 Reassessment: PT SAUD WITH PCT. bp Vital Signs: 10:30 BP 138 / 84; Pulse 102; Resp 34; Temp 97; Pulse Ox 95% on 2 lpm NC; ko1 11:42 Weight 38.56 kg; ko1 14:13 BP 112 / 75; Pulse 103; Resp 24; Pulse Ox 94% on 2 lpm NC; ko1 Randall Coma Score: 10:35 Eye Response: spontaneous(4). Motor Response: obeys commands(6). Verbal Response: dann oriented(5). Total: 15. ED Course: 10:25 Patient arrived in ED. ko1 10:26 Cheko Nunez MD is Attending Physician. dann 10:30 Barry Baer, RN is Primary Nurse. bp 10:30 Arm band placed on left wrist. Patient placed in an exam room, on a stretcher, on ko1 oxygen, on panel monitor, on pulse oximetry, Patient notified of wait time. 10:30 Patient has correct armband on for positive identification. Bed in low position. Call ko1 light in reach. Side rails up X2. Provided Education on: call light, meds, procedures, tests. Client placed on continuous cardiac and pulse oximetry monitoring. NIBP monitoring applied. compliance monitor on. Door closed. Noise minimized. Lights dimmed. Warm blanket given. Pillow given. Repositioned patient. 10:43 ABG Arterial Blood Gas Sent. ko1 10:50 Initial lab(s) drawn, by me, sent to lab. First set of blood cultures drawn by me, EKG bc6 done, by ED staff, reviewed by Cheko Nunez MD COVID swab sent to lab. Flu and/or RSV swab sent to lab. Oxygen administration via nasal cannula \T\ 2L/min. 10:56 Inserted saline lock: 22 gauge in left antecubital area, using aseptic technique. Blood bc6 collected. Flushed with 10 mL NS. 11:05 Chest Single View In Process Unspecified. EDMS 11:11 Triage completed. ko1 11:16 Lia Clayton, ANJEL is Primary Nurse. ko1 11:17 Duong Stark MD is Hospitalizing Provider. dann 12:35 Assisted with bedpan. ko1 14:13 No provider procedures requiring assistance completed. Patient admitted, IV remains in ko1 place. 14:49 Second set of blood cultures drawn by me. cc6 Administered Medications: 10:54 Drug: Magnesium Sulfate IVPB 2 grams IVPB once over 1 hrs Route: IVPB; Infused Over: 1 ko1 hrs; Site: left antecubital; 11:28 Follow up: Response: No adverse reaction; IV Status: Completed infusion; IV Intake: ko1 100ml 10:55 Drug: NS 0.9% IV 500 ml IV at bolus once Route: IV; Rate: bolus; Site: left antecubital;ko1 11:26 Follow up: Response: No adverse reaction; IV Status: Completed infusion; IV Intake: ko1 500ml 10:55 Drug: MethylPrednisoLONE IVP 125 mg IVP once Route: IVP; Site: left antecubital; ko1 11:10 Follow up: Response: No adverse reaction ko1 10:55 Drug: Levalbuterol Inhalation 3.75 mg Inhalation once Route: Inhalation; ko1 11:28 Follow up: Response: No adverse reaction ko1 10:55 Drug: Ipratropium Inhalation Aerosol 0.5 mg Inhalation once Route: Inhalation; ko1 11:27 Follow up: Response: No adverse reaction ko1 11:04 Drug: Ativan IVP 0.5 mg IVP once Route: IVP; Site: left antecubital; ko1 11:19 Follow up: Response: No adverse reaction; Anxiety unchanged ko1 11:29 Follow up: Response: RASS: Restless (+1) ko1 11:17 Drug: NS 0.9% IV 1000 ml IV at 125 ml/hr continuous Route: IV; Rate: 125 ml/hr; Site: ko1 left antecubital; 11:17 Drug: levofloxacin IVPB 500 mg 100 ml IVPB once over 60 mins Volume: 100 ml; Route: ko IVPB; Infused Over: 60 mins; Site: left antecubital; 15:24 Follow up: IV Status: Completed infusion; IV Intake: 100ml bp 11:57 Drug: Aspirin PO Chewable Tablet 162 mg PO once Route: PO; ko1 12:30 Follow up: Response: No adverse reaction ko1 11:57 Drug: Enoxaparin Sub-Q 1 mg/kg Sub-Q once Route: Sub-Q; Site: left lower abdomen; ko1 12:30 Follow up: Response: No adverse reaction ko1 11:57 Drug: Famotidine IVP 20 mg IVP once; dilute with 10 mL 0.9% NaCl; give over 2 minutes ko1 Route: IVP; Site: left antecubital; 12:12 Follow up: Response: No adverse reaction ko1 11:57 Drug: Levalbuterol Inhalation 2.5 mg Inhalation once Route: Inhalation; ko1 12:15 Follow up: Response: No adverse reaction ko1 11:59 Drug: Ativan IVP 0.5 mg IVP once Route: IVP; Site: left antecubital; ko1 12:14 Follow up: Response: No adverse reaction ko1 Medication: 10:30 VIS not applicable for this client. ko1 Intake: 11:26 IV: 500ml; Total: 500ml. ko1 11:28 IV: 100ml; Total: 600ml. ko1 15:24 IV: 100ml; Total: 700ml. bp Output: 12:39 Urine: 500ml (Voided); Total: 500ml. ko1 Outcome: 11:23 Decision to Hospitalize by Provider. dann 14:13 Admitted to Med/surg accompanied by tech, via stretcher, room 213, with oxygen, with ko1 chart, 14:13 Condition: improved 14:13 Instructed on the need for admit, 15:19 Patient left the ED. bp Signatures: Dispatcher [employer] EDMS Cheko Nunez MD MD cha Peltier, Brian, RN RN bp Lia Clayton RN RN ko1 Alem Rodriguez6 Nani Glass, RN RN cc6
[2024-06-26 17:52] LABS: Thyroid Stimulating Hormone 0.72 uIU/mL (0.358-3.740)
[2024-06-26] MEDS ORDERED: IPRATROPIUM BROM 0.5MG/2.5ML NEB SCH (19:00)
[2024-06-26] MEDS: IPRATROPIUM BROM 0.5MG/2.5ML NEB SCH (20:42)
--- NOTE | 2024-06-26 21:08 | CON ---
Date of Consultation: 06/26/2024 Reason For Consultation: Elevated troponin. History Of Present Illness: This is a 54-year-old female with a past medical history of COPD, hypert ension, active smoker, presented with significant shortness of breath, cough, congestion, and low-gra de fever. Denies having any chest pain and by an evaluation in the emergency room, she was tested po sitive for COVID and they did a troponin on her, it was slightly elevated. Denies having any active chest pain. No history of cardiac disease. Past Medical History: As outlined above in the HPI. Medications: Refer to reconciliation sheet for detailed list. Allergies: NO KNOWN DRUG ALLERGIES. Family History: No premature coronary artery disease or cancer. Social History: She is an ex-smoker, but she is down to 1 cigarette per day only. Does not drink or use any drugs. Review of Systems: All systems were reviewed and they were negative except as mentioned in the HPI. Physical Examination: Vital Signs: Reviewed. Head and Neck: Pupils are equal, reactive to light. Intact eye movements. No JVD. No cervical lym phadenopathy. Neck is supple. Thyroid is not enlarged. Lungs: Clear to auscultation bilaterally. No rhonchi, wheezing, or crackles. No accessory muscle u se. Heart: Regular rate and rhythm. No extra sounds. Abdomen: Soft, nontender. Bowel sounds positive. No organomegaly. No masses or hernia. No rigidi ty or rebound. Extremities: No edema, clubbing, or cyanosis. Intact pulses. Skin: No rash. No nodule. Neurologic: Alert, awake, oriented x3. No acute focal deficits appreciated. Investigations: Troponin is 248, BUN 14, creatinine 0.69, and hemoglobin 16.8. Assessment And Recommendations: 1.Elevated troponin. This is likely demand ischemia due to COVID. Trend 2 more sets to make sure i t is not substantially going up and obtain an echocardiogram. Start her on baby aspirin. There is n o need for an anticoagulation from the cardiac standpoint at this point unless her troponin substanti ally increases. 2.Hypertension. Blood pressure is controlled. 3.COVID-19. She looks stable clinically. No significant hypoxia. Continue current management. 4.Active smoker. She was counseled to quit. 5.Chronic obstructive pulmonary disease exacerbation due to COVID, on IV steroids. SR/MODL Voice ID: [id number] Report ID: [id number]
[2024-06-26] MEDS: ALPRAZOLAM 0.25 MG TABLET PO PRN (21:22)
[2024-06-27 04:52] VITALS: O2SAT 94
[2024-06-27 05:21] LABS: Absolute Lymphocytes (CBC) 2.2 K/uL (0.7-4.9); Absolute Monocytes 1.2 K/uL (0.1-1.3); Absolute Neutrophil 3.8 K/uL (1.8-8.0); Basophils % 0.2 % (0-1.3); Eosinophils % 0.1 % (0-4.4); Hematocrit 38.9 % (36.0-45.0); Hemoglobin 13.3 g/dL (12.0-15.0); Lymphocytes % 30.8 % (15.3-44.8); MCH 33.7 pg (27.0-35.0); MCHC 34.1 g/dL (32.0-36.0); MCV 98.6 fL (80-100); MPV 6.9 fL (7.6-11.3); Monocytes % 16.6 % (3.3-12.3); Neutrophils % 52.3 % (41.7-73.7); Nucleated Red Blood Cells % 0.1 % (0-0); Platelets 258 thou/uL (152-406); RBC Red Blood Cell Count 3.95 M/uL (3.86-4.86); Red Cell Distribution Width 13.6 % (12.1-15.2)
[2024-06-27 05:49] LABS: Magnesium 2.4 mg/dL (1.6-2.4); Phosphorus 3.6 mg/dL (2.5-4.9)
[2024-06-27] MEDS: METHYLPREDNISOLONE 40 MG INJ IV SCH (09:00)
[2024-06-27] MEDS: Levofloxacin 750mg IV 750 MG/150 ML BAG IV SCH (09:16)
[2024-06-27] MEDS: NIRMATRELVIR/RITONAVIR TABLET PO SCH (09:17)
[2024-06-27] MEDS: ASPIRIN EC 81 MG TAB PO SCH (09:17)
--- NOTE | 2024-06-27 10:30 | RAD REPORT ---
EXAM DESCRIPTION: CT CHEST ANGIOGRAPHY WITH IV CONTRAST CLINICAL HISTORY: DYSPNEA COMPARISON: None. TECHNIQUE: CT CHEST ANGIOGRAPHY WITH IV CONTRAST on 06/26/2024 11:38 AM CDT. MIPS reconstructions were generated. This exam was performed according to our departmental dose-optimization program, which includes autom ated exposure control, adjustment of the mA and/or kV according to patient size and/or use of iterati ve reconstruction technique. MIP images were generated. FINDINGS: Thoracic aorta is normal in course and caliber without aneurysm or dissection. Pulmonary a rteries are adequately opacified without acute or chronic filling defects. The heart is normal in size. There is no pericardial effusion. Intrathoracic lymph nodes are not enla rged. There is no pleural effusion, pleural thickening or pneumothorax. Central airways are patent. There i s moderate to severe centrilobular emphysema with upper lung predominance. There is no focal consolid ation. There are no acute abnormalities within the limited images of the upper abdomen. There are no acute osseous findings. No suspicious bony lesions. IMPRESSION: Emphysema without pneumonia. No aortic dissection or aneurysm. No pulmonary embolus. Electronically signed by: Pastor Nagel MD 06/27/2024 12:15 AM CDT RP Due to temporary technical issues with the PACS/Fluency reporting system, reports are being signed by the in house radiologists without review as a courtesy to insure prompt reporting. The interpreting radiologist is fully responsible for the content of the report.
[2024-06-27] MEDS ORDERED: IPRATROPIUM BROM 0.5MG/2.5ML NEB PRN (10:32)
[2024-06-27 12:47] VITALS: BP 149/90; TEMP 98
[2024-06-27] MEDS: ENSURE ENLIVE 237 ML CAN PO SCH (12:59)
[2024-06-27] MEDS: ACETAMINOPHEN 500 MG TAB PO PRN (16:44)
--- NOTE | 2024-06-27 16:56 | P.PN ---
Subjective Date of Service: 06/27/24 Chief Complaint: acute hypoxic respiratory failure 2/2 COPD exacerbation and COVID Subjective: No new changes, No C/O voiced, Tolerating diet, Ambulating, Improving Review of Systems 10-point ROS is otherwise unremarkable Physical Examination - Vital Signs Temperature: 98.0 F Blood Pressure: 149/90 Pulse: 90 Respirations: 15 Pulse Ox (%): 98 - Physical Exam General: Alert, In no apparent distress HEENT: Atraumatic, PERRLA, EOMI Neck: Supple, JVD not distended Respiratory: Clear to auscultation bilaterally, Normal air movement Cardiovascular: Regular rate/rhythm, Normal S1 S2 Gastrointestinal: Normal bowel sounds, No tenderness Musculoskeletal: No tenderness Integumentary: No rashes Neurological: Normal speech, Normal tone, Normal affect Lymphatics: No axilla or inguinal lymphadenopathy - Studies Laboratory Data (last 24 hrs) 06/26/24 06/26/24 06/26/24 10:30 10:30 10:30 WBC Cancelled Hgb Cancelled Hct Cancelled Plt Count Cancelled PT Cancelled INR Cancelled Sodium Cancelled Potassium Cancelled BUN Cancelled Creatinine Cancelled Glucose Cancelled Magnesium Cancelled Total Bilirubin Cancelled AST Cancelled ALT Cancelled Alkaline Phosphatase Cancelled Medications List Reviewed: Yes Assessment And Plan - Current Problems (Diagnosis) (1) Type 2 TN (myocardial infarction) Current Visit: Yes Status: Acute Plan: most likely secondary to COVID infection, troponin trended down, no chest pain, echo is normal. no further cardiac work up needed. (2) COVID Current Visit: Yes Status: Acute Plan: continue medications. (3) Hypertension Current Visit: No Status: Chronic Plan: BP is normal, off medications, continue to monitor. Qualifiers: Hypertension type: primary hypertension Qualified Code(s): I10 - Essential (primary) hypertension
--- NOTE | 2024-06-27 17:30 | P.DS ---
Admission Date: 06/26/24 Discharge Date: 06/27/24 Disposition: ROUTINE DISCHARGE Discharge Condition: GOOD Reason for Admission: acute hypoxic respiratory failure 2/2 COPD exacerbation and COVID Brief History of Present Illness: Abbey Alves is a 54 year old female with PMHX COPD, DVT, hypertensive disorder, neuropathy, vulvar and cervical cancer s/p chemotherapy who presents to the ED with chief complaint of shortness of breath that began 2 days ago. She reports being prescribed a different inhaler but she didn't use it because it caused thrush. She believes that is why she cannot breath well. On admission to the ED she was found to be COVID positive. She refused the Bipap, ABG showing hypoxia and CBC showing polycythemia, and Troponin 248. EKG reports sinus tachycardia, right atrial enlargement. On evaluation, she reports coughing, does not use home oxygen, rales bilaterally, and tachycardic. Chest xray reports "The lungs are emphysematous but grossly clear. The heart is normal in size. No displaced fractures. IMPRESSION: Prominent COPD" Abbey will be admitted to hospitalist service for further evaluation and treatment. Vital Signs/Physical Exam: Temp Pulse Resp BP Pulse Ox 98.0 F 90 15 149/90 H 98 06/27/24 16:56 06/27/24 16:56 06/27/24 16:56 06/27/24 16:56 06/27/24 16:56 Laboratory Data at Discharge: WBC 7.20 thou/uL (4.3-10.9) 06/27/24 05:02 Hgb 13.3 g/dL (12.0-15.0) D 06/27/24 05:02 Hct 38.9 % (36.0-45.0) 06/27/24 05:02 Plt Count 258 thou/uL (152-406) 06/27/24 05:02 PT 12.4 SECONDS (9.4-12.5) 06/26/24 10:50 INR 1.11 06/26/24 10:50 APTT Cancelled 06/26/24 21:10 APTT Cancelled 06/26/24 21:10 Sodium 140 mEq/L (136-145) 06/27/24 05:02 Potassium 4.0 mEq/L (3.5-5.1) 06/27/24 05:02 BUN 14 mg/dL (7-18) 06/27/24 05:02 Creatinine 0.61 mg/dL (0.55-1.02) 06/27/24 05:02 Glucose 101 mg/dL (74-106) 06/27/24 05:02 Phosphorus 3.6 mg/dL (2.5-4.9) 06/27/24 05:02 Magnesium 2.4 mg/dL (1.6-2.4) 06/27/24 05:02 Total Bilirubin 0.6 mg/dL (0.2-1.0) 06/26/24 10:50 AST 22 U/L (15-37) 06/26/24 10:50 ALT 28 U/L (13-56) 06/26/24 10:50 Alkaline Phosphatase 73 U/L (45-117) 06/26/24 10:50 Triglycerides 56 mg/dL (<150) 06/27/24 05:02 Cholesterol 184 mg/dL (<200) 06/27/24 05:02 HDL Cholesterol 56 mg/dL (40-60) 06/27/24 05:02 Cholesterol/HDL Ratio 3.29 06/27/24 05:02 Home Medications: Nifedipine [Nifedipine ER] 30 mg PO DAILY 03/04/23 Albuterol Sulfate [Proair Digihaler] 2 puff PO BID PRN 06/26/24 Fluticasone/Umeclidin/Vilanter [Trelegy Ellipta 100-62.5-25] 2 puff PO BID PRN 0 06/26/24 Losartan Potassium 100 mg PO DAILY 06/26/24 Nirmatrelvir/Ritonavir [Paxlovid 2X150 mg-100 mg] 3 tab PO BID 5 Days #30 tab 06/27/24 Prednisone [Anne] 35 mg PO BID 2 Days #4 tab 06/27/24 New Medications: Nirmatrelvir/Ritonavir [Paxlovid 2X150 mg-100 mg] 3 tab PO BID 5 Days #30 tab Prednisone [Anne] 35 mg PO BID 2 Days #4 tab Physician Discharge Instructions: Abbey Alves was treated for COPD exacerbation in the setting of COVID. Paxlovid was started and will be prescribed to be completed after discharge. Oxygen has been needed during this admission, 2 Liters nasal cannula should be sufficient to maintain oxygen saturation at 88-94 %. 1. Please call and schedule a follow-up appointment with your PCP in 3-5 days - Please follow-up with your PCP for medication refills/adjustments 2. Please call and schedule a follow-up appointment with Dr. Parada in one week -He will follow up on your oxygen needs 3. Continue regular diet 4. activity restrictions, remain oxygenated while walking or doing strenuous activity. Avoid becoming distressed 5. Return to the ED if symptoms worsen New medications Paxlovid take as directed Prednisone will be tapered, please watch the daily dose carefully as the dose will decrease every two days [facility] P:[phone] for home oxygen. Diet: Regular Activity: Ad krishna Followup: Yuri Franklin DO [Primary Care Provider] -
[2024-06-27] MEDS ORDERED: ARFORMOTEROL TARTRATE 15 MCG/2 ML VIAL.NEB NEB SCH (19:00)
[2024-06-27] MEDS ORDERED: IPRATROPIUM BROM 0.5MG/2.5ML NEB SCH (19:00)
--- NOTE | 2024-06-28 08:46 | ECHO ---
HEIGHT: 5 ft 0 in WEIGHT: 85 lb 0 oz DATE OF STUDY: 06/27/[address]: Christy Hill NP 2-DIMENSIONAL: YES M.MODE: YES DOPPLER: YES COLOR FLOW: YES TDS: PORTABLE: YES DEFINITY: BUBBLE STUDY: DIAGNOSIS: NON ST ELEVATION MYOCARDIAL INFRACTION CARDIAC HISTORY: CATHERIZATION: SURGERY: PROSTHETIC VALVE: PACEMAKER: MEASUREMENTS (cm) DIASTOLIC (NORMALS) SYSTOLIC (NORMALS) IVSd 0.9 (0.6-1.2) LA Diam 2.5 (1.9-4.0) LVEF 60-65% LVIDd 3.8 (3.5-5.7) LVIDs 2.7 (2.0-3.5) %FS 29% LVPWd 0.7 (0.6-1.2) Ao Diam 2.3 (2.0-3.7) 2 DIMENSIONAL ASSESSMENT: RIGHT ATRIUM: NORMAL LEFT ATRIUM: NORMAL RIGHT VENTRICLE: NORMAL LEFT VENTRICLE: NORMAL TRICUSPID VALVE: TRACE TRICUSPID REGURGITATION MITRAL VALVE: NORMAL PULMONIC VALVE: NORMAL AORTIC VALVE: NORMAL PERICARDIAL EFFUSION: NONE AORTIC ROOT: NORMAL LEFT VENTRICULAR WALL MOTION: NORMAL DOPPLER/COLOR FLOW: NORMAL COMMENTS: 1. NORMAL LEFT VENTRICULAR SYSTOLIC FUNCTION, EJECTION FRACTION 60-65%, NORMAL WALL MOTION 2. NORMAL DIASTOLIC FUNCTION 3. NORMAL FILLING PRESSURE 4. NORMAL RIGHT VENTRICULAR SYSTOLIC PRESSURE 25-30 mmHg TECHNOLOGIST: ROHIT TARANGO
--- NOTE | 2024-06-28 12:51 | P.CNS ---
Date of Consult: 06/28/24 Reason for Consult: COPD exacerbation Chief Complaint: COPD exacerbation History of Present Illness: Patient is 54 years of age well-known to sd history of COPD compliant with the Trelegy has been sick for the past 3 days complaining of dyspnea on mild exerti on low sats here in the hospital she did not tolerate Breztri due to thrush here was admitted and doing much better does not have any oxygen at home patient tested positive for COVID Allergies No Known Allergies Allergy (Verified 04/21/21 04:16) Home Medications: Nifedipine [Nifedipine ER] 30 mg PO DAILY 03/04/23 Albuterol Sulfate [Proair Digihaler] 2 puff PO BID PRN 06/26/24 Fluticasone/Umeclidin/Vilanter [Trelegy Ellipta 100-62.5-25] 2 puff PO BID PRN 06/26/24 Losartan Potassium 100 mg PO DAILY 06/26/24 Nirmatrelvir/Ritonavir [Paxlovid 2X150 mg-100 mg] 3 tab PO BID 5 Days #30 tab 06/27/24 Prednisone [Anne] 35 mg PO BID 2 Days #4 tab 06/27/24 - Past Medical/Surgical History Diabetic: No -: COPD -: Vulvar & Cervical Cancer in Remission -: Hypertension -: Hysterectomy -: Psychosocial/ Personal History: Patient is , lives at home with . - Family History Mother Medical History: Cancer Notes: Brain cancer Father Medical History: Hypertension - Social History Smoking Status: Former smoker Alcohol use: No CD- Drugs: No Caffeine use: Yes Place of Residence: Home Review of Systems 10-point ROS is otherwise unremarkable General: Weakness Respiratory: Cough, Shortness of Breath Physical Examination Temp Pulse Resp BP Pulse Ox 98.0 F 90 15 149/90 H 98 06/27/24 16:56 06/27/24 16:56 06/27/24 16:56 06/27/24 16:56 06/27/24 16:56 General: Alert, Oriented x3, Mild distress Respiratory: Diminished, Expiratory wheezes Cardiovascular: No edema, Regular rate/rhythm, Normal S1 S2 Gastrointestinal: Normal bowel sounds, Soft and benign Musculoskeletal: No clubbing, No swelling, No contractures - Problems (1) COPD exacerbation Status: Acute Plan: Is 54 years of age with a history of COPD admitted with an exacerbation tolerating Trelegy tested positive for COVID chest x-ray reviewed hyperinflation no evidence of pulmonary embolism with bronchodilators steroids treat with Paxlovid patient's vital signs are stable patient qualifies for home O2
== END 2024-06-27 18:31 | disposition home or self-care (01) ==
LOC: ER 10:22 → 2ND 14:16
PROVIDERS: ADMIT Internal Medicine; ATTEND Internal Medicine
DX: J44.1 Chronic obstructive pulmonary disease with (acute) exacerbation (principal); U07.1 COVID-19; I21.A1 Myocardial infarction type 2; J96.01 Acute respiratory failure with hypoxia; I10 Essential (primary) hypertension; G62.9 Polyneuropathy, unspecified; F17.210 Nicotine dependence, cigarettes, uncomplicated; R79.89 Other specified abnormal findings of blood chemistry; Z86.718 Personal history of other venous thrombosis and embolism; Z85.41 Personal history of malignant neoplasm of cervix uteri; Z71.6 Tobacco abuse counseling
CPT/HCPCS: 93005; 93306; 87040 ×2; 85025 ×2; 80048 ×2; 36415 ×2; 83735 ×2; 84100; 85610; 80061; 80076; 83605; 85730; 84443; 84484 ×2; 84439; 83880; 87804 ×2; 71275; 71045; 94640 ×2; 82805; 87811; 36600; 94660; Q9967; J3475; J8499 ×2; J7614 ×2; J7644 ×3; J1650; J2919 ×3; J7030; 96365; 96366; 96372; 96375; 99285; G0378

== ENCOUNTER 2024-06-29 16:25 | Inpatient (IN) | payer OTHER ==
--- OUTSIDE RECORDS SUMMARY | 2024-06-29 16:28 | XMS REPORT | Clinical Summary ---
Author Name Unknown Organization [facility] Address [address] [place] [address] Care Team Providers Care Eyewear Manufacturing Supervisor Name Role Phone Unavailable Primary Care [...] Due Date Last Done Comments COVID-19 Vaccine (2022-2 4 season) 2023 Influenza Vaccine 07/22/2024 Pneumococcal Vaccine: Pediat rics (0 to 5 Years) and At-Risk Patients (6 to 64 Years) Aged Out No longer eligi ble based on patient's age to complete this topic
[2024-06-29] MEDS ORDERED: ALBUTEROL 2.5 MG/3 ML NEB SOL ONE (16:43)
[2024-06-29] MEDS ORDERED: METHYLPREDNISOLONE 40 MG INJ ONE (16:43)
[2024-06-29] MEDS ORDERED: IPRATROPIUM BROM 0.5MG/2.5ML ONE (16:43)
[2024-06-29] MEDS ORDERED: LORazepam 2 MG/ML VIAL ONE ×2 (16:53→17:27)
[2024-06-29 17:13] LABS: Absolute Lymphocytes (CBC) 1.3 K/uL (0.7-4.9); Absolute Monocytes 1.5 K/uL (0.1-1.3); Absolute Neutrophil 9.6 K/uL (1.8-8.0); Basophils % 0.1 % (0-1.3); Hematocrit 42.9 % (36.0-45.0); Hemoglobin 14.3 g/dL (12.0-15.0); Lymphocytes % 10.8 % (15.3-44.8); MCHC 33.2 g/dL (32.0-36.0); MCV 99.3 fL (80-100); MPV 6.7 fL (7.6-11.3); Monocytes % 11.7 % (3.3-12.3); Neutrophils % 77.4 % (41.7-73.7); Nucleated Red Blood Cells % 0.1 % (0-0); Platelets 346 thou/uL (152-406); RBC Red Blood Cell Count 4.32 M/uL (3.86-4.86); Red Cell Distribution Width 13.8 % (12.1-15.2)
[2024-06-29 17:22] LABS: Protime INR 1.07
[2024-06-29 17:33] LABS: SARS-CoV-2 Antigen CONTROL BLUE LINE VIS/BG OK; SARS-CoV-2 Antigen Rapid Res Negative (Negative)
[2024-06-29 17:35] LABS: ALT/SGPT 30 U/L (13-56); AST/SGOT 18 U/L (15-37); Albumin 3.5 g/dL (3.4-5.0); Alkaline Phosphatase 58 U/L (45-117); Anion Gap 7.6 mEq/L (5.0-15.0); BUN Blood Urea Nitrogen 21 mg/dL (7-18); Bicarbonate 30 mEq/L (21-32); Bilirubin Total 0.3 mg/dL (0.2-1.0); Globulin 3.5 g/dL (2.3-3.5); Glomerular Filtration Rate 107 ml/min (=/>90); Glucose Level 107 mg/dL (74-106); Magnesium 2.1 mg/dL (1.6-2.4); NT PRO-BNP 392 pg/mL (<125); Potassium 3.6 mEq/L (3.5-5.1); Sodium Level 143 mEq/L (136-145)
[2024-06-29 17:36] LABS: Bilirubin Direct < 0.2 mg/dL (0-0.2); Bilirubin Indirect, Calculated 0.1 mg/dL (0.2-0.8)
--- NOTE | 2024-06-29 17:38 | RAD REPORT ---
EXAM DESCRIPTION: RAD - Chest Single View - 06/29/2024 5:31 pm CLINICAL HISTORY: palpitations, shortness of breath Chest pain. COMPARISON: <Comparisons> FINDINGS: Portable technique limits examination quality. The lungs are emphysematous but grossly clear. The heart is normal in size. No displaced fractures. IMPRESSION: Prominent COPD.
[2024-06-29] MEDS ORDERED: NA CHLORIDE 0.9% 500 ML ONE (18:49)
[2024-06-29] MEDS ORDERED: LORAZEPAM 1 MG TABLET ONE (19:44)
[2024-06-29 21:09] LABS: Arterial Blood Carboxyhemoglob 0.5 % (0-1.5); Blood Gas Oxyhemoglobin 93.6 % (94-97); Blood Gas THB 14.3 g/dl (12-18)
--- NOTE | 2024-06-29 21:29 | EDPHYS ---
Physician Documentation [facility] Name: Abbey Alves Age: 54 yrs Sex: Female : 1970 Arrival Date: 06/29/2024 Time: 16:25 Bed 18 Private MD: ED Physician Cheko Nunez HPI: 06/29 16:40 This 54 yrs old Female presents to ER via EMS with complaints of Shortness Of Breath. cp 16:40 The patient has shortness of breath at rest. Onset: The symptoms/episode began/occurred cp today. Duration: The symptoms are continuous, and are markedly worse than the original presentation. The patient presents with a history of heart racing. Context: The symptoms occur at rest. Duration: The patient or guardian reports a single episode, that is still ongoing. Associated signs and symptoms: Pertinent negatives: chest pain, productive cough, fever. Historical: - Allergies: 16:36 No Known Allergies; rs5 - PMHx: 16:36 COPD; DVT; Hypertensive disorder; neuropathy; Previous chemotherapy; Vulva and cervical rs5 CA; - PSHx: 16:36 section; hysterectomy; rs5 - Immunization history:: Adult Immunizations up to date. - Infectious Disease History:: Denies. - Social history:: Smoking status: Patient denies any tobacco usage or history of. ROS: 16:45 Constitutional: Negative for body aches, chills, fever, poor PO intake, cp 16:45 Eyes: Negative for injury, pain, redness, and discharge, cp 16:45 ENT: Negative for drainage from ear(s), ear pain, sore throat, difficulty swallowing, difficulty handling secretions, 16:45 Cardiovascular: Positive for palpitations, Negative for chest pain, edema, 16:45 Respiratory: Positive for shortness of breath, at rest. 16:45 Abdomen/GI: Negative for abdominal pain, vomiting, diarrhea, constipation, 16:45 Neuro: Negative for altered mental status, headache, weakness, 16:45 All other systems are negative, Exam: 16:50 Constitutional: The patient appears alert, awake, non-diaphoretic, non-toxic, well cp developed, well nourished, anxious, in obvious distress, mildly distressed, 16:50 Head/Face: Normocephalic, atraumatic. cp 16:50 Eyes: Periorbital structures: appear normal, Pupils: equal, round, and reactive to light and accomodation, Extraocular movements: intact throughout, Conjunctiva: normal, no exudate, no injection, Sclera: no appreciated abnormality, Lids and lashes: appear normal, bilaterally, 16:50 ENT: External ear(s): are unremarkable, Nose: is normal, Mouth: Lips: moist, Oral mucosa: pink and intact, moist, Posterior pharynx: Airway: no evidence of obstruction, patent, 16:50 Neck: ROM/movement: is normal, is supple, without pain, no range of motions limitations, 16:50 Chest/axilla: Inspection: normal, 16:50 Cardiovascular: Rate: normal, Rhythm: regular, Edema: is not appreciated, JVD: is not appreciated, 16:50 Respiratory: mild respiratory distress is noted, Respirations: labored breathing, shallow respirations, Breath sounds: decreased breath sounds, that are moderate, throughout, stridor, is not appreciated, wheezing: that is mild, is heard diffusely, 16:50 Abdomen/GI: Inspection: abdomen appears normal, Palpation: abdomen is soft and non-tender, in all quadrants, 16:50 Back: pain, is absent, ROM is normal, 16:50 Neuro: Orientation: to person, place \T\ time. Mentation: is normal, Motor: moves all fours, strength is normal, 20:22 ECG was reviewed by the Attending Physician. cp Vital Signs: 16:34 BP 143 / 79; Pulse 97; Resp 17; Pulse Ox 98% on R/A; rs5 18:01 BP 137 / 81; Pulse 91; Resp 18; Pulse Ox 95% on 3 lpm NC; rs5 19:15 BP 102 / 69; Pulse 104; Resp 17; Pulse Ox 96% on 4 lpm NC; jj7 20:00 BP 104 / 74; Pulse 101; Resp 20; Pulse Ox 95% on 2 lpm NC; jj7 21:07 BP 101 / 86; Pulse 98; Resp 21; Pulse Ox 99% on BiPAP; jj7 22:11 BP 105 / 81; Pulse 84; Resp 17; Pulse Ox 99% on BiPAP; jj7 23:00 BP 125 / 88; Pulse 102; Resp 18; Pulse Ox 98% on BiPAP; jj7 23:53 BP 122 / 83; Pulse 99; Resp 20; Temp 98.3; Pulse Ox 99% on 2 lpm NC; jj7 MDM: 16:34 Patient medically screened. 21:30 Data reviewed: vital signs, nurses notes, lab test result(s), EKG, radiologic studies, cp plain films, and as a result, I will admit patient. 21:30 Differential diagnosis: CHF exacerbation, Chronic Obstructive Pulmonary Disease cp arrythmia, pneumonia, pulmonary edema, Pulmonary Embolism Sepsis Unstable Angina. Management of patient was discussed with the following: Hospitalist: DR Granados will admit after discussion. 06/29 16:33 Order name: Basic Metabolic Panel; Complete Time: 17:57 cp 06/29 17:57 Interpretation: Normal except: CL 109; GLUC 107; BUN 21. cp 06/29 16:33 Order name: CBC with Diff; Complete Time: 17:17 cp 06/29 17:17 Interpretation: Normal except: WBC 12.50; MPV 6.7; LYDIA% 77.4; LYM% 10.8; NEUT A 9.6; cp MNA 1.5. 06/29 16:33 Order name: LFT's; Complete Time: 17:57 cp 06/29 17:59 Interpretation: Normal except: IBILI, CALC 0.1; A/G 1.0. cp 06/29 16:33 Order name: Magnesium; Complete Time: 17:57 cp 06/29 16:33 Order name: NT PRO-BNP; Complete Time: 17:57 cp 06/29 19:42 Interpretation: Reviewed. cp 06/29 16:33 Order name: PT-INR; Complete Time: 17:57 cp 06/29 16:33 Order name: Troponin HS; Complete Time: 17:57 cp 06/29 16:33 Order name: SARS RAPID; Complete Time: 17:57 cp 06/29 16:33 Order name: Influenza Screen (a \T\ B); Complete Time: 17:57 cp 06/29 19:44 Order name: Troponin High Sensitivity; Complete Time: 20:17 cp 06/29 20:18 Interpretation: Reviewed. cp 06/29 20:38 Order name: ABG cp 06/29 22:09 Order name: Urinalysis w/ reflexes EDMS 06/29 22:09 Order name: CBC with Automated Diff EDMS 06/29 22:09 Order name: CBC with Automated Diff EDMS 06/29 22:09 Order name: Comprehensive Metabolic Panel EDMS 06/29 22:09 Order name: Comprehensive Metabolic Panel EDMS 06/29 16:33 Order name: XRAY Chest (1 view); Complete Time: 17:57 cp 06/29 21:19 Order name: BiPap ([employer] Only) EDMS 06/29 16:33 Order name: Cardiac monitoring; Complete Time: 17:02 cp 06/29 16:33 Order name: EKG - Nurse/Tech; Complete Time: 22:10 cp 06/29 16:33 Order name: IV Saline Lock; Complete Time: 17:02 cp 06/29 16:33 Order name: Labs collected and sent; Complete Time: 17:02 cp 06/29 16:33 Order name: O2 Per Protocol; Complete Time: 17:02 cp 06/29 16:33 Order name: O2 Sat Monitoring; Complete Time: 17:02 cp 06/29 19:44 Order name: EKG - Nurse/Tech; Complete Time: 21:45 cp EC:22 Rate is 105 beats/min. Rhythm is regular. IL interval is normal. QRS interval is cp normal. QT interval is normal. Interpreted by me. Reviewed by me. Administered Medications: 16:45 Drug: DuoNeb Nebulize (2.5 mg - 0.5 mg) 3 ml Nebulizer once Route: Nebulizer; rs5 17:00 Follow up: Response: No adverse reaction rs5 16:45 Drug: MethylPrednisoLONE IVP 80 mg IVP once Route: IVP; Site: right antecubital; rs5 17:00 Follow up: Response: No adverse reaction rs5 16:45 Drug: Ativan IVP 0.5 mg IVP once Route: IVP; Site: right antecubital; rs5 17:05 Follow up: Response: No adverse reaction; Anxiety unchanged rs5 17:10 Drug: Ativan IVP 0.5 mg IVP once Route: IVP; Site: right antecubital; rs5 17:58 Follow up: Response: No adverse reaction; Anxiety decreased rs5 19:15 Drug: NS 0.9% IV 500 ml IV at 500 ml/hr continuous Route: IV; Rate: 500 ml/hr; Site: jj7 right upper arm; 19:51 Drug: LORazepam PO 1 mg PO once Route: PO; jj7 21:45 Follow up: Response: Marked relief of symptoms jj7 Disposition Summary: 06/29/24 21:29 Hospitalization Ordered Notes: Hospitalization Status: Inpatient Admission cp Provider: Mohan Granados cp Location: Telemetry/MedSurg (Inpatient) cp Condition: Stable cp Problem: an acute exacerbation cp Symptoms: have improved cp Bed/Room Type: Standard cp Room Assignment: 225(06/29/24 22:29) rv1 Diagnosis - COPD/ Chronic obstructive pulmonary disease with (acute) exacerbation cp - Acute respiratory failure with hypercapnia cp Forms: - Medication Reconciliation Form cp - SBAR form cp - Leadership Thank You Letter cp Signatures: Dispatcher [employer] EDMS Cheko Martinez PA PA cp Bryson, James, RN RN jb4 Leonides Alvarado RN RN jj7 Kamilla Valdez rv1 Kip Laura RN RN rs5 Corrections: (The following items were deleted from the chart) 16:34 16:33 BASIC METABOLIC PANEL+C.LAB.BRZ ordered. EDMS EDMS 16:34 16:33 CBC+H.LAB.BRZ ordered. EDMS EDMS 16:34 16:33 HEPATIC FUNCTION+C.LAB.BRZ ordered. EDMS EDMS 16:34 16:33 MAGNESIUM+C.LAB.BRZ ordered. EDMS EDMS 16:34 16:33 PROBNP+C.LAB.BRZ ordered. EDMS EDMS 16:34 16:33 PROTIME (+INR)+COAG.LAB.BRZ ordered. EDMS EDMS 16:34 16:33 Troponin High Sensitivity+C.LAB.BRZ ordered. EDMS EDMS 16:34 16:33 SARS-COV-2 Antigen Rapid+I.LAB.BRZ ordered. EDMS EDMS 16:34 16:33 Influenza Screen (A \T\ B)+BA.LAB.BRZ ordered. EDMS EDMS 16:34 16:34 Chest Single View+RAD.RAD.BRZ ordered. EDMS EDMS 18:46 18:46 Chest For PE Angio+CT.RAD.BRZ ordered. EDMS EDMS 21:29 21:29 Acute and chronic respiratory failure with hypercapnia cp cp 22:28 21:29 cp jb4 22:29 22:28 225 jb4 rv1
--- NOTE | 2024-06-29 21:29 | ER ---
Nurse's Notes [facility] Name: Abbey Alves Age: 54 yrs Sex: Female : 1970 Arrival Date: 06/29/2024 Time: 16:25 Bed 18 Private MD: Diagnosis: COPD/ Chronic obstructive pulmonary disease with (acute) exacerbation;Acute respiratory failure with hypercapnia Presentation: 06/29 16:34 Chief complaint: EMS states: Pt toned out EMS for anxiety and palpitations. Coronavirus rs5 screen: At this time, the client does not indicate any symptoms associated with coronavirus-19. Ebola Screen: No symptoms or risks identified at this time. Initial Sepsis Screen: Does the patient meet any 2 criteria? No. Patient's initial sepsis screen is negative. Does the patient have a suspected source of infection? No. Patient's initial sepsis screen is negative. Risk Assessment: Do you want to hurt yourself or someone else? Patient reports no desire to harm self or others. Onset of symptoms was June 29, 2024. Care prior to arrival: IV initiated. 20 GA, in the right antecubital area. 16:34 Method Of Arrival: EMS: [facility] rs5 16:34 Acuity: KEELY 3 rs5 Historical: - Allergies: 16:36 No Known Allergies; rs5 - PMHx: 16:36 COPD; DVT; Hypertensive disorder; neuropathy; Previous chemotherapy; Vulva and cervical rs5 CA; - PSHx: 16:36 section; hysterectomy; rs5 - Immunization history:: Adult Immunizations up to date. - Infectious Disease History:: Denies. - Social history:: Smoking status: Patient denies any tobacco usage or history of. Screenin:31 [facility] ED Fall Risk Assessment (Adult) History of falling in the last 3 months, rs5 including since admission No falls in past 3 months (0 pts) Confusion or Disorientation No (0 pts) Intoxicated or Sedated No (0 pts) Impaired Gait No (0 pts) Mobility Assist Device Used No (0 pt) Altered Elimination No (0 pt) Score/Fall Risk Level 0 - 2 = Low Risk Oriented to surroundings, Maintained a safe environment. Abuse screen: Denies threats or abuse. Nutritional screening: No deficits noted. Tuberculosis screening: No symptoms or risk factors identified. Assessment: 16:33 General: Appears distressed, uncomfortable, Behavior is cooperative, anxious. Pain: rs5 Denies pain. Neuro: Level of Consciousness is awake, alert, obeys commands, Oriented to person, place, time, situation. Cardiovascular: Reports shortness of breath, Patient's skin is warm and dry. Respiratory: Airway is patent Respiratory effort is even, labored, Respiratory pattern is symmetrical. GI: Abdomen is round non-distended, Abd is soft and non tender X 4 quads. : No signs and/or symptoms were reported regarding the genitourinary system. EENT: No signs and/or symptoms were reported regarding the EENT system. Derm: Skin is intact, Skin is pink, warm \\T\\ dry. Musculoskeletal: Range of motion: intact in all extremities. 16:34 Reassessment: pt states "I just feel so anxious and short of breath" provider notified. rs5 17:41 Reassessment: Patient and/or family updated on plan of care and expected duration. Pain rs5 level reassessed. Patient is alert, oriented x 3, equal unlabored respirations, skin warm/dry/pink. 18:57 Reassessment: Patient and/or family updated on plan of care and expected duration. Pain rs5 level reassessed. Patient is alert, oriented x 3, equal unlabored respirations, skin warm/dry/pink. Patient states feeling better. Patient states symptoms have improved. 19:15 Reassessment: ASSUMED CARE OF PT. PT LYING IN BED. C/O OF BEING COLD. WARM BLANKET jj7 PROVIDED. VS STABLE. CALL MURRAY IN REACH. FAMILY AT BEDSIDE. Vital Signs: 16:34 BP 143 / 79; Pulse 97; Resp 17; Pulse Ox 98% on R/A; rs5 18:01 BP 137 / 81; Pulse 91; Resp 18; Pulse Ox 95% on 3 lpm NC; rs5 19:15 BP 102 / 69; Pulse 104; Resp 17; Pulse Ox 96% on 4 lpm NC; jj7 20:00 BP 104 / 74; Pulse 101; Resp 20; Pulse Ox 95% on 2 lpm NC; jj7 21:07 BP 101 / 86; Pulse 98; Resp 21; Pulse Ox 99% on BiPAP; jj7 22:11 BP 105 / 81; Pulse 84; Resp 17; Pulse Ox 99% on BiPAP; jj7 23:00 BP 125 / 88; Pulse 102; Resp 18; Pulse Ox 98% on BiPAP; jj7 23:53 BP 122 / 83; Pulse 99; Resp 20; Temp 98.3; Pulse Ox 99% on 2 lpm NC; jj7 ED Course: 16:29 Patient arrived in ED. rs5 16:30 Cheko Martinez PA is PHCP. cp 16:30 Cheko Nunez MD is Attending Physician. cp 16:31 Patient has correct armband on for positive identification. Placed in gown. Bed in low rs5 position. Call light in reach. Side rails up X2. 16:31 No provider procedures requiring assistance completed. rs5 16:34 Kip Laura, RN is Primary Nurse. rs5 16:36 Triage completed. rs5 17:33 XRAY Chest (1 view) In Process Unspecified. EDMS 19:15 Inserted saline lock: 20 gauge in right upper arm, using aseptic technique. Flushed jj7 with 10 mL NS. 19:20 Provided Education on: USE OF CALL MURRAY. jj7 19:20 Arm band placed on right wrist. jj7 19:51 Troponin High Sensitivity Sent. jj7 21:28 Mohan Granados MD is Hospitalizing Provider. cp 21:45 BiPap ([employer] Only) Sent. jj7 22:08 O2 via BiPAP RATE 10, 35%, 100% O2. jj7 23:53 Patient admitted, IV remains in place. jj7 Administered Medications: 16:45 Drug: DuoNeb Nebulize (2.5 mg - 0.5 mg) 3 ml Nebulizer once Route: Nebulizer; rs5 17:00 Follow up: Response: No adverse reaction rs5 16:45 Drug: MethylPrednisoLONE IVP 80 mg IVP once Route: IVP; Site: right antecubital; rs5 17:00 Follow up: Response: No adverse reaction rs5 16:45 Drug: Ativan IVP 0.5 mg IVP once Route: IVP; Site: right antecubital; rs5 17:05 Follow up: Response: No adverse reaction; Anxiety unchanged rs5 17:10 Drug: Ativan IVP 0.5 mg IVP once Route: IVP; Site: right antecubital; rs5 17:58 Follow up: Response: No adverse reaction; Anxiety decreased rs5 19:15 Drug: NS 0.9% IV 500 ml IV at 500 ml/hr continuous Route: IV; Rate: 500 ml/hr; Site: [facility] right upper arm; 19:51 Drug: LORazepam PO 1 mg PO once Route: PO; jj7 21:45 Follow up: Response: Marked relief of symptoms jj7 Medication: 19:15 VIS not applicable for this client. jj7 Outcome: 21:29 Decision to Hospitalize by Provider. cp 23:53 Admitted to Med/surg accompanied by chito, via stretcher, room 225, with oxygen, Other j WITH RT Report called to [facility] [employer] TICKET FAXED TO 2ND FLOOR 23:53 Condition: improved 23:57 Patient left the ED. jj7 Signatures: Dispatcher [employer] EDMS Cheko Martinez PA PA cp Johnson, Juwairiyah, RN RN jj7 Kip Laura RN RN rs5
[2024-06-29] MEDS ORDERED: ONDANSETRON 4 MG/2 ML VIAL IV PRN (22:04)
--- NOTE | 2024-06-29 22:07 | P.HP ---
Certification for Inpatient Patient admitted to: Inpatient With expected LOS: >2 Midnights Practitioner: I am a practitioner with admitting privileges, knowledge of patient current condition, hospital course, and medical plan of care. Services: Services provided to patient in accordance with Admission requirements found in Title 42 Section 412.3 of the Code of Federal Regulations Patient History Date of Service: 06/30/24 Reason for admission: COPD History of Present Illness: 54 year old female with past medical history of COPD, DVT, hypertension, neuropathy, history of vulvar and cervical cancer s/p chemotherapy who was brought to ER with shortness of breath that began 2 days ago and has been progressively getting worse. Denies any chest pain. No fever or chills. Patient was recently been admitted to the hospital with similar symptoms and COVID. Denies any nausea vomiting or diarrhea. No sick contacts. Patient was assessed in the ER and was admitted for further management of COPD exacerbation and hypoxic respiratory failure. Allergies No Known Allergies Allergy (Verified 04/21/21 04:16) Home medications list reviewed: Yes Home Medications: Nifedipine [Nifedipine ER] 30 mg PO DAILY 03/04/23 Albuterol Sulfate [Proair Digihaler] 2 puff PO BID PRN 06/26/24 Fluticasone/Umeclidin/Vilanter [Trelegy Ellipta 100-62.5-25] 2 puff PO BID PRN 06/26/24 Losartan Potassium 100 mg PO DAILY 06/26/24 Nirmatrelvir/Ritonavir [Paxlovid 2X150 mg-100 mg] 3 tab PO BID 5 Days #30 tab 06/27/24 Prednisone [Anne] 35 mg PO BID 2 Days #4 tab 06/27/24 - Past Medical/Surgical History Diabetic: No Past Medical History: Reviewed- Non-Contributory -: COPD -: Vulvar & Cervical Cancer in Remission -: Hypertension Past Surgical History: Reviewed- Non-Contributory -: Hysterectomy -: Psychosocial/ Personal History: Patient is , lives at home with . - Family History Family History: Reviewed- Non-Contributory - Family History Mother -: Cancer Notes: Brain cancer Father -: Hypertension - Social History Smoking Status: Former smoker Alcohol use: No CD- Drugs: No Caffeine use: Yes Review of Systems 10-point ROS is otherwise unremarkable Physical Examination - Vital Signs Temperature: 98.2 F Blood Pressure: 142/78 Pulse: 96 Respirations: 16 Pulse Ox (%): 100 - Physical Exam General: Alert, Oriented x3, Mild distress HEENT: Atraumatic, Normocephalic Neck: Supple, 2+ carotid pulse no bruit Respiratory: Diminished, Crackles/rales, Expiratory wheezes Cardiovascular: Normal pulses, Regular rate/rhythm, Normal S1 S2 Capillary refill: <2 Seconds Gastrointestinal: Soft and benign, W/out hepatosplenomegaly Musculoskeletal: No clubbing, No swelling Integumentary: No rashes, No breakdown Neurological: Normal strength at 5/5 x4 extr, Normal tone, Cranial nerves 3-12 intact, Normal reflexes 2+ Lymphatics: No axilla or inguinal lymphadenopathy - Studies Laboratory Data (last 24 hrs) 06/29/24 06/29/24 06/29/24 17:00 17:00 17:00 WBC 12.50 H Hgb 14.3 Hct 42.9 Plt Count 346 PT 12.0 INR 1.07 Sodium 143 Potassium 3.6 BUN 21 H Creatinine 0.56 Glucose 107 H Magnesium 2.1 Total Bilirubin 0.3 AST 18 ALT 30 Alkaline Phosphatase 58 Microbiology Data (last 24 hrs): 06/29/24 17:10 Nasopharnyx Influenza Type A Antigen Screen - Final 06/29/24 17:10 Nasopharnyx Influenza Type B Antigen Screen - Final Assessment and Plan - Plan COPD exacerbation Monitor closely on telemetry Started on bronchodilators Oxygen supplementation Steroids added ABG findings noted Chest x-ray findings noted Pulmonology consult if not better in the a.m. Acute hypoxic hypercapnic respiratory failure secondary to COPD exacerbation Continue bronchodilators steroids and oxygen supplementation Placed on BiPAP Will wean off History of DVT Neuropathy Continue home medications and titrate as needed History of Vulvar and Cervical cancer s/p chemotherapy -Follow up outpatient DVT ppx Lovenox Full code Discharge Plan: Home Plan to discharge in: 48 Hours - Advance Directives Does patient have a Living Will: No Does patient have a Durable POA for Healthcare: No - Code Status/Comfort Care Code Status: Full Code Time Spent Managing Pts Care (In Minutes): 48
[2024-06-29] MEDS: ALBUTEROL 2.5 MG/3 ML NEB SOL NEB SCH (23:00)
[2024-06-30] MEDS ORDERED: ALBUTEROL 2.5 MG/3 ML NEB SOL NEB PRN (00:01)
[2024-06-30 00:32] VITALS: BMI 17.0
[2024-06-30] MEDS: IPRATROPIUM BROM 0.5MG/2.5ML NEB SCH (01:00)
[2024-06-30] MEDS: ALBUTEROL 2.5 MG/3 ML NEB SOL NEB SCH (01:00)
[2024-06-30 02:04] LABS: Specific Gravity 1.013 (1.005-1.030); Sqamous Epithelial None Seen /HPF (None Seen); Urine Bacteria None Seen /HPF (<20); Urine Bilirubin NEGATIVE (Negative); Urine Blood Trace (Negative); Urine Clarity Clear (Clear); Urine Color Colorless (Yellow); Urine Culture Reflex Order NOT NEEDED; Urine Glucose NEGATIVE (Negative); Urine Ketones NEGATIVE (Negative); Urine Microscopic Reflex YN ORDER UMIC; Urine Mucus Slight /HPF (None Seen); Urine Nitrite NEGATIVE (Negative); Urine Protein NEGATIVE (Negative); Urine RBC <5 /HPF (None Seen); Urine Urobilinogen Normal (Normal); Urine WBC <5 /HPF (<5); Urine pH 6.5 (5.0-7.0)
[2024-06-30] MEDS ORDERED: ALBUTEROL INHALER 200 PUFF/6.7 GM IH PRN (05:43)
[2024-06-30] MEDS ORDERED: HOME MED 1 EA UNK (Fluticasone/Umeclidin/Vilanter [Trelegy Ellipta 100-62.5-25] Blst.W.Dev PO PRN (05:43)
[2024-06-30] MEDS: METHYLPREDNISOLONE 125 MG INJ IV SCH (06:13)
[2024-06-30 07:09] LABS: Absolute Lymphocytes (CBC) 1.1 K/uL (0.7-4.9); Absolute Monocytes 0.3 K/uL (0.1-1.3); Absolute Neutrophil 4.4 K/uL (1.8-8.0); Basophils % 0.2 % (0-1.3); Hemoglobin 13.4 g/dL (12.0-15.0); Lymphocytes % 19.3 % (15.3-44.8); MCH 34.1 pg (27.0-35.0); MCHC 34.3 g/dL (32.0-36.0); MCV 99.3 fL (80-100); MPV 6.8 fL (7.6-11.3); Monocytes % 4.4 % (3.3-12.3); Neutrophils % 76.1 % (41.7-73.7); Nucleated Red Blood Cells % 0.1 % (0-0); Platelets 333 thou/uL (152-406); RBC Red Blood Cell Count 3.93 M/uL (3.86-4.86); Red Cell Distribution Width 13.7 % (12.1-15.2)
[2024-06-30 07:23] LABS: Albumin 3.4 g/dL (3.4-5.0); Albumin/Globulin Ratio 1.1 (1.1-1.8); Anion Gap 5.6 mEq/L (5.0-15.0); Bilirubin Total 0.2 mg/dL (0.2-1.0); Globulin 3.1 g/dL (2.3-3.5); Potassium 4.6 mEq/L (3.5-5.1); Protein, Total 6.5 g/dL (6.4-8.2)
[2024-06-30] MEDS: NIFEDIPINE XL 30 MG TABLET PO SCH (07:58)
[2024-06-30] MEDS: ENOXAPARIN 40 MG/0.4 ML SQ SCH (07:59)
[2024-06-30] MEDS: LOSARTAN POTASSIUM 50 MG TABLET PO SCH (07:59)
[2024-06-30] MEDS: METOPROLOL TAR 50 MG TAB PO ONE (10:52)
[2024-06-30] MEDS: ALPRAZOLAM 0.5 MG TABLET PO ONE (10:53)
--- NOTE | 2024-06-30 16:37 | P.PN ---
Date of Service: 06/30/24 subjective Wean BiPAP, 98% on 2 L Review of Systems 10-point ROS is otherwise unremarkable Physical Examination - Vital Signs reviewed - Physical Exam General: Alert, Oriented x3, HEENT: Atraumatic, Normocephalic Neck: Supple, 2+ carotid pulse no bruit Respiratory: Diminished, Crackles/rales, Expiratory wheezes Cardiovascular: Normal pulses, Regular rate/rhythm, Normal S1 S2 Capillary refill: <2 Seconds Gastrointestinal: Soft and benign, nontender Musculoskeletal: No clubbing, No swelling Integumentary: No rashes, No breakdown Neurological: Normal strength at 5/5 x4 extr, Normal tone, , Normal reflexes 2+ Lymphatics: No axilla or inguinal lymphadenopathy Assessment and Plan - Plan Acute hypoxic hypercapnic respiratory failure secondary to COPD exacerbation COPD exacerbation Continue bronchodilators steroids and oxygen supplementation Placed on BiPAP Will wean off Monitor closely on telemetry Started on bronchodilators Oxygen supplementation Steroids added ABG findings noted Chest x-ray findings noted Pulmonology consult if not better in the a.m. History of DVT Neuropathy Continue home medications and titrate as needed History of Vulvar and Cervical cancer s/p chemotherapy -Follow up outpatient DVT ppx Lovenox Full code Discharge Plan: Home Plan to discharge in: 48 Hours
[2024-06-30] MEDS: ACETAMINOPHEN 325 MG TABLET PO PRN (18:19)
[2024-06-30] MEDS: ALPRAZOLAM 0.5 MG TABLET PO PRN (21:13)
[2024-07-01] MEDS: clonazePAM 0.5 MG TAB PO SCH (08:34)
--- NOTE | 2024-07-01 09:00 | P.DS ---
Admission Date: 06/29/24 Discharge Date: 07/01/24 Disposition: DC HOME/HOME HEALTH CARE Discharge Condition: GOOD Reason for Admission: COPD Brief History of Present Illness: 54 year old female with past medical history of COPD, DVT, hypertension, neuropathy, history of vulvar and cervical cancer s/p chemotherapy who was brought to ER with shortness of breath that began 2 days ago and has been progressively getting worse. Denies any chest pain. No fever or chills. Patient was recently been admitted to the hospital with similar symptoms and COVID. Denies any nausea vomiting or diarrhea. No sick contacts. Patient was assessed in the ER and was admitted for further management of COPD exacerbation and hypoxic respiratory failure. - Physical Exam General: Alert, Oriented x3, Mild distress HEENT: Atraumatic, Normocephalic Neck: Supple, 2+ carotid pulse no bruit Respiratory: Diminished, Crackles/rales, Expiratory wheezes Cardiovascular: Normal pulses, Regular rate/rhythm, Normal S1 S2 Capillary refill: <2 Seconds Gastrointestinal: Soft and benign, W/out hepatosplenomegaly Musculoskeletal: No clubbing, No swelling Integumentary: No rashes, No breakdown Neurological: Normal strength at 5/5 x4 extr, Normal tone, Cranial nerves 3-12 intact, Normal reflexes 2+ Lymphatics: No axilla or inguinal lymphadenopathy Hospital Course: 54 year old female with past medical history of COPD, DVT, hypertension, neuropathy, history of vulvar and cervical cancer s/p chemotherapy who was brought to ER with shortness of breath that began 2 days ago and has been progressively getting worse. Was noted to have COPD exacerbation, treated with nebulizers, steroids, oxygen. BiPAP. Weaned to room air. Stable to discharge home, tolerating diet. Follow-up with primary care after discharge. Patient has home O2. Assessment COPD exacerbation, discharged home on steroids, inhalers, nebulizers. Discharge medications cefdinir 1 p.o. twice daily for 7 days melatonin 10 mg daily for insomnia Prednisone 20 mg 1 p.o. twice daily for 10 days Continue home medicines as previously prescribed GOAL: Clear understanding of disease process INSTRUCTIONS: Physician Discharge Instructions: -Follow-up with pulmonary after discharge -Follow-up with PCP in 1 to 2 weeks -Please call Dr. Stark at [phone] if any questions regarding hospital stay -Please call nursing station at [phone] if any nursing or medication questions -Return to the emergency room if symptoms worsen Diet: ADA, low sodium Activity: Fall precautions Vital Signs/Physical Exam: Temp Pulse Resp BP Pulse Ox 97.6 F 72 18 121/84 96 07/01/24 04:00 07/01/24 04:00 07/01/24 04:00 07/01/24 04:00 07/01/24 04:00 Laboratory Data at Discharge: WBC 5.80 thou/uL (4.3-10.9) 06/30/24 06:25 Hgb 13.4 g/dL (12.0-15.0) 06/30/24 06:25 Hct 39.0 % (36.0-45.0) 06/30/24 06:25 Plt Count 333 thou/uL (152-406) 06/30/24 06:25 PT 12.0 SECONDS (9.4-12.5) 06/29/24 17:00 INR 1.07 06/29/24 17:00 Sodium 140 mEq/L (136-145) 06/30/24 06:25 Potassium 4.6 mEq/L (3.5-5.1) D 06/30/24 06:25 BUN 21 mg/dL (7-18) H 06/30/24 06:25 Creatinine 0.51 mg/dL (0.55-1.02) L 06/30/24 06:25 Glucose 125 mg/dL (74-106) H 06/30/24 06:25 Magnesium 2.1 mg/dL (1.6-2.4) 06/29/24 17:00 Total Bilirubin 0.2 mg/dL (0.2-1.0) 06/30/24 06:25 AST 16 U/L (15-37) 06/30/24 06:25 ALT 30 U/L (13-56) 06/30/24 06:25 Alkaline Phosphatase 49 U/L (45-117) 06/30/24 06:25 Home Medications: Nifedipine [Nifedipine ER] 30 mg PO DAILY 03/04/23 Albuterol Sulfate [Proair Digihaler] 2 puff PO BID PRN 06/26/24 Fluticasone/Umeclidin/Vilanter [Trelegy Ellipta 100-62.5-25] 2 puff PO BID PRN 06/26/24 Losartan Potassium 100 mg PO DAILY 06/26/24 Nirmatrelvir/Ritonavir [Paxlovid 2X150 mg-100 mg] 3 tab PO BID 5 Days #30 tab 06/27/24 ALPRAZolam [Xanax*] 0.5 mg PO BID PRN #30 tab 07/01/24 Cefdinir [Cefdinir*] 300 mg PO BID #14 cap 07/01/24 Melatonin 10 mg PO BEDTIME PRN PRN #30 tab 07/01/24 predniSONE [Prednisone*] 20 mg PO BID #20 tab 07/01/24 New Medications: Cefdinir [Cefdinir*] 300 mg PO BID #14 cap Melatonin 10 mg PO BEDTIME PRN PRN #30 tab PRN Reason: Insomnia predniSONE [Prednisone*] 20 mg PO BID #20 tab ALPRAZolam [Xanax*] 0.5 mg PO BID PRN #30 tab PRN Reason: Anxiety Physician Discharge Instructions: -DC IV and DC home -Follow-up with PCP in 1 to 2 weeks -Follow-up with Pulmonary in 1 to 2 weeks -Please call Dr. Stark at [phone] if any questions regarding hospital stay -Please call nursing station at [phone] if any nursing or medication questions -Return to the emergency room if symptoms worsen Diet: AHA Activity: Fall precautions Followup: Yuri Franklin DO [Primary Care Provider] - Time spent managing pt's care (in minutes): 45
--- NOTE | 2024-07-01 10:26 | P.CNS ---
Date of Consult: 07/01/24 Reason for Consult: COPD exacerbation Chief Complaint: COPD History of Present Illness: Patient is 54 years of age recurrent hospital admissions for COPD recently got COVID got worse ended up worsening dyspnea cough congestion was treated with outpatient Paxlovid improving admitted to the hospital denies any fevers and chills she is having some problems at home and is emotionally upset Allergies No Known Allergies Allergy (Verified 04/21/21 04:16) Home Medications: Nifedipine [Nifedipine ER] 30 mg PO DAILY 03/04/23 Albuterol Sulfate [Proair Digihaler] 2 puff PO BID PRN 06/26/24 Fluticasone/Umeclidin/Vilanter [Trelegy Ellipta 100-62.5-25] 2 puff PO BID PRN 06/26/24 Losartan Potassium 100 mg PO DAILY 06/26/24 Nirmatrelvir/Ritonavir [Paxlovid 2X150 mg-100 mg] 3 tab PO BID 5 Days #30 tab Prednisone [Anne] 35 mg PO BID 2 Days #4 tab 06/27/24 - Past Medical/Surgical History Diabetic: No -: COPD -: Vulvar & Cervical Cancer in Remission -: Hypertension -: Hysterectomy -: Psychosocial/ Personal History: Patient is , lives at home with . - Family History Mother Medical History: Cancer Notes: Brain cancer Father Medical History: Hypertension - Social History Smoking Status: Former smoker Alcohol use: No CD- Drugs: No Caffeine use: Yes Place of Residence: Home Review of Systems 10-point ROS is otherwise unremarkable General: Weakness Respiratory: Shortness of Breath Physical Examination Temp Pulse Resp BP Pulse Ox 97.1 F 82 12 148/84 H 96 07/01/24 08:00 07/01/24 08:00 07/01/24 08:00 07/01/24 08:00 07/01/24 08:00 General: Alert, Oriented x3, Mild distress Respiratory: Clear to auscultation bilaterally, Diminished, Expiratory wheezes Cardiovascular: No edema, Regular rate/rhythm, Normal S1 S2 - Problems (1) COPD exacerbation Current Visit: No Status: Acute Plan: Patient is 54 years of age admitted with COPD exacerbation recent COVID labs chemistries all reviewed white count is normal x-ray shows COPD changes changed to p.o. prednisone and uses Trelegy at home x-ray shows COPD changes patient has home O2 plan for discharge continue with prednisone 20 mg twice a day for a week
[2024-07-01 12:20] VITALS: BP 116/74; TEMP 98.2
[2024-07-01 12:39] VITALS: O2SAT 92
[2024-07-01] MEDS ORDERED: predniSONE 20 MG TAB PO SCH (21:00)
--- NOTE | 2024-07-02 13:52 | EKG ---
Test Date: 2024-06-29 Test Time: 20:16:49 Dynamometer Mechanic: MEASUREMENT RESULTS: Intervals: Rate: 105 SD: 114 QRSD: 56 QT: 318 QTc: 420 [place]: P: 86 SD: 114 QRS: 83 T: 24 INTERPRETIVE STATEMENTS: Sinus tachycardia Septal infarct, age undetermined Abnormal ECG Compared to ECG 06/26/2024 10:25:24 Atrial abnormality no longer present Myocardial infarct finding still present Electronically Signed On 07-02-24 13:46:54 CDT by Jarad Mead
== END 2024-07-01 15:34 | disposition home health service (06) | DRG 190 ==
LOC: ER 16:25 → ERHOLD 22:04 → 2ND 06-30 00:18
PROVIDERS: ADMIT Family Medicine; ATTEND Hospitalist
PROC: 4A033R1 Measurement of Arterial Saturation, Peripheral, Percutaneous Approach (ICD-10-PCS; principal; 2024-06-29)
PROC: 5A09457 Assistance with Respiratory Ventilation, 24-96 Consecutive Hours, Continuous Positive Airway Pressure (ICD-10-PCS; 2024-06-29)
DX: J44.1 Chronic obstructive pulmonary disease with (acute) exacerbation (principal); J96.01 Acute respiratory failure with hypoxia; J96.02 Acute respiratory failure with hypercapnia; I10 Essential (primary) hypertension; G47.00 Insomnia, unspecified; G62.9 Polyneuropathy, unspecified; E78.00 Pure hypercholesterolemia, unspecified; Z86.16 Personal history of COVID-19; Z11.52 Encounter for screening for COVID-19; Z79.01 Long term (current) use of anticoagulants; Z79.52 Long term (current) use of systemic steroids; Z92.21 Personal history of antineoplastic chemotherapy; Z85.41 Personal history of malignant neoplasm of cervix uteri; Z79.899 Other long term (current) drug therapy; Z87.891 Personal history of nicotine dependence; Z90.710 Acquired absence of both cervix and uterus; Z86.718 Personal history of other venous thrombosis and embolism
CPT/HCPCS: 36415; 36600; 71045; 71275; 80048; 80053; 80061; 80076; 81001; 82805; 83605; 83735; 83880; 84100; 84439; 84443; 84484; 85025; 85610; 85730; 87040; 87804; 87811; 93005; 93306; 94640; 94660; 96365; 96366; 96372; 96374; 96375; 99285; G0378; J1650; J2919; J3475; J7030; J7040; J7613; J7614; J7644; J8499; Q9967

== ENCOUNTER 2024-07-03 16:56 | Inpatient (IN) | payer OTHER ==
--- OUTSIDE RECORDS SUMMARY | 2024-07-03 16:59 | XMS REPORT | Clinical Summary ---
Author Name Unknown Organization [facility] Address [address] [place] [address] Care Team Providers Care Drum Saw Operator Name Role Phone Unavailable Primary Care Provider [...]
[2024-07-03 17:36] LABS: Absolute Basophils 0.1 K/uL (0-0.5); Absolute Lymphocytes (CBC) 2.5 K/uL (0.7-4.9); Absolute Monocytes 1.7 K/uL (0.1-1.3); Absolute Neutrophil 9.3 K/uL (1.8-8.0); Basophils % 0.5 % (0-1.3); Hematocrit 46.2 % (36.0-45.0); Hemoglobin 15.3 g/dL (12.0-15.0); Lymphocytes % 18.2 % (15.3-44.8); MCH 32.9 pg (27.0-35.0); MCHC 33.1 g/dL (32.0-36.0); MCV 99.2 fL (80-100); MPV 6.5 fL (7.6-11.3); Monocytes % 12.3 % (3.3-12.3); Nucleated Red Blood Cells % 0.1 % (0-0); Platelets 411 thou/uL (152-406); RBC Red Blood Cell Count 4.65 M/uL (3.86-4.86); Red Cell Distribution Width 13.6 % (12.1-15.2)
[2024-07-03] MEDS ORDERED: ALBUTEROL 2.5 MG/3 ML NEB SOL ONE ×3 (17:38→18:00)
[2024-07-03] MEDS ORDERED: METHYLPREDNISOLONE 125 MG INJ ONE (17:38)
--- NOTE | 2024-07-03 18:03 | RAD REPORT ---
EXAM DESCRIPTION: RADChest Single View07/03/2024 5:50 pm CLINICAL HISTORY: COPD COMPARISON: Chest Single View dated 06/29/2024; Chest Single View dated 06/26/2024; Chest Single View da yola 08/23/2023; Chest Single View dated 04/22/2023 TECHNIQUE: Portable AP view of the chest. FINDINGS: The lungs are clear. Diffuse hyperlucency and hyperinflation suggesting background COPD ch anges. No pneumothorax or effusion. The cardiomediastinal contours are unremarkable. IMPRESSION: No acute cardiopulmonary process.
[2024-07-03 18:31] LABS: Blood O2 Saturation 98.2 % (92-98.5)
[2024-07-03 18:32] LABS: Arterial Blood Carboxyhemoglob 0.6 % (0-1.5); Blood Gas Oxyhemoglobin 95.7 % (94-97); Blood Gas THB 16.4 g/dl (12-18)
[2024-07-03] MEDS ORDERED: NA CHLORIDE 0.9% 250 ML ONE (18:35)
[2024-07-03] MEDS ORDERED: AZITHROMYCIN 500 MG INJ IVPB ONE (18:35)
--- NOTE | 2024-07-03 19:39 | ER ---
Nurse's Notes [facility] Name: Abbey Alves Age: 54 yrs Sex: Female : 1970 Arrival Date: 07/03/2024 Time: 16:56 Bed 15 Private MD: Diagnosis: COPD/ Chronic obstructive pulmonary disease with (acute) exacerbation;Acute respiratory failure;Anxiety disorder, unspecified Presentation: 07/03 16:55 Chief complaint: EMS states: SOB STARTED TODAY GRADUALLY WORSE PICKED UP BY EMS FROM [facility] FOR APPOINTMENT. LAST WEEK DX WITH COVID. EMS GAVE 2GM OF MAGNESIUM AND PT ON NEBULIZER RECEIVED DUONEB AND ATROVENT, PER EMS LUNGS SOUND TIGHT. POSSIBLE COPD EXACERBATION REPORTED BY CLINIC PROVIDER TO EMS. PT REPORTS BLOOD IN STOOL THIS AM. Coronavirus screen: Client denies travel out of the [place] in the last 14 days. At this time, the client does not indicate any symptoms associated with coronavirus-19. Ebola Screen: Patient negative for fever greater than or equal to 101.5 degrees Fahrenheit, and additional compatible Ebola Virus Disease symptoms Patient denies exposure to infectious person. Patient denies travel to an Ebola-affected area in the 21 days before illness onset. No symptoms or risks identified at this time. Initial Sepsis Screen: Does the patient meet any 2 criteria? No. Patient's initial sepsis screen is negative. Does the patient have a suspected source of infection? No. Patient's initial sepsis screen is negative. Risk Assessment: Do you want to hurt yourself or someone else? Patient reports no desire to harm self or others. Onset of symptoms was July 03, 2024. Care prior to arrival: Medication(s) given: Albuterol Neb Atrovent Neb IV initiated. 18 GA, in the left forearm, Glucose check: 105 Oxygen administered. via a nebulizer mask. 16:55 Method Of Arrival: EMS: [facility] db 16:55 Acuity: KEELY 2 db Triage Assessment: 17:07 General: Appears distressed, uncomfortable, Behavior is cooperative, anxious. Pain: db Unable to use pain scale. DIFFICULTY BREATHING. Neuro: Level of Consciousness is awake, alert, obeys commands, Oriented to person, place, time, situation, Speech is normal. Cardiovascular: No deficits noted. Respiratory: Reports shortness of breath at rest on exertion air hunger Airway is patent Respiratory effort is even, labored, Respiratory pattern is regular, symmetrical, Breath sounds are diminished bilaterally. Onset: The symptoms/episode began/occurred this morning, the patient has moderate shortness of breath. Historical: - Allergies: 17:07 No Known Allergies; db - PMHx: 17:07 COPD; DVT; Hypertensive disorder; neuropathy; Previous chemotherapy; Vulva and cervical db CA; COVID (Vulva and cervical CA); - PSHx: 17:07 section; hysterectomy; db - Immunization history:: Adult Immunizations unknown. - Infectious Disease History:: Denies. - Social history:: Smoking status: unknown. Screenin:13 [facility] ED Fall Risk Assessment (Adult) History of falling in the last 3 months, kd4 including since admission No falls in past 3 months (0 pts) Confusion or Disorientation No (0 pts) Intoxicated or Sedated No (0 pts) Impaired Gait No (0 pts) Mobility Assist Device Used No (0 pt) Altered Elimination No (0 pt) Score/Fall Risk Level 0 - 2 = Low Risk. Abuse screen: Denies threats or abuse. Nutritional screening: No deficits noted. Tuberculosis screening: No symptoms or risk factors identified. Assessment: 17:13 Reassessment: SEE TRIAGE FOR INITIAL ASSESSMENT. db 17:25 Reassessment: RT AT BEDSIDE AND PATIENT PLACED ON BIPAP. db 17:25 Reassessment: Patient and/or family updated on plan of care and expected duration. Pain db level reassessed. Patient is alert, oriented x 3, equal unlabored respirations, skin warm/dry/pink. General: Appears distressed, uncomfortable, BETTER NOW WITH BIPAP. 17:35 Reassessment: RT AT BEDSIDE. db 18:24 Reassessment: Patient and/or family updated on plan of care and expected duration. Pain db level reassessed. Patient is alert, oriented x 3, equal unlabored respirations, skin warm/dry/pink. Patient states feeling better. Patient states symptoms have improved. 21:13 General: report given to floor, patient sent to unit on 3l nc, patient stable, vss. kd4 NAD.. 21:14 Cardiovascular: Rhythm is sinus rhythm. kd4 Vital Signs: 16:55 BP 179 / 101; Pulse 102; Resp 20; Temp 97.9; Pulse Ox 100% on R/A; Weight 39 kg; Height db 5 ft. 6 in. ; 17:00 BP 131 / 100; Pulse 101; Resp 16; Pulse Ox 100% on 5 lpm NC; db 17:45 BP 137 / 110; Pulse 95; Resp 24; Pulse Ox 100% on BiPAP; db 18:00 BP 115 / 92; Pulse 97; Resp 14; Pulse Ox 100% on BiPAP; db 20:03 BP 124 / 94; Pulse 94; Resp 20; Temp 98.3; Pulse Ox 99% on 3 lpm NC; Pain 0/10; kd4 16:55 Body Mass Index 13.88 (39.00 kg, 167.64 cm) db 20:03 Pain Scale: Adult kd4 ED Course: 17:02 Patient arrived in ED. kc6 17:02 Sheldon Pollard DO is Attending Physician. ms3 17:03 Sagrario Bucio, RN is Primary Nurse. db 17:07 Triage completed. db 17:07 Arm band placed on Patient placed in an exam room. db 17:25 Maintain EMS IV. Dressing intact. Good blood return noted. Site clean \T\ dry. Gauge \T\ db site: 18 G LEFT FOREARM. O2 via BIPAP MASK. 17:25 Initial lab(s) drawn, by me, sent to lab. EKG done, reviewed by Sheldon Pollard DO. db 17:52 XRAY Chest (1 view) In Process Unspecified. EDMS 18:49 Missed attempt(s): 20 gauge in right upper arm. jr12 18:49 Missed attempt(s): 20 gauge in right upper arm. jr12 18:50 Missed attempt(s): 20 gauge in right antecubital area. jr12 19:08 Inserted saline lock: 22 gauge in left antecubital area, using aseptic technique. Blood db collected. Flushed with 10 mL NS. 19:23 Zheng Weber, ANJEL is Primary Nurse. kd4 19:37 Davis Streeter MD is Hospitalizing Provider. ms3 21:14 No provider procedures requiring assistance completed. Patient admitted, IV remains in kd4 place. 21:15 Patient has correct armband on for positive identification. Provided Education on: kd4 admission. Administered Medications: 17:37 Drug: Albuterol Inhalation 2.5 mg Inhalation every 20 minutes x3 Route: Inhalation; db 17:40 Drug: MethylPrednisoLONE IVP 125 mg IVP once Route: IVP; Site: left forearm; db 21:12 Follow up: Response: No adverse reaction kd4 17:48 Drug: Albuterol Inhalation 2.5 mg Inhalation every 20 minutes x3 Route: Inhalation; db 21:12 Follow up: Response: No adverse reaction kd4 19:13 Drug: AZITHromycin IVPB 500 mg IVPB once over 1 hrs; (mix in 250 mL NS) Route: IVPB; db Infused Over: 1 hrs; Site: left forearm; 21:12 Follow up: IV Status: Infusion continued kd4 20:27 Drug: Ativan IVP 0.5 mg IVP once Route: IVP; Site: left antecubital; kd4 21:12 Follow up: Response: No adverse reaction kd4 Medication: 21:16 VIS not applicable for this client. kd4 Outcome: 19:38 Decision to Hospitalize by Provider. ms3 21:15 Admitted to Tele accompanied by tech, via stretcher, room 230, with oxygen, Report kd4 called to room 230 rn 21:15 Condition: stable 21:15 Instructed on the need for admit, 21:16 Patient left the ED. kd4 Signatures: Dispatcher [employer] EDMS Sheldon Pollard DO DO ms3 Grace Bose RN RN kc6 Sagrario Bucio, RN RN Katlyn Daniel [facility] Zheng Weber RN RN kd4
--- NOTE | 2024-07-03 19:39 | EDPHYS ---
[facility] Name: Abbey Alves Age: 54 yrs Sex: Female : 1970 Arrival Date: 07/03/2024 Time: 16:56 Bed 15 Private MD: ED Physician Sheldon Pollard HPI: 07/03 18:05 This 54 yrs old Female presents to ER via EMS with complaints of Shortness Of Breath, ms3 Breathing Difficulty. 18:05 54-year-old female with past medical history of COPD, DVT, hypertension, neuropathy ms3 presents to the emergency department from [facility] for COPD exacerbation. EMS notes patient with decreased air movement bilaterally on their arrival. Patient was given continuous albuterol, 2 g magnesium. Patient states she has been short of breath and this feels worse than her COPD exacerbation. She denies any alleviating or inciting factors. Historical: - Allergies: 17:07 No Known Allergies; db - PMHx: 17:07 COPD; DVT; Hypertensive disorder; neuropathy; Previous chemotherapy; Vulva and cervical db CA; COVID (Vulva and cervical CA); - PSHx: 17:07 section; hysterectomy; db - Immunization history:: Adult Immunizations unknown. - Infectious Disease History:: Denies. - Social history:: Smoking status: unknown. ROS: 18:05 Constitutional: Negative for fever, and chills. Neck: Negative for injury, pain, and ms3 swelling, Cardiovascular: Negative for chest pain, and palpitations. 18:05 MS/Extremity: Negative for injury and deformity, Skin: Negative for injury, rash, and discoloration, 18:05 Respiratory: Positive for shortness of breath, Exam: 18:05 Constitutional: This is a well developed, well nourished patient who is awake, alert, ms3 and in no acute distress. Neck: Trachea midline, no cervical lymphadenopathy. Supple, full range of motion without nuchal rigidity, or vertebral point tenderness. No Meningismus. Chest/axilla: Normal chest wall appearance and motion. Nontender with no deformity. 18:05 Abdomen/GI: Soft, non-tender, with normal bowel sounds. No distension or tympany. No guarding or rebound. No evidence of tenderness throughout. Skin: Warm, dry with normal turgor. Normal color with no rashes, no lesions, and no evidence of cellulitis. MS/ Extremity: Pulses equal, no cyanosis. Neurovascular intact. Full, normal range of motion. 18:05 Cardiovascular: Rate: tachycardic, Rhythm: regular, Pulses: no pulse deficits are appreciated, Heart sounds: normal, normal S1and S2, 18:05 ECG was reviewed by the Attending Physician. ms3 19:38 Respiratory: severe repiratory distress is noted, Respirations: nasal flaring, ms3 prolonged exhalation, intercostal retractions, Breath sounds: decreased breath sounds, that are moderate, are heard in the left posterior upper lobe, right posterior upper lobe, left posterior lower lobe, right posterior middle lobe and right posterior lower lobe, wheezing: that is mild, Vital Signs: 16:55 BP 179 / 101; Pulse 102; Resp 20; Temp 97.9; Pulse Ox 100% on R/A; Weight 39 kg; Height db 5 ft. 6 in. ; 17:00 BP 131 / 100; Pulse 101; Resp 16; Pulse Ox 100% on 5 lpm NC; db 17:45 BP 137 / 110; Pulse 95; Resp 24; Pulse Ox 100% on BiPAP; db 18:00 BP 115 / 92; Pulse 97; Resp 14; Pulse Ox 100% on BiPAP; db 20:03 BP 124 / 94; Pulse 94; Resp 20; Temp 98.3; Pulse Ox 99% on 3 lpm NC; Pain 0/10; kd4 16:55 Body Mass Index 13.88 (39.00 kg, 167.64 cm) db 20:03 Pain Scale: Adult kd4 MDM: 17:02 Patient medically screened. ms3 19:39 Differential diagnosis: Chronic Obstructive Pulmonary Disease pulmonary edema. Data ms3 reviewed: vital signs, nurses notes, and as a result, I will admit patient. Consideration of Admission/Observation Patient was admitted/placed on observation. Management of patient was discussed with the following: Hospitalist: Dr Yadav. I considered the following discharge prescriptions or medication management in the emergency department Medications were administered in the Emergency Department. See MAR. Independent interpretation of the following test(s) in the Emergency Department EKG: See my EKG interpretation above X-Ray: My interpretation is CXR image reviewed by me does not reveal pna. Counseling: I had a detailed discussion with the patient and/or guardian regarding the historical points, exam findings, and any diagnostic results supporting the discharge/admit diagnosis, lab results, radiology results, the need for further work-up and treatment in the hospital. ED course: Patient respiratory status improved at this time. Patient currently off bipap and on nasal cannula with improved air movement.. 07/03 17:03 Order name: Basic Metabolic Panel ms3 07/03 17:03 Order name: CBC with Diff; Complete Time: 18:09 ms3 07/03 17:03 Order name: LFT's ms3 07/03 17:03 Order name: Magnesium ms3 07/03 17:03 Order name: NT PRO-BNP ms3 07/03 17:03 Order name: Troponin HS ms3 07/03 17:33 Order name: ABG; Complete Time: 19:41 ap3 07/03 18:10 Order name: Blood Culture Adult (2) ms3 07/03 18:10 Order name: CMP ms3 07/03 18:10 Order name: Lactate w/ 2H reflex if indic. ms3 07/03 18:10 Order name: Protime (+inr) ms3 07/03 18:10 Order name: Ptt, Activated ms3 07/03 17:03 Order name: XRAY Chest (1 view); Complete Time: 18:09 ms3 07/03 17:11 Order name: BIPAP ms3 07/03 17:03 Order name: Cardiac monitoring; Complete Time: 17:25 ms3 07/03 17:03 Order name: EKG - Nurse/Tech; Complete Time: 17:25 ms3 07/03 17:03 Order name: IV Saline Lock; Complete Time: 17:25 ms3 07/03 17:03 Order name: Labs collected and sent; Complete Time: 17:25 ms3 07/03 17:03 Order name: O2 Per Protocol; Complete Time: 17:25 ms3 07/03 17:03 Order name: O2 Sat Monitoring; Complete Time: 17:25 ms3 07/03 18:10 Order name: IV Saline Lock - Large Bore; Complete Time: 18:22 ms3 07/03 18:10 Order name: Vital Signs; Complete Time: 18:23 ms3 07/03 18:17 Order name: Labs - recollect needed: recollect light green top again; Complete Time: bd 19:13 EC:05 Rate is 92 beats/min. Rhythm is regular. QRS [place] is Normal. MI interval is shortened. ms3 QRS interval is normal. Clinical impression: NSR w/ Non-specific ST/T Changes. Interpreted by me. Reviewed by me. Administered Medications: 17:37 Drug: Albuterol Inhalation 2.5 mg Inhalation every 20 minutes x3 Route: Inhalation; db 17:40 Drug: MethylPrednisoLONE IVP 125 mg IVP once Route: IVP; Site: left forearm; db 21:12 Follow up: Response: No adverse reaction kd4 17:48 Drug: Albuterol Inhalation 2.5 mg Inhalation every 20 minutes x3 Route: Inhalation; db 21:12 Follow up: Response: No adverse reaction kd4 19:13 Drug: AZITHromycin IVPB 500 mg IVPB once over 1 hrs; (mix in 250 mL NS) Route: IVPB; db Infused Over: 1 hrs; Site: left forearm; 21:12 Follow up: IV Status: Infusion continued kd4 20:27 Drug: Ativan IVP 0.5 mg IVP once Route: IVP; Site: left antecubital; kd4 21:12 Follow up: Response: No adverse reaction kd4 Disposition: 19:39 Critical Care:. ms3 Disposition Summary: 07/03/24 19:38 Hospitalization Ordered Notes: Hospitalization Status: Observation ms3 Provider: Davis Streeter ms3 Location: Telemetry/MedSurg (observation) ms3 Condition: Stable ms3 Problem: new ms3 Symptoms: are unchanged ms3 Bed/Room Type: Standard ms3 Room Assignment: 230(07/03/24 19:55) af3 Diagnosis - COPD/ Chronic obstructive pulmonary disease with (acute) exacerbation ms3 - Acute respiratory failure ms3 - Anxiety disorder, unspecified ms3 Forms: - Medication Reconciliation Form ms3 - SBAR form ms3 - Leadership Thank You Letter ms3 Critical care time excluding procedures: 19:39 Critical care time: Bedside Care: 30 minutes, Consultation: 5 minutes, Family ms3 Intervention: 5 minutes. Total time: 40 minutes Signatures: Dispatcher [employer] Key Thomas Marcus, DO DO ms3 Sagrario Bucio RN RN db Dahissa, Karim, RN RN kd4 Tati Reese af3 Corrections: (The following items were deleted from the chart) 17:04 17:04 BASIC METABOLIC PANEL+C.LAB.BRZ ordered. EDMS EDMS 17:04 17:04 CBC+H.LAB.BRZ ordered. EDMS EDMS 17:04 17:04 HEPATIC FUNCTION+C.LAB.BRZ ordered. EDMS EDMS 17:04 17:04 MAGNESIUM+C.LAB.BRZ ordered. EDMS EDMS 17:04 17:04 PROBNP+C.LAB.BRZ ordered. EDMS EDMS 17:04 17:04 Troponin High Sensitivity+C.LAB.BRZ ordered. EDMS EDMS 17:04 17:04 Chest Single View+RAD.RAD.BRZ ordered. EDMS EDMS 18:10 18:10 BLOOD CULTURE*+BA.LAB.BRZ ordered. EDMS EDMS 18:10 18:10 COMPREHENSIVE METABOLIC PANEL+C.LAB.BRZ ordered. EDMS EDMS 18:10 18:10 LACTATE+C.LAB.BRZ ordered. EDMS EDMS 18:10 18:10 PROTIME (+INR)+COAG.LAB.BRZ ordered. EDMS EDMS 18:10 18:10 PTT, ACTIVATED+COAG.LAB.BRZ ordered. EDMS EDMS 19:39 18:05 Abdomen/GI: Soft, non-tender, with normal bowel sounds. No distension or tympany. ms3 No guarding or rebound. No evidence of tenderness throughout. Skin: Warm, dry with normal turgor. Normal color with no rashes, no lesions, and no evidence of cellulitis. MS/ Extremity: Pulses equal, no cyanosis. Neurovascular intact. Full, normal range of motion. ms3 19:55 19:38 ms3 af3
[2024-07-03 19:42] LABS: Albumin 3.8 g/dL (3.4-5.0); Anion Gap 9.8 mEq/L (5.0-15.0); Bilirubin Total 0.5 mg/dL (0.2-1.0); Globulin 3.7 g/dL (2.3-3.5); Potassium 3.8 mEq/L (3.5-5.1); Protein, Total 7.5 g/dL (6.4-8.2)
--- NOTE | 2024-07-03 19:48 | P.HP ---
Certification for Inpatient Patient admitted to: Observation With expected LOS: <2 Midnights <Loree Ydaav - Last Filed: 07/04/24 05:10> Patient History Date of Service: 07/04/24 Reason for admission: Shortness of breath History of Present Illness: 54 year old female with past medical history of COPD, DVT, hypertension, neuropathy, history of vulvar and cervical cancer s/p chemotherapy who was brought to ER with shortness of breath that began 2 days ago and has been progressively getting worse. She reports she was recently admitted, reports her breathing has gotten worse. Denies any chest pain. No fever or chills. She denies sick contacts.plan to admit for COPD exacerbation and hypoxic respiratory failure - Past Medical/Surgical History Diabetic: No -: COPD -: Vulvar & Cervical Cancer in Remission -: Hypertension -: Hysterectomy -: Psychosocial/ Personal History: Patient is , lives at home with . - Family History Mother -: Cancer Notes: Brain cancer Father -: Hypertension - Social History Alcohol use: No CD- Drugs: No Caffeine use: Yes <Loree Yadav - Last Filed: 07/04/24 05:10> Date of Service: 07/04/24 <Davis Streeter - Last Filed: 07/04/24 12:28> Allergies No Known Allergies Allergy (Verified 04/21/21 04:16) Home Medications: Nifedipine [Nifedipine ER] 30 mg PO DAILY 03/04/23 Albuterol Sulfate [Proair Digihaler] 2 puff PO BID PRN 06/26/24 Fluticasone/Umeclidin/Vilanter [Trelegy Ellipta 100-62.5-25] 2 puff PO BID PRN 06/26/24 Losartan Potassium 100 mg PO DAILY 06/26/24 Nirmatrelvir/Ritonavir [Paxlovid 2X150 mg-100 mg] 3 tab PO BID 5 Days #30 tab 06/27/24 ALPRAZolam [Xanax*] 0.5 mg PO BID PRN #30 tab 07/01/24 Cefdinir [Cefdinir*] 300 mg PO BID #14 cap 07/01/24 Melatonin 10 mg PO BEDTIME PRN PRN #30 tab 07/01/24 predniSONE [Prednisone*] 20 mg PO BID #20 tab 07/01/24 ALPRAZolam [Xanax] 0.5 mg PO BID #30 tab 07/02/24 Review of Systems Per HPI <Loree Yadav - Last Filed: 07/04/24 05:10> Physical Examination - Vital Signs Pulse Ox (%): 100 - Physical Exam General: Alert, In no apparent distress, Oriented x3 HEENT: Atraumatic, Normocephalic Respiratory: Normal air movement, Expiratory wheezes Cardiovascular: Normal pulses, Regular rate/rhythm Gastrointestinal: Normal bowel sounds, Soft and benign Musculoskeletal: No swelling, No contractures Integumentary: No breakdown, No significant lesion Neurological: Normal speech, Normal strength at 5/5 x4 extr - Studies Laboratory Data (last 24 hrs) 07/03/24 07/03/24 19:08 17:23 WBC 13.50 H Hgb 15.3 H Hct 46.2 H Plt Count 411 H Sodium 138 Potassium 3.8 BUN 23 H Creatinine 0.57 Glucose 132 H Total Bilirubin 0.5 AST 16 ALT 33 Alkaline Phosphatase 58 <Loree Yadav - Last Filed: 07/04/24 05:10> - Studies Laboratory Data (last 24 hrs) 07/03/24 07/03/24 07/03/24 19:08 17:58 17:23 WBC 13.50 H Hgb 15.3 H Hct 46.2 H Plt Count 411 H Sodium 138 Cancelled Potassium 3.8 Cancelled BUN 23 H Cancelled Creatinine 0.57 Cancelled Glucose 132 H Cancelled Magnesium Cancelled Total Bilirubin 0.5 Cancelled AST 16 Cancelled ALT 33 Cancelled Alkaline Phosphatase 58 Cancelled <Davis Streeter - Last Filed: 07/04/24 12:28> Assessment and Plan - Plan Assessment plan Acute hypoxic respiratory failure secondary to COPD exacerbation Leukocytosis O2 2 L keep sats greater than 90% Resume home inhalers, steroids, Zosyn ABG, chest x-ray IMPRESSION: No acute cardiopulmonary process. History of DVT Neuropathy Resume appropriate home Lovenox History of valvular and cervical cancer status postchemotherapy Follow-up with oncologist outpatient Full code DVT Lovenox Diet cardiac Disposition Home with home O2 Discharge Plan: Home - Advance Directives Does patient have a Living Will: No Does patient have a Durable POA for Healthcare: No - Code Status/Comfort Care Code Status: Full Code Critical Care: No Time Spent Managing Pts Care (In Minutes): 55 <Loree Yadav - Last Filed: 07/04/24 05:10> - Plan Pt seen and examined. I agree with the note by the [employer]. Pt is a 54 yo female with past medical history of DVT, neuropathy, and cervical cancer who presents with SOB due to acute COPD exacerbation. On admission, pt was hypoxic. ER physician placed BIPAP and her respiratory status improved. At bedside, pt reported feeling anxious and SOB. A/P: Acute COPD exacerbation: Will steroid, 2L BNC, duoneb and zosyn. Consulted Pulm Hx of DVT: continue AC Neuropathy; Continue home med Hx of cervical cancer: s/p chemotherapy. DVT ppx: lovenox Code: full <Davis Streeter - Last Filed: 07/04/24 12:28>
[2024-07-03] MEDS ORDERED: LORazepam 2 MG/ML VIAL ONE (20:25)
[2024-07-03 21:29] VITALS: BMI 18.3
[2024-07-03] MEDS ORDERED: IPRATROPIUM BROM 0.5MG/2.5ML NEB PRN (22:16)
[2024-07-03] MEDS ORDERED: ONDANSETRON 4 MG/2 ML VIAL IV PRN (22:16)
[2024-07-03] MEDS ORDERED: ALBUTEROL 2.5 MG/3 ML NEB SOL NEB PRN (22:16)
[2024-07-04 02:48] LABS: Specific Gravity 1.025 (1.005-1.030); Sqamous Epithelial <5 /HPF (None Seen); Urine Bacteria <20 /HPF (<20); Urine Bilirubin NEGATIVE (Negative); Urine Blood 1+ (Negative); Urine Clarity Turbid (Clear); Urine Color Light-Yellow (Yellow); Urine Culture Reflex Order NOT NEEDED; Urine Glucose NEGATIVE (Negative); Urine Ketones TRACE (Negative); Urine Microscopic Reflex YN ORDER UMIC; Urine Mucus Slight /HPF (None Seen); Urine Nitrite NEGATIVE (Negative); Urine Protein TRACE (Negative); Urine Urobilinogen Normal (Normal); Urine WBC <5 /HPF (<5); Urine pH 5.5 (5.0-7.0)
[2024-07-04] MEDS ORDERED: IPRATROPIUM BROM 0.5MG/2.5ML NEB PRN (05:08)
[2024-07-04] MEDS ORDERED: BENZONATATE 100 MG CAP PO PRN (05:11)
[2024-07-04] MEDS: METHYLPREDNISOLONE 125 MG INJ IV SCH (06:20)
[2024-07-04] MEDS: PIPER TAZO 3.375 GM in NA CHLORIDE 0.9% 100 ML IV SCH (06:20)
[2024-07-04 07:03] LABS: Absolute Lymphocytes (CBC) 1.7 K/uL (0.7-4.9); Absolute Monocytes 1.1 K/uL (0.1-1.3); Absolute Neutrophil 4.7 K/uL (1.8-8.0); Basophils % 0.4 % (0-1.3); Hematocrit 41.5 % (36.0-45.0); Lymphocytes % 22.9 % (15.3-44.8); MCH 33.6 pg (27.0-35.0); MCHC 33.9 g/dL (32.0-36.0); MCV 99.2 fL (80-100); MPV 6.5 fL (7.6-11.3); Monocytes % 14.4 % (3.3-12.3); Neutrophils % 62.3 % (41.7-73.7); Nucleated Red Blood Cells % 0.1 % (0-0); Platelets 414 thou/uL (152-406); RBC Red Blood Cell Count 4.18 M/uL (3.86-4.86); Red Cell Distribution Width 13.4 % (12.1-15.2)
[2024-07-04 07:21] LABS: Anion Gap 6.3 mEq/L (5.0-15.0); BUN Blood Urea Nitrogen 24 mg/dL (7-18); Bicarbonate 33 mEq/L (21-32); Glomerular Filtration Rate 105 ml/min (=/>90); Glucose Level 113 mg/dL (74-106); Magnesium 2.5 mg/dL (1.6-2.4); Potassium 4.3 mEq/L (3.5-5.1); Sodium Level 139 mEq/L (136-145)
[2024-07-04] MEDS: NIFEDIPINE XL 30 MG TABLET PO SCH (08:49)
[2024-07-04] MEDS: LOSARTAN POTASSIUM 50 MG TABLET PO SCH (08:49)
[2024-07-04 09:12] LABS: Bilirubin Direct < 0.2 mg/dL (0-0.2); NT PRO-BNP 434 pg/mL (<125)
[2024-07-04 09:32] LABS: Troponin High Sensitivity 27.4 pg/mL (<58.9)
[2024-07-04 09:41] LABS: PT Prothrombin Time 11.9 SECONDS (9.4-12.5); PTT, Activated Partial Thromb 27.2 SECONDS (24.3-36.9); Protime INR 1.06
[2024-07-04 10:33] LABS: Sqamous Epithelial <5 /HPF (None Seen); Urine Bacteria None Seen /HPF (<20); Urine Culture Reflex Order NOT NEEDED; Urine Microscopic Reflex YN ORDER UMIC; Urine Mucus Slight /HPF (None Seen); Urine WBC None Seen /HPF (<5); Urine Yeast (Budding) Trace /HPF (None Seen)
[2024-07-04 10:42] LABS: Urine Clarity Clear (Clear); Urine Color Light-Yellow (Yellow)
[2024-07-04 10:43] LABS: Specific Gravity > 1.032 (1.005-1.030); Urine Bilirubin Negative (Negative); Urine Blood Trace (Negative); Urine Glucose Negative (Negative); Urine Ketones Negative (Negative)
[2024-07-04 10:44] LABS: Urine Nitrite Negative (Negative); Urine Protein 1+ (Negative); Urine Urobilinogen Normal (Normal)
--- NOTE | 2024-07-04 12:36 | P.PN ---
Subjective Date of Service: 07/04/24 Chief Complaint: Shortness of breath Pt is resting comfortably in bed. She complains of SOB and anxiety. She is getting iv abx and steroid. No other complaints. Review of Systems General: Unremarkable Eyes: Unremarkable ENT: Unremarkable Respiratory: SOB with Excertion Cardiovascular: Unremarkable Gastrointestinal: Unremarkable Genitourinary: Unremarkable Musculoskeletal: Unremarkable Integumentary: Unremarkable Neurological: Unremarkable Lymphatics: Unremarkable Physical Examination - Vital Signs Temperature: 97.6 F Blood Pressure: 148/91 Pulse: 81 Respirations: 16 Pulse Ox (%): 98 - Physical Exam General: Alert, In no apparent distress, Oriented x3 HEENT: Atraumatic, Normocephalic, PERRLA Neck: Supple, 2+ carotid pulse no bruit, JVD not distended Respiratory: Clear to auscultation bilaterally, Normal air movement Cardiovascular: No edema, Normal pulses, Regular rate/rhythm, Normal S1 S2 Capillary refill: <2 Seconds Gastrointestinal: Normal bowel sounds, Soft and benign, Non-distended Musculoskeletal: No clubbing, No swelling, No contractures Integumentary: No rashes, No breakdown, No significant lesion Neurological: Normal gait, Normal speech, Normal strength at 5/5 x4 extr Lymphatics: No axilla or inguinal lymphadenopathy - Studies Laboratory Data (last 24 hrs) 07/03/24 07/03/24 07/03/24 19:08 17:58 17:23 WBC 13.50 H Hgb 15.3 H Hct 46.2 H Plt Count 411 H Sodium 138 Cancelled Potassium 3.8 Cancelled BUN 23 H Cancelled Creatinine 0.57 Cancelled Glucose 132 H Cancelled Magnesium Cancelled Total Bilirubin 0.5 Cancelled AST 16 Cancelled ALT 33 Cancelled Alkaline Phosphatase 58 Cancelled Assessment And Plan - Plan Acute COPD exacerbation: Will steroid, 2L BNC, duoneb and zosyn. Consulted Pulm. Hx of DVT: continue lovenox Neuropathy: Continue home med Hx of cervical cancer: s/p chemotherapy. DVT ppx: lovenox Code: full Dispo: pending hospital course.
[2024-07-04] MEDS: ENOXAPARIN 30 MG/0.3 ML SQ SCH (17:05)
[2024-07-04] MEDS: ALPRAZOLAM 0.25 MG TABLET PO PRN (20:43)
[2024-07-04] MEDS: ACETAMINOPHEN 500 MG TAB PO PRN (21:44)
[2024-07-05 05:39] LABS: Albumin 3.2 g/dL (3.4-5.0); Anion Gap 6.4 mEq/L (5.0-15.0); Bilirubin Total 0.4 mg/dL (0.2-1.0); Globulin 3.2 g/dL (2.3-3.5); Potassium 4.4 mEq/L (3.5-5.1); Protein, Total 6.4 g/dL (6.4-8.2)
[2024-07-05] MEDS: LORAZEPAM 0.5 MG TABLET PO PRN (11:30)
[2024-07-05] MEDS: ARFORMOTEROL TARTRATE 15 MCG/2 ML VIAL.NEB NEB SCH (13:03)
--- NOTE | 2024-07-05 13:13 | P.PN ---
Subjective Date of Service: 07/05/24 Chief Complaint: Shortness of breath Pt is resting comfortably in bed. She complains of SOB and anxiety. She is getting iv abx and steroid. Pt is asking for anxiolytic. She became SOB aftertrying to walk to the bathroom. Waiting for Pulm eval. No other complaints. Review of Systems General: Unremarkable Eyes: Unremarkable ENT: Unremarkable Respiratory: Shortness of Breath Cardiovascular: Unremarkable Gastrointestinal: Unremarkable Genitourinary: Unremarkable Musculoskeletal: Unremarkable Integumentary: Unremarkable Neurological: Unremarkable Lymphatics: Unremarkable Physical Examination - Vital Signs Temperature: 97.6 F Blood Pressure: 177/90 Pulse: 96 Respirations: 16 Pulse Ox (%): 95 - Physical Exam General: Alert, In no apparent distress, Oriented x3 HEENT: Atraumatic, Normocephalic, PERRLA Neck: Supple, 2+ carotid pulse no bruit, JVD not distended Respiratory: Clear to auscultation bilaterally, Normal air movement Cardiovascular: No edema, Normal pulses, Regular rate/rhythm Capillary refill: <2 Seconds Gastrointestinal: Normal bowel sounds, Soft and benign, Non-distended Musculoskeletal: No clubbing, No swelling, No contractures Integumentary: No rashes, No breakdown, No significant lesion Neurological: Normal gait, Normal speech, Normal strength at 5/5 x4 extr Lymphatics: No axilla or inguinal lymphadenopathy Assessment And Plan - Plan Acute COPD exacerbation: Will steroid, 2L BNC, duoneb and zosyn. Consulted Pulm. Anxiety: Continue prn ativan Hx of DVT: continue lovenox Neuropathy: Continue home med Hx of cervical cancer: s/p chemotherapy. DVT ppx: lovenox Code: full Dispo: pending hospital course.
[2024-07-05] MEDS: BUSPIRONE HCL 5 MG TABLET PO SCH (14:18)
--- NOTE | 2024-07-05 16:25 | EKG ---
Test Date: 2024-07-03 Test Time: 17:23:00 Branch Assistant: CATERINA MEASUREMENT RESULTS: Intervals: Rate: 92 KS: 100 QRSD: 72 QT: 346 QTc: 427 [place]: P: 88 KS: 100 QRS: 81 T: 47 INTERPRETIVE STATEMENTS: Sinus rhythm with short KS Right atrial enlargement Cannot rule out Anterior infarct, age undetermined Abnormal ECG Compared to ECG 06/29/2024 20:16:49 Short KS interval now present Atrial abnormality now present Sinus tachycardia no longer present Myocardial infarct finding still present Electronically Signed On 07-05-24 16:24:12 CDT by Myles Metcalf
[2024-07-05] MEDS: ALPRAZOLAM 0.25 MG TABLET PO SCH (20:25)
[2024-07-05] MEDS: predniSONE 20 MG TAB PO SCH (20:25)
[2024-07-05] MEDS: IPRATROPIUM BROM 0.5MG/2.5ML NEB SCH (20:29)
[2024-07-06 10:09] VITALS: O2SAT 94
[2024-07-06 12:20] VITALS: BP 123/87; TEMP 97.8
== END 2024-07-06 14:05 | disposition home or self-care (01) | DRG 190 ==
LOC: ER 16:56 → 2ND 19:48 → OBSVTOIN 07-05 14:28
PROVIDERS: ADMIT Hospitalist; ATTEND Hospitalist
PROC: 5A09357 Assistance with Respiratory Ventilation, Less than 24 Consecutive Hours, Continuous Positive Airway Pressure (ICD-10-PCS; principal; 2024-07-05)
DX: J44.1 Chronic obstructive pulmonary disease with (acute) exacerbation (principal); J96.01 Acute respiratory failure with hypoxia; D72.829 Elevated white blood cell count, unspecified; G62.9 Polyneuropathy, unspecified; I10 Essential (primary) hypertension; F41.9 Anxiety disorder, unspecified; Z79.899 Other long term (current) drug therapy; Z86.718 Personal history of other venous thrombosis and embolism; Z85.41 Personal history of malignant neoplasm of cervix uteri; Z90.710 Acquired absence of both cervix and uterus; Z82.49 Family history of ischemic heart disease and other diseases of the circulatory system; Z80.8 Family history of malignant neoplasm of other organs or systems
CPT/HCPCS: 36415; 36600; 71045; 80048; 80053; 81001; 82248; 82805; 83605; 83735; 83880; 84484; 85025; 85610; 85730; 87040; 93005; 94640; 94660; 94760; 99285; G0378; J1650; J2543; J2919; J7050; J7512; J7605; J7613; J7644

== ENCOUNTER 2025-02-15 15:53 | Emergency (ER) | payer OTHER ==
--- OUTSIDE RECORDS SUMMARY | 2025-02-15 15:56 | XMS REPORT | Clinical Summary ---
Author Name Unknown Organization [facility] Address [address] [place] [address] Care Team Providers Care Appeals Examiner Name Role Phone Unavailable Primary Care Provider Unavailabl e Allergies No known active allergies Medications * This document contains information received from the source organization and may not represent a complete record from that organization. naproxen sodium (ALEVE) 220 mg cap Take [...] drink = 0.6 oz pur e alcohol) Comments No Sex and Gender Information Value Date Recorded Sex Assigned at Not on file Legal Sex Female 11:11 AM CDT Gender Identity Not on file Sexual Orientation Not on file Obstetrics History Plan of Treatment Health Maintenance Due Date Last Done Comments Pneumococcal Vaccine: 50+ Years (1 of 1 - PCV) 018 COVID-19 Vaccine ( - 2023-25 season) 2024 Influenza Vaccine (#1) 2024
[2025-02-15] MEDS ORDERED: HYDROCODONE/APAP 10/325 TAB ONE (16:29)
--- NOTE | 2025-02-15 18:07 | RAD REPORT ---
EXAM: Thoracic Spine W/o Cont HISTORY:back pain COMPARISON: None TECHNIQUE: Multiple contiguous axial images were obtained in a CT of the thoracic spine without contr ast. Sagittal and coronal reformats were performed. One or more of the following dose reduction techniques were used: Automated exposure control, adjustment of the mA and/or kV according to patient size, and/or iterative reconstruction. Unless otherwise specified, incidental findings do not require dedicated imaging follow-up. [id number]. FINDINGS: The vertebral bodies and intervertebral discs demonstrate normal height and alignment without fractur e or subluxation. No significant focal degenerative changes are present. Some minimal endplate spurring and disc height loss is noted. The prevertebral and paraspinal soft tissues are unremarkable. IMPRESSION: No evidence of acute osseous abnormality of the thoracic spine.
--- NOTE | 2025-02-15 18:14 | RAD REPORT ---
EXAMINATION: Spine Lumbar Wo Con CLINICAL INDICATION: Female, 54 years old. PAIN TECHNIQUE: Axial CT images were obtained through the lumbar spine in soft tissue and bone windows wit hout intravenous contrast. Coronal and Sagittal reformatted images were created from the data set. One or more of the following dose reduction techniques were used: Automated exposure control, adjustm ent of the mA and/ or kV according to patient size, and/or iterative reconstruction. Unless otherwise specified, incidental findings do not require dedicated imaging follow-up. [id number]. COMPARISON: No prior exam. FINDINGS: For purposes of this dictation, it is assumed that there are 5 non rib-bearing lumbar type vertebrae, and the most caudal fully segmented lumbar vertebra is labeled L5. ALIGNMENT: The lumbar spine demonstrates normal alignment without scoliosis or spondylolisthesis. BONES: Chronic mild compression deformity at L2 with less than 20% loss of height. DISCS: Moderate to severe disc height loss at L2-3 and L3-4. LEVELS: No significant spinal canal or neural foraminal stenosis. No visualized abnormality within th e spinal canal. SOFT TISSUE: No soft tissue abnormalities. IMPRESSION: No acute lumbar spine abnormalities. Remote L2 compression fracture.
--- NOTE | 2025-02-15 18:16 | RAD REPORT ---
EXAMINATION: Pelvis Wo Cont CLINICAL INDICATION: Female, 54 years old. back and pelvic pain, hx of cancer TECHNIQUE: CT pelvis was performed, without IV contrast, as per department protocol. Axial, sagittal and coronal reconstructions were obtained. One or more of the following dose reduction techniques were used: Automated exposure control, adjustment of the mA and/or kV according to patient size, and/ or iterative reconstruction. Unless otherwise specified, incidental findings do not require dedicated imaging follow-up. [id number]. IV CONTRAST: Not administered. COMPARISON: No prior exam. FINDINGS: SMALL BOWEL/COLON: Small bowel has normal course and caliber. No colonic wall thickening or pericolon ic inflammatory changes. LYMPH NODES: No lymphadenopathy. ABDOMINAL AORTA AND OTHER VESSELS: Severe atherosclerotic changes. No aortic aneurysm. PERITONEUM: No abnormal free fluid. No free air. ABDOMINAL WALL: No significant abnormality. REPRODUCTIVE ORGANS: No pathologic process. URINARY BLADDER: Decompressed, not well assessed. MUSCULOSKELETAL: No acute or suspicious osseous abnormality. ADDITIONAL FINDINGS: None. IMPRESSION: No pelvic or hip fracture identified.
--- NOTE | 2025-02-15 18:55 | EDPHYS ---
Physician Documentation [facility] Name: Abbey Alves Age: 54 yrs Sex: Female : 1970 Arrival Date: 02/15/2025 Time: 15:53 Bed DX3 Private MD: ED Physician Rui Proctor HPI: 02/15 16:43 This 54 yrs old Female presents to ER via Ambulatory with complaints of Back Pain. rn 16:43 The patient presents with pain that is chronic. The symptoms are located in the low rn back. Onset: The symptoms/episode began/occurred 4 month(s) ago. Associated signs and symptoms: Pertinent negatives: abdominal pain, chest pain, constipation, dysuria, fever, hematuria, incontinence, nausea, urinary retention. Modifying factors: The patient symptoms are alleviated by nothing, the patient symptoms are aggravated by any movement. Severity of symptoms: At their worst the symptoms were moderate, in the emergency department the symptoms are unchanged. The patient has experienced similar episodes in the past. Patient reports has been having low back pain for 4 months now. Seen by PCP who recommended imaging and back specialist, never made an appointment never got it done. No fever or chills. Patient with history of cervical and vulvar cancer and is now cancer free. States cancer never spread to the bone. Patient is worried most that she has recurrence of cancer that is maybe spread to the bone. Denies any vulvar or vaginal complaints. No discharge or vaginal bleeding. Patient denies trauma. Patient taking gabapentin from PCP and states originally was helping but not anymore. Patient has appointment with back specialist in 5 days.. Historical: - Allergies: 16:21 No Known Allergies; ap3 - PMHx: 16:21 COPD; COVID (Vulva and cervical ); DVT; Hypertensive disorder; neuropathy; Previous ap3 chemotherapy; Vulva and cervical CA; - PSHx: 16:21 section; hysterectomy; ap3 - Immunization history:: Client reports receiving the 2nd dose of the Covid vaccine, Flu vaccine is up to date. - Infectious Disease History:: Denies. - Social history:: Smoking status: Patient reports the use of cigarette tobacco products, denies chronic smoking, but will smoke occasionally. - Family history:: not pertinent. - Hospitalizations: : No recent hospitalization is reported. ROS: 16:43 Constitutional: Negative for fever, chills, and weight loss, Cardiovascular: Negative rn for chest pain, palpitations, and edema, Respiratory: Negative for shortness of breath, cough, wheezing, and pleuritic chest pain, Abdomen/GI: Negative for abdominal pain, nausea, vomiting, diarrhea, and constipation, Back: Positive for mid and lower back pain : Negative for injury, bleeding, discharge, and swelling, MS/Extremity: Negative for injury and deformity, Skin: Negative for injury, rash, and discoloration, Neuro: Negative for headache, weakness, numbness, tingling, and seizure, Exam: 16:43 Constitutional: This is a well developed, well nourished patient who is awake, alert, rn and in no acute distress. Ambulatory to room without assistance or difficulty Cardiovascular: Regular rate and rhythm. No pulse deficits. Respiratory: No increased work of breathing, no retractions or nasal flaring. Abdomen/GI: Soft, non-tender Back: No spinal tenderness. MS/ Extremity: Pulses equal, no cyanosis. Neurovascular intact. Full, normal range of motion. Equal circumference. Neuro: Awake and alert, GCS 15, oriented to person, place, time, and situation. Cranial nerves II-XII grossly intact. Motor strength 5/5 in all extremities. Sensory grossly intact. Cerebellar exam normal. Antalgic gait. Vital Signs: 16:18 BP 136 / 99; Pulse 95; Resp 19; Temp 98.1; Pulse Ox 97% on R/A; Weight 42.64 kg; Height ap3 4 ft. 9 in. ; Pain 9/10; 16:18 Body Mass Index 20.34 (42.64 kg, 144.78 cm) ap3 16:18 Pain Scale: Adult ap3 MDM: 16:14 Medical Screening Exam initiated rn 18:53 Differential diagnosis: arthritis, chronic back pain, Fatigue Fracture Osteoarthritis rn sprain, vertebral fracture. Data reviewed: vital signs, nurses notes, radiologic studies, CT scan, and as a result, I will discharge patient. Counseling: I had a detailed discussion with the patient and/or guardian regarding the historical points, exam findings, and any diagnostic results supporting the discharge/admit diagnosis, radiology results, the need for outpatient follow up, to return to the emergency department if symptoms worsen or persist or if there are any questions or concerns that arise at home. Response to treatment: the patient's symptoms have mildly improved after treatment, and as a result, I will discharge patient. Special discussion: I discussed with the patient/guardian in detail that at this point there is no indication for admission to the hospital. It is understood, however, that if the symptoms persist or worsen the patient needs to return immediately for re-evaluation. Based on the history and exam findings, there is no indication for further emergent testing or inpatient evaluation. I discussed with the patient/guardian the need to see the back specialist for further evaluation of the symptoms. ED course: No acute findings and workup or imaging. Shows old L2 compression fracture but otherwise chronic findings. Patient has follow-up with back specialist and recommend keeping that appointment. Patient is relieved that we do not see any evidence of cancer or metastasis. I have personally reviewed all of the results, including but not limited to imaging deemed necessary to safely discharge this patient at this time. All results given to and printed out for patient. I personally went over all the results with the patient and answered all questions. Patient will follow-up with PCP and or specialist as discussed. Return precautions given and understood.. 02/15 16:32 Order name: CT Thoracic Spine Wo Cont; Complete Time: 18:33 rn 02/15 16:32 Order name: CT Lumbar Spine Wo Con; Complete Time: 18:33 rn 02/15 16:32 Order name: CT Pelvis wo Cont; Complete Time: 18:33 rn Administered Medications: 16:35 Drug: [place] PO 10 mg-325 mg 1 tabs PO once Route: PO; ap3 19:01 Follow up: Response: No adverse reaction; Pain is decreased jl7 Disposition Summary: 02/15/25 18:54 Discharge Ordered Notes: Location: Home rn Problem: new rn Symptoms: have improved rn Condition: Stable rn Diagnosis - Low back pain rn Followup: rn - With: Private Physician - When: As needed - Reason: Recheck today's complaints, Re-evaluation by your physician Discharge Instructions: - Discharge Summary Sheet rn - Chronic Back Pain rn - Lumbosacral Radiculopathy rn Forms: - Medication Reconciliation Form rn - Antibiotic 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
--- NOTE | 2025-02-15 18:55 | ER ---
Nurse's Notes [facility] Name: Abeby Alves Age: 54 yrs Sex: Female : 1970 Arrival Date: 02/15/2025 Time: 15:53 Bed DX3 Private MD: Diagnosis: Low back pain Presentation: 02/15 16:18 Chief complaint: Chief complaint: Patient states: she has been having back pain for ap3 several weeks, but it has gotten to where she can no longer control the pain. patient states she has a history of cancer and has beaten it several times, and is worried it might have come back into her bones. patient reports the pain is in her back but it makes her legs feel "weak". patient reports normal bowel and urine habits at this time. Coronavirus screen: At this time, the client does not indicate any symptoms associated with coronavirus-19. Ebola Screen: No symptoms or risks identified at this time. Initial Sepsis Screen: Does the patient meet any 2 criteria? No. Patient's initial sepsis screen is negative. Does the patient have a suspected source of infection? No. Patient's initial sepsis screen is negative. Risk Assessment: Do you want to hurt yourself or someone else? Patient reports no desire to harm self or others. Onset of symptoms is unknown. Transition of care: patient was not received from another setting of care. 16:18 Method Of Arrival: Ambulatory ap3 16:18 Acuity: KEELY 3 ap3 Triage Assessment: 16:22 General: Appears uncomfortable, Behavior is calm, cooperative, appropriate for age. ap3 Pain: Complains of pain in back Pain currently is 9 out of 10 on a pain scale. Neuro: Level of Consciousness is awake, alert, obeys commands, Oriented to person, place, time, situation, Appropriate for age Gait is steady, Speech is normal. Cardiovascular: Patient's skin is warm and dry. Respiratory: Airway is patent Respiratory effort is even, unlabored, Respiratory pattern is regular, symmetrical. Musculoskeletal: Range of motion: intact in all extremities, Reports pain in back. Historical: - Allergies: 16:21 No Known Allergies; ap3 - PMHx: 16:21 COPD; COVID (Vulva and cervical ); DVT; Hypertensive disorder; neuropathy; Previous ap3 chemotherapy; Vulva and cervical CA; - PSHx: 16:21 section; hysterectomy; ap3 - Immunization history:: Client reports receiving the 2nd dose of the Covid vaccine, Flu vaccine is up to date. - Infectious Disease History:: Denies. - Social history:: Smoking status: Patient reports the use of cigarette tobacco products, denies chronic smoking, but will smoke occasionally. - Family history:: not pertinent. - Hospitalizations: : No recent hospitalization is reported. Screenin:23 Abuse screen: Denies threats or abuse. Nutritional screening: No deficits noted. ap3 Tuberculosis screening: No symptoms or risk factors identified. Vital Signs: 16:18 BP 136 / 99; Pulse 95; Resp 19; Temp 98.1; Pulse Ox 97% on R/A; Weight 42.64 kg; Height ap3 4 ft. 9 in. ; Pain 9/10; 16:18 Body Mass Index 20.34 (42.64 kg, 144.78 cm) ap3 16:18 Pain Scale: Adult ap3 ED Course: 16:03 Patient arrived in ED. al6 16:14 Rui Proctor MD is Attending Physician. rn 16:21 Triage completed. ap3 16:23 Arm band placed on right wrist. ap3 17:49 CT Thoracic Spine Wo Cont In Process Unspecified. EDMS 17:49 CT Lumbar Spine Wo Con In Process Unspecified. EDMS 17:50 CT Pelvis wo Cont In Process Unspecified. EDMS 19:00 Patient has correct armband on for positive identification. Provided Education on: jl7 discharge. 19:00 No provider procedures requiring assistance completed. Patient did not have IV access jl7 during this emergency room visit. Administered Medications: 16:35 Drug: [place] PO 10 mg-325 mg 1 tabs PO once Route: PO; ap3 19:01 Follow up: Response: No adverse reaction; Pain is decreased jl7 Medication: 19:01 VIS not applicable for this client. jl7 Outcome: 18:54 Discharge ordered by . rn 19:00 Discharged to home ambulatory, jl7 19:00 Condition: stable 19:00 Discharge instructions given to patient, Instructed on discharge instructions, follow up and referral plans. medication usage, Demonstrated understanding of instructions, follow-up care, medications, Prescriptions given X 2, 19:02 Patient left the ED. jl7 Signatures: Dispatcher [employer] EDMS Rui Proctor MD MD rn Leal, Jahala, RN RN jl7 Debi Figueroa, RN RN ap3 Mayela Ortiz
[2025-02-15 19:10] VITALS: BP 136/99; TEMP 98.1; O2SAT 97
== END 2025-02-15 19:02 | disposition home or self-care (01) ==
LOC: ER 15:53
DX: M54.50 Low back pain, unspecified (principal); Z85.41 Personal history of malignant neoplasm of cervix uteri; Z85.89 Personal history of malignant neoplasm of other organs and systems; F17.210 Nicotine dependence, cigarettes, uncomplicated
CPT/HCPCS: 72128; 72131; 72192; 99283